=== PATIENT | male | born 1955 | race Caucasian/White ===

== ENCOUNTER 2023-08-30 14:28 | Outpatient (AMB) | payer OTHER, SELFPAY ==
--- NOTE | 2023-08-30 14:35 | MHC.PC.OV ---
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 Intake Note: New patient visit Allergies No Known Allergies Allergy (Verified 08/30/23 14:36) Tobacco use date assessed: 08/30/23 Fall risk assessment: 2 + Falls in past year Last assessed Fall Risk: 08/30/23 Dental Screening Dental Screen Date: 08/30/23 Did you have a dental visit in the last 12 months?: Yes Did you have a dental problem in the last 6 months where you did not have access to dental care?: No Was dental information given to patient?: Patient has dentist HPI HPI Comments History of Present Illness Details The patient is a 68 year old male with a past medical history of TBI, YESICA on CPAP, COPD, recovered alcoholic, type 2 diabetes, hypertension, TAA presenting for follow up. He is accompanied by a health director of patient care. CV: Follows with [facility]. Admitted in Mar 2023 for CHF. Had JOSEF 03/2023 suggestive of atrial thrombus. Denies increased shortness of breath. Needs help managing medications at home due to h/o TBI Rsp: On Anoro. Follows with [facility]. Had LDCT with non suspicious appearing lung nodules. TBI: History of TBI. Saw neurology at [facility]. Followed with [facility]. Follows with [facility] injury program [facility]. Annia Schwartz. History recovered etoh. continues AA. Sober since 1992. Chronic pain: stable on chronic opioid therapy -DDD-history of cervical fusion and remote LS fusion. Follows with [facility]. Endocrine: Diabetes. controlled. On metformin 500mg daily ROS see HPI PHYSICAL EXAM: GENERAL: Alert and oriented x 3. NAD EYES: EOMI. Anicteric. HENT: Moist mucous membranes. No scleral icterus. No cervical lymphadenopathy. LUNGS: Clear to auscultation bilaterally. CARDIOVASCULAR: Regular rate and rhythm. No murmur. No JVD. ABDOMEN: Soft, non-tender +bs EXTREMITIES: No edema. Non-tender. SKIN: No rashes or lesions. Warm. NEUROLOGIC: No focal neurological deficits. Memory impaired PSYCHIATRIC: Cooperative. Appropriate mood and affect [facility] Medical History Diabetes Vitamin D deficiency, unspecified Tubular adenoma of colon Presenile dementia Polyp of colon YESICA (obstructive sleep apnea) Obesity Nicotine dependence Lumbar spondylosis with myelopathy Lumbar canal stenosis Incomplete emptying of bladder Hypertension Hyperlipidemia H/O traumatic brain injury ELIZABETH (generalized anxiety disorder) Depressive disorder Constipation, unspecified CHF (congestive heart failure) COPD (chronic obstructive pulmonary disease) Cervical arthritis Cardiomyopathy Benign prostatic hyperplasia with urinary obstruction Benign prostatic hyperplasia Benign hypertension Arrhythmia Angina pectoris Alcoholism Surgical History History of spinal fusion History of appendectomy History of cervical spinal arthrodesis History of hernia repair History of gastric surgery History of colonoscopy Family History Mother Lung cancer Smoker Father Diabetes High cholesterol Hypertension Unsteady gait Social History Household Members: None Housing: House Alcohol intake: former Year quit: 1987 Patient Tobacco Use Status: Former Tobacco user Tobacco use type: Cigar and Pipe Cigarettes Per Day: 2 e-Cigarette/Vaping Use: Never Used Second Hand Smoke Exposure: No Substance Use Type: Marijuana service: No Current occupational status: retired and disabled Cognitive needs: Yes (brain injury) Hearing needs: No Vision needs: No Questionnaire AUDIT C Alcohol Use Questionnaire (AUDIT-C) 1. How often do you have a drink containing alcohol?: Never (hasnt drank since 1984) 3. How often do you have six or more drinks on one occasion?: Never Total Score: 0 Physical exam (Primary Care) Vital Signs: Last Vital Signs Temp 98.1 F 08/30/23 14:40 Pulse 48 L 08/30/23 14:40 Resp 14 08/30/23 14:40 BP 110/52 L 08/30/23 14:40 Pulse Ox 99 08/30/23 14:40 Tobacco/Smoking Status: Tobacco use Status Tobacco use date assessed 08/30/23 08/30/23 14:49 Patient Tobacco Use Status Former Tobacco user 08/30/23 14:49 Tobacco use type Pipe,Cigar 08/30/23 14:49 e-Cigarette/Vaping Use Never Used 08/30/23 14:49 Assessment and Plan Assessment & Plan (1) TBI (traumatic brain injury): Code(s): S06.9XAA - Unspecified intracranial injury with loss of consciousness status unknown, initial encounter Qualifiers: Encounter type: sequela Loss of consciousness presence/duration: unknown LOC status Qualified Code(s): S06.9XAS - Unspecified intracranial injury with loss of consciousness status unknown, sequela Plan: Follows with [facility] Has [facility] Needs home care for medication management due to memory/TBI. home health requested (2) CHF (congestive heart failure): Code(s): I50.9 - Heart failure, unspecified Qualifiers: Heart failure chronicity: chronic Heart failure type: combined systolic and diastolic Qualified Code(s): I50.42 - Chronic combined systolic (congestive) and diastolic (congestive) heart failure Plan: Euvolemic. continue cardiology follow up (3) Malnourished: Code(s): E46 - Unspecified protein-calorie malnutrition Qualifiers: Malnutrition type: unspecified type Qualified Code(s): E46 - Unspecified protein-calorie malnutrition (4) Lumbar spondylosis with myelopathy: Code(s): M47.16 - Other spondylosis with myelopathy, lumbar region Plan: continue chronic opioid therapy for failed back syndrome Orders: Orders Hemoglobin A1c 08/30/23 M47.16 - Other spondylosis with myelopathy, lumbar region, R41.3 - Other amnesia, S06.9XAA - Unspecified intracranial injury with loss of consciousness status unknown, initial encounter Comprehensive Met. Panel 08/30/23 M47.16 - Other spondylosis with myelopathy, lumbar region, R41.3 - Other amnesia, S06.9XAA - Unspecified intracranial injury with loss of consciousness status unknown, initial encounter [facility]errals [facility] Referral I50.9 - Heart failure, unspecified, M47.16 - Other spondylosis with myelopathy, lumbar region, R41.3 - Other amnesia, S06.9XAA - Unspecified intracranial injury with loss of consciousness status unknown, initial encounter Medications: New quetiapine (Seroquel) Take along with 50mg tab for total of 75mg daily 25 mg PO BEDTIME 90 tabs 3RF quetiapine Take along with 25mg oral nightly tab for total of 75mg daily 50 mg PO BEDTIME 90 tabs 3RF metformin 500 mg PO DAILY 90 tabs 3RF Ensure High Protein (food supplemt, lactose-reduced) 1 ea PO DAILY 90 ea 3RF 90 days NS E46 - Unspecified protein-calorie malnutrition, R13.10 - Dysphagia, unspecified Coding Level of Care Code Est Pt Level 5 (08492) Diagnoses Traumatic brain injury, with unknown loss of consciousness status, sequela S06.9XAS Encounter type: sequela Loss of consciousness presence/duration: unknown LOC status 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 Heart failure chronicity: chronic Heart failure type: combined systolic and diastolic Malnutrition, unspecified type E46 Malnutrition type: unspecified type Lumbar spondylosis with myelopathy M47.16
[2023-08-30 14:40] VITALS: BP 110/52; PULSE 48; RESP 14; TEMP 36.7; O2SAT 99
== END 2023-08-30 16:33 | disposition home or self-care (01) ==
PROVIDERS: Visit Provider Internal Medicine
DX: I50.42 Chronic combined systolic (congestive) and diastolic (congestive) heart failure (principal); E46 Unspecified protein-calorie malnutrition; S06.9XAS Unspecified intracranial injury with loss of consciousness status unknown, sequela; M47.16 Other spondylosis with myelopathy, lumbar region
CPT/HCPCS: 99215

== ENCOUNTER 2023-08-30 15:25 | Outpatient (REF) | payer OTHER, SELFPAY ==
[2023-08-30 17:43] LABS: Alanine Aminotransferase 19 U/L (0-40); Albumin Level 4.2 g/dL (3.5-5.0); Alkaline Phosphatase 103 U/L (39-117); Anion Gap 11 (12-20); Aspartate Amino Transferase 25 U/L (5-37); Bilirubin Total 0.4 mg/dL (0.0-1.0); Blood Urea Nitrogen 14 mg/dL (9-16); Calcium 9.8 mg/dL (8.4-10.2); Carbon Dioxide 32 mmol/L (22-29); Chloride 101 mmol/L (96-108); Estimated Glomerular Filt Rate > 60; Glucose Random 83 mg/dL (60-115); Potassium 4.4 mmol/L (3.3-5.1); Sodium 140 mmol/L (135-145); Total Protein 7.3 g/dL (6.5-8.0)
[2023-08-30 17:47] LABS: Estimated Average Glucose 108 mg/dL; Hemoglobin A1c % 5.4 % (<6.0)
== END 2023-08-30 15:26 | disposition home or self-care (01) ==
LOC: HO.WFDLDS 15:25
PROVIDERS: Visit Provider Internal Medicine
DX: M47.16 Other spondylosis with myelopathy, lumbar region (principal); R41.3 Other amnesia; S06.9XAA Unspecified intracranial injury with loss of consciousness status unknown, initial encounter; X58.XXXA Exposure to other specified factors, initial encounter; Y93.9 Activity, unspecified; Y92.9 Unspecified place or not applicable; Y99.9 Unspecified external cause status
CPT/HCPCS: 36415; 80053; 83036

== ENCOUNTER → 2023-11-11 23:59 | Outpatient (BNV) | payer OTHER, SELFPAY | PROVIDERS: PCP Internal Medicine; Visit Provider Internal Medicine | DX: I10 Essential (primary) hypertension (principal); F17.210 Nicotine dependence, cigarettes, uncomplicated; J44.9 Chronic obstructive pulmonary disease, unspecified; E11.9 Type 2 diabetes mellitus without complications | CPT/HCPCS: G0179 ==

== ENCOUNTER 2023-11-15 14:00 | Outpatient (AMB) | payer OTHER, SELFPAY ==
--- NOTE | 2023-11-15 13:55 | A.OFFPC_ITS ---
Intake Visit Reasons: cataract surgery LT eye on 11/21-RT eye on 12/07 Intake Note: Pre op cataract surgery with Dr Hopkins. 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 Allergies No Known Allergies Allergy (Verified 11/15/23 13:55) Tobacco use date assessed: 08/30/23 Fall risk assessment: 2 + Falls in past year Last assessed Fall Risk: 11/15/23 Dental Screening Dental Screen Date: 08/30/23 [facility] Medical History Diabetes Vitamin D deficiency, unspecified Tubular adenoma of colon Presenile dementia Polyp of colon YESICA (obstructive sleep apnea) Obesity Nicotine dependence Lumbar spondylosis with myelopathy Lumbar canal stenosis Incomplete emptying of bladder Hypertension Hyperlipidemia H/O traumatic brain injury ELIZABETH (generalized anxiety disorder) Depressive disorder Constipation, unspecified CHF (congestive heart failure) COPD (chronic obstructive pulmonary disease) Cervical arthritis Cardiomyopathy Benign prostatic hyperplasia with urinary obstruction Benign prostatic hyperplasia Benign hypertension Arrhythmia Angina pectoris Alcoholism Surgical History History of spinal fusion History of appendectomy History of cervical spinal arthrodesis History of hernia repair History of gastric surgery History of colonoscopy Family History Mother Lung cancer Smoker Father Diabetes High cholesterol Hypertension Unsteady gait Social History Household Members: None Housing: House Alcohol intake: former Year quit: 1987 Patient Tobacco Use Status: Former Tobacco user Tobacco use type: Cigar and Pipe Cigarettes Per Day: 2 e-Cigarette/Vaping Use: Never Used Second Hand Smoke Exposure: No Substance Use Type: Marijuana service: No Current occupational status: retired and disabled Cognitive needs: Yes (brain injury) Hearing needs: No Vision needs: No Physical exam (Primary Care) Tobacco/Smoking Status: Tobacco use Status Tobacco use date assessed 08/30/23 08/30/23 14:49 Patient Tobacco Use Status Former Tobacco user 08/30/23 14:49 Tobacco use type Pipe,Cigar 08/30/23 14:49 e-Cigarette/Vaping Use Never Used 08/30/23 14:49 Coding
--- NOTE | 2023-11-15 14:13 | A.OFFPC_ITS ---
Vital Signs 11/15/23 14:15 Height 6 ft Weight 187 lb 8 oz BMI 25.4 BP 138/74 Blood Pressure Location Rt brachial Position Sitting Pulse 57 Pulse Source Pulse Oximeter Pulse Oximetry (%) 96 Oxygen Delivery Method Room Air Intake Visit Reasons: cataract surgery LT eye on 11/21-RT eye on 12/07 Allergies No Known Allergies Allergy (Verified 11/15/23 13:55) Tobacco use date assessed: 08/30/23 Dental Screening Dental Screen Date: 08/30/23 HPI HPI Comments History of Present Illness Details The patient is a 68 year old male with a past medical history of TBI, YESICA on CPAP, COPD, recovered alcoholic, type 2 diabetes, hypertension, TAA presenting for follow up. He is accompanied by a health care manager. YESICA-compliant with CPAP COPD-No recent exacerbation CV-No chest pain. No exertional dyspnea. Walks dog for 45 minutes. EKG without acute ischemic changes Diabetes is well controlled Tolerate anesthesia CV: Follows with [facility]. Admitted in Mar 2023 for CHF. Is euvolemic without chest pain or dyspnea Rsp: On Anoro. Follows with [facility]. Had LDCT with non suspicious appearing lung nodules. TBI: History of TBI. Saw neurology at [facility]. Followed with [facility] Follows with head injury program [facility]. Manager Location Annia Schwartz. History recovered etoh. continues AA. Sober since 1992. Chronic pain: stable on chronic opioid therapy -DDD-history of cervical fusion and [place]iott te LS fusion. Follows with [facility]. Endocrine: Diabetes. controlled. On metformin 500mg daily ROS see HPI PHYSICAL EXAM: GENERAL: Alert and oriented x 3. NAD EYES: EOMI. Anicteric. HENT: Moist mucous membranes. No scleral icterus. No cervical lymphadenopathy. LUNGS: Clear to auscultation bilaterally. CARDIOVASCULAR: Regular rate and rhythm. No murmur. No JVD. ABDOMEN: Soft, non-tender +bs EXTREMITIES: No edema. Non-tender. SKIN: No rashes or lesions. Warm. NEUROLOGIC: No focal neurological deficits. Memory impaired PSYCHIATRIC: Cooperative. Appropriate mood and affect [facility] Medical History Diabetes Vitamin D deficiency, unspecified Tubular adenoma of colon Presenile dementia Polyp of colon YESICA (obstructive sleep apnea) Obesity Nicotine dependence Lumbar spondylosis with myelopathy Lumbar canal stenosis Incomplete emptying of bladder Hypertension Hyperlipidemia H/O traumatic brain injury ELIZABETH (generalized anxiety disorder) Depressive disorder Constipation, unspecified CHF (congestive heart failure) COPD (chronic obstructive pulmonary disease) Cervical arthritis Cardiomyopathy Benign prostatic hyperplasia with urinary obstruction Benign prostatic hyperplasia Benign hypertension Arrhythmia Angina pectoris Alcoholism Surgical History History of spinal fusion History of appendectomy History of cervical spinal arthrodesis History of hernia repair History of gastric surgery History of colonoscopy Family History Mother Lung cancer Smoker Father Diabetes High cholesterol Hypertension Unsteady gait Social History Household Members: None Housing: House Alcohol intake: former Year quit: 1987 Patient Tobacco Use Status: Former Tobacco user Tobacco use type: Cigar and Pipe Cigarettes Per Day: 2 e-Cigarette/Vaping Use: Never Used Second Hand Smoke Exposure: No Substance Use Type: Marijuana service: No Current occupational status: retired and disabled Cognitive needs: Yes (brain injury) Hearing needs: No Vision needs: No Questionnaire PHQ-9 Over the last 2 weeks, how often have you been bothered by any of the following problems? 1. Little interest or pleasure in doing things: not at all 2. Feeling down, depressed, or hopeless: several days 3. Trouble falling or staying asleep, or sleeping too much: several days 4. Feeling tired or having little energy: several days 5. Poor appetite or overeating: not at all 6. Feeling bad about yourself - or that you are a failure or have let yourself or your family down: not at all 7. Trouble concentrating on things, such as reading the newspaper or watching television: not at all 8. Moving or speaking so slowly that other people could have noticed. Or the opposite - being so fidgety or restless that you have been moving around a lot more than usual: not at all 9. Thoughts that you would be better off or of hurting yourself in some way: not at all Total score: 3 Source: Developed by Drs. Nixon Torres, Neyda Marcum, Navin Jones and colleagues, with an educational michael from [employer] / ?.??. Thrive Questionnaire I am a: Patient What is your living situation today?: I have a steady place to live Within the past 12 months, did the food you bought not last and you didn't have the money to get more?: Sometimes True Within the past 12 months, did you worry whether your food would run out before you got money to buy more?: Never true Do you have trouble paying for medicines?: No Do you have trouble getting transportation to medical appointments?: No Do you have trouble paying your heating and electricity bill?: No Do you have trouble taking care of your child, family member or friend?: No Do you have trouble with day-to-day activities such as bathing, preparing meals, shopping, managing finances, etc.?: Yes Are you currently unemployed and looking for a job?: No Are you interested in more education?: No Please select the resources that you would like help with: None Currently or been in a relationship where the following occur: No concerns reported THRIVE Score: 1 AUDIT C Alcohol Use Questionnaire (AUDIT-C) 1. How often do you have a drink containing alcohol?: Never Total Score: 0 ELIZABETH-7 AMB Questionnaire ELIZABETH-7 Feeling nervous, anxious, or on edge: 1 = Several days Not being able to stop or control worryin = Not at all Worrying too much about different things: 0 = Not at all Trouble relaxin = Not at all Being so restless that it is hard to sit still: 0 = Not at all Becoming easily annoyed or irritable: 1 = Several days Feeling afraid as if something awful might happen: 0 = Not at all Total ELIZABETH-7 score (0-4 normal; 5-9 mild; 10-14 moderate; 15-21 severe): 2 Source: Developed by Drs. Nixon Torres, Neyda Marcum, Navin Jones and colleagues, with an educational michael from [employer] / ?.??. Physical exam (Primary Care) Vital Signs: Last Vital Signs Pulse 57 11/15/23 14:15 BP 138/74 11/15/23 14:15 Pulse Ox 96 11/15/23 14:15 Oxygen Delivery Method Room Air 11/15/23 14:15 BMI result Body Mass Index 25.4 Tobacco/Smoking Status: Tobacco use Status Tobacco use date assessed 08/30/23 11/15/23 14:17 Patient Tobacco Use Status Former Tobacco user 11/15/23 14:17 Tobacco use type Pipe,Cigar 11/15/23 14:17 e-Cigarette/Vaping Use Never Used 11/15/23 14:17 PHQ-9: PHQ-9 Score PHQ-9: Total score 3 11/16/23 14:54 Currently or been in a relationship where the following occur: No concerns reported Coding Level of Care Code Est Pt Level 5 (49073) Diagnoses Preoperative cardiovascular examination Z01.810 Time Spent (min) 55 Assessment & Plan Assessment & Plan (1) Preoperative cardiovascular examination: Code(s): Z01.810 - Encounter for preprocedural cardiovascular examination Category: Medical Plan: Patient has multiple surgical risk factors. As such he is a high risk patient for low risk surgery His chronic medical conditions are medically optimized EKG reviewed. Labs reviewed. METS>/=4 He can proceed with planned procedures without further cardiac testing Take all meds as usual day of procedure Orders: Orders Basic Metabolic Panel 11/15/23 I50.42 - Chronic combined systolic (congestive) and diastolic (congestive) heart failure, R13.10 - Dysphagia, unspecified, Z01.810 - Encounter for preprocedural cardiovascular examination Hemoglobin A1c 11/15/23 I50.42 - Chronic combined systolic (congestive) and diastolic (congestive) heart failure, R13.10 - Dysphagia, unspecified, Z01.810 - Encounter for preprocedural cardiovascular examination Complete Blood Count Auto Diff 11/15/23 I50.42 - Chronic combined systolic (congestive) and diastolic (congestive) heart failure, R13.10 - Dysphagia, unspecified, Z01.810 - Encounter for preprocedural cardiovascular examination FL barium swallow 11/15/23 R13.10 - Dysphagia, unspecified Referrals Ear/Nose/Throat Referral R13.10 - Dysphagia, unspecified Gastroenterology Referral R13.10 - Dysphagia, unspecified
[2023-11-15 14:15] VITALS: BP 138/74; PULSE 57; O2SAT 96; BMI 25.4
== END 2023-11-15 15:43 | disposition home or self-care (01) ==
PROVIDERS: Visit Provider Internal Medicine
DX: Z01.818 Encounter for other preprocedural examination (principal); I50.42 Chronic combined systolic (congestive) and diastolic (congestive) heart failure; R13.10 Dysphagia, unspecified

== ENCOUNTER → 2023-11-15 14:00 | Outpatient (BNVA) | payer OTHER, SELFPAY | PROVIDERS: Visit Provider Internal Medicine ==

== ENCOUNTER 2023-11-15 15:12 | Outpatient (REF) | payer OTHER, SELFPAY ==
[2023-11-15 18:07] LABS: Estimated Average Glucose 111 mg/dL; Hemoglobin A1C 128.2199 umol/L; Hemoglobin A1c % 5.5 % (<6.0); Total Hemoglobin (HGBA1C) 3473.5308 umol/L
[2023-11-15 18:13] LABS: Anion Gap 12 (12-20); Blood Urea Nitrogen 12 mg/dL (9-16); Calcium 10.2 mg/dL (8.4-10.2); Carbon Dioxide 31 mmol/L (22-29); Chloride 102 mmol/L (96-108); Estimated Glomerular Filt Rate > 60; Glucose Random 103 mg/dL (60-115); Potassium 4.5 mmol/L (3.3-5.1); Sodium 140 mmol/L (135-145)
== END 2023-11-15 15:13 | disposition home or self-care (01) ==
LOC: HO.WFDLDS 15:12
PROVIDERS: Visit Provider Internal Medicine
DX: Z01.810 Encounter for preprocedural cardiovascular examination (principal); I11.0 Hypertensive heart disease with heart failure; I50.42 Chronic combined systolic (congestive) and diastolic (congestive) heart failure; R13.10 Dysphagia, unspecified; G47.33 Obstructive sleep apnea (adult) (pediatric); J44.9 Chronic obstructive pulmonary disease, unspecified; E11.9 Type 2 diabetes mellitus without complications; Z99.89 Dependence on other enabling machines and devices
CPT/HCPCS: 36415; 80048; 83036; 99212

== ENCOUNTER 2023-12-19 09:16 | Outpatient (AMB) | payer OTHER, SELFPAY ==
--- NOTE | 2023-12-19 09:25 | A.OFFPC_ITS ---
Vital Signs 12/19/23 09:30 Height 6 ft Weight 197 lb 2 oz BMI 26.7 BP 116/48 L Blood Pressure Location Lt brachial Position Sitting Pulse 67 Pulse Source Pulse Oximeter Pulse Oximetry (%) 94 Oxygen Delivery Method Room Air Intake Visit Reasons: Resched from 12/04: 3month f/u Intake Note: Three month follow up Powder Operator Required: No Allergies No Known Allergies Allergy (Verified 12/19/23 09:25) Tobacco use date assessed: 08/30/23 Dental Screening Dental Screen Date: 08/30/23 HPI HPI Comments History of Present Illness Details The patient is a 68 year old male with a past medical history of TBI, YESICA on CPAP, COPD, recovered alcoholic, type 2 diabetes, hypertension, TAA presenting for follow up. He is accompanied by a health aged or disabled care worker. Recently underwent eye surgery. Doing well -vision is still improving. CV: Follows with PVC. Admitted in Mar 2023 for CHF. Is euvolemic without chest pain or dyspnea. Rsp: On Anoro. Follows with [facility] pulmonary. Had LDCT with non suspicious appearing lung nodules. YESICA-compliant on CPAP TBI: History of TBI. Saw neurology at [facility]. Followed with [facility]. Follows with head injury program [facility]. 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 History recovered etoh. continues AA. Sober since 1992. Chronic pain: stable on chronic opioid therapy -DDD-history of cervical fusion and elliott te LS fusion. Follows with PSS. -NEOS sending to [facility] pain managemen t for spinal cord stim trial. A lot of right hip pain, low back pain Endocrine: Diabetes. Controlled. On metformin 500mg daily. A1C 5.5% 11/15/23. GI: Dysphagia. Has barium swallow in Jan. Pending ENT referral. Dental issues ROS see HPI PHYSICAL EXAM: GENERAL: Alert and oriented x 3. NAD EYES: EOMI. Anicteric. HENT: Moist mucous membranes. No scleral icterus. No cervical lymphadenopathy. LUNGS: Clear to auscultation bilaterally. CARDIOVASCULAR: Regular rate and rhythm. No murmur. No JVD. ABDOMEN: Soft, non-tender +bs EXTREMITIES: No edema. Non-tender. SKIN: No rashes or lesions. Warm. NEUROLOGIC: No focal neurological deficits. Memory impaired PSYCHIATRIC: Cooperative. Appropriate mood and affect [facility] Medical History Diabetes Vitamin D deficiency, unspecified Tubular adenoma of colon Presenile dementia Polyp of colon YESICA (obstructive sleep apnea) Obesity Nicotine dependence Lumbar spondylosis with myelopathy Lumbar canal stenosis Incomplete emptying of bladder Hypertension Hyperlipidemia H/O traumatic brain injury ELIZABETH (generalized anxiety disorder) Depressive disorder Constipation, unspecified CHF (congestive heart failure) COPD (chronic obstructive pulmonary disease) Cervical arthritis Cardiomyopathy Benign prostatic hyperplasia with urinary obstruction Benign prostatic hyperplasia Benign hypertension Arrhythmia Angina pectoris Alcoholism Surgical History History of spinal fusion History of appendectomy History of cervical spinal arthrodesis History of hernia repair History of gastric surgery History of colonoscopy Family History Mother Lung cancer Smoker Father Diabetes High cholesterol Hypertension Unsteady gait Social History Household Members: None Housing: House Alcohol intake: former Year quit: 1987 Patient Tobacco Use Status: Former Tobacco user Tobacco use type: Cigar and Pipe Cigarettes Per Day: 2 e-Cigarette/Vaping Use: Never Used Second Hand Smoke Exposure: No Substance Use Type: Marijuana service: No Current occupational status: retired and disabled Cognitive needs: Yes (brain injury) Hearing needs: No Vision needs: No Questionnaire Thrive Questionnaire Date Thrive assessed: 11/15/23 I am a: Patient What is your living situation today?: I have a steady place to live Within the past 12 months, did the food you bought not last and you didn't have the money to get more?: Sometimes True Within the past 12 months, did you worry whether your food would run out before you got money to buy more?: Never true Do you have trouble paying for medicines?: No Do you have trouble getting transportation to medical appointments?: No Do you have trouble paying your heating and electricity bill?: No Do you have trouble taking care of your child, family member or friend?: No Do you have trouble with day-to-day activities such as bathing, preparing meals, shopping, managing finances, etc.?: Yes Are you currently unemployed and looking for a job?: No Are you interested in more education?: No Please select the resources that you would like help with: None Currently or been in a relationship where the following occur: No concerns reported THRIVE Score: 1 AUDIT C Alcohol Use Questionnaire (AUDIT-C) 3. How often do you have six or more drinks on one occasion?: Never Total Score: 0 Physical exam (Primary Care) Vital Signs: Last Vital Signs Pulse 67 12/19/23 09:30 BP 116/48 L 12/19/23 09:30 Pulse Ox 94 12/19/23 09:30 Oxygen Delivery Method Room Air 12/19/23 09:30 BMI result Body Mass Index 26.7 Tobacco/Smoking Status: Tobacco use Status Tobacco use date assessed 08/30/23 12/19/23 09:32 Patient Tobacco Use Status Former Tobacco user 12/19/23 09:32 Tobacco use type Pipe,Cigar 12/19/23 09:32 e-Cigarette/Vaping Use Never Used 12/19/23 09:32 Thrive Assessment: Date of Thrive Assessment Date Thrive assessed 11/15/23 12/19/23 09:32 Currently or been in a relationship where the following occur: No concerns reported Coding Level of Care Code Est Pt Level 5 (72572) Complex EM visit Add On G2211 Diagnoses Lumbar spondylosis with myelopathy M47.16 YESICA (obstructive sleep apnea) G47.33 Type 2 diabetes mellitus with diabetic polyneuropathy, without long-term current use of insulin E11.42 Diabetes mellitus type: type 2 Diabetes mellitus buttermaker helper insulin use: without buttermaker helper use Diabetes mellitus complication status: with neurologic complications Diabetes mellitus complication detail: with polyneuropathy Chronic obstructive pulmonary disease, unspecified COPD type J44.9 COPD type: unspecified COPD Traumatic brain injury, with unknown loss of consciousness status, sequela S06.9XAS Encounter type: sequela Loss of consciousness presence/duration: unknown LOC status 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 Heart failure type: combined systolic and diastolic Heart failure chronicity: chronic Malnutrition, unspecified type E46 Malnutrition type: unspecified type Time Spent (min) 55 Assessment & Plan Assessment & Plan (1) Lumbar spondylosis with myelopathy: Code(s): M47.16 - Other spondylosis with myelopathy, lumbar region Category: Medical Plan: On chronic opioid therapy Seeing pain management Appropriate use of medications (2) YESICA (obstructive sleep apnea): Code(s): G47.33 - Obstructive sleep apnea (adult) (pediatric) Category: Medical Plan: cpap intolerant referral for inspire-may have to be done by sleep medicine (3) Diabetes: Code(s): E11.9 - Type 2 diabetes mellitus without complications Category: Medical Qualifiers: Diabetes mellitus type: type 2 Diabetes mellitus buttermaker helper insulin use: without mcfp use Diabetes mellitus complication status: with neurologic complications Diabetes mellitus complication detail: with polyneuropathy Qualified Code(s): E11.42 - Type 2 diabetes mellitus with diabetic polyneuropathy Plan: stable on metformin (4) COPD (chronic obstructive pulmonary disease): Code(s): J44.9 - Chronic obstructive pulmonary disease, unspecified Category: Medical Qualifiers: COPD type: unspecified COPD Qualified Code(s): J44.9 - Chronic obstructive pulmonary disease, unspecified Plan: no exacerbation. continue current medications (5) TBI (traumatic brain injury): Code(s): S06.9XAA - Unspecified intracranial injury with loss of consciousness status unknown, initial encounter Category: Medical Qualifiers: Encounter type: sequela Loss of consciousness presence/duration: unknown LOC status Qualified Code(s): S06.9XAS - Unspecified intracranial injury with loss of consciousness status unknown, sequela Plan: has good support with LAZARO RAGLAND (6) CHF (congestive heart failure): Code(s): I50.9 - Heart failure, unspecified Category: Medical Qualifiers: Heart failure type: combined systolic and diastolic Heart failure chronicity: chronic Qualified Code(s): I50.42 - Chronic combined systolic (congestive) and diastolic (congestive) heart failure Plan: utd with cardiology. Euvolemic (7) Malnourished: Code(s): E46 - Unspecified protein-calorie malnutrition Category: Medical Qualifiers: Malnutrition type: unspecified type Qualified Code(s): E46 - Unspecified protein-calorie malnutrition Plan: dypshagia. Barium pending. Orders: Orders Comprehensive Met. Panel Today E11.9 - Type 2 diabetes mellitus without complications, I50.42 - Chronic combined systolic (congestive) and diastolic (congestive) heart failure Hemoglobin A1c 3 Months E11.9 - Type 2 diabetes mellitus without complications Lipid Panel Today E11.9 - Type 2 diabetes mellitus without complications, I50.42 - Chronic combined systolic (congestive) and diastolic (congestive) heart failure TSH reflex Free T4 Today E11.9 - Type 2 diabetes mellitus without complications, I50.42 - Chronic combined systolic (congestive) and diastolic (congestive) heart failure Referrals Plastic Surgery Referral E11.9 - Type 2 diabetes mellitus without complications, G47.33 - Obstructive sleep apnea (adult) (pediatric) Medications: New zinc acetate (Galzin) 50 mg PO DAILY 90 caps 3RF fluoxetine (Prozac) 10 mg PO DAILY 90 caps 3RF
[2023-12-19 09:30] VITALS: BP 116/48; PULSE 67; O2SAT 94; BMI 26.7
== END 2023-12-19 10:19 | disposition home or self-care (01) ==
LOC: HO.HMCFM 09:17
PROVIDERS: PCP Internal Medicine; Visit Provider Internal Medicine
DX: E11.42 Type 2 diabetes mellitus with diabetic polyneuropathy (principal); J44.9 Chronic obstructive pulmonary disease, unspecified; S06.9XAS Unspecified intracranial injury with loss of consciousness status unknown, sequela; I50.42 Chronic combined systolic (congestive) and diastolic (congestive) heart failure; E46 Unspecified protein-calorie malnutrition; M47.16 Other spondylosis with myelopathy, lumbar region; G47.33 Obstructive sleep apnea (adult) (pediatric)

== ENCOUNTER → 2023-12-19 09:16 | Outpatient (BNVA) | payer OTHER, SELFPAY | PROVIDERS: Visit Provider Internal Medicine | DX: M47.16 Other spondylosis with myelopathy, lumbar region (principal); G47.33 Obstructive sleep apnea (adult) (pediatric); E11.42 Type 2 diabetes mellitus with diabetic polyneuropathy; J44.9 Chronic obstructive pulmonary disease, unspecified; I50.42 Chronic combined systolic (congestive) and diastolic (congestive) heart failure; E46 Unspecified protein-calorie malnutrition; S06.9XAS Unspecified intracranial injury with loss of consciousness status unknown, sequela; X58.XXXS Exposure to other specified factors, sequela; Z79.891 Long term (current) use of opiate analgesic | CPT/HCPCS: 99212 ==

== ENCOUNTER 2024-03-26 10:21 | Outpatient (AMB) | payer OTHER, SELFPAY ==
--- NOTE | 2024-03-26 10:36 | MHC.PC.OV ---
Vital Signs 03/26/24 10:40 Height 6 ft Weight 206 lb 2 oz BMI 28.0 BP 122/86 Blood Pressure Location Rt brachial Position Sitting Pulse 71 Pulse Source Pulse Oximeter Pulse Oximetry (%) 96 Oxygen Delivery Method Room Air Intake Visit Reasons: pain, DM folow up Intake Note: Three month follow up Tubular Splitting Machine Tender Required: No Allergies No Known Allergies Allergy (Verified 03/26/24 10:37) Tobacco use date assessed: 08/30/23 Dental Screening Dental Screen Date: 08/30/23 HPI HPI Comments History of Present Illness Details The patient is a 68 year old male with a past medical history of TBI, YESICA on CPAP, COPD, recovered alcoholic, type 2 diabetes, hypertension, TAA presenting for follow up. He is accompanied by a health critical care technician-CCA worker CV: Follows with [facility]. Admitted in Mar 2023 for CHF. Is euvolemic without chest pain or dyspnea. Rsp: ollows with [facility] pulmonary. Had LDCT recently-following up abnormal findings with pulm/thoracic YESICA-compliant on CPAP TBI: History of TBI. Saw neurology at [facility]. Followed with N. Follows with head injury program [facility]. 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 History recovered etoh. continues AA. Sober since 1992. Chronic pain: stable on chronic opioid therapy -DDD-history of cervical fusion and remote LS fusion. Follows with PSS. -NEOS sending to [facility] pain management for spinal cord stim trial. A lot of right hip pain, low back pain Endocrine: Diabetes. Controlled. On metformin 500mg daily. A1C 5.7% today GI: Dysphagia. Had barium swallow. Pending ENT referral. GI visit scheduled for April. Dental issues ROS see HPI PHYSICAL EXAM: GENERAL: Alert and oriented x 3. NAD EYES: EOMI. Anicteric. HENT: Moist mucous membranes. No scleral icterus. No cervical lymphadenopathy. LUNGS: Clear to auscultation bilaterally. CARDIOVASCULAR: Regular rate and rhythm. No murmur. No JVD. ABDOMEN: Soft, non-tender +bs EXTREMITIES: No edema. Non-tender. SKIN: No rashes or lesions. Warm. NEUROLOGIC: No focal neurological deficits. Memory impaired PSYCHIATRIC: Cooperative. Appropriate mood and affect [facility] Medical History Diabetes Vitamin D deficiency, unspecified Tubular adenoma of colon Presenile dementia Polyp of colon YESICA (obstructive sleep apnea) Obesity Nicotine dependence Lumbar spondylosis with myelopathy Lumbar canal stenosis Incomplete emptying of bladder Hypertension Hyperlipidemia H/O traumatic brain injury ELIZABETH (generalized anxiety disorder) Depressive disorder Constipation, unspecified CHF (congestive heart failure) COPD (chronic obstructive pulmonary disease) Cervical arthritis Cardiomyopathy Benign prostatic hyperplasia with urinary obstruction Benign prostatic hyperplasia Benign hypertension Arrhythmia Angina pectoris Alcoholism Surgical History History of spinal fusion History of appendectomy History of cervical spinal arthrodesis History of hernia repair History of gastric surgery History of colonoscopy Family History Mother Lung cancer Smoker Father Diabetes High cholesterol Hypertension Unsteady gait Social History Household Members: None Housing: House Alcohol intake: former Year quit: 1987 Patient Tobacco Use Status: Former Tobacco user Tobacco use type: Cigar and Pipe Cigarettes Per Day: 2 e-Cigarette/Vaping Use: Never Used Second Hand Smoke Exposure: No Substance Use Type: Marijuana service: No Current occupational status: retired and disabled Cognitive needs: Yes (brain injury) Hearing needs: No Vision needs: No Questionnaire PHQ-9 Over the last 2 weeks, how often have you been bothered by any of the following problems? 1. Little interest or pleasure in doing things: not at all 2. Feeling down, depressed, or hopeless: not at all 3. Trouble falling or staying asleep, or sleeping too much: several days 4. Feeling tired or having little energy: several days 5. Poor appetite or overeating: not at all 6. Feeling bad about yourself - or that you are a failure or have let yourself or your family down: not at all 7. Trouble concentrating on things, such as reading the newspaper or watching television: several days 8. Moving or speaking so slowly that other people could have noticed. Or the opposite - being so fidgety or restless that you have been moving around a lot more than usual: not at all 9. Thoughts that you would be better off or of hurting yourself in some way: not at all Total score: 3 Source: Developed by Drs. Neyda Snider Kurt Kroenke and colleagues, with an educational michael from [employer] Thrive Questionnaire Date Thrive assessed: 11/15/23 I am a: Patient What is your living situation today?: I have a steady place to live Within the past 12 months, did the food you bought not last and you didn't have the money to get more?: Never true Within the past 12 months, did you worry whether your food would run out before you got money to buy more?: Never true Do you have trouble paying for medicines?: No Do you have trouble getting transportation to medical appointments?: No Do you have trouble paying your heating and electricity bill?: No Do you have trouble taking care of your child, family member or friend?: No Do you have trouble with day-to-day activities such as bathing, preparing meals, shopping, managing finances, etc.?: No Are you currently unemployed and looking for a job?: No Are you interested in more education?: No Please select the resources that you would like help with: None Currently or been in a relationship where the following occur: No concerns reported THRIVE Score: 0 AUDIT C Alcohol Use Questionnaire (AUDIT-C) 1. How often do you have a drink containing alcohol?: Never Total Score: 0 ELIZABETH-7 AMB Questionnaire ELIZABETH-7 Feeling nervous, anxious, or on edge: 1 = Several days Not being able to stop or control worryin = Not at all Worrying too much about different things: 0 = Not at all Trouble relaxin = Several days Being so restless that it is hard to sit still: 0 = Not at all Becoming easily annoyed or irritable: 1 = Several days Feeling afraid as if something awful might happen: 0 = Not at all Total ELIZABETH-7 score (0-4 normal; 5-9 mild; 10-14 moderate; 15-21 severe): 3 Source: Developed by Drs. Nixon Torres, Neyda Marcum, Navin Jones and colleagues, with an educational michael from [employer] Physical exam (Primary Care) Vital Signs: Last Vital Signs Pulse 71 03/26/24 10:40 BP 122/86 03/26/24 10:40 Pulse Ox 96 03/26/24 10:40 Oxygen Delivery Method Room Air 03/26/24 10:40 BMI result Body Mass Index 28.0 Tobacco/Smoking Status: Tobacco use Status Tobacco use date assessed 08/30/23 03/26/24 10:50 Patient Tobacco Use Status Former Tobacco user 03/26/24 10:50 Tobacco use type Pipe,Cigar 03/26/24 10:50 e-Cigarette/Vaping Use Never Used 03/26/24 10:50 PHQ-9: PHQ-9 Score PHQ-9: Total score 3 03/26/24 10:50 Thrive Assessment: Date of Thrive Assessment Date Thrive assessed 11/15/23 03/26/24 10:50 Currently or been in a relationship where the following occur: No concerns reported Coding Level of Care Code Est Pt Level 4 (13309) Diagnoses Chronic obstructive pulmonary disease, unspecified COPD type J44.9 COPD type: unspecified COPD Type 2 diabetes mellitus with diabetic polyneuropathy, without long-term current use of insulin E11.42 Diabetes mellitus type: type 2 Diabetes mellitus middle or intermediate school principal insulin use: without middle or intermediate school principal use Diabetes mellitus complication status: with neurologic complications Diabetes mellitus complication detail: with polyneuropathy 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 Heart failure type: combined systolic and diastolic Heart failure chronicity: chronic Assessment & Plan Assessment & Plan (1) COPD (chronic obstructive pulmonary disease): Code(s): J44.9 - Chronic obstructive pulmonary disease, unspecified Category: Medical Qualifiers: COPD type: unspecified COPD Qualified Code(s): J44.9 - Chronic obstructive pulmonary disease, unspecified Plan: stable on current medication regimen (2) Diabetes: Code(s): E11.9 - Type 2 diabetes mellitus without complications Category: Medical Qualifiers: Diabetes mellitus type: type 2 Diabetes mellitus middle or intermediate school principal insulin use: without middle or intermediate school principal use Diabetes mellitus complication status: with neurologic complications Diabetes mellitus complication detail: with polyneuropathy Qualified Code(s): E11.42 - Type 2 diabetes mellitus with diabetic polyneuropathy Plan: A1C continues to be at goal (3) CHF (congestive heart failure): Code(s): I50.9 - Heart failure, unspecified Category: Medical Qualifiers: Heart failure type: combined systolic and diastolic Heart failure chronicity: chronic Qualified Code(s): I50.42 - Chronic combined systolic (congestive) and diastolic (congestive) heart failure Plan: Euvolemic. Recently was seen by cardiology. Medications: New clonidine HCl 0.1 mg PO DAILY 90 tabs 3RF Changed From fluticasone propionate 50 mcg/actuation administer into each nostril 1 spray intranasal DAILY To fluticasone propionate 50 mcg/actuation administer into each nostril 2 sprays intranasal DAILY 16 grams 3RF
[2024-03-26 10:40] VITALS: BP 122/86; PULSE 71; O2SAT 96; BMI 28.0
== END 2024-03-26 11:19 | disposition home or self-care (01) ==
PROVIDERS: PCP Internal Medicine; Visit Provider Internal Medicine
DX: J44.9 Chronic obstructive pulmonary disease, unspecified (principal); E11.42 Type 2 diabetes mellitus with diabetic polyneuropathy; I50.42 Chronic combined systolic (congestive) and diastolic (congestive) heart failure

== ENCOUNTER → 2024-03-26 10:21 | Outpatient (BNVA) | payer OTHER, SELFPAY | PROVIDERS: PCP Internal Medicine; Visit Provider Internal Medicine | DX: J44.9 Chronic obstructive pulmonary disease, unspecified (principal); E11.42 Type 2 diabetes mellitus with diabetic polyneuropathy; I11.0 Hypertensive heart disease with heart failure; I50.42 Chronic combined systolic (congestive) and diastolic (congestive) heart failure; G47.33 Obstructive sleep apnea (adult) (pediatric); R13.10 Dysphagia, unspecified; Z79.84 Long term (current) use of oral hypoglycemic drugs; Z99.89 Dependence on other enabling machines and devices | CPT/HCPCS: 83036; 96127; 99212 ==

== ENCOUNTER 2024-04-17 11:11 | Outpatient (AMB) | payer OTHER, SELFPAY ==
--- NOTE | 2024-04-17 11:14 | MHC.OFFVIS ---
Vital Signs 04/17/24 11:15 Height 6 ft Weight 204 lb 2.369 oz BMI 27.7 BP 116/58 L Blood Pressure Location Rt brachial Position Sitting Pulse 68 Pulse Source Pulse Oximeter Pulse Oximetry (%) 97 Oxygen Delivery Method Room Air Intake Visit Reasons: Dysphagia new patient Intake Note: NEW PATIENT for dysphagia Prior hx of colo/egd? Yes, unspecified. TA reported per PCP note. ~ 5 years ago possibly through [facility]. Chief Complaint; C/O dysphagia, occasional burning from GERD. Pt is only taking PPI PRN with occasional famotidine. Pt denies any difficulties with fecal abnormalities related to the opioid. Chaser Tar Required: No Accompanied by: Other Relationship Allergies No Known Allergies Allergy (Verified 04/17/24 11:14) HPI HPI Dysphagia new patient: Details: 69-year-old male with past medical history of asthma, diabetes, YESICA, COPD, dysphagia, Congestive heart failure, memory loss, TBI, lumbar spondylosis is here today for initial consultation. Patient was sent to us by his PCP. Patient is having trouble swallowing periods feels the sensation right after she swallows in his upper throat. Patient reports that mostly with food that is solid. No trouble with soft food. Patient does admit that sometimes may be eating bread will make him feel like he can not swallow. Patient is here today with his WEB SUPPORT ENGINEER who is very attentive and is with patient all the time. Patient does admit that sometimes he swallows fast. Patient does report that he has a very picky eater. PCP started him on omeprazole, however he states that he is not always taking it as he does not feel like he really have reflux every day. Patient takes it only when needed. PCP send patient for barium swallow and his appointment in radiology is on April 23. Patient reports that he is moving his bowels well without any issues. Denies any melena, hematochezia, unintentional weight loss or ribbon like stools [facility] Medical History Diabetes Vitamin D deficiency, unspecified Tubular adenoma of colon Presenile dementia Polyp of colon YESICA (obstructive sleep apnea) Obesity Nicotine dependence Lumbar spondylosis with myelopathy Lumbar canal stenosis Incomplete emptying of bladder Hypertension Hyperlipidemia H/O traumatic brain injury ELIZABETH (generalized anxiety disorder) Depressive disorder Constipation, unspecified CHF (congestive heart failure) COPD (chronic obstructive pulmonary disease) Cervical arthritis Cardiomyopathy Benign prostatic hyperplasia with urinary obstruction Benign prostatic hyperplasia Benign hypertension Arrhythmia Angina pectoris Alcoholism Surgical History History of spinal fusion History of appendectomy History of cervical spinal arthrodesis History of hernia repair History of gastric surgery History of colonoscopy Family History Mother Lung cancer Smoker Father Diabetes High cholesterol Hypertension Unsteady gait Social History Household Members: None Housing: House Alcohol intake: former Year quit: 1987 Patient Tobacco Use Status: Former Tobacco user Tobacco use type: Cigar and Pipe Cigarettes Per Day: 2 e-Cigarette/Vaping Use: Never Used Second Hand Smoke Exposure: No Substance Use Type: Marijuana service: No Current occupational status: retired and disabled Cognitive needs: Yes (brain injury) Hearing needs: No Vision needs: No Physical Exam Vital Signs: Last Vital Signs Pulse 68 04/17/24 11:15 BP 116/58 L 04/17/24 11:15 Pulse Ox 97 04/17/24 11:15 Oxygen Delivery Method Room Air 04/17/24 11:15 BMI result Body Mass Index 27.7 Const General: healthy appearing, no acute distress and well developed Nutritional Appearance: well nourished Orientation/consciousness: patient oriented x3 Resp Effort & Inspection: normal respiratory effort, able to speak in complete sentences, no tracheal deviation and symmetric chest movement Auscultation: clear to auscultation bilaterally Cardio Rate: regular rate GI Inspection: Yes normal to inspection and No distended Palpation (GI): Soft to palpation, not firm, nontender and No hepatosplenomegaly present Auscultation: normal bowel sounds General: Yes no CVA tenderness Back/Spine/Pelvis Back: no CVA tenderness Skin General skin exam: elasticity normal, turgor normal and dry skin Neuro General: patient oriented x3 Psych Appearance: grossly normal Mental Status: mental status grossly normal Speech and movement: Psychomotor agitation in speech present (At times) and Restless speech present (Somewhat) Affect: Animated affect present Attitude: cooperative Assessment & Plan Assessment & Plan (1) Dysphagia: Code(s): R13.10 - Dysphagia, unspecified Category: Medical Qualifiers: Dysphagia type: pharyngoesophageal phase Qualified Code(s): R13.14 - Dysphagia, pharyngoesophageal phase (2) GERD (gastroesophageal reflux disease): Code(s): K21.9 - Gastro-esophageal reflux disease without esophagitis Qualifiers: Esophagitis presence: esophagitis presence not specified Qualified Code(s): K21.9 - Gastro-esophageal reflux disease without esophagitis Plan Patient was encouraged to continue omeprazole daily. Avoid dietary triggers and late night snacking. Patient was encouraged to eat food soft, drink with every bite. Patient was encouraged to making sure that he chews very well before swallowing. Patient will be going for his barium swallow on the . Spoke with his WEB SUPPORT ENGINEER to mention in radiology department to send copy of the report to our office. We will see him in 6 weeks, sooner on as needed basis. Both patient and his WEB SUPPORT ENGINEER are agreeable to plan of care and verbalizes understanding of instructions. They were given the opportunity to ask questions and all questions answered. Thank you for allowing me to participate in his care for Coding Level of Care Code New Pt Level 3 (12583) Diagnoses Pharyngoesophageal dysphagia R13.14 Dysphagia type: pharyngoesophageal phase Gastroesophageal reflux disease, unspecified whether esophagitis present K21.9 Esophagitis presence: esophagitis presence not specified Time Spent (min) 40 Comment 30 minutes spent with patient and additional 10 minutes spent reviewing his records so
[2024-04-17 11:15] VITALS: BP 116/58; PULSE 68; O2SAT 97; BMI 27.7
--- OUTSIDE RECORDS SUMMARY | 2024-04-17 14:04 | XMS_ITS | Encounter Summary ---
Author Organization [facility] Address [address] [place] [address] Care Team Providers Care Electronic Equipment Maint Tech Name Role Phone Susan Gonsalez MD Primary Care Provider [phone] Reason for Visit * Reason Onset Date Comments Appointment 04/06/2024 Appt 04/06/24 Encounter Details Date Type Department Care Team (Late st Contact Info) Description 04/06/2024 Telephone Pulmonology - [address] [address] Marichuy Flor MD [address] [place] [id number] Appointment (Appt 04/06/24) Social History Tobacco Use Types Packs/Day Years Used Date Smoking Tobacco: Former Smokeless Tobacco: Never Alcohol Use Standard Drinks/Week Comments Not Currently 0 (1 standard drink = 0.6 oz pur e alcohol) Sex and Gender Information Value Date Recorded Sex Assigned at Male 03/27/2024 9:28 AM EST Legal Sex Male 5:36 PM EST Gender Identity Male 03/27/2024 9:28 AM EST Sexual Orientation Straight 03/27/2024 9: 28 AM EST documented as of this encounter Progress Notes * Tika Velazquez - 04/06/2024 9:36 AM EST I called the patient to reschedule his appointment due to Dr. Flor???s unavailability today.The patient declined to reschedule, stating that if the provider does not see him today, he will not return to the office. He also mentioned having a head injury and that he sometimes forgets things.I informed the patient of an available appointment on 04/17/24, and he refuse a second time the appointment. documented in this encounter Plan of Treatment Upcoming Encounters Date Type Department Care Team (Late st Contact Info) Description 04/17/2024 3:00 PM EST Office Visit Pulmonology - [address] [address] Marichuy Flor MD [address] [place] [address] documented as of this encounter Visit Diagnoses Not on filedocumented in this encounter Care Teams Electronic Equipment Maint Tech Relationship Specialty Start Date End Date Susan Gonsalez MD PCP - General Endocrinology 03/26/24 documented as of this encounter
--- OUTSIDE RECORDS SUMMARY | 2024-04-17 14:04 | XMS_ITS | Data Portability ---
Author Organization [facility] Address [address] [place] [address] Assessment Encounter Date Assessment Date Assessment LastModified by Organization Details LastModified Time 02/21/2023 02/21/2023 As noted, we were called to see this patient regarding concerns of dyspnea. Evaluation in the field was performed by my regional director of finance colleague, as noted above, I provided real-time direction and supervision for this visit. The evaluation revealed the patient has COPD on home oxygen and was in acute distress. Vitals as noted with hypoxemia, worse even with speaking. Portable Sawmill Operator arranged for urgent transport to ED. In the mean time, initiated end of life care planning discussions with patient. We discussed the situation and I recommended referral to the emergency department. This was based on hypoxemia. [email or web address] Not available 02/21/2023 11:43:26 Plan of Treatment Reminders Order Date Submit Date Provider Last Modified By Organization Details Last Modified Time Details Appointments None record ed. Lab None record ed. Referral None record ed. Procedures None record ed. Surgeries None record ed. Imaging None record ed. Medication Orders None record ed. Patient TargetsNo targets recorded. Patient InstructionsNo instructions recorded. Reason for Referral None Reported. Medical Equipment None Reported. Medications Name Sig Start Date Stop Date Status Note LastModified by Organization Details LastModified Time bupropion HCl SR 150 mg tablet,12 hr sustained-re lease TAKE 1 TABLET BY MOUTH TWICE A DAY active Not Available Not Available No t Available nicotine 14 mg/[address]mal patch PLACE 1 PATCH ONTO THE SKIN EVERY 24 HOURS FOR 28 DAYS. active Not Available Not Available No t Available oxcarbazepin e 300 mg tablet TAKE 1 TABLET BY MOUTH TWICE A DAY active Not Available Not Available No t Available aspirin 81 mg tablet,delay ed release TAKE 1 TABLET BY MOUTH EVERY DAY active Not Available Not Available No t Available oxycodone-ac etaminophen 5 mg-325 mg tablet TAKE 1 TABLET BY MOUTH EVERY 4 HOURS NEEDED FOR PAIN active Not Available Not Available No t Available simvastatin 20 mg tablet TAKE 1 TABLET BY MOUTH EVERYDAY AT BEDTIME active Not Available Not Available No t Available metformin 1,000 mg tablet 1/2 TABLET BY MOUTH DAILY active Not Available Not Available No t Available hydrochlorot hiazide 12.5 mg capsule TAKE 2 CAPSULES BY MOUTH EVERY MORNING active Not Available Not Available No t Available omeprazole 20 mg capsule,terrie yed release TAKE 1 CAPSULE BY MOUTH EVERY DAY active Not Available Not Available No t Available morphine ER 15 mg tablet,exten ded release TAKE 1 TABLET BY MOUTH EVERY 12 HOURS active Not Available Not Available No t Available oxycodone 30 mg tablet TAKE 1 TABLET BY MOUTH EVERY 8 HOURS active Not Available Not Available No t Available azelastine 137 mcg (0.1 %) nasal spray USE SPRAY 2 SPRAYS INTO EACH NOSTRIL DAILY NEEDED FOR ALLERGY active Not Available Not Available No t Available lisinopril 40 mg tablet TAKE 1 TABLET BY MOUTH EVERY DAY active Not Available Not Available No t Available fluoxetine 20 mg capsule TAKE 1 CAPSULE BY MOUTH EVERY DAY active Not Available Not Available No t Available fluticasone propionate 50 mcg/actuatio n nasal spray,suspen blanca INSTILL 2 SPRAYS INTO NOSTRILS EVERY DAY IN THE MORNING active Not Available Not Available No t Available Ventolin HFA 90 mcg/actuatio n aerosol inhaler INHALE 2 PUFFS INTO THE LUNGS EVERY 4 HOURS NEEDED FOR WHEEZING FOR UP TO 30 DAYS. active Not Available Not Available No t Available oxycodone 5 mg tablet TAKE 1 TABLET BY MOUTH 4 TIMES A DAY NEEDED FOR PAIN DO NOT DRIVE WHILE TAAKING THIS MEDICATION active Not Available Not Available N ot Available quetiapine 50 mg tablet TAKE 1 TABLET BY MOUTH EVERY DAY active Not Available Not Available No t Available Anoro Ellipta 62.5 mcg-25 mcg/actuatio n powder for inhalation INHALE 1 PUFF BY MOUTH EVERY DAY active Not Available Not Available No t Available Trelegy Ellipta 100 mcg-62.5 mcg-25 mcg powder for inhalation INHALE 1 PUFF INTO THE LUNGS DAILY FOR 30 DAYS. active Not Available Not Available No t Available Vitals Date Recorded Body temperature Respiratory rate Body height Oxygen saturation Oxygen saturation in Arterial blood by Pulse oximetry Inhaled oxygen flow rate Body weight Heart rate Systolic blood pressure Diastolic blood pressure Provider Name and Address Organization Details Last Updated DateTime 4 97 [degF] 26 /min 185.42 cm 83 % 83 % 2 L/min 59238.3 2 g 77 /min 111 mm[Hg] 78 mm[Hg] Not Available [facility] - production 11:41:41 Social History None recorded. Functional Status None recorded. Mental Status None recorded. Family History Nothing Reported. Medical History No medical history recorded. Past Encounters Encounter ID Performer Location Encounter Start Date Encounter Closed Date Diagnosis/Indication Diagnosis SNOMED-CT Code Diagnosis ICD10 Code Diagnosis Note [id number] MOISES JOHNSON MD [facility] [address] [place] [address] 02/21/2023 11:41:38 02/21/2023 12:15:00 Acute hypoxemic respiratory failure 472284267 J96.01 Health Concerns Section Related Observation LastModified by Organization Detai ls LastModified Time None Recorded Concern Status LastModified by Organization Details LastModified Time None Recorded Advance Directives Directive None Recorded Payers Encounter Date Sequence Insurance Name Policy Number Policy Perkins Covered Member ID Perkins Member ID Guarantor Name 02/21/2023 1 [facility] [place] - DOS ON OR AFTER 2022 - DUAL ELIGIBLE - [employer] OPTIONS AND ONE [employer] (MEDICARE REPLACEMENT/ADV ANTAGE - HMO) Montana Taylor [id number] Montana Taylor Notes Date Note Type Note Provider Name and Address Organization Details Recorded Time 02/21/2023 text/html HPI: Member with cough, fatigue, crackles at lower lung bases and SOB. Cough productive of green mucous. Member reports cough/SOB at baseline worse over last week. Saw Pulmonology without new orders and states they could not get a blood oxygen reading . O2 reading currently 86% on RA. Has home O2 for sleep at 2 L/min via NC. Per member Pulmonology told him to go to ED on Tuesday02/18/23 for intervention. .................. .................. .................. .................. .................. .................. .................. ............... [facility] Nurse Triage Notes (Letitia Mehta): Comments: Spoke to [facility] who is with member now. Member is on 02 @ 2lpm at this time. Increased fatigue and shortness of breath during the night. Using Trelegy inhaler this am as prescribed. Administered albuterol inhaler 2 puffs 30 min ago. No acute respiratory distress per visiting nurse. .................. .................. .................. .................. .................. .................. .................. ............... Portable Sawmill Operator Note From Brent Aguila: Pt reports cough producing green sputum and increased SOB/BOUCHER x2 weeks. Pt reports hx of COPD and is on 2 lpm O2 at baseline. Pt denies CP, f/n/v/d. Pt is alert, speaking 2-3 word sentences, tachypnic, with increased work of breathing. SpO2 79-83% on 2 lpm, dropped to 75% when speaking. Dim LS upper right with coarse rales in lower right. 911 immediately initiated. [facility] [place]. While waiting for EMS to arrive I increased his O2 and discussed roasterman plans with the pt. He was very receptive and plans to confer with the ED MD and his [employer] professor sculpture who is going to meet him in the ED. Care transferred to [facility]. .................. .................. .................. .................. .................. .................. .................. ............... Disposition: Fulfilled MOISES JOHNSON MD [address] [facility],[address], [place], [address], GANESH GRADY 02/21/2023 11:44:01
--- OUTSIDE RECORDS SUMMARY | 2024-04-17 14:04 | XMS_ITS | Encounter Summary ---
Author Organization [facility] Address [address] [place] [address] Care Team Providers Care Track Laying Equipment Operator Name Role Phone Susan Gonsalez MD Primary Care Provider Reason for Referral * Therapy (Emergency) - Closed Specialty Diagnoses / Procedures Referred By Contac t Referred To Contact Pulmonology Diagnoses Lung nodule Procedures Pulmonary function testing: Carbon Monoxide Diffusing Capacity, Spirometry with Bronchodilator, Plethysmography Alysa Maldonado NP [address] [address] Phone: tel: fax: [facility] [address] [place] [address] Phone: tel: Referral ID Status Reason Start Date Expiration Date Visits Re quested Visits Authorized [id number] Closed 03/16/2024 03/16/2025 1 1 Reason for Visit * Therapy (Emergency) - Closed Specialty Diagnoses / Procedures Referred By Contac t Referred To Contact Pulmonology Diagnoses Lung nodule Procedures Pulmonary function testing: Carbon Monoxide Diffusing Capacity, Spirometry with Bronchodilator, Plethysmography Alysa Maldonado NP [address] [address] Phone: tel: fax: [facility] [address] [place] [address] Phone: tel: Referral ID Status Reason Start Date Expiration Date Visits Re quested Visits Authorized [id number] Closed 03/16/2024 03/16/2025 1 1 Encounter Details Date Type Department Care Team (Latest Contact Info) Description 03/29/2024 2:39 PM EST - 03/29/2024 11:59 PM EST Hospital Encounter [facility] [address] [place] [address] Lung nodule Discharge Disposition: Home or Self Care Social History Tobacco Use Types Packs/Day Years [...] AM EST documented as of this encounter Medications at Time of Discharge albuterol 2.5 mg /3 mL (0.083 %) nebulizer solution Take 1 Vial by nebulization every 4 hours as needed. alcohol swabs pads, medicated 1 Each by route 2 times daily. Use when testing blood sugar apixaban (ELIQUIS) 5 mg tablet Take 1 Tablet by mouth 2 Times Daily. aspirin 81 mg EC tablet TAKE 1 TABLET BY MOUTH EVERY DAY azelastine-flutic asone 137-50 mcg/spray spray,non-aerosol 2 Sprays by Nasal route daily. azithromycin (ZITHROMAX) 250 mg tablet Take 1 Tablet by mouth daily. blood sugar diagnostic (FreeStyle Lite Strips) test strip Apply 1 Strip topically 2 times daily. buPROPion SR (WELLBUTRIN SR) 150 mg 12 hr tablet Take 150 mg by mouth 2 times daily. dapagliflozin propanediol (FARXIGA) 10 mg tablet Take 10 mg by mouth daily. digoxin (LANOXIN) 125 mcg (0.125 mg) tablet Take 1 Tablet by mouth daily. FLUoxetine (PROzac) 20 mg capsule Take 20 mg by mouth daily. fluticasone propionate (FLONASE) 50 mcg/actuation nasal spray INHALE 2 SPRAYS BY NASAL ROUTE DAILY fluticasone-umecl idinium-vilantero l (Trelegy Ellipta) 100-62.5-25 mcg inhaler Inhale 1 Puff into the lungs daily. FREESTYLE LANCETS [facility] [place] TO TEST TWICE A DAY furosemide (LASIX) 20 mg tablet Take 1 Tablet by mouth daily for 360 days. lidocaine (LIDODERM) 5 % patch Place 1 Patch onto the skin every 24 hours. Apply for no more than 12 hours in any 24 hour period. lisinopriL (PRINIVIL,ZESTRIL ) 20 mg tablet Take 1 Tablet by mouth 2 times daily. metFORMIN (GLUCOPHAGE) 1,000 mg tablet Take 0.5 Tabs by mouth daily (with breakfast). metoprolol succinate (TOPROL-XL) 50 mg 24 hr tablet Take 1 Tablet by mouth daily. omeprazole (PriLOSEC) [address] capsule Take 20 mg by mouth daily. OXcarbazepine (TRILEPTAL) 300 mg tablet Take 1 Tablet by mouth 2 times daily. oxyCODONE (ROXICODONE) 30 mg immediate release tablet Take 1 Tablet by mouth every 4 hours as needed. QUEtiapine (SEROquel) 50 mg tablet Take 50 mg by mouth at bedtime. simvastatin (ZOCOR) 20 mg tablet TAKE 1 TABLET BY MOUTH EVERY DAY IN THE EVENING spironolactone (ALDACTONE) 25 mg tablet Take 1 Tablet by mouth daily. tamsulosin (FLOMAX) 0.4 mg 24 hr capsule Take 1 Capsule by mouth daily. Take 30 mins after same meal every day. turmeric root extract 500 mg capsule Take 1 Tablet by mouth at bedtime. UNABLE TO FIND CPAP Historical (HISTORICAL CPAP) Patient sig: Inhale into the lungs. ZINC ORAL Zinc 50 MG Tab Patient sig: Take 1 Tablet by mouth daily. documented as of this encounter Discharge Disposition Disposition Code Departure Means Destination Home or Self Care documented in this encounter Plan of Treatment Upcoming Encounters Date Type Department Care Team (Late st Contact Info) Description 04/17/2024 3:00 PM EST Office Visit Pulmonology - [address] [phone] Marichuy Flor MD [address] [place] [address] documented as of this encounter Procedures Procedure Name Priority Date/Time Associated Diagnosis Comments HC SPIROMETRY BRONCHODILATION RESPONSIVENESS PRE/POST BRONCHODILATOR ADMINISTRATION STAT 03/29/2024 3:12 PM EST Lung nodule documented in this encounter Results * Pulmonary function testing: Carbon Monoxide Diffusing Capacity, Spirometry with Bronchodilator, Plethysmography (03/29/2024 3:12 PM EST) Narrative Sushil Srinivasan MD - 03/29/2024 4:06 PM EST DATE OF SERVICE: 03/29/24 SPIROMETRY: FEV1 is 76 % predicted and an FVC ??is 81 % predicted. The FEV1/FVC ratio is decreased, no response to bronchodilators noted. LUNG VOLUMES: Total lung capacity (TLC): 102% predicted. Residual volume (RV): 124% predicted DIFFUSION CAPACITY: DLCO 71% predicted. DlCO/VA 77% of predicted COMPARISONS: INTERPRETATION: This pulmonary function test shows ??mild to moderate obstructive changes consistent with COPD ??Sushil Srinivasan MD ?? Alysa Maldonado NP PFT ORDERABLES Final Resul t documented in this encounter Visit Diagnoses Diagnosis Lung nodule Other diseases of lung, not elsewhere classified documented in this encounter Administered Medications Inactive Administered Medications - up to 3 most recent administrations Medication Order MAR Action Action Date Dose Rate Site albuterol 2.5 mg /3 mL (0.083 %) nebulizer solution 2.5 mg 2.5 mg, nebulization, Once, On Audrey 03/29/24 at 1500, For 1 dose Given 03/29/2024 3:09 PM EST 2.5 mg documented in this encounter Orders Medications Ordered That Dru ht Not Have Been Administered Count Last Ordered Date First Ordered Date albuterol 2.5 mg /3 mL (0.08 3 %) nebulizer solution 2.5 mg 1 03/29/2024 documented in this encounter Care Teams Track Laying Equipment Operator Relationship Specialty Start Date End Date Susan Gonsalez MD PCP - General Endocrinology 03/26/24 documented as of this encounter
--- OUTSIDE RECORDS SUMMARY | 2024-04-17 14:04 | XMS_ITS | Encounter Summary ---
Author Organization [facility] Address [address] [place] [address] Care Team Providers Care Bakery Products Checker Name Role Phone Susan Gonsalez MD Primary Care Provider Reason for Referral * Imaging (Emergency) - Pending Review Specialty Diagnoses / Procedures Referred By Contac t Referred To Contact Radiology Diagnoses Lung nodule Procedures PET CT Skull to Mid Thigh Initial Alysa Maldonado NP [address] [address] Phone: tel: fax: [address] [address] Phone: tel: Referral ID Status Reason Start Date Expiration Date V isits Requested Visits Authorized [id number] Pending Review 03/16/2024 03/16/2025 1 1 Reason for Visit * Imaging (Emergency) - Pending Review Specialty Diagnoses / Procedures Referred By Contac t Referred To Contact Radiology Diagnoses Lung nodule Procedures PET CT Skull to Mid Thigh Initial Alysa Maldonado NP [address] [address] Phone: tel: fax: [address] [phone] Phone: tel: Referral ID Status Reason Start Date Expiration Date V isits Requested Visits Authorized [id number] Pending Review 03/16/2024 03/16/2025 1 1 Encounter Details Date Type Department Care Team (Latest Contact Info) Description 04/05/2024 11:00 AM EST - 04/05/2024 11:59 PM EST Hospital Encounter [facility] PET Scan [address] [place] [address] Lung nodule Discharge Disposition: Home [...] Puff into the lungs daily. FREESTYLE LANCETS [facility] USE TO TEST TWICE A DAY furosemide [...] 3:00 PM EST Office Visit Pulmonology - [address] [address] Marichuy Flor MD [address] [place] [id number] documented as of this encounter Procedures Procedure Name Priority Date/Time Associated Diagnosis Comments PET CT SKULL TO MID THIGH INITIAL STAT 04/05/2024 12:35 PM EST Lung nodule documented in this encounter Results * PET CT Skull to Mid Thigh Initial (04/05/2024 12:35 PM EST) Anatomical Region Laterality Modality Body Radiographic Regina ging 04/06/2024 3:25 AM EST Impressions 04/06/2024 4:08 AM EST 1. ??8 mm pulmonary nodule in the left upper lobe demonstrates minimal FDG activity; nonspecific. 2. ??No significant FDG avid lymphadenopathy. ??Prominent AP window lymph node demonstrates mild FDG activity not increased from background. Please note: The CT was acquired at a low radiation dose settings. ??The images are of nondiagnostic quality and used solely for purposes of attenuation correction and slice localization for the PET scan. ??If a diagnostic CT study is desired it must be ordered separately. -------- FINAL REPORT -------- Dictated By: Tonia Tran Dictated Date: 04/06/2024 03:25 ET Assigned Physician: Tonia Tran Reviewed and Electronically Signed By: Tonia Tran Signed Date: 04/06/2024 04:08 ET Workstation ID: [id number] Transcribed By: Self Edit Transcribed Date: 04/06/2024 03:25 ET Narrative 04/06/2024 4:08 AM EST INDICATION: Lung nodule, > 8mm TECHNIQUE: FDG PET-CT imaging was performed from the skull bases through the thighs in a single acquisition with data set reconstructed in axial, coronal, and sagittal planes at the computer workstation with fused data from both the PET imaging study and attenuation correction CT. The CT portion of the examination was done strictly for attenuation correction and is not a true diagnostic CT examination. DLP: ??832 mGy-cm Radiopharmaceutical: 10.3 mCi of F-18 FDG IV. Blood glucose: 97 mg/dl. COMPARISON: Correlation is made with chest CT February 2024 FINDINGS: HEAD AND NECK: No abnormal FDG activity. THORAX: 8 mm nodule in the left upper lobe SUV max 1.0. AP window lymph node SUV max 2.1. ??Mediastinal and axillary lymph nodes without significant FDG activity. ??For example, right paratracheal lymph nodes measuring up to SUV Max 1.7, subcarinal lymph node SUV max 1.8, axillary lymph nodes measuring up to SUV Max 1.2 (mediastinal blood pool SUV Max 2.6). Surgical change status post gastrectomy with nonspecific FDG activity at the GE junction anastomosis SUV max 3.3. ABDOMEN/PELVIS: Nonenlarged 5 mm pelvic lymph node near the right iliac bifurcation SUV Max 2.1. ??Nonspecific bowel activity. Diverticulosis. Nonspecific activity within the prostate gland SUV max 4.4. MUSCULOSKELETAL: No abnormal FDG activity. ??Postsurgical appearance of the sacrum and ACDF hardware fixation. Procedure Note Tonia Tran MD - 04/06/2024 INDICATION: Lung nodule, > 8mm TECHNIQUE: FDG PET-CT imaging was performed from the skull bases throughthe thighs in a single acquisition with data set reconstructed in axial,coronal, and sagittal planes at the computer workstation with fused datafrom both the PET imaging study and attenuation correction CT. The CTportion of the examination was done strictly for attenuation correctionand is not a true diagnostic CT examination. DLP: 832 mGy-cm Radiopharmaceutical: 10.3 mCi of F-18 FDG IV. Blood glucose: 97 mg/dl. COMPARISON: Correlation is made with chest CT February 2024 FINDINGS: HEAD AND NECK: No abnormal FDG activity. THORAX: 8 mm nodule in the left upper lobe SUV max 1.0. AP window lymph node SUV max 2.1. Mediastinal and axillary lymph nodeswithout significant FDG activity. For example, right paratracheal lymphnodes measuring up to SUV Max 1.7, subcarinal lymph node SUV max 1.8,axillary lymph nodes measuring up to SUV Max 1.2 (mediastinal blood poolSUV Max 2.6). Surgical change status post gastrectomy with nonspecific FDG activity atthe GE junction anastomosis SUV max 3.3. ABDOMEN/PELVIS: Nonenlarged 5 mm pelvic lymph node near the right iliac bifurcation SUVMax 2.1. Nonspecific bowel activity. Diverticulosis. Nonspecific activity within the prostate gland SUV max 4.4. MUSCULOSKELETAL: No abnormal FDG activity. Postsurgical appearance of thesacrum and ACDF hardware fixation. IMPRESSION: 1. 8 mm pulmonary nodule in the left upper lobe demonstrates minimal FDGactivity; nonspecific. 2. No significant FDG avid lymphadenopathy. Prominent AP window lymphnode demonstrates mild FDG activity not increased from background. Please note: The CT was acquired at a low radiation dose settings. The images are ofnondiagnostic quality and used solely for purposes of attenuationcorrection and slice localization for the PET scan. If a diagnostic CTstudy is desired it must be ordered separately. -------- FINAL REPORT -------- Dictated By: Tonia Tran Dictated Date: 04/06/2024 03:25 ET Assigned Physician: Tonia Tran Reviewed and Electronically Signed By: Tonia Tran Signed Date: 04/06/2024 04:08 ET Workstation ID: [id number] Transcribed By: Self Edit Transcribed Date: 04/06/2024 03:25 ET us Alysa Maldonado STAGE SET UP WORKER IMG NM PROCEDURES Final Res ult documented in this encounter Visit Diagnoses Diagnosis Lung nodule Other diseases of lung, not elsewhere classified documented in this encounter Administered Medications Inactive Administered Medications - up to 3 most recent administrations Medication Order MAR Action Action Date Dose Rate Site F-18 FDG pet diag radio-isotope injection 10.3 millicurie 10.3 millicurie, intravenous, Once in imaging, Starting on Audrey 04/05/24 at 1130, For 1 dose Given 04/05/2024 11:22 AM EST 10.3 millicuries Left Antecubital documented in this encounter Orders Medications Ordered That Dru ht Not Have Been Administered Count Last Ordered Date First Ordered Date F-18 FDG pet diag radio-isot ope injection 10.3 millicurie 1 04/05/2024 documented in this encounter Care Teams Bakery Products Checker Relationship Specialty Start Date End Date Susan Gonsalez MD PCP - General Endocrinology 03/26/24 documented as of this encounter
--- OUTSIDE RECORDS SUMMARY | 2024-04-17 14:04 | XMS_ITS | Clinical Summary ---
Author Organization [facility] Address [address] [place] [address] Care Team Providers Care Software Engineering Project Manager Name Role Phone Susan Gonsalez MD Primary Care Provider [phone] Allergies No known active allergies Medications Medication Sig Dispensed Refills Start Date End Date Status Umeclidinium-Vilantero l (Anoro Ellipta) 62.5-25 MCG/ACT AEPB Take 1 puff by mouth daily. 0 11/18/2021 Active simvastatin (ZOCOR) tablet 20 mg Take 1 tablet (20 mg total) by mouth every evening. 0 10/23/2020 Active QUEtiapine (SEROquel) 50 MG tablet Take 1 tablet (50 mg total) by mouth every night at bedtime. 0 Active oxyCODONE (ROXICODONE) 30 MG immediate release tablet Take 1 tablet (30 mg total) by mouth every 8 (eight) hours as needed for pain. 0 Active omeprazole (PriLOSEC) 20 MG capsule Take 1 capsule (20 mg total) by mouth daily. 0 11/20/2021 Active metFORMIN (GLUCOPHAGE) tablet 1000 mg Take 0.5 tablets (500 mg total) by mouth. 0 02/21/2017 Active lisinopril (PRINIVIL,ZESTRIL) tablet 40 mg Take 1 tablet (40 mg total) by mouth daily. 0 10/23/2020 Active hydroCHLOROthiazide (MICROZIDE) 12.5 MG capsule Take 1 capsule (12.5 mg total) by mouth daily. 0 12/26/2017 Active fluticasone (FLONASE) 50 MCG/ACT nasal spray INHALE 2 SPRAYS BY NASAL ROUTE DAILY 0 02/05/2020 Active aspirin 81 MG EC tablet Take 1 tablet (81 mg total) by mouth daily. 0 06/03/2011 Active Azelastine HCl 137 MCG/SPRAY SOLN USE SPRAY 2 SPRAYS INTO EACH NOSTRIL DAILY NEEDED FOR ALLERGY 0 09/22/2022 Active albuterol (PROVENTIL) (2.5 MG/3ML) 0.083% nebulizer solution Inhale 1 vial into the lungs. 0 Active FLUoxetine (PROzac) 20 MG capsule Take 1 capsule (20 mg total) by mouth daily. 0 09/21/2022 Active OXcarbazepine (TRILEPTAL) 300 MG tablet Take 1 tablet (300 mg total) by mouth 2 (two) times a day. 0 09/21/2022 Active cloNIDine (CATAPRES) tablet 0.1 mg Take 1 tablet (0.1 mg total) by mouth daily as needed (anxiety). 0 Active buPROPion (WELLBUTRIN SR) 150 MG 12 hr tablet Take 1 tablet (150 mg total) by mouth 2 (two) times a day. 0 Active Active Problems Problem Noted Date Diagnosed Date Benign prostatic hyperplasia with urinary obstru ction 11/03/2022 11/03/2022 Cervical arthritis 11/03/2022 11/03/2022 Unequal pupils 11/03/2022 Status post fall 11/03/2022 Left wrist fracture, closed, initial encounter 0 11/03/2022 Nonischemic cardiomyopathy 07/05/202211/03 Overview: -Unclear if he truly has heart failure symptoms since his main limitations are musculoskeletal nature -Most recent echocardiogramIn February 2022 showed mildly dilated LV cavity size with mild, concentric LV hypertrophy, low normal systolic function with normal regional wall motion and ejection fraction of 50 to 55%, normal RV size and systolic function, no hemodynamically significant valve disease, mildly dilated ascending aorta at 4 cm, mild left atrial enlargement -Previously has had ischemic work-up with both nuclear stress test in 2010 that showed normal perfusion and subsequently a dobutamine stress echo that showed no significant wall motion and a slightly submaximal heart rate Last Assessment & Plan: Continue current lisinopril 40 mg daily, hydrochlorothiazide 25 mg daily-more for blood pressure control. He has traditionally not been on a beta-divine because of coexisting COPD and given low normal EF on recent echo, I do not feel strongly about initiating 1. Continue CPAP use. Euvolemic on exam. No active cardiac symptoms. Chronic kidney disease, stage 2 (mild) 2 11/03/2022 History of alcohol use disorder 03/16/2017 11/03/2022 Anxiety 10/20/2016 11/03/2022 Memory loss 02/26/2016 11/03/2022 History of traumatic brain injury 02/03/2010 11/03/2022 Overview: fell of truck and had some memory issues.seeing neurospych 11/24-carotid Moderate plaque in both proximal internal carotid arteries. No evidence of stenosis. Uncertain status of the left vertebral artery COPD (chronic obstructive pulmonary disease) 07/200911/03/2022 Overview: Dr rodrigez pulmonary-on oxygen HS Depression 01/19/2010 11/03/2022 Overview: Seeing [facility] GERD (gastroesophageal reflux disease) 0 11/03/2022 Hyperlipidemia 01/19/2010 11/03/2022 Overview: Last Assessment & Plan: Continue current simvastatin 20 mg at bedtime Lumbar spinal stenosis 01/19/2010 3 Overview: Was on percocet 4 times a day by previous pc 05/24- mri lumber-multilvel spondlov deg and post op changes severa central canal stenosis at l3-4 Type 2 diabetes mellitus 01/19/2010 023 Overview: diagnosed 04/[address] garay podiatry-Eye exam-10.10 dr lopez diagnosed 04/[address] garay podiatry-Eye exam-10.10 dr lopez Social History Tobacco Use Types Packs/Day Years Used Date Smoking Tobacco: Every Day Cigarettes Tobacco Cessation:Ready to Q uit: Not Asked; Counseling Given: Not Answered Sex and Gender Information Value Date Recorded Sex Assigned at Male 11/03/2022 2:47 PM EDT Gender Identity Not on file Sexual Orientation Not on file Job Start Date Occupation Industry Not on file Not on file Not on file Last Filed Vital Signs Vital Sign Reading Time Taken Comments Blood Pressure 144/76 11/04/2022 3:55 PM EDT Pulse 64 11/04/2022 3:55 PM EDT Temperature 36.8 ??C (98.2 ??F) 11/04/2022 3:55 PM ED T Respiratory Rate 18 11/04/2022 3:55 PM EDT Oxygen Saturation 96% 11/04/2022 3:55 PM EDT Inhaled Oxygen Concentration - - Weight 90 kg (198 lb 6.6 oz) 11/03/2022 7:27 PM EDT Height 182.9 cm (6') 11/03/2022 7:27 PM EDT Body Mass Index 26.91 11/03/2022 7:27 PM EDT Plan of Treatment Health Maintenance Due Date Last Done Comments Hepatitis C Screening 1955 Depression Screening 1966 Preventative Health Evaluation 01/15/1972 Colon Cancer Screening (Colonoscopy) 1999 RSV Adult > 60+ Yrs or (1 - Risk 60-74 years 1-dose series) 2014 Fall Risk Assessment 2019 Shingrix-Zoster Vaccine (2 of 2) 03/10/2022 01/13/2022 COVID-19 Vaccine (3 - season) 2023 05/07/2020, 04/09/2020 Influenza Vaccine (#1) 2023 , 11/12/2019, 12/29/2018, Additional history exists DTap / Tdap / Td (2 - Td or Tdap) 2032 01/13/2022 Pneumococcal Vaccine Completed 11/24/2020, 11/12/2019, 12/18/2010 Hepatitis B Vaccines Aged Out No long er eligible based on patient's age to complete this topic RSV Ped < 20 months Aged Out No longe r eligible based on patient's age to complete this topic Advance Directives For more information, please contact: [phone] Latest Code Status on File Code Status Date Activated Date Inactivated Comments Full Code 11/03/2022 7:02 PM 11/05/2022 12:09 AM This code status was ascertained in the following way: discussion with patient. Care Teams Software Engineering Project Manager Relationship Specialty Start Date End Date Susan Gonsalez MD PCP - General Internal Medicine 11/03/22
--- OUTSIDE RECORDS SUMMARY | 2024-04-17 14:04 | XMS_ITS | Clinical Summary ---
Author Organization [facility] Address [address] [facility] [address] [place] [address] Phone Care Team Providers Care Reactor Kettle Operator Name Role Phone Susan Gonsalez MD Primary Care Provider [phone] Allergies No known active allergies Medications multivitamin-ir bc-fisaznbo-ewe ic acid (CENTRUM) chewable tablet Chew 1 tablet 1 (one) time each day Active omeprazole (PriLOSEC) [address] capsule Take 20 mg by mouth 1 (one) time each day Active oxyCODONE (ROXICODONE) 30 MG immediate release tablet Take 30 mg by mouth in the morning and 30 mg in the evening. Active fluticasone (FLONASE) 50 MCG/ACT nasal spray Administer 2 sprays into affected nostril(s) 0 Active QUEtiapine (SEROquel) 50 MG tablet Take 50 mg by mouth every night Active acetaminophen (TYLENOL) 325 MG tablet Take by mouth every 4 (four) hours if needed for mild pain Active umeclidinium-vi lanterol (Anoro Ellipta) 62.5-25 MCG/INH aerosol powder Inhale 1 puff 1 (one) time each day Active lisinopril 40 MG tablet Take 40 mg by mouth 1 (one) time each day 1 Active simvastatin (ZOCOR) 20 MG tablet Take 20 mg by mouth 1 (one) time each day in the evening 1 Active aspirin (ST RICA) 81 MG EC tablet Take 81 mg by mouth 1 (one) time each day Active buPROPion SR (WELLBUTRIN SR) 150 MG 12 hr tablet Take 150 mg by mouth in the morning and 150 mg in the evening. Do not crush, chew, or split. . Active FLUoxetine (PROzac) 20 MG tablet Take 20 mg by mouth 1 (one) time each day Active cloNIDine (CATAPRES) 0.1 MG tablet Take 0.1 mg by mouth 1 (one) time each day Active Zinc 50 MG capsule Take by mouth Active Coenzyme Q10 (Q-10 CO-ENZYME PO) Take 50 mg by mouth 1 (one) time each day Active Turmeric 500 MG tablet Take by mouth 1 (one) time each day Active furosemide (LASIX) 40 MG tablet Take 1 tablet by mouth 1 (one) time each day 4 Active hydroCHLOROthia zide (MICROZIDE) 12.5 MG capsule TAKE 1 CAPSULE BY MOUTH EVERY MORNING 90 capsule 5 Active Active Problems Problem Noted Date Diagnosed Date Chronic kidney disease, stage 2 (mild) 2 Hypertensive heart and chron ic kidney disease without heart failure, with stage 1 through stage 4 chronic kidney disease, or unspecified chronic kidney disease 09/14/2021 Isolated proteinuria 09/14/2021 Primary hypertension 09/14/2021 Hypertension 09/14/2021 Benign prostatic hyperplasia with lower urinary tract symptom 09/14/2021 Alcoholism 05/12/2021 Uncontrolled type 2 diabetes mellitus 05/12/2021 Overview (11/15/2023): Replacing diagnoses that were inactivated after the 11/15/23 Regulatory Import Thoracic aortic aneurysm without rupture 022 Hypokalemia 09/27/2016 Benign hypertension 01/19/2010 Overview (11/07/2020): 04/23- ct head negative Type 2 diabetes mellitus 01/19/2010 Overview (11/07/2020): diagnosed 04/[address] garay podiatry-Eye exam-11.23 dr lopez Resolved Problems Problem Noted Date Diagnosed Date Resolved Date H/O: gastrointestinal disease 03/16/2017 11/07/2020 History of alcohol abuse 03/16/2017 Tubular adenoma of colon 03/16/2017 Overview (11/07/2020): Colonoscopy 03/25-dr dey,tubular adenoma-repeat in 5 Anxiety 10/20/2016 11/07/2020 Cervicalgia 05/27/2016 11/07/2020 Overview (11/07/2020): 05/24-Cervical decompression by dr silva 05/24- mri c spine-deg and spndlylotic changes acqured central canal and foraminal stenosis with mild cord compression Difficulty passing urine 03/04/2016 Fatigue 03/04/2016 11/07/2020 Insomnia 03/04/2016 11/07/2020 Memory loss 02/26/2016 11/07/2020 H/O Spinal surgery 01/28/2016 Vitamin D deficiency 11/19/2015 021 Hip pain 10/14/2015 11/07/2020 Constipation 12/11/2012 11/07/2020 Obesity 06/22/2010 11/07/2020 Congestive heart failure 04/02/2010 Overview (11/07/2020): 04/24-Normal myocardial perfusion imaging with lexiscan injection. without evidence of infarct and ischemia. Left ventricular systolic function normal, with ejection fraction of 60% 03/27-Evidence of an older inferior event with mildly reduced ejection fraction of 45 to 55%, endocardial definition is somewhat limited making the regional wall motion abnormality determination somewhat less sensitive and specific. History of traumatic brain injury 02/03/2010 11/07/2020 Overview (11/07/2020): fell of truck and had some memory issues.seeing neurospych 11/24-carotid Moderate plaque in both proximal internal carotid arteries. No evidence of stenosis. Uncertain status of the left vertebral artery Obstructive sleep apnea syndrome 01/30/2010 11/07/2020 Overview (11/07/2020): Cpap@10 Granuloma of vocal cord 01/23/201010/16 Overview (11/07/2020): Seen by dr curtis.04/23 had had fiberoptic eval.2mm nodule on post aspect of left vocal cord Benign prostatic hyperplasia 01/19/2010 11/07/2020 Overview (11/07/2020): Dr crawford urology-seen 08/23 Chronic obstructive pulmonary disease 01/19/2010 11/07/2020 Overview (11/07/2020): Dr rodrigez pulmonary-on oxygen HS Depressive disorder 01/19/2010 11/08/19 21 Overview (11/07/2020): [facility] Gastroesophageal reflux disease 01/19/2010 11/07/2020 Hyperlipidemia 01/19/2010 11/07/2020 Spinal stenosis of lumbar region 01/19/2010 11/07/2020 Overview (11/07/2020): Was on percocet 4 times a day by previous pc 05/24- mri lumber-multilvel spondlov deg and post op changes severa central canal stenosis at l3-4 Encounters Date Type Department Care Team Description 03/15/2024 Refill [facility] [address] [place] [address] Ronan Beltrán MD from Last 3 Months Immunizations Name Administration Dates Next Due Influenza TIV (IM) 12/31/2013 Influenza, Unspecified 12/19/2011 Moderna SARS-COV-2 03/30/2021,09/28/2020, 021,04/09/2020 Pneumococcal Conjugate 13-Valent 11/12/2019 Pneumococcal Polysaccharide 11/24/2020 Pneumococcal, Unspecified 12/18/2010 Shingrix 01/13/2022 Tdap 01/13/2022 Family History Medical History Relation Comments Cancer Mother Relation Status Comments Mother Social History Tobacco Use Types Packs/Day Years Used Date Smoking Tobacco: Former Smokeless Tobacco: Never Tobacco Cessation:Counseling Given: Not Answered Alcohol Use Standard Drinks/Week Comments Not Currently 0 (1 standard drink = 0.6 oz pur e alcohol) Sex and Gender Information Value Date Recorded Sex Assigned at Not on file Legal Sex Male 10:54 AM EDT Gender Identity Not on file Sexual Orientation Not on file Last Filed Vital Signs Vital Sign Reading Time Taken Comments Blood Pressure 118/60 07/05/2023 2:21 PM EDT Pulse 74 07/05/2023 2:21 PM EDT Temperature - - Respiratory Rate - - Oxygen Saturation 93% 07/05/2023 2:21 PM EDT Inhaled Oxygen Concentration - - Weight 84 kg (185 lb 3.2 oz) 07/05/2023 2:21 PM EDT Height - - Body Mass Index - - Plan of Treatment Upcoming Encounters Date Type Department Care Team (Late st Contact Info) Description 07/24/2024 1:00 PM EDT Office Visit [facility] [address] [address] Ronan Beltrán MD [address] [phone] Health Maintenance Due Date Last Done Comments Colorectal Cancer Screening: Annual FOBT 2003 Colorectal Cancer Screening: Colonoscopy 2003 Colorectal Cancer Screening: Sigmoidoscopy 2003 Diabetes: Ophthalmology Exam 09/29/2020 Diabetes: Pedal Pulse Checked 09/29/2020 Diabetes: Sensory Foot Exam 09/29/2020 Diabetes: Visual Foot Exam 09/29/2020 Diabetes: Hemoglobin A1C 02/03/2023 023, 02/25/2022, 08/19/2020 Influenza Vaccine (#1) 2023 4, 12/19/2011 Pneumococcal Vaccine: 65+ Years Completed 11/24/2020, 11/12/2019, 12/18/2010 Hepatitis B Vaccine Aged Out No longe r eligible based on patient's age to complete this topic Procedures Procedure Name Priority Date/Time Associated Diagnosis Comments HEMOGLOBIN A1C Routine 02/25/2022 10:40 AM EST Hypertension Primary hypertension Isolated proteinuria Hypertensive heart and chronic kidney disease without heart failure, with stage 1 through stage 4 chronic kidney disease, or unspecified chronic kidney disease Chronic kidney disease, stage 2 (mild) Benign prostatic hyperplasia with lower urinary tract symptom from Last 3 Months or Most Recently Relevant to Health Maintenance Results * (ABNORMAL) Hemoglobin A1c (02/25/2022 10:40 AM EST) Hemoglobin A1C 6.2(H) (4.0-5.6) % [facility] Comment: MONITORING: In known diabetic patients, hemoglobin A1c targets should be discussed with health care provider. DIAGNOSTIC USE: ??The [place] Diabetes Association (ADA) and the World Health Organization (WHO) recommend the use of HbA1c to diagnose diabetes using a threshold of 6.5%. Patients who have an HbA1c between 5.7% and 6.4% are considered at increased risk for developing diabetes in the future. CAUTION: Falsely low HbA1c results may be observed in patients with hemolytic anemia, homozygous forms of abnormal hemoglobin (e.g. SS, CC, SC), , recent blood loss or hemoglobin F greater than 7%. Fructosamine may be used as an alternate test in these cases. REFERENCE: ADA: Standards of Medical Care in Diabetes 2020, The Journal of Clinical and Applied Research and Education Volume 43, Supplement 1 Testing performed or reported by [facility], a Service of [facility], [address] [place] [id number] Mckayla Vargas MD, Tnt Powder Worker [facility]# [id number] Blood (Blood, Venous) 02/25/2022 10:40 AM EST 02/25/2022 10:51 AM EST us Malcolm German MD LAB BLOOD ORDERABLES Rukhsana kidd Result [facility] from Last 3 Months or Most Recently Relevant to Health Maintenance Insurance ([id number]) [facility] ([id number]) Care Teams Reactor Kettle Operator Relationship Specialty Start Date End Date Susan Gonsalez MD [address] [place] [address] [address] [place] [address] PCP - General Internal Medicine 07/05/23
--- OUTSIDE RECORDS SUMMARY | 2024-04-17 14:05 | XMS_ITS | Clinical Summary ---
Author Organization [facility] [address] [facility] Address [address] [facility] [place] [address] Phone Care Team Providers Care Fusing Machine Feeder Name Role Phone Susan Gonsalez MD Primary Care Provider [phone] Allergies No known active allergies Medications furosemide (LASIX) 20 mg tablet Take 1 Tablet by mouth daily for 360 days. Active digoxin (LANOXIN) 125 mcg (0.125 mg) tablet Take 1 Tablet by mouth daily. Active azelastine-flut icasone 137-50 mcg/spray spray,non-aeros ol 2 Sprays by Nasal route daily. Active fluticasone-ume clidinium-vilan terol (Trelegy Ellipta) 100-62.5-25 mcg inhaler Inhale 1 Puff into the lungs daily. Active dapagliflozin propanediol (FARXIGA) 10 mg tablet Take 10 mg by mouth daily. Active azithromycin (ZITHROMAX) 250 mg tablet Take 1 Tablet by mouth daily. Active lisinopriL (PRINIVIL,ZESTR IL) 20 mg tablet Take 1 Tablet by mouth 2 times daily. Active spironolactone (ALDACTONE) 25 mg tablet Take 1 Tablet by mouth daily. Active tamsulosin (FLOMAX) 0.4 mg 24 hr capsule Take 1 Capsule by mouth daily. Take 30 mins after same meal every day. Active metoprolol succinate (TOPROL-XL) 50 mg 24 hr tablet Take 1 Tablet by mouth daily. Active OXcarbazepine (TRILEPTAL) 300 mg tablet Take 1 Tablet by mouth 2 times daily. Active apixaban (ELIQUIS) 5 mg tablet Take 1 Tablet by mouth 2 Times Daily. Active oxyCODONE (ROXICODONE) 30 mg immediate release tablet Take 1 Tablet by mouth every 4 hours as needed. Active ZINC ORAL Zinc 50 MG Tab Patient sig: Take 1 Tablet by mouth daily. Active turmeric root extract 500 mg capsule Take 1 Tablet by mouth at bedtime. Active buPROPion SR (WELLBUTRIN SR) 150 mg 12 hr tablet Take 150 mg by mouth 2 times daily. Active QUEtiapine (SEROquel) 50 mg tablet Take 50 mg by mouth at bedtime. Active lidocaine (LIDODERM) 5 % patch Place 1 Patch onto the skin every 24 hours. Apply for no more than 12 hours in any 24 hour period. Active UNABLE TO FIND CPAP Historical (HISTORICAL CPAP) Patient sig: Inhale into the lungs. Active simvastatin (ZOCOR) 20 mg tablet TAKE 1 TABLET BY MOUTH EVERY DAY IN THE EVENING Active fluticasone propionate (FLONASE) 50 mcg/actuation nasal spray INHALE 2 SPRAYS BY NASAL ROUTE DAILY Active albuterol 2.5 mg /3 mL (0.083 %) nebulizer solution Take 1 Vial by nebulization every 4 hours as needed. Active omeprazole (PriLOSEC) [address] capsule Take 20 mg by mouth daily. Active FLUoxetine (PROzac) 20 mg capsule Take 20 mg by mouth daily. Active metFORMIN (GLUCOPHAGE) 1,000 mg tablet Take 0.5 Tabs by mouth daily (with breakfast). Active FREESTYLE LANCETS [facility] USE TO TEST TWICE A DAY Active aspirin 81 mg EC tablet TAKE 1 TABLET BY MOUTH EVERY DAY Active blood sugar diagnostic (FreeStyle Lite Strips) test strip Apply 1 Strip topically 2 times daily. Active alcohol swabs pads, medicated 1 Each by route 2 times daily. Use when testing blood sugar Active Active Problems Problem Noted Date Diagnosed Date Paroxysmal atrial fibrillation 05/10/2023 Overview (02/21/2024): February 2023 - newly discovered asymptomatic atrial fibrillation with rapid ventricular response; initially rate controlled March 2023 - JOSEF/DCCV attempt aborted due to ROSIO thrombus; patient initially with non-adherence to apixaban June 2023 - ultimately successful adherence to AC therapy with successful JOSEF/DCCV at [facility] Assessment & Plan (02/21/2024 9:16 AM EST): Now paroxysmal atrial fibrillation status post DCCV. Asymptomatic. EKG today showed sinus rhythm. CHADSVASc - 3. Continue with apixaban, metoprolol and digoxin. May consider discontinuation of digoxin at next visit if maintaining sinus rhythm. Orders: ECG 12 lead Chronic diastolic heart failure 03/25/2023 Assessment & Plan (02/21/2024 9:16 AM EST): Echocardiogram from October 2023 showed normal LV systolic function LVEF 60- 65%. He appears compensated on exam. Continue with dapagliflozin, furosemide, digoxin, lisinopril, metoprolol and spironolactone. Consider stopping digoxin at next visit as well as aspirin. We reviewed heart failure management including low-sodium diet, symptom surveillance, daily weights and medication compliance. Coronary artery disease invo lving rosebud coronary artery of rosebud heart without angina pectoris 03/25/2023 Traumatic brain injury 03/25/2023 Cervical arthritis 11/03/2022 Left wrist fracture, closed, initial encounter 0 11/03/2022 Unequal pupils 11/03/2022 Nonischemic cardiomyopathy 07/05/2022 Overview (02/21/2024): 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 February 2023 - [facility] found to have decompensated heart failure LVEF 15- 20% and asymptomatic atrial fibrillation with rapid ventricular response; inpatient stress test revealed areas of myocardial infarction without ischemia; delayed, but eventually successful DCCV October 2023 - repeat echocardiogram showed normalized LV systolic function LVEF 60-65% Assessment & Plan (02/21/2024 9:16 AM EST): Severe reduced LV systolic function in setting of tachycardia induced cardiomyopathy, now normalized LV systolic function LVEF 60-65% on echocardiogram from October 2023. Continue with dapagliflozin, furosemide, digoxin, lisinopril, metoprolol and spironolactone. Orders: ECG 12 lead Chronic kidney disease, stage 2 (mild) 2 Tubular adenoma of colon 03/16/2017 Overview (01/04/2024): Colonoscopy 03/25-dr dey,tubular adenoma-repeat in 5 Anxiety 10/20/2016 Hypokalemia 09/27/2016 Cervicalgia 05/27/2016 Overview (01/04/2024): 05/24-Cervical decompression by dr silva 05/24- mri c spine-deg and spndlylotic changes acqured central canal and foraminal stenosis with mild cord compression Difficulty in urination 03/04/2016 Fatigue 03/04/2016 Insomnia 03/04/2016 Gastritis 03/04/2016 Memory loss 02/26/2016 Vitamin D deficiency 11/19/2015 Arthralgia of hip 10/14/2015 Constipation 12/11/2012 Obstructive sleep apnea syndrome 01/30/2010 Overview (01/04/2024): Cpap@10 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 Overview (01/04/2024): Seen by dr curtis.04/23 had had fiberoptic eval.2mm nodule on post aspect of left vocal cord Lumbar spinal stenosis 01/19/2010 Overview (01/04/2024): Was on percocet 4 times a day by previous pc 05/24- mri lumber-multilvel spondlov deg and post op changes severa central canal stenosis at l3-4 Diabetes mellitus, type 2 01/19/2010 Overview (01/04/2024): diagnosed 04/[address] garay podiatry-Eye exam-10.10 dr lopez Depression 01/19/2010 Overview (01/04/2024): [facility] Hyperlipidemia 01/19/2010 Assessment & Plan (02/21/2024 9:16 AM EST): July 2022 - Non HDL cholesterol 102. Continue with simvastatin. We discussed risk reduction through lifestyle choices including healthy diet, routine exercise and weight management. HTN (hypertension), benign 01/19/2010 Assessment & Plan (02/21/2024 9:16 AM EST): Well controlled. Continue with dapagliflozin, lisinopril, furosemide, metoprolol and spironolactone. GERD (gastroesophageal reflux disease) 0 COPD (chronic obstructive pulmonary disease) 07/2009 Overview (01/04/2024): Dr rodrigez pulmonary-on oxygen HS BPH (benign prostatic hyperplasia) 01/19/2010 Overview (01/04/2024): Dr crawford urology-seen 08/23 Resolved Problems Problem Noted Date Diagnosed Date Resolved Date Chronic atrial fibrillation 03/25/2023 02/21/2024 Obesity 06/22/2010 02/21/2024 Encounters Date Type Department Care Team Description 04/06/2024 Telephone Pulmonology - [address] [address] Marichuy Flor MD Appointment (Appt 04/06/24) 04/05/2024 11:00 AM EST - 04/05/2024 11:59 PM EST Hospital Encounter [facility] PET Scan [address] [place] [phone] Lung nodule Discharge Disposition: Home or Self Care 03/29/2024 2:39 PM EST - 03/29/2024 11:59 PM EST Hospital Encounter [facility] Pulmonary [address] [place] [phone] Lung nodule Discharge Disposition: Home or Self Care 03/09/2024 Telephone Lung Screening Program - [place] [address] [place] [address] GwenMichelle MA Results (Annual Lung Screening- Suspicious findings) 02/28/2024 9:39 AM EST - 02/28/2024 11:59 PM EST Hospital Encounter [facility] CT Scan [address] [place] [id number] Encounter for screening for malignant neoplasm of respiratory organs; Nicotine dependence, cigarettes, uncomplicated Discharge Disposition: Home or Self Care 02/21/2024 8:10 AM EST Office Visit [facility] [address] [place] [address] Tex Aguila NP Paroxysmal atrial fibrillation (CMS/HCC) (Primary Dx); Nonischemic cardiomyopathy (CMS/HCC); HTN (hypertension), benign; Chronic diastolic heart failure (CMS/HCC); Hyperlipidemia, unspecified hyperlipidemia type from Last 3 Months Immunizations Name Administration Dates Next Due Influenza trivalent, 0.5mL, preservative free (Fluarix; FluLaval; Fluzone) ages 6mo and older (Afluria) 3 years and older 12/31/2013 Influenza, Unspecified 12/19/2011 Moderna SARS-CoV-2 COVID-19, mRNA, LNP-S, preservative free 03/30/2021,09/28/2020,05/07/2020,2020 Pneumococcal, Unspecified 12/18/2010 Surgical History Surgery Date Site/Laterality Comments CERVICAL LAMINECTOMY 06/24 PROCEDURE: HISTORICAL CERV LAMINECTOMY; COMMENT: Joshua; Fusion LUMBAR LAMINECTOMY 06/24 PROCEDURE: HISTORICAL LUMB LAMINECTOMY; COMMENT: Joshua; L4-S1 x 2 Medical History Medical History Date Comments Obesity 06/22/2010 DX:Obesity CKD (chronic kidney disease) , stage II DX:CKD (chronic kidney disea se), stage II Hypokalemia DX:Hypokalemia Alcoholism (CMS/HCC) DX:Alcoholi sm ([facility]) Angina pectoris (CMS/HCC) DX:Ang alexsandra pectoris ([facility]) Benign prostatic hyperplasia DX: Benign prostatic hyperplasia Benign prostatic hyperplasia with urinary obstruction DX:Benign prostatic hyperpla simi with urinary obstruction Family History Medical History Relation Name Comments Diabetes Father Lung cancer Mother Relation Name Status Comments Father Mother Social History Tobacco Use Types Packs/Day [...] Orientation Straight 03/27/2024 9: 28 AM EST Obstetrics History Last Filed Vital Signs Vital Sign Reading Time Taken Comments Blood Pressure 126/84 02/21/2024 8:06 AM EST Pulse 61 02/21/2024 8:06 AM EST Temperature - - Respiratory Rate - - Oxygen Saturation 96% 02/21/2024 8:06 AM EST Inhaled Oxygen Concentration - - Weight 90.7 kg (200 lb) 02/21/2024 8:06 AM EST Height 182.9 cm (6') 02/21/2024 8:06 AM EST Body Mass Index 27.12 02/21/2024 8:06 AM EST Plan of Treatment Upcoming Encounters Date Type Department Care Team (Late st Contact Info) Description 04/17/2024 3:00 PM EST Office Visit Pulmonology - [address] [place] [address] Marichuy Flor MD [address] [place], [place] [id number] Health Maintenance Due Date Last Done Comments Diabetes: Annual Foot Exam 01/15/1964 Diabetes: Annual Retina Eye Exam 01/15/1964 Hepatitis A Vaccines (1 of 2 - Risk 2-dose series) 1973 Abdominal Aortic Aneurysm (AAA) Screen 01/23/2022 Colorectal Cancer Screening: Colonoscopy 01/23/2022 Depression Screening 01/23/2022 03/18/2011 Falls Risk Assessment 01/23/2022 Medicare Annual Wellness Visit 01/23/2022 Social Influencers of Health Screening 01/23/2022 Diabetes: Annual Urine Albumin-Creatinine Ratio (uACR) 01/30/2022 05/27/2020 Diabetes: Blood Sugar Control Test (HGBA1C) 05/05/2023 11/04/2022, 11/04/2022, 02/25/2022 Diabetes: Annual GFR (Glomerular Filtration Rate) 11/05/2023 11/04/2022, 11/04/2022, 11/03/2022 Hypertension/CHF/CAD Annual BMP Blood Test 11/05/2023 11/04/2022, 11/04/2022, 11/03/2022 Cholesterol Screening (Lipid Panel) 05/27/2025 05/27/2020 DTaP,Tdap,and Td Vaccines (2 - Td or Tdap) 2032 01/13/2022 Hepatitis C Screening Completed 06/14/2012 Pneumococcal Vaccine: 50+ Years Completed 11/24/2020, 11/12/2019, 12/18/2010 Influenza Vaccine Completed 11/14/2023, , 11/24/2020, Additional history exists RSV Immunization Patients 60+ Years Old Completed 11/14/2023 Zoster Vaccines Completed 11/14/2023, 01/13/2022 COVID-19 Vaccine Completed 12/06/2023, 02/2022, 06/13/2022, Additional history exists HIB Vaccines Aged Out No longer eligi ble based on patient's age to complete this topic HPV Vaccines Aged Out No longer eligi ble based on patient's age to complete this topic Hepatitis B Vaccines Aged Out No long er eligible based on patient's age to complete this topic IPV Vaccines Aged Out No longer eligi ble based on patient's age to complete this topic MMR Vaccines Aged Out No longer eligi ble based on patient's age to complete this topic Meningococcal ACWY Vaccine Aged Out N o longer eligible based on patient's age to complete this topic Meningococcal B Vacine Aged Out No lo nger eligible based on patient's age to complete this topic RSV Immunization Patients Under 20 months Aged Out No longer eligible based on patient's age to complete this topic Varicella Vaccines Aged Out No longer eligible based on patient's age to complete this topic Procedures Procedure Name Priority Date/Time Associated Diagnosis Comments PET CT SKULL TO MID THIGH INITIAL STAT 04/05/2024 12:35 PM EST Lung nodule SPIROMETRY BRONCHODILATION RESPONSIVENESS PRE/POST BRONCHODILATOR ADMINISTRATION STAT 03/29/2024 3:12 PM EST Lung nodule CT LUNG SCREENING Routine 02/28/2024 10: 02 AM EST Encounter for screening for malignant neoplasm of respiratory organs Nicotine dependence, cigarettes, uncomplicated ECG 12-LEAD Routine 02/21/2024 9:09 AM EST Paroxysmal atrial fibrillation (CMS/HCC) Nonischemic cardiomyopathy (CMS/HCC) ANNUAL BMP BLOOD TEST Routine 11/04/2022 HEMOGLOBIN A1C Routine 11/04/2022 URINE ALBUMIN CREATININE RATIO Routine 05/27/2020 LIPID PANEL Routine 05/27/2020 HEPATITIS C SCREENING Routine 06/14/2012 DEPRESSION SCREENING Routine 03/18/2011 from Last 3 Months or Most Recently Relevant to Health Maintenance Results * PET CT Skull to Mid [...] Signed Date: 04/06/2024 04:08 ET Workstation ID: [id number] Transcribed By: Self Edit Transcribed Date: 04/06/2024 [...] Signed Date: 04/06/2024 04:08 ET Workstation ID: [id number] Transcribed By: Self Edit Transcribed Date: 04/06/2024 03:25 ET Alysa Maldonado AIRPORT DUTY MANAGER IMG NM PROCEDURES Final Res ult * Pulmonary function testing: Carbon Monoxide Diffusing Capacity, Spirometry with Bronchodilator, Plethysmography (03/29/2024 3:12 PM EST) Narrative Sushil Rodrigez MD - 03/29/2024 4:06 PM EST DATE [...] moderate obstructive changes consistent with COPD ??Sushil Rodrigez MD ?? Alysa Maldonado NP PFT ORDERABLES Final Resul t * CT Lung Screening (02/28/2024 10:02 AM EST) Anatomical Region Laterality Modality Chest Computed Tomogra phy 03/06/2024 2:51 PM EST Impressions 03/06/2024 3:07 PM EST Impression: New 8 mm left upper lobe solid nodule, for which a follow-up low-dose CT is recommended in 3 months. Lung-RADS Category: ??Lung-RADS 4B: Very suspicious nodule(s). Recommend further evaluation with FDG PET/CT. Additional management options include diagnostic chest CT with or without contrast and tissue sampling. Telerad PA ([id number]) -------- FINAL REPORT -------- Dictated By: Gabrielle Cobos Dictated Date: 03/06/2024 14:51 ET Assigned Physician: Gabrielle Cobos Reviewed and Electronically Signed By: Gabrielle Cobos Signed Date: 03/06/2024 15:07 ET Workstation ID: [id number] Transcribed By: Self Edit Transcribed Date: 03/06/2024 14:51 ET Narrative 03/06/2024 3:07 PM EST History: ??69 year-old 46 pack-year current smoker, asymptomatic, for lung cancer screening. Mother had lung carcinoma. Comparison: 09/29/21 Technique: Helical volumetric imaging of the thorax was performed, using low- dose technique, without IV contrast. DLP: 179.35 mGy/cm ??CTDIvol: 4.89 mGy Twitmusicer Iterative reconstruction technique Findings: Lungs and Airways: The study is limited by respiratory motion. The trachea and central bronchial tree remain patent. Centrilobular emphysema is again noted. A new 8 mm solid, noncalcified nodule is seen in the left upper lobe (image 62 series 3). Few scattered sub-4 mm solid, noncalcified nodules elsewhere in both lungs are without significant change. Pleura: No pleural or pericardial effusions are seen. Base of neck, mediastinum and heart: The heart remains normal in size. Severe, three-vessel coronary artery calcification is again noted. A 4.2 cm fusiform ascending thoracic aortic aneurysm is without significant change. There is no suspicious thyroid nodule. A mildly enlarged aortopulmonary window lymph node is without significant change. No developing lymphadenopathy is seen. Soft tissues: The overlying soft tissues are unremarkable. Abdomen: This study was performed without contrast and with lower than standard dose. These factors reduce the sensitivity for detection of small lesions in the upper abdomen. 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 There is a small hiatal hernia. Result [facility] Alondra Talbert MD IMG CT PROCEDURES Final Result * ECG 12 lead (02/21/2024 9:09 AM EST) [facility] Ventricular Rate ECG 61 BPM GEMUSE Atrial Rate 61 BPM GEMUSE P-R Interval 210 ms GEMUSE QRS Duration 126 ms GEMUSE Q-T Interval 420 ms GEMUSE QTc 422 ms GEMUSE P Wave Fowler 45 degrees GEMUSE R Fowler -44 degrees GEMUSE T Fowler -55 degrees GEMUSE ECG Interpretation Sinus rhythm with 1st degree A-V block with Premature supraventricular complexes Left axis deviation Non-specific intra-ventricular conduction block Abnormal ECG When compared with ECG of 06-JUN-2015 03:05, Premature supraventricular complexes are now Present Confirmed by ERASMO MOLINA ([id number]) on 02/21/2024 10:24:28 AM GEMUSE 02/21/2024 8:14 AM EST 02/21/2024 10:24 AM EST Result [facility] Tex Aguila AIRPORT DUTY MANAGER ECG ORDERABLES Edited Resu - Final GEMUSE * Annual BMP Blood Test (11/04/2022) Pathologist [facility] Annual BMP Blood Test Abstracted Result [facility] Provider HEALTH MAINTENANCE Final Result * Hemoglobin A1c (11/04/2022) [facility] Hemoglobin A1C 0.0 <=6.5 % Comment:No Interpretation Blood Venous blood specimen / Unknown Result [facility] Historical Provider LAB BLOOD ORDERABLES Rukhsana l Result * Urine Albumin Creatinine Ratio (05/27/2020) [facility] Urine Albumin Creatinine Ratio Abstracted Result [facility] Historical Provider HEALTH MAINTENANCE Final Result * Lipid panel (05/27/2020) Pathologist [facility] LDL/HDL Ratio 3 0 - 4 Triglycerides 108 0 - 150 mg/dL Cholesterol 164 0 - 200 mg/dL HDL 50 >=40 mg/dL LDL Cholesterol 93 0 - 100 mg/dL Blood Venous blood specimen / Unknown [facility] Provider LAB BLOOD ORDERABLES Rukhsana l Result * Hepatitis C Screening (06/14/2012) Pathologist [facility] Hepatitis C Screening Abstracted Historical Provider HEALTH MAINTENANCE Final Result * Depression Screening (03/18/2011) Pathologist [facility] Depression Screening Abstracted [facility] Provider HEALTH MAINTENANCE Final Result from Last 3 Months or Most Recently Relevant to Health Maintenance Insurance [employer] MEDICARE Member Subscriber Plan / Payer (Ef fective 2020-Present) Name:Montana Taylor Relation to Subscriber:Self Name:Montana Taylor Payer ID:[id number] Group ID:[id number] Type:Not on file Address: [place] [address] [place] [address] Care Teams Fusing Machine Feeder Relationship Specialty Start Date End Date Susan Gonsalez MD PCP - General Endocrinology 03/26/24
== END 2024-04-17 12:06 | disposition home or self-care (01) ==
PROVIDERS: PCP Internal Medicine; Visit Provider Nurse Practitioner Family
DX: R13.14 Dysphagia, pharyngoesophageal phase (principal); K21.9 Gastro-esophageal reflux disease without esophagitis
CPT/HCPCS: 99203

== ENCOUNTER → 2024-04-17 11:11 | Outpatient (BNVA) | payer OTHER, SELFPAY | PROVIDERS: PCP Internal Medicine; Visit Provider Nurse Practitioner Family | DX: K21.9 Gastro-esophageal reflux disease without esophagitis (principal); R13.14 Dysphagia, pharyngoesophageal phase | CPT/HCPCS: 99202 ==

== ENCOUNTER 2024-04-23 08:52 | Outpatient (REF) | payer OTHER, SELFPAY ==
--- NOTE | ~2024-04-23 | FL_ITS ---
EXAMINATION: XR BARIUM SWALLOW CLINICAL INFORMATION: Dysphagia COMPARISON: None available. TECHNIQUE: Thick and thin there is normal propagation bolus from the oral cavity through the pharynx, esophagus into stomach without any evidence of obstruction narrowing. On oral administration of thick barium barium and barium coated solids seen fractures were administered in upright view under fluoroscopy. Patient was subsequently placed prone lying and thin barium was administered. FINDINGS: There is ventral plate and screws C3-C5 vertebra for cervical body fusion. Following oral administration of thin and thick barium there is normal propagation of bolus from the oral cavity through the pharynx, esophagus and stomach. There is mild posterior wall cervical esophageal and pharyngeal indentation from plate and screws but no obstruction seen. On oral administration of barium coated solids/crackers there is gritty sensation and feeling of obstruction in the mid pharyngeal region where ventral plate and screws are noted for cervical body fusion. However there is no obstruction seen On placing patient prone lying in oral administration of thin barium there is normal propagation of bolus from the oral cavity through the pharynx and esophagus and stomach without any evidence of obstruction or narrowing. There is a small esophageal diverticulum or paraesophageal hiatal hernia with mild gastroesophageal reflux. FLUOROSCOPY TIME: 2 minutes 8 seconds DOSE AREA PRODUCT: 1453 uGy-m2 (microgray-meter squared) FL/FL barium swallow IMPRESSION: Ventral plate and screws from C3 3 through C5 vertebra for cervical body fusion. Patient has a gritty sensation and feeling of obstruction at the mid esophageal level following oral administration of solid food/cracker with barium. No suspicious feeding was felt with thin or thick barium. Incidental finding of a paraesophageal hiatal hernia or distal esophageal diverticulum with mild gastroesophageal reflux reflux. Electronically signed by: Ammon Wisdom MD 04/24/2024 07:22 AM EDT
--- OUTSIDE RECORDS SUMMARY | 2024-04-23 09:19 | XMS_ITS | Encounter Summary ---
Author Organization [facility] Address [address] [place] [address] Care Team Providers Care Arc Welder Apprentice Name Role Phone Susan Gonsalez MD Primary Care Provider [phone] Reason for Visit * Reason Onset Date Comments Appointment 04/06/2024 Appt 04/06/24 Encounter Details Date Type Department Care Team (Late st Contact Info) Description 04/06/2024 Telephone Pulmonology - [address] [address] Marichuy Flor MD [address] [place] [address] Appointment (Appt 04/06/24) Social History Tobacco [...] documented in this encounter Plan of Treatment Not on file documented as of this encounter Visit Diagnoses Not on filedocumented in this encounter Care Teams Arc Welder Apprentice Relationship Specialty Start Date End Date Susan Gonsalez MD PCP - General Endocrinology 03/26/24 documented as of this encounter
--- OUTSIDE RECORDS SUMMARY | 2024-04-23 09:19 | XMS_ITS | Encounter Summary ---
Author Organization [facility] Address [address] [place] [address] Care Team Providers Care Washer Hand Name Role Phone Susan Gonsalez MD Primary Care Provider [phone] Reason for Visit * Reason Onset Date Comments Procedure 04/18/2024 [facility] , Prior aut h PAT Encounter Details Date Type Department Care Team (Late st Contact Info) Description 04/18/2024 Telephone Pulmonology - [address] [address] Marichuy Flor MD [address] [place] [address] Procedure ([facility] , Prior auth PAT ) Social History Tobacco Use Types Packs/Day Years [...] encounter Progress Notes * Tika Velazquez - 04/18/2024 9:39 AM EST Surgery is robotic bronch, biopsies, EBUS, fiducial placement. Patient is pending auth [facility] faxed over 04/18 as urgent. PAT pending Follow up pending Spoke with Jae from [facility] he stated that he will relate the message to the nurse. Pending Per Dr Breen Need to check with [facility] Cardiology if ok to hold apixaban (Eliquis) for 48 hrs pre and one day post. He had cardioversion but it was months ago August 2023. So should be ok. documented in this encounter Plan of Treatment Not on file documented as of this encounter Visit Diagnoses Not on filedocumented in this encounter Care Teams Washer Hand Relationship Specialty Start Date End Date Susan Gonsalez MD PCP - General Endocrinology 03/26/24 documented as of this encounter
--- OUTSIDE RECORDS SUMMARY | 2024-04-23 09:19 | XMS_ITS | Clinical Summary ---
Author Organization [facility] Address [address] [facility] [address] [place] [address] Phone Care Team Providers Care Nurse Examiner Name Role Phone Susan Gonsalez MD Primary Care Provider [phone] Allergies No known active allergies Medications multivitamin-ir se-[id number]-rfq ic acid (CENTRUM) chewable tablet Chew 1 [...] [place] [address] [place] [address] Ronan Beltrán MD from Last 3 [...] Visit [facility] [address] [address] Ronan Beltrán MD [address] [phone] Health Maintenance Due Date Last Done Comments [...] AM EST) Hemoglobin A1C 6.2(H) (4.0-5.6) % [facility] Comment: MONITORING: In known diabetic patients, hemoglobin A1c targets should be discussed with health care provider. DIAGNOSTIC USE: ??The [place] Diabetes Association (ADA) and the World Health [...] Supplement 1 Testing performed or reported by [facility], a Service of [facility], [address] [place] [id number] Mckayla Vargas MD, Econometrician [facility]# [id number] Blood (Blood, Venous) 02/25/2022 10:40 AM EST 02/25/2022 10:51 AM EST us Malcolm German MD LAB BLOOD ORDERABLES Rukhsana kidd Result [facility] from Last 3 Months or Most Recently Relevant to Health Maintenance Insurance ([id number]) [facility] ([id number]) Care Teams Nurse Examiner Relationship Specialty Start Date End Date Susan Gonsalez MD [address] [place] [address] [address] [place] [address] PCP - General Internal Medicine 07/05/23
--- OUTSIDE RECORDS SUMMARY | 2024-04-23 09:19 | XMS_ITS | Encounter Summary ---
Author Organization [facility] Address [address] [place] [address] Care Team Providers Care Oncology Coordinator Name Role Phone Susan Gonsalez MD Primary Care Provider [phone] Reason for Visit * Reason Onset Date Comments Holding medication 04/18/2024 Encounter Details Date Type Department Care Team (Late st Contact Info) Description 04/18/2024 Telephone [facility] [address] [facility] [address] [place] [id number] Ann Gutierrez MD [address] [place] [address] Holding medication Social History Tobacco Use Types Packs/Day Years [...] as of this encounter Progress Notes * Chritsina New RN - 04/19/2024 8:20 AM EST Faxed this encounter to Tika at [facility] Thoracic Surgery Office. Confirmation received. * Tex Aguila NP - 04/19/2024 8:09 AM EST Yes, its ok * Christina New RN - 04/18/2024 2:13 PM EST Spoke to the thoracic surgery office. They also asked if he can hold Eliquis 1 day after the procedure as well? Also confirmed the fax number is [phone] * Tex Aguila NP - 04/18/2024 11:26 AM EST He may hold his apixaban two days prior to surgery. * Aleksey Dubose - 04/18/2024 9:50 AM EST Pino called from [facility], Thoracic surgery. Pino is wanting to know for Dr Flor is should the patient hold his Eliqius 2 day's before his procedure and one day after. He is having a Robotic bronch Ebus Fiducial biopsy placement around april 27, no set date at this time. If we can give a call back to confirm if the patient should hold the eliqius they would appreciate it. Phone number- [phone] Fax- [phone] documented in this encounter Plan of Treatment Not on file documented as of this encounter Visit Diagnoses Not on filedocumented in this encounter Care Teams Oncology Coordinator Relationship Specialty Start Date End Date Susan Gonsalez MD PCP - General Endocrinology 03/26/24 documented as of this encounter
--- OUTSIDE RECORDS SUMMARY | 2024-04-23 09:19 | XMS_ITS | Data Portability ---
Author Organization [facility] Address [address] [place] [address] Assessment Encounter Date Assessment Date Assessment LastModified by Organization Details LastModified Time 02/21/2023 02/21/2023 As noted, we were called to see this patient regarding concerns of dyspnea. Evaluation in the field was performed by my parish visitor colleague, as noted above, I provided real-time direction and supervision for this visit. The evaluation revealed the patient has COPD on home oxygen and was in acute distress. Vitals as noted with hypoxemia, worse even with speaking. Milk Truck Driver arranged for urgent transport to ED. In [...] cm 83 % 83 % 2 L/min 47642.3 2 g 77 /min 111 mm[Hg] 78 mm[Hg] Not Available [facility] - production 11:41:41 Social History None recorded. Functional Status None recorded. Mental Status None recorded. Family History Nothing Reported. Medical History No medical history recorded. Past Encounters Encounter ID Performer Location Encounter Start Date Encounter Closed Date Diagnosis/Indication Diagnosis SNOMED-CT Code Diagnosis ICD10 Code Diagnosis Note [id number] MOISES JOHNSON MD Main - [facility] [address] [place] [address] 02/21/2023 11:41:38 02/21/2023 12:15:00 Acute hypoxemic respiratory failure 774773599 J96.01 Health Concerns Section Related Observation LastModified by Organization Detai ls LastModified Time None Recorded Concern Status LastModified by Organization Details LastModified Time None Recorded Advance Directives Directive None Recorded Payers Encounter Date Sequence Insurance Name Policy Number Policy Perkins Covered Member ID Perkins Member ID Guarantor Name 02/21/2023 1 [facility] - DOS ON OR AFTER 2022 - DUAL ELIGIBLE - SENIOR LIVING OPTIONS AND ONE CARE (MEDICARE REPLACEMENT/ADV ANTAGE - HMO) Montana Taylor [id number] Montana Taylor Notes Date Note Type Note [...] .................. .................. .................. .................. .................. .................. ............... Milk Truck Driver Note From Brent Aguila: Pt reports cough [...] rales in lower right. 911 immediately initiated. [facility] alerted to pt condition. While waiting for EMS to arrive I increased his O2 and discussed long wall shear operator plans with the pt. He was very receptive and plans to confer with the ED MD and his CCA chief bank examiner who is going to meet him in the ED. Care transferred to [facility]. .................. .................. .................. .................. .................. .................. .................. ............... Disposition: Fulfilled MOISES JOHNSON MD [address] [facility],[address], [place], [address], GANESH GRADY 02/21/2023 11:44:01
--- OUTSIDE RECORDS SUMMARY | 2024-04-23 09:19 | XMS_ITS | Encounter Summary ---
Author Organization [facility] Address [address] [place] [address] Care Team Providers Care Entry Level Automotive Technician Name Role Phone Susan Gonsalez MD Primary Care Provider [phone] Reason for Visit * Reason Comments Lung Nodule Needs pet Encounter Details Date Type Department Care Team (Late st Contact Info) Description 04/17/2024 3:00 PM EST Office Visit Pulmonology - [address] [place] [address] Marichuy Flor MD [address] [place] [address] Lung nodule (Primary Dx) Social History Tobacco Use Types Packs/Day Years [...] AM EST documented as of this encounter Last Filed Vital Signs Vital Sign Reading Time Taken Comments Blood Pressure 107/80 04/17/2024 2:50 PM EST Pulse 69 04/17/2024 2:50 PM EST Temperature 36.8 ??C (98.2 ??F) 04/17/2024 2:50 PM ES T Respiratory Rate - - Oxygen Saturation 98% 04/17/2024 2:50 PM EST Inhaled Oxygen Concentration - - Weight 93.3 kg (205 lb 9.6 oz) 04/17/2024 2:50 P M EST Height 182.9 cm (6') 04/17/2024 2:50 PM EST Body Mass Index 27.88 04/17/2024 2:50 PM EST documented in this encounter Progress Notes * Marichuy Flor MD - 04/17/2024 3:00 PM EST Images from the original note were not included. 04/17/2024 Montana Taylor : 1955 PCP: Susan Gonsalez MD Chief Complaint:: lung nodule lung rads 4B History of Present Illness: Montana Taylor is a 69 y.o. male former cigarette smoker (quit around2 months ago, 60 pack years), current marijuana smoker PMH nonischemic cardiomyopathy LVEF 15-20% now normalized 65% related to persistent atrial fibrillation with rapid ventricular response s/p successful JOSEF/DCCV on Eliquis in 2023, traumatic brain injury with short-term memory loss, anxiety and depression, history of alcohol addiction sober since 1984, cocaine addiction in the past, thoracic aortic aneurysm 4.4 cm, obstructive sleep apnea on CPAP, diabetes mellitus, systemic hypertension, hyperlipidemia, GERD, COPD, BPH. Presents to IP clinic with nodule found on LDCT. Here today with his transplant case manager from [facility]. LDCT was done for screening Feb 2024, last was in 2021. Recent CT shows 8-9 mm spiculated left upper lobe nodule. No mediastinal lymphadenopathy. This lesion was not present on prior CT chest. PET scan was done Mar 2024 and this shows mild uptake SUV 1 in the nodule. Borderline uptake in lymph nodein AP window. Pt is largely asymptomatic. No F/C, hemoptysis, no recent unintentional wt loss, night sweats, no recent respiratory infections. No chest pain, tightness, wheezing. Has baseline productive cough. 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 History of lung cancer in mother. Allergies: No Known Allergies Medications: Current Outpatient Medications Medication Instructions albuterol 2.5 mg /3 mL (0.083 %) nebulizer solution Take 1 Vial by nebulization every 4 hours as needed. alcohol swabs pads, medicated 1 Each by route 2 times daily. Use when testing blood sugar apixaban (ELIQUIS) 5 mg tablet Take 1 Tablet by mouth 2 Times Daily. aspirin 81 mg EC tablet TAKE 1 TABLET BY MOUTH EVERY DAY azelastine-fluticasone 137-50 mcg/spray spray,non-aerosol 2 Sprays by Nasal [...] INHALE 2 SPRAYS BY NASAL ROUTE DAILY elsoytuguim-vyrakculvagw-wvgcqvpbnz (Trelegy Ellipta) 100-62.5-25 mcg inhaler Inhale 1 Puff into the lungs daily. FREESTYLE LANCETS [facility] USE TO TEST TWICE A DAY furosemide (LASIX) 20 mg tablet Take 1 Tablet by mouth daily for 360 days. lidocaine (LIDODERM) 5 % patch Place 1 Patch onto the skin every 24 hours. Apply for no more than 12 hours in any 24 hour period. lisinopriL (PRINIVIL,ZESTRIL) 20 mg tablet Take 1 Tablet by [...] sig: Take 1 Tablet by mouth daily. Past Medical History: Diagnosis Date Alcoholism (CMS/HCC) DX:Alcoholism (HCC) Angina pectoris (CMS/HCC) DX:Angina pectoris (HCC) Benign prostatic hyperplasia DX:Benign prostatic hyperplasia Benign prostatic hyperplasia with urinary obstruction DX:Benign prostatic hyperplasia with urinary obstruction CKD (chronic kidney disease), stage II DX:CKD (chronic kidney disease), stage II Hypokalemia DX:Hypokalemia Obesity 06/22/2010 DX:Obesity Past Surgical History: Procedure Laterality Date CERVICAL LAMINECTOMY 06/24 PROCEDURE: HISTORICAL CERV LAMINECTOMY; COMMENT: Johsua; Fusion LUMBAR LAMINECTOMY 06/24 PROCEDURE: HISTORICAL LUMB LAMINECTOMY; COMMENT: Joshua; L4-S1 x 2 Family History Problem Relation Name Age of Onset Diabetes Father Lung cancer Mother Social History Socioeconomic History Marital status: Single Spouse name: Not on file Number of children: Not on file Years of education: Not on file Highest education level: Not on file Occupational History Not on file Tobacco Use Smoking status: Former Smokeless tobacco: Never Substance and Sexual Activity Alcohol use: Not Currently Drug use: Yes Types: Marijuana/Cannabis Sexual activity: Not on file Other Topics Concern Not on file Social History Narrative Not on file Review of Systems Constitutional: Negative. HENT: Negative. Eyes: Negative. Respiratory: See HPI otherwise negative Cardiovascular: Negative. Gastrointestinal: Negative. Endocrine: Negative. Genitourinary: Negative. Musculoskeletal: Negative. Skin: Negative. Breast: negative. Allergic/Immunologic: Negative. Neurological: Negative. Hematological: Negative. Psychiatric/Behavioral: Negative. Vitals: 04/17/24 1450 BP: 107/80 Pulse: 69 Temp: 36.8 ??C (98.2 ??F) SpO2: 98% Body mass index is 27.88 kg/m??. General: No acute distress HEENT: mucous membranes moist Neck: no JVD, supple neck Chest: Clear to auscultation, no wheezing or rales, no accessory muscle use CVS: S1-S2, regular rhythm, no murmurs Abdomen: Nondistended Extremities: No edema, warm Skin: No rashes or lesions Neuro: Alert and oriented x 3 Lab Results Component Value Date CHOL 164 05/27/2020 HDL 50 05/27/2020 HGBA1C 0.0 11/04/2022 LDL 93 05/27/2020 TRIG 108 05/27/2020 Pulmonary Function Results: DATE OF SERVICE: 03/29/24 SPIROMETRY: FEV1 is 76 % predicted and an FVC is 81 % predicted. The FEV1/FVC ratio is decreased, no response to bronchodilators noted. LUNG VOLUMES: Total lung capacity (TLC): 102% predicted. Residual volume (RV): 124% predicted DIFFUSION CAPACITY: DLCO 71% predicted. DlCO/VA 77% of predicted COMPARISONS: INTERPRETATION: This pulmonary function test shows mild to moderate obstructive changes consistent with COPD Echo 10/2023: Imaging: I personally reviewed imaging and the data revealed: Visit Diagnoses: 1. Lung nodule Impression: PET avid lung nodule in a high risk pt Risk of malignancy is intermediate around 27% per risk calc. We discussed etiologies of nodules and next steps in diagnosis which includes bronchoscopic biopsy preferred for intermediate risk nodules. PET scan shows no extrathoracic disease. Reviewed procedure, risks, benefits, and pt agrees to proceed. Recommendations: -Flexible and robotic bronchoscopy, biopsy, EBUS, possible fiducial -Preop labs, has EKG -Hold apixaban 48 hr prior Today I have spent 61 minutes on this encounter with the following activities: Pre-visit review of chart Pre-visit review of imaging Reviewing patient provided information Personal face to face with patient (including extensive discussion counseling) History and physical examination Medication reconciliation Discussion of laboratory results and pathology Discussion with consulting/referring physician(s) Coordination of care including with office staff and nurse navigation Documentation. Marichuy Flor MD Interventional Pulmonology [place] [phone] Office [phone] documented in this encounter Plan of Treatment Scheduled Orders Name Type Priority Associated Diagnoses Orde r Schedule CBC and differential Lab Routine Lung nodule 1 Occurrences starting 04/17/2024 until 04/17/2025 Basic metabolic panel Lab Routine Lung nodule 1 Occurrences starting 04/17/2024 until 04/17/2025 Prothrombin time with INR Lab Routine Lung nodule 1 Occurrences starting 04/17/2024 until 04/17/2025 documented as of this encounter Visit Diagnoses Diagnosis Lung nodule- Primary Other diseases of lung, not elsewhere classified documented in this encounter Care Teams Entry Level Automotive Technician Relationship Specialty Start Date End Date Susan Gonsalez MD PCP - General Endocrinology 03/26/24 documented as of this encounter
--- OUTSIDE RECORDS SUMMARY | 2024-04-23 09:19 | XMS_ITS | Clinical Summary ---
Author Organization [facility] Address [address] [place] [address] Care Team Providers Care Nps Name Role Phone Susan Gonsalez MD Primary Care Provider [phone] Allergies No known active allergies Medications Medication [...] 04/[address] garay podiatry-Eye exam-10.10 dr loepz Social History Tobacco Use Types Packs/Day Years [...] Advance Directives For more information, please contact: [phone] Latest Code Status on File Code Status Date Activated Date Inactivated Comments Full Code 11/03/2022 7:02 PM 11/05/2022 12:09 AM This code status was ascertained in the following way: discussion with patient. Care Teams Nps Relationship Specialty Start Date End Date Susan Gonsalez MD PCP - General Internal Medicine 11/03/22
--- OUTSIDE RECORDS SUMMARY | 2024-04-23 09:19 | XMS_ITS ---
Author Organization [facility] Care Team Providers Care Obstetrics Scrub Nurse Name Role Phone Jen Vizcaino Unavailable Unavailable Marine Espitia Unavailable Unavailable Bailey Sheffield Unavailable Unavailable Allergies and adverse reactions No Known Allergies Care Team Name Role Address Phone Organization Dates Marine Espitia PCP [address] [facility] [address], [place], [address], [facility] (Office): [facility] 03/06/2023 - 03/06/2023 Jen Vizcaino Attending Physician [address], [address], [facility] (Office): [facility] 03/06/2023 - 03/06/2023 Bailey Sheffield Attending Physician [address], [address], [facility] (Office): [facility] 03/06/2023 - 03/06/2023 Mental Status Section Date Assessment Total Score Description 03/06/2023 CAM 0 No delirium ind icated Problems Problem # Description Date of onset Resolved Date Code CodeSystem Concern Status 1 ACUTE ON CHRONIC DIASTOLIC (CONGESTIVE) HEART FAILURE 03/05/[id number] active 2 ACUTE ON CHRONIC SYSTOLIC (CONGESTIVE) HEART FAILURE 03/05/[address] active 3 ACUTE RESPIRATORY FAILURE WITH HYPOXIA 03/05/[address] active 4 ANXIETY DISORDER, UNSPECIFIED 03/05/[address] active [address]Y, UNSPECIFIED 03/05/[address] active 6 CHRONIC ATRIAL FIBRILLATION, UNSPECIFIED 03/05/[address] active 7 CHRONIC OBSTRUCTIVE PULMONARY DISEASE, UNSPECIFIED 03/05/[address] active 8 ESSENTIAL (PRIMARY) HYPERTENSION 03/05/[address] active 9 HYPERLIPIDEMIA, UNSPECIFIED 03/05/[address] active 10 OBSTRUCTIVE SLEEP APNEA (ADULT) (PEDIATRIC) 03/05/[address] active 11 OTHER CARDIOMYOPATHIES 03/05/[address] active 12 OTHER CHRONIC PAIN 03/05/[address] active 13 PERSONAL HISTORY OF TRAUMATIC BRAIN INJURY 03/05/[address] active 14 TYPE 2 DIABETES MELLITUS WITHOUT COMPLICATIONS 03/05/[address] active 15 UNSPECIFIED ATRIAL FIBRILLATION 03/05/[address] active Reason for Referral No Reasons for Referral Entered Social History Social History Observation Description Start Date End Date Code Code System Current Smoking Status Tobacco smoking consumption unknown 685535759 SNOMED CT Sex Assigned At Male 1955 97231-7 [facility] Vital Signs Code Code System Vitals Name Values and Units Timing Information 03715-8 [facility] Weight Plqdk=116.6 Units=Lbs 9279-1 [facility] Respiratory Rate Value=18.0 Units=/m in 03/06/2023 8462-4 [facility] Blood Pressure-Diastolic Value=55 Un its=mmHg 03/06/2023 8480-6 [facility] Blood Pressure-Systolic Kdcvb=350 Un its=mmHg 03/06/2023 8310-5 [facility] Body Temperature Value=97.1 Units=?? F 03/06/2023 8867-4 [facility] Heart rate Value=90.0 Units=/min 8302-2 [facility] Height Value=72.2 Units=Inches 03/06/2023 16342-2 [facility] O2 % BldC Oximetry Value=98.0 Units= % 03/06/2023 49843-0 [facility] Pain Level Value=1.0 03/06/2023 3151-8 [facility] Inhaled oxygen flow rate Value=2.0 U nits=L/Min 03/06/2023
--- OUTSIDE RECORDS SUMMARY | 2024-04-23 09:20 | XMS_ITS | Encounter Summary ---
Author Organization [facility] Address [address] [place] [address] Care Team Providers Care Usability Strategist Name Role Phone Susan Gonsalez MD Primary Care Provider [phone] Reason for Referral * Imaging (Emergency) - Pending Review Specialty Diagnoses / Procedures Referred By Contac t Referred To Contact Radiology Diagnoses Lung nodule Procedures PET CT Skull to Mid Thigh Initial Alysa Maldonado NP [address] [address] Phone: tel: fax: [address] [address] Phone: tel: Referral ID Status Reason Start Date Expiration Date V isits Requested Visits Authorized [id number] Pending Review 03/16/2024 03/16/2025 1 1 Reason for Visit * Imaging (Emergency) - Pending Review Specialty Diagnoses / Procedures Referred By Contac t Referred To Contact Radiology Diagnoses Lung nodule Procedures PET CT Skull to Mid Thigh Initial Alysa Maldonado NP [address] [address] Phone: tel: fax: [address] [address] Phone: tel: Referral ID Status Reason Start Date Expiration Date V isits Requested Visits Authorized [id number] Pending Review 03/16/2024 03/16/2025 1 1 Encounter Details Date Type Department Care Team (Latest Contact Info) Description 04/05/2024 11:00 AM EST - 04/05/2024 11:59 PM EST Hospital Encounter [facility] PET Scan [address] [place] [address] Lung nodule Discharge Disposition: Home [...] Puff into the lungs daily. FREESTYLE LANCETS [facility] USE TO TEST TWICE A DAY lidocaine (LIDODERM) 5 % patch Place 1 [...] sig: Take 1 Tablet by mouth daily. furosemide (LASIX) 20 mg tablet Take 1 Tablet by mouth daily for 360 days. documented as of this encounter Discharge Disposition Disposition Code Departure Means Destination Home or Self Care documented in this encounter Plan of Treatment Not on file documented as of this encounter Procedures Procedure [...] Signed Date: 04/06/2024 04:08 ET Workstation ID: [id number] Transcribed By: Self Edit Transcribed Date: 04/06/2024 [...] Signed Date: 04/06/2024 04:08 ET Workstation ID: [id number] Transcribed By: Self Edit Transcribed Date: 04/06/2024 03:25 ET Alysa Maldonado CASINO GAMING WORKER IMG NM PROCEDURES Final Res ult [...] 04/05/2024 documented in this encounter Care Teams Usability Strategist Relationship Specialty Start Date End Date Susan Gonsalez MD PCP - General Endocrinology 03/26/24 documented as of this encounter
--- OUTSIDE RECORDS SUMMARY | 2024-04-23 09:21 | XMS_ITS | Encounter Summary ---
Author Organization [facility] Address [address] [place] [address] Care Team Providers Care Customs Collector Name Role Phone Susan Gonsalez MD Primary Care Provider Reason for Referral * Therapy (Emergency) - Closed Specialty Diagnoses / Procedures Referred By Contac t Referred To Contact Pulmonology Diagnoses Lung nodule Procedures Pulmonary function testing: Carbon Monoxide Diffusing Capacity, Spirometry with Bronchodilator, Plethysmography Alysa Maldonado NP [address] [address] Phone: tel: fax: [facility] Pulmonary [address] [place] [address] Phone: tel: Referral ID Status Reason Start Date Expiration Date Visits Re quested Visits Authorized [id number] Closed 03/16/2024 03/16/2025 1 1 Reason for Visit * Therapy (Emergency) - Closed Specialty Diagnoses / Procedures Referred By Contac t Referred To Contact Pulmonology Diagnoses Lung nodule Procedures Pulmonary function testing: Carbon Monoxide Diffusing Capacity, Spirometry with Bronchodilator, Plethysmography Alysa Maldonado NP [address] [address] Phone: tel: fax: [facility] Pulmonary [address] [place] [address] Phone: tel: Referral ID Status Reason Start Date Expiration Date Visits Re quested Visits Authorized [id number] Closed 03/16/2024 03/16/2025 1 1 Encounter Details Date Type Department Care Team (Latest Contact Info) Description 03/29/2024 2:39 PM EST - 03/29/2024 11:59 PM EST Hospital Encounter [facility] Pulmonary [address] [place] [address] Lung nodule Discharge Disposition: Home [...] Puff into the lungs daily. FREESTYLE LANCETS [facility] USE TO TEST TWICE A DAY lidocaine [...] COPD ??Sushil Srinivasan MD ?? Alysa Maldonado LOGISTIC MANAGER PFT ORDERABLES Final Resul t documented in [...] 03/29/2024 documented in this encounter Care Teams Customs Collector Relationship Specialty Start Date End Date Susan Gonsalez MD PCP - General Endocrinology 03/26/24 documented as of this encounter
--- OUTSIDE RECORDS SUMMARY | 2024-04-23 09:21 | XMS_ITS | Clinical Summary ---
Author Organization [facility] [employer] [facility] Address [address] [facility] [place] [address] Phone Care Team Providers Care Assistant Spa Manager Name Role Phone Susan Gonsalez MD Primary Care Provider [phone] Allergies No known active allergies Medications digoxin (LANOXIN) 125 mcg (0.125 mg) tablet Take 1 Tablet by mouth daily. Active azelastine-fluticas one 137-50 mcg/spray spray,non-aerosol 2 Sprays by Nasal route daily. Active fluticasone-umeclid inium-vilanterol (Trelegy Ellipta) 100-62.5-25 mcg inhaler Inhale 1 Puff into the lungs daily. Active dapagliflozin propanediol (FARXIGA) 10 mg tablet Take 10 mg by mouth daily. Active azithromycin (ZITHROMAX) 250 mg tablet Take 1 Tablet by mouth daily. Active lisinopriL (PRINIVIL,ZESTRIL) 20 mg tablet Take 1 [...] mouth daily (with breakfast). Active FREESTYLE LANCETS MISC USE TO TEST TWICE A DAY Active aspirin 81 mg EC tablet TAKE 1 TABLET BY MOUTH EVERY DAY Active blood sugar diagnostic (FreeStyle Lite Strips) test strip Apply 1 Strip topically 2 times daily. Active alcohol swabs pads, medicated 1 Each by route 2 times daily. Use when testing blood sugar Active furosemide (LASIX) 20 mg tabletIndications:O ther cardiomyopathies (CMS/HCC) TAKE 1 TABLET BY MOUTH EVERY DAY 90 tablet 3 025 Active furosemide (LASIX) 20 mg tablet Take 1 Tablet by mouth daily for 360 days. 2024 Discontinued Active Problems Problem Noted Date Diagnosed Date Paroxysmal atrial fibrillation 05/10/2023 Overview (02/21/2024): February 2023 - newly discovered asymptomatic atrial fibrillation with rapid ventricular response; initially rate controlled March 2023 - JOSEF/DCCV attempt aborted due to ROSIO thrombus; patient initially with non-adherence to apixaban June 2023 - ultimately successful adherence to AC therapy with successful JOSEF/DCCV at [facility] Assessment & Plan (02/21/2024 9:16 AM EST): [...] medication compliance. Coronary artery disease invo lving [place] coronary artery of [place] heart without angina pectoris 03/25/2023 Traumatic brain injury 03/25/2023 Cervical arthritis 11/03/2022 Left wrist fracture, closed, initial encounter 0 11/03/2022 Unequal pupils 11/03/2022 Nonischemic cardiomyopathy 07/05/2022 Overview (02/21/2024): 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 February 2023 - [facility] Wing found to have decompensated heart failure LVEF [...] dr lopez Depression 01/19/2010 Overview (01/04/2024): Seeing maia psych Hyperlipidemia 01/19/2010 Assessment & Plan (02/21/2024 [...] Encounters Date Type Department Care Team Description 04/18/2024 Telephone [facility] - [facility] [address] [facility] [address] [place] [phone] Ann Gutierrez MD Holding medication 04/18/2024 Telephone [address] [address] Marichuy Flor MD Procedure (PVCA , Prior auth PAT ) 04/17/2024 3:00 PM EST Office Visit Pulmonology [facility] [address] [facility] [address] [place] [phone] Marichuy Flor MD Lung nodule (Primary Dx) 04/06/2024 Telephone Pulmonology - [place] [address] [place] [address] Marichuy Flor MD Appointment (Appt 04/06/24) 04/05/2024 11:00 AM EST - 04/05/2024 11:59 PM EST Hospital Encounter [facility] PET Scan [address] [place] [phone] Lung nodule Discharge Disposition: Home or Self Care 03/29/2024 2:39 PM EST - 03/29/2024 11:59 PM EST Hospital Encounter [facility] Pulmonary [address] [place] [address] Lung nodule Discharge Disposition: Home or Self Care 03/09/2024 Telephone Lung Screening Program - [place] [address] [place] [phone] Michelle Hidalgo MA Results (Annual Lung Screening- Suspicious findings) 02/28/2024 9:39 AM EST - 02/28/2024 11:59 PM EST Hospital Encounter [facility] CT Scan [address] [place] [phone] Encounter for screening for malignant neoplasm of respiratory organs; Nicotine dependence, cigarettes, uncomplicated Discharge Disposition: Home or Self Care 02/21/2024 8:10 AM EST Office Visit [facility] [address] [place] [phone] Tex Aguila NP Paroxysmal atrial fibrillation (CMS/HCC) [...] II Hypokalemia DX:Hypokalemia Alcoholism (CMS/HCC) DX:Alcoholi sm (HCC) Angina pectoris (CMS/HCC) DX:Ang alexsandra pectoris (HCC) Benign prostatic hyperplasia DX: Benign prostatic hyperplasia [...] Mass Index 27.88 04/17/2024 2:50 PM EST Plan of Treatment Health Maintenance Due Date [...] STAT 04/05/2024 12:35 PM EST Lung nodule HC SPIROMETRY BRONCHODILATION RESPONSIVENESS PRE/POST BRONCHODILATOR ADMINISTRATION [...] Signed Date: 04/06/2024 04:08 ET Workstation ID: [id number] Transcribed By: Self Edit Transcribed Date: 04/06/2024 [...] Signed Date: 04/06/2024 04:08 ET Workstation ID: [id number] Transcribed By: Self Edit Transcribed Date: 04/06/2024 03:25 ET us Alysa Maldonado BRIDGE INSPECTOR IMG NM PROCEDURES Final Res ult * [...] consistent with COPD ??Sushil Rodrigez MD ?? us Alysa Maldonado BRIDGE INSPECTOR PFT ORDERABLES Final Resul t * CT [...] without contrast [place] tissue [place] ([id number]) -------- FINAL REPORT -------- Dictated By: Gabrielle Cobos Dictated Date: 03/06/2024 14:51 ET Assigned Physician: Gabrielle Cobos Reviewed and Electronically Signed By: Gabrielle Cobos Signed Date: 03/06/2024 15:07 ET Workstation ID: [id number] Transcribed By: Self Edit Transcribed Date: 03/06/2024 14:51 ET Narrative 03/06/2024 3:07 PM EST History: ??69 year-old 46 pack-year current smoker, asymptomatic, for lung cancer screening. Mother had lung carcinoma. Comparison: 09/29/21 Technique: Helical volumetric imaging of the thorax was performed, using low- dose technique, without IV contrast. DLP: 179.35 mGy/cm ??CTDIvol: 4.89 mGy [facility] Iterative reconstruction technique Findings: Lungs and Airways: [...] noted. There is a small hiatal hernia. Alondra Talbert MD IMG CT PROCEDURES Final Result * ECG 12 lead (02/21/2024 9:09 AM EST) [facility] Ventricular Rate ECG 61 BPM GEMUSE Atrial Rate 61 BPM GEMUSE P-R Interval 210 ms GEMUSE QRS Duration 126 ms GEMUSE Q-T Interval 420 ms GEMUSE QTc 422 ms GEMUSE P Wave [place] 45 degrees GEMUSE R [place] -44 degrees GEMUSE T [place] -55 degrees GEMUSE ECG Interpretation Sinus rhythm with 1st degree A-V block with Premature supraventricular complexes Left axis deviation Non-specific intra-ventricular conduction block Abnormal ECG When compared with ECG of 06-JUN-2015 03:05, Premature supraventricular complexes are now Present Confirmed by ERASMO MOLINA ([id number]) on 02/21/2024 10:24:28 AM GEMUSE 02/21/2024 8:14 AM EST 02/21/2024 10:24 AM EST Tex Aguila BRIDGE INSPECTOR ECG ORDERABLES Edited Resu lt - Final GEMUSE * Annual BMP Blood Test (11/04/2022) [facility] Annual BMP Blood Test Abstracted Historical Provider HEALTH MAINTENANCE Final Result * Hemoglobin A1c (11/04/2022) [facility] Hemoglobin A1C 0.0 <=6.5 % Comment:No Interpretation Blood Venous blood specimen / Unknown Result [facility] Provider LAB BLOOD ORDERABLES Rukhsana l Result * Urine Albumin Creatinine Ratio (05/27/2020) [facility] Urine Albumin Creatinine Ratio Abstracted Result [facility] Provider HEALTH MAINTENANCE Final Result * Lipid panel (05/27/2020) [facility] LDL/HDL Ratio 3 0 - 4 Triglycerides 108 0 - 150 mg/dL Cholesterol 164 0 - 200 mg/dL HDL 50 >=40 mg/dL LDL Cholesterol 93 0 - 100 mg/dL Blood Venous blood specimen / Unknown Result [facility] Provider LAB BLOOD ORDERABLES Rukhsana l Result * Hepatitis C Screening (06/14/2012) [facility] Hepatitis C Screening Abstracted Result [facility] Provider HEALTH MAINTENANCE Final Result * Depression Screening (03/18/2011) [facility] Depression Screening Abstracted Result [facility] Provider HEALTH MAINTENANCE Final Result from Last 3 Months or Most Recently Relevant to Health Maintenance Insurance [facility] MEDIC[facility] Member Subscriber Plan / Payer (Ef fective 2020-Present) Name:Montana Taylor Relation to Subscriber:Self Name:Montana Taylor Payer ID:[id number] Group ID:[id number] Type:Not on file Address: [place] [address] [id number] Care Teams Assistant Spa Manager Relationship Specialty Start Date End Date Susan Gonsalez MD PCP - General Endocrinology 03/26/24
== END 2024-04-23 08:53 | disposition home or self-care (01) ==
LOC: HO.XRAY 08:52
PROVIDERS: PCP Internal Medicine; Visit Provider Internal Medicine
DX: R13.10 Dysphagia, unspecified (principal)
CPT/HCPCS: 74220

== ENCOUNTER → 2024-04-23 09:00 | Outpatient (BNV) | payer OTHER, SELFPAY | PROVIDERS: PCP Internal Medicine; Visit Provider Radiology Diagnostic Radiology | DX: R13.10 Dysphagia, unspecified (principal) | CPT/HCPCS: 74221 ==

== ENCOUNTER → 2024-05-08 23:59 | Outpatient (BNV) | payer OTHER, SELFPAY | PROVIDERS: PCP Internal Medicine; Visit Provider Internal Medicine | DX: J44.9 Chronic obstructive pulmonary disease, unspecified (principal); F17.210 Nicotine dependence, cigarettes, uncomplicated; E11.9 Type 2 diabetes mellitus without complications | CPT/HCPCS: G0179 ==

== ENCOUNTER 2024-05-28 09:29 | Outpatient (AMB) | payer OTHER, SELFPAY ==
--- NOTE | 2024-05-28 09:33 | A.OFFPC_ITS ---
Vital Signs 05/28/24 09:38 Height 6 ft Weight 201 lb 6 oz BMI 27.3 BP 108/50 L Blood Pressure Location Rt brachial Position Sitting Pulse 75 Pulse Source Pulse Oximeter Pulse Oximetry (%) 96 Oxygen Delivery Method Room Air Intake Visit Reasons: side effects of the medication Allergies No Known Allergies Allergy (Verified 04/17/24 11:14) Tobacco use date assessed: 05/28/24 Dental Screening Dental Screen Date: 08/30/23 HPI HPI Comments History of Present Illness Details The patient is a 68 year old male with a past medical history of TBI, YESICA on CPAP, COPD, recovered alcoholic, type 2 diabetes, hypertension, TAA presenting for follow up. He is accompanied by a health nanny caregiver-[facility] worker Patient is concerned for increased anxiety, decreased concentration. Newest medication is clonidine was wondering if perhaps contributing. Has been stable on wellbutrin, seroquel and oxcarbazepine until recently. Previously following with Aditya Newsome -was telehealth often missed these appts due to TBI. [facility] operations administrative assistant will book in person CV: Follows with [facility]. Admitted in Mar 2023 for CHF. Is euvolemic without chest pain or dyspnea. Rsp: Follows with [facility] pulmonary, seeing Dr Garcia, has follow up scheduled. Had recent biopsy-c/w bacterial infection. YESICA-compliant on CPAP TBI: History of TBI. Saw neurology at [facility]. Followed with N. Follows with head injury program [facility]. 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 History recovered etoh. continues AA. Sober since 1992. Chronic pain: stable on chronic opioid therapy -DDD-history of cervical fusion and elliott te LS fusion. Follows with PSS. -NEOS sending to [facility] pain managemen t for spinal cord stim trial. A lot of right hip pain, low back pain Endocrine: Diabetes. Controlled. On metformin 500mg daily. A1C 5.7% today GI: Dysphagia. Had barium swallow. Has follow up scheduled with ENT today. Saw gastroenterology April. Dental issues-upcoming visit with oral surgery ROS see HPI PHYSICAL EXAM: GENERAL: Alert and oriented x 3. NAD EYES: EOMI. Anicteric. HENT: Moist mucous membranes. No scleral icterus. No cervical lymphadenopathy. LUNGS: Clear to auscultation bilaterally. CARDIOVASCULAR: Regular rate and rhythm. No murmur. No JVD. ABDOMEN: Soft, non-tender +bs EXTREMITIES: No edema. Non-tender. SKIN: No rashes or lesions. Warm. NEUROLOGIC: No focal neurological deficits. Memory impaired PSYCHIATRIC: Cooperative. Appropriate mood and affect [facility] Medical History Diabetes Vitamin D deficiency, unspecified Tubular adenoma of colon Presenile dementia Polyp of colon YESICA (obstructive sleep apnea) Obesity Nicotine dependence Lumbar spondylosis with myelopathy Lumbar canal stenosis Incomplete emptying of bladder Hypertension Hyperlipidemia H/O traumatic brain injury ELIZABETH (generalized anxiety disorder) Depressive disorder Constipation, unspecified CHF (congestive heart failure) COPD (chronic obstructive pulmonary disease) Cervical arthritis Cardiomyopathy Benign prostatic hyperplasia with urinary obstruction Benign prostatic hyperplasia Benign hypertension Arrhythmia Angina pectoris Alcoholism Surgical History History of spinal fusion History of appendectomy History of cervical spinal arthrodesis History of hernia repair History of gastric surgery History of colonoscopy Family History Mother Lung cancer Smoker Father Diabetes High cholesterol Hypertension Unsteady gait Social History Household Members: None Housing: House Alcohol intake: former Year quit: 1987 Patient Tobacco Use Status: Former Tobacco user Tobacco use type: Cigar and Pipe Cigarettes Per Day: 2 e-Cigarette/Vaping Use: Never Used Second Hand Smoke Exposure: No Substance Use Type: Marijuana service: No Current occupational status: retired and disabled Cognitive needs: Yes (brain injury) Hearing needs: No Vision needs: No Questionnaire Thrive Questionnaire Date Thrive assessed: 05/28/24 I am a: Patient What is your living situation today?: I have a steady place to live Within the past 12 months, did the food you bought not last and you didn't have the money to get more?: Never true Within the past 12 months, did you worry whether your food would run out before you got money to buy more?: Never true Do you have trouble paying for medicines?: No Do you have trouble getting transportation to medical appointments?: No Do you have trouble paying your heating and electricity bill?: No Do you have trouble taking care of your child, family member or friend?: No Do you have trouble with day-to-day activities such as bathing, preparing meals, shopping, managing finances, etc.?: No Are you currently unemployed and looking for a job?: No Are you interested in more education?: No Please select the resources that you would like help with: None Currently or been in a relationship where the following occur: No concerns reported THRIVE Score: 0 Physical exam (Primary Care) Vital Signs: Last Vital Signs Pulse 75 05/28/24 09:38 BP 108/50 L 05/28/24 09:38 Pulse Ox 96 05/28/24 09:38 Oxygen Delivery Method Room Air 05/28/24 09:38 BMI result Body Mass Index 27.3 Tobacco/Smoking Status: Tobacco use Status Tobacco use date assessed 05/28/24 05/28/24 09:44 Patient Tobacco Use Status Former Tobacco user 05/28/24 09:46 Tobacco use type Pipe,Cigar 05/28/24 09:46 e-Cigarette/Vaping Use Never Used 05/28/24 09:46 Thrive Assessment: Date of Thrive Assessment Date Thrive assessed 05/28/24 05/28/24 09:45 Currently or been in a relationship where the following occur: No concerns reported Coding Level of Care Code Est Pt Level 4 (63850) Diagnoses Anxiety F41.9 Mood disorder F39 Hypoxia R09.02 Assessment & Plan Assessment & Plan (1) Anxiety: Code(s): F41.9 - Anxiety disorder, unspecified Category: Medical (2) Mood disorder: Code(s): F39 - Unspecified mood [affective] disorder Category: Medical (3) Hypoxia: Code(s): R09.02 - Hypoxemia Category: Medical Plan Mood is more manic today, anxious than usual. He is coherent and following train of thought He will stop clonidine start clonazepam. Schedule with psychiatry. Has been having hypoxia, often freedman not realize it. He is following closely with pulmonary Chronic pain management-stable Medications: New [pulse oximeter] As directed 1 ea 0RF R09.02 - Hypoxemia clonazepam 0.5 mg PO BID 60 tabs 0RF
[2024-05-28 09:38] VITALS: BP 108/50; PULSE 75; O2SAT 96; BMI 27.3
--- OUTSIDE RECORDS SUMMARY | 2024-05-28 10:32 | XMS_ITS | Clinical Summary ---
Author Organization [facility] Address [address] [place] [address] Care Team Providers Care Compact Assembler Name Role Phone Susan Gonsalez MD Primary Care Provider [phone] Allergies No known active allergies Medications Medication [...] Advance Directives For more information, please contact: [phone] Latest Code Status on File Code Status Date Activated Date Inactivated Comments Full Code 11/03/2022 7:02 PM 11/05/2022 12:09 AM This code status was ascertained in the following way: discussion with patient. Care Teams Compact Assembler Relationship Specialty Start Date End Date Susan Gonsalez MD PCP - General Internal Medicine 11/03/22
--- OUTSIDE RECORDS SUMMARY | 2024-05-28 10:32 | XMS_ITS | Encounter Summary ---
Author Organization [facility] Address [address] [place] [address] Care Team Providers Care Resources Representative Name Role Phone Hanh Tobar MD Primary Care Provider Unav ailable Susan Hughes MD Primary Care Provider Unavaila ble Ann Gutierrez MD Unavailable [phone] Tracey Crouch DNP Unavailable [phone] Encounter Details Date Type Department Care Team Description 09/29/2021 Rn Float Report Medical Records [address] [place] [address] Center, [facility] [address] [place] [address] Social History Tobacco Use Types Packs/Day Years Used Date Smoking Tobacco: Former Smokeless Tobacco: Former Quit: 2018 Alcohol Use Standard Drinks/Week Comments No 0 (1 standard drink = 0.6 oz pur e alcohol) Sex Assigned at Date Recorded Not on file Job Start Date Occupation Industry Not on file Not on file Not on file documented as of this encounter Plan of Treatment Not on file documented as of this encounter Visit Diagnoses Not on filedocumented in this encounter Care Teams Resources Representative Relationship Specialty Start Date End Date Hanh Tobar MD PCP - General Internal Medicine 03/22/18 02/24/22 Susan Hughes MD PCP - General Internal Medicine 02/25/22 Ann Gutierrez MD Specialist Cardiology 03/18/23 Tracey Crouch DNP Specialist Nurse Practitioner Family 03/18/23 documented as of this encounter
--- OUTSIDE RECORDS SUMMARY | 2024-05-28 10:32 | XMS_ITS | Encounter Summary ---
Author Organization [facility] Address [address] [place] [address] Care Team Providers Care Location Analyst Name Role Phone Hanh Tobar MD Primary Care Provider Susan Henning MD Primary Care Provider Ann Cai MD Unavailable [phone] Tracey Crouch DNP Unavailable [phone] Reason for Visit * Reason Comments E-prescribe Rx Request Encounter Details Date Type Department Care Team Description 08/26/2020 Refill Pulmonology - [place] [address] [facility] [address] [place] [address] Sushil Srinivasan MD [address] [place] [phone] E-prescribe Rx Request Social History Tobacco Use Types Packs/Day Years Used Date Smoking Tobacco: Former Smokeless Tobacco: Former Quit: 2018 Alcohol Use Standard Drinks/Week Comments No 0 (1 standard drink = 0.6 oz pur e alcohol) Sex Assigned at Date Recorded Not on file Job Start Date Occupation Industry Not on file Not on file Not on file COVID-19 Exposure Response Date Recorded In the last month, have you been in contact with someone who was confirmed or suspected to have Coronavirus / COVID-19? No / Unsure 08/26/2020 8:17 AM EDT documented as of this encounter Miscellaneous Notes * Telephone Encounter - Sissy Powers - 08/27/2020 10:37 AM EDT Ayah 08/26/20 Next due Return in about 6 months (around 02/26/2021). documented in this encounter Plan of Treatment Not on file documented as of this encounter Visit Diagnoses Diagnosis Pulmonary emphysema, unspecified emphysema type (HCC) documented in this encounter Care Teams Location Analyst Relationship Specialty Start Date End Date Hanh Tobar MD PCP - General Internal Medicine 03/22/18 02/24/22 Susan Hughes MD PCP - General Internal Medicine 02/25/22 Ann Gutierrez MD Specialist Cardiology 03/18/23 Tracey Crouch DNP Specialist Nurse Practitioner Family 03/18/23 documented as of this encounter
--- OUTSIDE RECORDS SUMMARY | 2024-05-28 10:32 | XMS_ITS | Encounter Summary ---
Author Organization [facility] Address [address] [place] [address] Care Team Providers Care Weir Fisher Name Role Phone Hanh Tobar MD Primary Care Provider Susan Henning MD Primary Care Provider Ann Cai MD Unavailable [phone] Tracey Crouch DNP Unavailable [phone] Reason for Visit * Reason Onset Date Comments DME Request 06/09/2021 Encounter Details Date Type Department Care Team Description 06/09/2021 Telephone Pulmonology - [place] [address] [facility] [address] [place] [address] Sushil Srinivasan MD [address] [place] [phone] DME Request Social History Tobacco Use Types Packs/Day Years Used Date Smoking Tobacco: Former Smokeless Tobacco: Former Quit: 2018 Alcohol Use Standard Drinks/Week Comments No 0 (1 standard drink = 0.6 oz pur e alcohol) Sex Assigned at Date Recorded Not on file Job Start Date Occupation Industry Not on file Not on file Not on file documented as of this encounter Miscellaneous Notes * Telephone Encounter - Sissy Powers - 06/09/2021 3:18 PM EDT Left vm for pt to call office back to book appt with Dr Srinivasan follow up/ YESICA and COPD * Telephone Encounter - Sissy Powers - 06/09/2021 3:16 PM EDT I have to call pt first and book appt. CIRILO 08/26/20 * Telephone Encounter - Charlotte Lawson - 06/09/2021 2:17 PM EDT [facility] needs a call back regarding patient. They have notes that patient is on Cpap and then they note patient is on nocturnal oxygen. They need to know if it is being bled in. Also requesting if wehave any updated overnight testing. Please call Anat at [facility] [phone] ext [phone]. The fax number is [phone]. documented in this encounter Plan of Treatment Not on file documented as of this encounter Visit Diagnoses Not on filedocumented in this encounter Care Teams Weir Fisher Relationship Specialty Start Date End Date Hanh Tobar MD PCP - General Internal Medicine 03/22/18 02/24/22 Susan Hughes MD PCP - General Internal Medicine 02/25/22 Ann Gutierrez MD Specialist Cardiology 03/18/23 Tracey Crouch DNP Specialist Nurse Practitioner Family 03/18/23 documented as of this encounter
--- OUTSIDE RECORDS SUMMARY | 2024-05-28 10:32 | XMS_ITS | Encounter Summary ---
Author Organization [facility] Address [address] [place] [address] Care Team Providers Care City Planning Teacher Name Role Phone De Tovar MD Primary Care Provider [facility], Pcp Primary Care Provider Shilo Mendez MD Primary Care Provider Unavail Kane Bran MD Primary Care Provider Kane Whitmore MD Primary Care Provider Hanh Ramirez MD Primary Care Provider Hanh Scott MD Primary Care Provider Susan Henning MD Primary Care Provider Ann Cai MD Unavailable [phone] Tracey Crouch DNP Unavailable [phone] Encounter Details Date Type Department Care Team Description 06/25/2010 Track Inspecting Supervisor Report Medical Records [address] [place] [address] Sushil Srinivasan MD [address] [place] [id number] Social History Tobacco Use Types Packs/Day Years Used Date Smoking Tobacco: Some Days Smokeless Tobacco: Never Comments:uses 2 cigars daily Alcohol Use Standard Drinks/Week Comments No 0 [...] on filedocumented in this encounter Care Teams City Planning Teacher Relationship Specialty Start Date End Date De Tovar MD PCP - General 04/14/09 06/28/11 [facility], Pcp PCP - General Internal Medicine 06/29/11 07/25/11 Shilo Leblanc MD PCP - General Internal Medicine 07/26/11 07/27/11 Kane Torrez MD PCP - General Internal Medicine 07/28/11 01/03/12 Kane Torrez MD PCP - General Internal Medicine 04/14/14 03/21/18 Hanh Tobar MD PCP - General Internal Medicine 03/22/18 02/24/22 Hanh Tobar MD PCP - General 01/04/12 04/13/14 Susan Hughes MD PCP - General Internal Medicine 02/25/22 Ann Gutierrez MD Specialist Cardiology 03/18/23 Tracey Crouch DNP Specialist Nurse Practitioner Family 03/18/23 documented as of this encounter
--- OUTSIDE RECORDS SUMMARY | 2024-05-28 10:33 | XMS_ITS | Encounter Summary ---
Author Organization [facility] Address [address] [place] [address] Care Team Providers Care Spar Machine Operator Name Role Phone De Tovar MD Primary Care Provider [facility], Pcp Primary Care Provider Shilo Mendez MD Primary Care Provider Unavail Kane Bran MD Primary Care Provider Kane Whitmore MD Primary Care Provider Hanh Ramirez MD Primary Care Provider Hanh Scott MD Primary Care Provider Susan Henning MD Primary Care Provider Ann Cai MD Unavailable [phone] Tracey Crouch DNP Unavailable [phone] Encounter Details Date Type Department Care Team Description 12/25/2010 Supervisor Shuttle Veneering Report Medical Records [address] [place] [address] Sushil Srinivasan MD [address] [place] [id number] Social History Tobacco Use Types Packs/Day [...] on filedocumented in this encounter Care Teams Spar Machine Operator Relationship Specialty Start Date End Date De Tovar MD PCP - General 04/14/09 06/28/11 [facility], Pcp PCP - General Internal Medicine 06/29/11 [...]
--- OUTSIDE RECORDS SUMMARY | 2024-05-28 10:33 | XMS_ITS | Encounter Summary ---
Author Organization [facility] Address [address] [place] [address] Care Team Providers Care Rock Worker Name Role Phone Hanh Tobar MD Primary Care Provider Susan Henning MD Primary Care Provider Ann Cai MD Unavailable [phone] Tracey Crouch DNP Unavailable [phone] Reason for Visit * Reason Comments E-prescribe Rx Request Encounter Details Date Type Department Care Team Description 09/22/2020 Refill Pulmonology - [place] [address] [facility] [address] [place] [address] Sushil Srinivasan MD [address] [place] [phone] E-prescribe Rx Request Social History Tobacco Use [...] encounter Miscellaneous Notes * Telephone Encounter - Louise Joey - 10/02/2020 3:55 PM EDT Patient would like script to be: E-PRESCRIBED/FAXED TO PHARMACY WHEN WAS THE PATIENT'S LAST APPOINTMENT IN ADULT MEDICINE? 08/26/20 WHEN WAS THE LAST TIME THE PATIENT SAW THEIR PCP? Same as above Does patient have an upcoming appointment? No, 6 month f/u 02/26/21 schedule not open yet. (THE MEDICATION REQUESTED IS ON THE MED LIST ABOVE) All of the medications requested were on the CURRENT MEDS list Did you check the Pharmacy information above?: YES Patient wants: 30 -day supply Is this a mail order prescription request ? NO If the refill is from a FAXED refill request what is the RX # listed on the fax? N/A Patients current insurance carrier is: Payor: [facility] M[facility] / Plan: BamateaO $0 [facility] [id number] / Product Type: HMO [id number] documented in this encounter Plan of Treatment Not on file documented as of this encounter Visit Diagnoses Diagnosis Pulmonary emphysema, unspecified emphysema type (HCC) documented in this encounter Care Teams Rock Worker Relationship Specialty Start Date End Date Hanh Tobar MD PCP - General Internal Medicine 03/22/18 02/24/22 Susan Hughes MD PCP - General Internal Medicine 02/25/22 Ann Gutierrez MD Specialist Cardiology 03/18/23 Tracey Crouch DNP Specialist Nurse Practitioner Family 03/18/23 documented as of this encounter
--- OUTSIDE RECORDS SUMMARY | 2024-05-28 10:33 | XMS_ITS | Encounter Summary ---
Author Organization [facility] Address [address] [place] [address] Care Team Providers Care Butt Presser Name Role Phone Susan Hughes MD Primary Care Provider Unavaila ble Ann Gutierrez MD Unavailable [phone] Tracey Crouch DNP Unavailable [phone] Encounter Details Date Type Department Care Team Description 03/25/2023 SCAN Medical Records [address] [place] [id number] [place] [address] Social History Tobacco Use Types Packs/Day Years [...] on filedocumented in this encounter Care Teams Butt Presser Relationship Specialty Start Date End Date Susan Hughes MD PCP - General Internal Medicine 02/25/22 Ann Gutierrez MD Specialist Cardiology 03/18/23 Tracey Crouch DNP Specialist Nurse Practitioner Family 03/18/23 documented as of this encounter
--- OUTSIDE RECORDS SUMMARY | 2024-05-28 10:33 | XMS_ITS | Encounter Summary ---
Author Organization [facility] Address [address] [place] [address] Care Team Providers Care Manager Express Name Role Phone Hanh Tobar MD Primary Care Provider Susan Henning MD Primary Care Provider Ann Cai MD Unavailable [phone] Tracey Crouch DNP Unavailable [phone] Reason for Visit * Reason Comments E-prescribe Rx Request Encounter Details Date Type Department Care Team Description 02/05/2020 Refill Pulmonology - [place] 175 [facility] [address] [place] [address] Sushil Srinivasan MD [address] [place] [phone] E-prescribe Rx Request Social History Tobacco Use [...] encounter Miscellaneous Notes * Telephone Encounter - Gladis Chengjavid - 02/05/2020 2:37 PM EST Patient would like script to be: E-PRESCRIBED/FAXED TO PHARMACY WHEN WAS THE PATIENT'S LAST APPOINTMENT WITH THE PRESCRIBING PROVIDER? 10/03/19 Does patient have an upcoming appointment? Yes 04/03/20 (THE MEDICATION REQUESTED IS ON THE MED LIST ABOVE) All of the medications requested were on the CURRENT MEDS list Did you check the Pharmacy information above?: YES Patient wants: 90 -day supply Is this a mail order prescription request ? NO Patients current insurance carrier is: Payor: [employer] / Plan: [employer] / Product Type: MEDICARE [id number] documented in this encounter Plan of Treatment Not on file documented as of this encounter Visit Diagnoses Diagnosis PND (post-nasal drip) Postnasal drip documented in this encounter Care Teams Manager Express Relationship Specialty Start Date End Date Hanh Tobar MD PCP - General Internal Medicine 03/22/18 02/24/22 Susan Hughes MD PCP - General Internal Medicine 02/25/22 Ann Gutierrez MD Specialist Cardiology 03/18/23 Tracey Crouch DNP Specialist Nurse Practitioner Family 03/18/23 documented as of this encounter
--- OUTSIDE RECORDS SUMMARY | 2024-05-28 10:33 | XMS_ITS | Encounter Summary ---
Author Organization [facility] Address [address] [place] [address] Care Team Providers Care Master Data Analyst Name Role Phone De Tovar MD Primary Care Provider [facility]en [facility], Pcp Primary Care Provider Shilo Mendez MD Primary Care Provider Kane Silva MD Primary Care Provider Kane Whitmore MD Primary Care Provider Hanh Ramirez MD Primary Care Provider Hanh Scott MD Primary Care Provider Susan Henning MD Primary Care Provider Ann Cai MD Unavailable [phone] Tracey Crouch DNP Unavailable [phone] Encounter Details Date Type Department Care Team Description 09/21/2010 Home Health Certification Medical Records [address] [place] [address] Abstract, Provider Social History Tobacco Use Types Packs/Day Years [...] on filedocumented in this encounter Care Teams Master Data Analyst Relationship Specialty Start Date End Date De Tovar MD PCP - General 04/14/09 06/28/11 [facility], Pcp PCP - General Internal Medicine 06/29/11 [...]
--- OUTSIDE RECORDS SUMMARY | 2024-05-28 10:33 | XMS_ITS | Encounter Summary ---
Author Organization [facility] Address [address] [place] [address] Care Team Providers Care Valet Attendant Name Role Phone Hanh Tobar MD Primary Care Provider Susan Henning MD Primary Care Provider Ann Cai MD Unavailable [phone] Tracey Crouch DNP Unavailable [phone] Reason for Visit * Reason Comments E-prescribe Rx Request Encounter Details Date Type Department Care Team Description 07/14/2020 Refill Pulmonology - [place] [address] [facility] [address] [place] [address] Sushil Srinivasan MD [address] [place] [phone] E-prescribe Rx Request Social History Tobacco Use [...] encounter Miscellaneous Notes * Telephone Encounter - Arpit Osman DPM - 07/21/2020 8:21 AM EDT Hi I dont know who you are but please stop forwarding me these patient Calls and rx requests I am not part of your department. 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 Please talk to your escrow officer for clarification. Thank You! * Telephone Encounter - Stefany Banks - 07/18/2020 9:33 AM EDT Ayah 04/03/20 Nov 08/01/20 documented in this encounter Plan of Treatment Not on file documented as of this encounter Visit Diagnoses Diagnosis Pulmonary emphysema, unspecified emphysema type (HCC) documented in this encounter Care Teams Valet Attendant Relationship Specialty Start Date End Date Hanh Tobar MD PCP - General Internal Medicine 03/22/18 02/24/22 Susan Hughes MD PCP - General Internal Medicine 02/25/22 Ann Gutierrez MD Specialist Cardiology 03/18/23 Tracey Crouch DNP Specialist Nurse Practitioner Family 03/18/23 documented as of this encounter
--- OUTSIDE RECORDS SUMMARY | 2024-05-28 10:33 | XMS_ITS | Encounter Summary ---
Author Organization [facility] Address [address] [place] [address] Care Team Providers Care Inclinometer Tester Name Role Phone Kane Torrez MD Primary Care Provider Kane Whitmore MD Primary Care Provider Hanh Ramirez MD Primary Care Provider Hanh Scott MD Primary Care Provider Susan Henning MD Primary Care Provider Unavaila Ann Byrnes MD Unavailable [phone] Tracey Crouch DNP Unavailable [phone] Reason for Visit * Reason Comments E-prescribe Rx Request Encounter Details Date Type Department Care Team Description 07/28/2011 Refill Adult Medicine - [place] [address] [place] [address] De Tovar MD E-prescribe Rx Request Social History Tobacco Use Types Packs/Day Years Used Date Smoking Tobacco: Former Smokeless Tobacco: Never Alcohol Use Standard Drinks/Week Comments No 0 [...] on filedocumented in this encounter Care Teams Inclinometer Tester Relationship Specialty Start Date End Date Kane Torrez MD PCP - General Internal [...]
--- OUTSIDE RECORDS SUMMARY | 2024-05-28 10:33 | XMS_ITS | Encounter Summary ---
Author Organization [facility] Address [address] [place] [address] Care Team Providers Care Manager Housekeeping Name Role Phone Hanh Tobar MD Primary Care Provider Unav ailable Susan Hughes MD Primary Care Provider Unavaila ble Ann Gutierrez MD Unavailable [phone] Tracey Crouch DNP Unavailable [phone] Encounter Details Date Type Department Care Team Description 09/26/2019 Road Mechanic Report Medical Records [address] [place] [id number] [place] [address] Social History Tobacco Use Types Packs/Day Years [...] on filedocumented in this encounter Care Teams Manager Housekeeping Relationship Specialty Start Date End Date Hanh Tobar MD PCP - General Internal Medicine 03/22/18 02/24/22 Susan Hughes MD PCP - General Internal Medicine 02/25/22 Ann Gutierrez MD Specialist Cardiology 03/18/23 Tracey Crouch DNP Specialist Nurse Practitioner Family 03/18/23 documented as of this encounter
--- OUTSIDE RECORDS SUMMARY | 2024-05-28 10:33 | XMS_ITS | Encounter Summary ---
Author Organization [facility] Address [address] [place] [address] Care Team Providers Care Geophysics Scientist Name Role Phone Susan Hughes MD Primary Care Provider Unavaila Ann Byrnes MD Unavailable [phone] Tracey Crouch DNP Unavailable Encounter Details Date Type Department Care Team Description 02/21/2023 Hospital Medical Records [address] [place] [id number] [place] [address] Social History Tobacco Use Types Packs/Day Years [...] Procedure Name Priority Date/Time Associated Diagnosis Comments OUTSIDE PLAIN FILM Routine 03/05/2023 OUTSIDE LAB Routine 03/05/2023 OUTSIDE NUCLEAR STRESS TEST Routine 03/02/2023 OUTSIDE ECHO Routine 02/22/[address] Routine 02/21/2023 documented in this encounter Results * OUTSIDE PLAIN FILM (03/05/2023) Provider Abstract RADIOLOGY * OUTSIDE LAB (03/05/2023) Provider Abstract LAB * OUTSIDE NUCLEAR STRESS TEST (03/02/2023) Provider Abstract CARDIOLOGY * OUTSIDE ECHO (02/22/2023) Provider Abstract CARDIOLOGY * OUTSIDE CT (02/21/2023) Provider Abstract RADIOLOGY documented in this encounter Visit Diagnoses Not on filedocumented in this encounter Care Teams Geophysics Scientist Relationship Specialty Start Date End Date Susan Hughes MD PCP - General Internal Medicine 02/25/22 Ann Gutierrez MD Specialist Cardiology 03/18/23 Tracey Crouch DNP Specialist Nurse Practitioner Family 03/18/23 documented as of this encounter
--- OUTSIDE RECORDS SUMMARY | 2024-05-28 10:33 | XMS_ITS | Encounter Summary ---
Author Organization [facility] Address [address] [place] [address] Care Team Providers Care Recruiting Specialist Name Role Phone Susan Hughes MD Primary Care Provider Unavaila Ann Byrnes MD Unavailable [phone] Tracey Crouch DNP Unavailable [phone] Encounter Details Date Type Department Care Team Description 09/10/2022 Orders Only Pulmonology - [place] [address] [facility] [address] [place] [address] Sushil Srinivasan MD [address] [place] [address] YESICA (obstructive sleep apnea) Social History Tobacco Use Types Packs/Day Years [...] Procedure Name Priority Date/Time Associated Diagnosis Comments DE NONINVASIVE EAR/PULSE OXIMETRY OVERNIGHT MONITOR Routine 05/13/2022 YESICA (obstructive sleep apnea) documented in this encounter Results * DE NONINVASIVE EAR/PULSE OXIMETRY OVERNIGHT MONITOR (05/13/2022) Sushil rSinivasan MD PERFORMABLES documented in this encounter Visit Diagnoses Diagnosis YESICA (obstructive sleep apnea) Obstructive sleep apnea (adult) (pediatric) documented in this encounter Care Teams Recruiting Specialist Relationship Specialty Start Date End Date Susan Hughes MD PCP - General Internal Medicine 02/25/22 Ann Gutierrez MD Specialist Cardiology 03/18/23 Tracey Crouch DNP Specialist Nurse Practitioner Family 03/18/23 documented as of this encounter
--- OUTSIDE RECORDS SUMMARY | 2024-05-28 10:33 | XMS_ITS | Clinical Summary ---
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 Active azelastine-fluticaso ne 137-50 mcg/spray spray,non-aerosol 2 Sprays by Nasal route daily. Active fluticasone-umeclidi nium-vilanterol (Trelegy Ellipta) 100-62.5-25 mcg inhaler Inhale 1 [...] mouth daily (with breakfast). Active FREESTYLE LANCETS [facility] USE TO TEST TWICE A DAY Active aspirin 81 mg EC tablet TAKE 1 TABLET BY MOUTH EVERY DAY Active blood sugar diagnostic (FreeStyle Lite Strips) test strip Apply 1 Strip topically 2 times daily. Active alcohol swabs pads, medicated 1 Each by route 2 times daily. Use when testing blood sugar Active furosemide (LASIX) 20 mg tabletIndications:Ot her cardiomyopathies (CMS/HCC V24, CMS/HCC V28) TAKE 1 TABLET BY MOUTH EVERY DAY 90 tablet 3 04/21/19 25 Active cloNIDine (CATAPRES) 0.1 mg tablet Take 1 tablet (0.1 mg total) by mouth 1 (one) time each day after lunch. Active calcium carbonate (OS-BALDEMAR) 1,250 mg (500 mg elemental calcium) tablet Take 1 tablet (1,250 mg total) by mouth. Active albuterol HFA (PROAIR HFA ; PROVENTIL HFA ; VENTOLIN HFA) 90 mcg/actuation inhaler Inhale 2 puffs by mouth every 6 (six) hours if needed for wheezing. Active Active Problems Problem Noted Date Diagnosed Date Paroxysmal atrial fibrillation ([facility] V24, [facility] V28) 05/10/2023 Overview (02/21/2024): February 2023 - newly discovered asymptomatic atrial fibrillation with rapid ventricular response; initially rate controlled March 2023 - JOSEF/DCCV attempt aborted due to ROSIO thrombus; patient initially with non-adherence to apixaban June 2023 - ultimately successful adherence to AC therapy with successful JOSEF/DCCV at [facility] Assessment & Plan (02/21/2024 9:16 AM EST): Now paroxysmal atrial fibrillation status post DCCV. Asymptomatic. EKG today showed sinus rhythm. CHADSVASc - 3. Continue with apixaban, metoprolol and digoxin. May consider discontinuation of digoxin at next visit if maintaining sinus rhythm. Orders: ECG 12 lead Chronic diastolic heart failure ([facility] V24, [facility] V28) 03/25/2023 Assessment & Plan (02/21/2024 9:16 AM [...] medication compliance. Coronary artery disease invo lving jackson coronary artery of jackson heart without angina pectoris 03/25/2023 Traumatic brain injury ([facility] V24, [facility] V28 ) 03/25/2023 Cervical arthritis 11/03/2022 Left wrist fracture, closed, initial encounter 0 11/03/2022 Unequal pupils 11/03/2022 Nonischemic cardiomyopathy ([facility] V24, [facility] V28) 07/05/2022 Overview (02/21/2024): 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 dr lopez Depression 01/19/2010 Overview (01/04/2024): Seeing [facility] Hyperlipidemia 01/19/2010 Assessment & Plan (02/21/2024 [...] (gastroesophageal reflux disease) 0 COPD (chronic obstructive pu lmonary disease) ([facility] V24, [facility] V28) 01/19/2010 Overview (01/04/2024): Dr rodrigez pulmonary-on oxygen HS BPH (benign prostatic hyperplasia) 01/19/2010 Overview (01/04/2024): Dr crawford urology-seen 08/23 Resolved Problems Problem Noted Date Diagnosed Date Resolved Date Chronic atrial fibrillation ([facility]/HCC V24, [facility] V28) 03/25/2023 02/21/2024 Obesity 06/22/2010 02/21/2024 Encounters Date Type Department Care Team Description 05/25/2024 3:00 PM EDT Office Visit Pulmonology - [address] [phone] Marichuy Flor MD Lung nodule (Primary Dx); Mycobacteria, atypical 05/16/2024 11:29 AM EDT Anesthesia Event [facility] OR [address] [place] [address], [place] [phone] Stuart Allen MD 05/16/2024 10:35 AM EDT - 05/16/2024 11:59 PM EDT Hospital Encounter [facility] Xray [address] [place] [phone] Pain Discharge Disposition: Home or Self Care 05/16/2024 10:15 AM EDT - 05/16/2024 12:15 PM EDT Surgery [facility] OR [address] [place] [phone] Marichuy Flor MD ROBOTIC ASSISTED BRONCHOSCOPY W. FNA, TBBX, BRUSH, BAL [[id number] (CPT??)] 05/16/2024 9:52 AM EDT - 05/16/2024 4:01 PM EDT Hospital Encounter [facility] OR [address] [place] [phone] Marichuy Flor MD Nodule of left lung Discharge Disposition: Home or Self Care 04/18/[address] [facility] - [facility] [address] [facility] [address] [place] [address] Ann Gutierrez MD Holding medication 04/18/2024 Telephone [address] [phone] Marichuy Flor MD Procedure (PVCA , Prior auth PAT ) 04/17/2024 3:00 PM EST Office Visit Pulmonology - [place] [address] [facility] [address] [place] [phone] Marichuy Flor MD Lung nodule (Primary Dx) 04/06/2024 Telephone Pulmonology - [address] [phone] Marichuy Flor MD Appointment (Appt 04/06/24) 04/05/2024 11:00 AM EST - 04/05/2024 11:59 PM EST Hospital Encounter [facility] PET Scan [address] [place] [phone] Lung nodule Discharge Disposition: Home or Self Care 03/29/2024 2:39 PM EST - 03/29/2024 11:59 PM EST Hospital Encounter [facility] Pulmonary [address] [place] [phone] Lung nodule Discharge Disposition: Home or Self Care 03/09/2024 Telephone Lung Screening Program - [place] [address] [phone] Michelle Hidalgo MA Results (Annual Lung Screening- Suspicious findings) 02/28/2024 9:39 AM EST - 02/28/2024 11:59 PM EST Hospital Encounter [facility] CT Scan [address] [place] [phone] Encounter for screening for malignant neoplasm of respiratory organs; Nicotine dependence, cigarettes, uncomplicated Discharge Disposition: Home or Self Care from Last 3 Months Immunizations Name Administration Dates Next Due Influenza trivalent, 0.5mL, preservative free (Fluarix; FluLaval; Fluzone) ages 6mo and older (Afluria) 3 years and older 12/31/2013 Influenza, Unspecified 12/19/2011 Moderna SARS-CoV-2 COVID-19, mRNA, LNP-S, preservative free 03/30/2021,09/28/2020,05/07/2020,2020 Pneumococcal, Unspecified 12/18/2010 Surgical History Surgery Date Site/Laterality Comments CERVICAL LAMINECTOMY 06/24 PROCEDURE: HISTORICAL CERV LAMINECTOMY; COMMENT: Linson; Fusion LUMBAR LAMINECTOMY 06/24 PROCEDURE: HISTORICAL LUMB LAMINECTOMY; COMMENT: Joshua; L4-S1 x 2 EYE SURGERY CATARACT EXTRACTION CARDIOVERSION Per cardiology notes HERNIA REPAIR WRIST SURGERY Right per manager of case management BARIATRIC SURGERY Medical History Medical History Date Comments Obesity 06/22/2010 DX:Obesity CKD (chronic kidney disease), stage II DX:CKD (chronic kidney disease), stage II Hypokalemia DX:Hypokalemia Alcoholism (CMS/HCC V24, CMS/HCC V28) DX:Alcoholism (HCC) Angina pectoris (CMS/HCC V24) DX :Angina pectoris (HCC) Benign prostatic hyperplasia DX: Benign prostatic hyperplasia Benign prostatic hyperplasia with urinary obstruction DX:Benign prostatic hyperpla simi with urinary obstruction TBI (traumatic brain injury) ([facility] V24, [facility] V28) per child care giver Arrhythmia A fib per cardia c notes H/O gastric bypass History of appendectomy Cardiomyopathy ([facility] V24, [facility] V28) history of: Sleep apnea Does not use cpa p per manager of case management Oxygen dependent Uses 1 lpm oxyg en at night via nc per manager of case managementcustodial manager mellitus ([facility] V 24, [facility] V28) Forgetfulness Related to TBI COPD (chronic obstructive pu lmonary disease) ([facility] V24, [facility] V28) from H&P GERD (gastroesophageal reflux disease) from H&P Hypertension from H&P Hyperlipidemia from H&P Family History Medical History Relation Name Comments Diabetes Father Lung cancer Mother Relation Name Status Comments Father Mother Social History Tobacco Use Types Packs/Day Years Used Date Smoking Tobacco: Some Days Cigarettes Cigars Smokeless Tobacco: Never Tobacco Cessation:Ready to Q uit: Not Asked; Counseling Given: Not Answered Alcohol Use Standard Drinks/Week [...] Sign Reading Time Taken Comments Blood Pressure 133/76 05/25/2024 3:15 PM EDT Pulse 67 05/25/2024 3:15 PM EDT Temperature 36.8 ??C (98.2 ??F) 05/25/2024 3:15 PM ED T Respiratory Rate 18 05/25/2024 3:15 PM EDT Oxygen Saturation 99% 05/25/2024 3:15 PM EDT Inhaled Oxygen Concentration - - Weight 90.1 kg (198 lb 11.2 oz) 05/25/2024 3:15 PM EDT Height 182.9 cm (6') 05/25/2024 3:15 PM EDT Body Mass Index 26.95 05/25/2024 3:15 PM EDT Plan of Treatment Upcoming Encounters Date Type Department Care Team (Late st Contact Info) Description 08/28/2024 1:30 PM EDT Office Visit Pulmonology - [address] [place] [address] Marichuy Flor MD [address] [place] [phone] Health Maintenance Due Date Last Done Comments Diabetes: Annual Foot Exam 01/15/1964 Diabetes: Annual Retina Eye Exam 01/15/1964 Hepatitis A Vaccines (1 of 2 - Risk 2-dose series) 1973 Abdominal Aortic Aneurysm (AAA) Screen 01/23/2022 Depression Screening 01/23/2022 03/18/2011 Medicare Annual Wellness Visit 01/23/2022 Social Influencers of Health Screening 01/23/2022 Diabetes: Annual Urine Albumin-Creatinine Ratio (uACR) 01/30/2022 05/27/2020 Diabetes: Blood Sugar Control Test (HGBA1C) 05/05/2023 11/04/2022, 11/04/2022, 02/25/2022 COVID-19 Vaccine (9 - Moderna risk season) 2024 12/06/2023, 11/14/2022, 06/13/2022, Additional history exists Diabetes: Annual GFR (Glomerular Filtration Rate) 05/08/2025 05/08/2024, 11/04/2022, 11/04/2022, Additional history exists Hypertension/CHF/CAD Annual BMP Blood Test 05/08/2025 05/08/2024, 11/04/2022, 11/04/2022, Additional history exists Falls Risk Assessment 05/16/2025 05/16/2024 Cholesterol Screening (Lipid Panel) 05/27/2025 05/27/2020 Colorectal Cancer Screening: Colonoscopy 04/30/2029 04/30/2024 DTaP,Tdap,and Td Vaccines (2 - Td or Tdap) 2032 01/13/2022 Hepatitis C Screening Completed 06/14/2012 Pneumococcal Vaccine: 50+ Years Completed 11/24/2020, 11/12/2019, 12/18/2010 Influenza Vaccine Completed 11/14/2023, , 11/24/2020, Additional history exists RSV Immunization Adult Patients Completed 11/14/2023 Zoster Vaccines Completed 11/14/2023, 01/13/2022 HIB Vaccines Aged Out No longer eligi [...] age to complete this topic Meningococcal B Vaccine Aged Out No l onger eligible based on patient's age to complete this topic RSV Immunization Patients Under 20 months Aged Out No longer eligible based on patient's age to complete this topic Varicella Vaccines Aged Out No longer eligible based on patient's age to complete this topic Medical Devices Implanted Type Area Hair Colorist Device Identifier Shelf Expiration Date Model / Serial / Lot Marker Cobra Superlock - Sn/A - [id number] Implanted:Qty : 1 on 05/16/2024 by Marichuy Flor MD at [facility] Implants Left: Lung [employer] SU[employer]ENSION 12/21/2027 [id number] / N/A / [id number] Description:LEFT UPPER LOBE Procedures Procedure Name Priority Date/Time Associated Diagnosis Comments XR CHEST 1 VIEW STAT 05/16/2024 1:42 PM EDT POCT GLUCOSE BLOOD Routine 05/16/2024 1:20 PM EDT XR FLUORO UP TO 1 HOUR (STATISTICS)(NO REPORT) Routine 05/16/2024 12:43 PM EDT Pain CULTURE RESPIRATORY WITH GRAM STAIN Routine 05/16/2024 12:06 PM EDT Nodule of left lung CULTURE AFB Routine 05/16/2024 12:06 PM EDT Nodule of left lung TISSUE EXAM Routine 05/16/2024 11:53 AM EDT Nodule of left lung NON-GYNECOLOGIC CYTOLOGY Routine 05/16/2024 11:50 AM EDT Nodule of left lung TH AN ENDOTRACHEAL(NO CHARGE) Routine 05/16/2024 11:44 AM EDT GA BRONCHOSCOPY INCL FLUROSCOPIC GUIDANCE W PLCMNT FIDUCIAL MARKER SGL/MULT 05/16/2024 11:13 AM EDT Nodule of left lung Case Notes Please do not change time to any earlier as transportation arranged. GA BRONCHOSCOPY RIGID/FLEXIBLE W/EBUS >=3 MEDIASTINAL/HILAR LYMPH NODES 05/16/2024 11:13 AM EDT Nodule of left lung Case Notes Please do not change time to any earlier as transportation arranged. GA BRONCHOSCOPY RIGID/FLEXIBLE W/TRANSBRONCHIAL LUNG BIOPSY(S) SINGLE LOBE 05/16/2024 11:13 AM EDT Nodule of left lung Case Notes Please do not change time to any earlier as transportation arranged. GA BRONCHOSCOPY RIGID/FLEXIBLE COMPUTER ASSISTED IMAGE GUIDED NAVIGATION 05/16/2024 11:13 AM EDT Nodule of left lung Case Notes Please do not change time to any earlier as transportation arranged. POCT GLUCOSE BLOOD Routine 05/16/2024 10:53 AM EDT CBC WITH AUTO DIFFERENTIAL Routine 05/08/2024 10:03 AM EDT Lung nodule CBC AND DIFFERENTIAL Routine 05/08/2024 10:03 AM EDT Lung nodule BASIC METABOLIC PANEL Routine 05/08/2024 10:03 AM EDT Lung nodule PROTHROMBIN TIME WITH INR Routine 05/08/2024 10:03 AM EDT Lung nodule EXTERNAL ENDOSCOPY REPORT Routine 04/30/2024 1:20 PM EDT EXTERNAL COLONOSCOPY REPORT Routine 04/30/2024 1:[address] SKULL TO MID THIGH INITIAL STAT 04/05/2024 12:35 PM EST Lung nodule HC SPIROMETRY BRONCHODILATION RESPONSIVENESS PRE/POST BRONCHODILATOR ADMINISTRATION STAT 03/29/2024 3:12 PM EST Lung nodule CT LUNG SCREENING Routine 02/28/2024 10:02 AM EST Encounter for screening for malignant neoplasm of respiratory organs Nicotine dependence, cigarettes, uncomplicated HEMOGLOBIN A1C Routine 11/04/2022 HM URINE ALBUMIN CREATININE RATIO Routine 05/27/2020 LIPID PANEL Routine 05/27/2020 HM HEPATITIS C SCREENING Routine 06/14/2012 HM DEPRESSION SCREENING Routine 03/18/2011 from Last 3 Months or Most Recently Relevant to Health Maintenance Results * XR Chest 1 View (05/16/2024 1:42 PM EDT) Anatomical Region Laterality Modality Body Radiographic Regina ging 05/16/2024 3:12 PM EDT Impressions 05/16/2024 3:13 PM EDT 1. No acute process in the chest. Report reviewed and signed by : Dr. Vernell Bryant on 05/16/2024 3:13 PM. Workstation Name - [id number] -------- FINAL REPORT -------- Dictated By: Vernell Bryant Dictated Date: 05/16/2024 15:12 ET Assigned Physician: Vernell Bryant Reviewed and Electronically Signed By: Vernell Bryant Signed Date: 05/16/2024 15:13 ET Workstation ID: [id number] Transcribed By: Self Edit Transcribed Date: 05/16/2024 15:12 ET Narrative 05/16/2024 3:13 PM EDT RADIOGRAPH OF THE CHEST CLINICAL HISTORY: postoperative care TECHNIQUE: Frontal view of the chest. COMPARISON: 11/03/2022 FINDINGS: Normal sized heart. Aortic atherosclerosis. ??Surgical clip overlying the upper left hemithorax. No consolidation. No effusion. Negative for pneumothorax. Negative for acute osseous abnormality, lytic or blastic lesion. Cervical fusion hardware. Procedure Note Vernell Brynat MD - 05/16/2024 RADIOGRAPH OF THE CHEST CLINICAL HISTORY: postoperative care TECHNIQUE: Frontal view of the chest. COMPARISON: 11/03/2022 FINDINGS: Normal sized heart. Aortic atherosclerosis. Surgical clip overlying theupper left hemithorax. No consolidation. No effusion. Negative for pneumothorax. Negative for acute osseous abnormality, lytic or blastic lesion. Cervicalfusion hardware. IMPRESSION: 1. No acute process in the chest. Report reviewed and signed by : Dr. Vernell Bryant on 05/16/2024 3:13 PM.Workstation Name - [id number] -------- FINAL REPORT -------- Dictated By: Vernell Bryant Dictated Date: 05/16/2024 15:12 ET Assigned Physician: Vernell Bryant Reviewed and Electronically Signed By: Vernell Bryant Signed Date: 05/16/2024 15:13 ET Workstation ID: [id number] Transcribed By: Self Edit Transcribed Date: 05/16/2024 15:12 ET us Marichuy Flor MD IMG XR PROCEDURES Final Re sult * POCT Glucose, blood (05/16/2024 1:20 PM EDT) Only the most recent of2 resultswithin the time period is included. [facility] Glucose POCT 118 70 - 199 mg/dL 05/16/2024 1:21 PM EDT [facility] Comment: Fasting Reference Range: ? 70-99 mg/dL Non-Fasting Reference Range: 70-199 mg/dL Blood Capillary blood specimen / Unknown 05/16/2024 1:20 PM EDT 05/16/2024 1:22 PM EDT us Marichuy Flor MD LAB POINT OF CARE TEST DOCKED DEVICE UNSOLICITED RESULTS Final Result [facility] [address] [place] [address], [place] [phone] * XR Fluoro Up To 1 Hour (Statistics)(No Report) (05/16/2024 12:43 PM EDT) Narrative RIS PACS/VR - 05/16/2024 12:44 PM EDT This order has been auto-finalized and does not contain a result. Marichuy Flor MD IMG FLUOROSCOPY PROCEDURES Final Result Performing Organization Address [facility]/ZIP Co de Phone Number RIS PACS/VR * (ABNORMAL) Culture respiratory with gram stain (05/16/2024 12:06 PM EDT) Culture, Respiratory No potential pathogens in significant amounts including MRSA/Staph Aureus or Pseudomonas 05/19/2024 10:51 AM EDT [facility] Gram Stain Result Many WBCs present(A) 05/19/2024 10:51 AM EDT [facility] Gram Stain Result Moderate Epithelial cells(A) 05/19/2024 10:51 AM EDT [facility] Gram Stain Result Many Gram positive cocci(A) 05/19/2024 10:51 AM EDT [facility] Wash Structure of upper lobe of left lung / Unknown 05/16/2024 12:06 PM EDT 05/16/2024 1:11 PM EDT Comment:FOR CULTURE Marichuy Flor MD LAB MICROBIOLOGY - GENERAL ORDERABLES Edited Result - Final Performing Organization Address [facility]/ZIP Co de Phone Number [facility] [address] [place] [address], [place] [phone] * Tissue exam (05/16/2024 11:53 AM EDT) Addendum PAS: No fungal organisms identified GMS: No fungal organisms identified. AFB: No definitive acid-fast bacilli identified. Note: Although the results are negative, an infectious process is highly favored and correlation with microbiology cultures is recommended. 05/18/2024 4:44 PM EDT [facility] Addendum electronically signed by Bebe Ruiz MD on 05/18/2024 at 4:44 PM Final Diagnosis A. Lung, left upper lobe-cryobiopsy: Necrotizing granulomatous inflammation. No viable lung parenchyma is identified. No evidence of malignancy. See note Note: Special stains for fungal organisms and acid-fast bacilli are pending, addendum to follow. Please see results of concurrent cytology. The case was reviewed at intradepartmental conference on 05/17/2024. 05/18/2024 4:44 PM EDT [facility] Gross Description A. Lung, Left Upper Lobe, CRYO LEFT UPPER LOBE: Received in formalin labeled cryo left upper lobe are multiple holguin-pink tissue fragments measuring 0.1 to 0.3 cm in diameter which are submitted in toto in 1 cassette labeled A1, multiple pieces. 05/16/24 05/18/2024 4:44 PM EDT [facility] Disclaimer The interpretation of this case included the use of immunohistochemistr y, special stains, and/or analyte specific reagent(s). Unless otherwise specified, controls were performed and stained appropriately. These tests have not been cleared or approved by the U.S. Food and Drug Administration. The FDA has determined that such clearance or approval is not necessary. These tests are used for clinical purposes and should not be regarded as investigational or for research. This laboratory is certified to perform high complexity testing under the Clinical Laboratory Improvement Amendments of 1988. The technical components of this case were performed at [address] # [id number] 05/18/2024 4:44 PM EDT [facility] Tissue Structure of upper lobe of left lung / Unknown 05/16/2024 11:53 AM EDT 05/16/2024 2:53 PM EDT us Marichuy Flor MD LAB PATHOLOGY ORDERABLES E dited Result - Final [facility] [address] [place] [address], [place] [phone] * Non-gynecologic cytology (05/16/2024 11:50 AM EDT) Addendum Special stains AFB and GMS are performed on cellblock A1. Rare acid-fast positive organisms are present in the cellblock consistent with acid-fast bacilli. See also microbiology results. 05/21/2024 3:39 PM EDT [facility] Addendum electronically signed by Bettye Renteria MD on 05/21/2024 at 3:39 PM Final Diagnosis A. Lung, left upper lobe, FNA (ThinPrep and cell block): Negative for malignant cells. Necrotic material and scattered benign bronchial epithelial cells present. Refer to biopsy specimen [id number]. B. Lung, left upper lobe, brushing (ThinPrep and cell block): Negative for malignant cells. Hypocellular specimen with scant fragments of necrotic material and rare benign bronchial epithelial cells. C. Lung, left upper lobe, washing (ThinPrep and cell block): Negative for malignant cells. Scant fragments of necrotic material and groups of benign bronchial epithelial cells. D. Lymph node, 11R, FNA (ThinPrep and cell block): Negative for malignant cells. Small lymphocytes and fragment of anthracotic lymph node (in cellblock), consistent with lymph node sampling. E. Lymph node, 4R, FNA (ThinPrep and cell block): Negative for malignant cells. Small lymphocytes present, consistent with lymph node sampling. F. Lymph node, level 7, FNA (ThinPrep and cell block): Negative for malignant cells. Small lymphocytes present, consistent with lymph node sampling. G. Lymph node, 11L, FNA (ThinPrep and cell block): Negative for malignant cells. Small lymphocytes present, consistent with lymph node sampling. Note: Special stains GMS and AFB on cell block A are pending and will be reported in an addendum. 05/21/2024 3:39 PM EDT [facility] Specimen A Adequacy Satisfactory for evaluation 05/21/2024 3:39 PM EDT [facility] Specimen B Adequacy Satisfactory for evaluation 05/21/2024 3:39 PM EDT [facility] Specimen C Adequacy Satisfactory for evaluation 05/21/2024 3:39 PM EDT [facility] Specimen D Adequacy Satisfactory for evaluation 05/21/2024 3:39 PM EDT [facility] Specimen E Adequacy Satisfactory for evaluation 05/21/2024 3:39 PM EDT [facility] Specimen F Adequacy Satisfactory for evaluation 05/21/2024 3:39 PM EDT [facility] Specimen G Adequacy Satisfactory for evaluation 05/21/2024 3:39 PM EDT [facility] Clinical Information IN CYTO 05/21/2024 3:39 PM EDT [facility] Gross Description A. Lung, Left Upper Lobe, FNA LEFT UPPER LOBE: Received:40 cc clear CytoLyt with light flecks for ThinPrep and Cell Block. B. Lung, Left Upper Lobe, BRUSH LEFT UPPER LOBE: Received: 1 brush in 30 cc pink CytoLyt with light flecks for ThinPrep and Cell Block. C. Lung, Left Upper Lobe, WASH LEFT UPPER LOBE: Received:35 cc clear CytoLyt with light flecks for ThinPrep and Cell Block. D. Lymph Node, 11R: Received: 35 cc red CytoLyt with light flecks and tissue fragments for ThinPrep and Cell Block. E. Lymph Node, 4R: Received:35 cc very slightly red CytoLyt with light flecks and tissue fragments for ThinPrep and Cell Block. F. Lymph Node, Level 7: Received: 35 cc pink CytoLyt with light flecks for ThinPrep and Cell Block. G. Lymph Node, 11L: Received: 35 cc red CytoLyt with light flecks and tissue fragments for ThinPrep and Cell Block. 05/21/2024 3:39 PM EDT [facility] Disclaimer The interpretation of this case included the use of immunohistochemist ry, special stains, and/or analyte specific reagent(s). Unless otherwise specified, controls were performed and stained appropriately. These tests have not been cleared or approved by the U.S. Food and Drug Administration. The FDA has determined that such clearance or approval is not necessary. These tests are used for clinical purposes and should not be regarded as investigational or for research. This laboratory is certified to perform high complexity testing under the Clinical Laboratory Improvement Amendments of 1988. The technical components of this case were performed at [address] [address] CLIA # [id number] 05/21/2024 3:39 PM EDT [facility] Fine Needle Aspirate Structure of upper lobe of left lung / Unknown 05/16/2024 11:50 AM EDT 05/16/2024 3:05 PM EDT Comment:IN CYTO Brushing, function (observable entity) Structure of upper lobe of left lung / Unknown 05/16/2024 11:52 AM EDT 05/16/2024 3:05 PM EDT Comment:IN CYTO Specimen obtained by lavage (specimen) Structure of upper lobe of left lung / Unknown 05/16/2024 11:53 AM EDT 05/16/2024 3:05 PM EDT Comment:IN CYTO Specimen obtained by fine needle aspiration procedure (specimen) Lymph node specimen / Unknown 05/16/2024 11:53 AM EDT 05/16/2024 3:05 PM EDT Specimen obtained by fine needle aspiration procedure (specimen) Lymph node specimen / Unknown 05/16/2024 11:53 AM EDT 05/16/2024 3:05 PM EDT Specimen obtained by fine needle aspiration procedure (specimen) Lymph node specimen / Unknown 05/16/2024 11:53 AM EDT 05/16/2024 3:05 PM EDT Specimen obtained by fine needle aspiration procedure (specimen) Lymph node specimen / Unknown 05/16/2024 11:53 AM EDT 05/16/2024 3:05 PM EDT us Marichuy Flor MD LAB CYTOLOGY ORDERABLES Ed ited Result - Final [facility] [address] [place] [address], [place] [phone] * TH AN ENDOTRACHEAL(NO CHARGE) (05/16/2024 11:44 AM EDT) Stuart Garcia MD - 05/16/2024 11:44 AM EDT Maurisio Tomas DO ? 05/16/2024 11:45 AM General Information and Staff Patient location during procedure: OR Anesthesiologist: Stuart Allen MD Resident/SEWING MACHINE ATTACHMENT TESTER: Maurisio Tomas DO Performed: resident/SEWING MACHINE ATTACHMENT TESTER/CAA Performed by: Maurisio Tomas DO Authorized by: Stuart Allen MD ?? Intubation Additional Comments Fiberoptic intubation for bronchoscopy. No complications. Patient tolerated procedure well. Airway not difficult Urgency: elective Final Airway Details Successful intubation technique: flexible bronchoscopy Facilitating devices/methods: intubating stylet Endotracheal tube insertion site: oral Blade: Maria Fernanda Placement verified by: chest auscultation and capnometry Measured from: lips ETT to lips (cm): 23 Number of attempts at approach: 1Final airway type: endotracheal airway Indications and Patient Condition Indications for airway management: anesthesia Spontaneous Ventilation: absent Sedation level: Yes Preoxygenated: yes Soft Tissue Damage: No Dentition Unchanged: Yes Patient position: sniffing MILS maintained throughout Mask difficulty assessment: 2 - vent by mask + OA or adjuvant +/- NMBA Stuart Allen MD ANESTHESIA ORDERABLES Final Resu lt * (ABNORMAL) CBC auto differential (05/08/2024 10:03 AM EDT) [facility] WBC 6.8 4.8 - 10.8 K/mcL LAB HEMETOLOGY METHOD 05/08/2024 10:49 AM EDT [facility] RBC 5.20 4.50 - 5.50 M/mcL LAB HEMETOLOGY METHOD 05/08/2024 10:49 AM EDT [facility] Hemoglobin 13.0(L) 13.5 - 17.5 g/dL LAB HEMETOLOGY METHOD 05/08/2024 10:49 AM [facility] Hematocrit 41.9(L) 42.0 - 54.0 % LAB HEMETOLOGY METHOD [facility]24 [facility] MCV 80.7 79.0 - 98.0 FL LAB HEMETOLOGY METHOD 05/08/2024 10:49 AM [facility] MCH 25.0(L) 27.0 - 32.0 pcg LAB HEMETOLOGY METHOD 05/08/2024 10:49 AM [facility] MCHC 31.0(L) 32.0 - 37.0 g/dL LAB HEMETOLOGY METHOD 05/08/2024 10:49 AM [facility] RDW 19.0(H) 11.0 - 15.0 % LAB HEMETOLOGY METHOD 05/08/2024 10:49 AM [facility] Platelets 263 130 - 400 K/mcL LAB HEMETOLOGY METHOD 05/08/2024 10:49 AM [facility] MPV 9.6 7.0 - 11.0 FL LAB HEMETOLOGY METHOD 05/08/2024 10:49 AM [facility] NRBC 0.0 <1.0 % LAB HEMETOLOGY METHOD 05/08/2024 10:49 AM [facility] NRBC Absolute 0.00 <0.10 K/mcL LAB HEMETOLOGY METHOD 05/08/2024 10:49 AM [facility] Neutrophils Relative 67.8 % LAB HEMETOLOGY METHOD 05/08/2024 10:49 AM [facility] Lymphocytes Relative 15.8 % LAB HEMETOLOGY METHOD 05/08/2024 10:49 AM [facility] Monocytes Relative 11.1 % LAB HEMETOLOGY METHOD 05/08/2024 10:49 AM [facility] Eosinophils Relative 4.3 % LAB HEMETOLOGY METHOD 05/08/2024 10:49 AM [facility] Basophils Relative 0.7 % LAB HEMETOLOGY METHOD 05/08/2024 10:49 AM [facility] Immature Granulocytes Relative 0.3 % LAB HEMETOLOGY METHOD 05/08/2024 10:49 AM EDT [facility] Neutrophils Absolute 4.59 1.50 - 7.00 K/mcL LAB HEMETOLOGY METHOD 05/08/2024 10:49 AM EDT [facility] Lymphocytes Absolute 1.07 1.00 - 5.00 K/mcL LAB HEMETOLOGY METHOD 05/08/2024 10:49 AM EDT [facility] Monocytes Absolute 0.75 0.20 - 1.00 K/mcL LAB HEMETOLOGY METHOD 05/08/2024 10:49 AM EDT [facility] Eosinophils Absolute 0.29 0.00 - 0.50 K/mcL LAB HEMETOLOGY METHOD 05/08/2024 10:49 AM EDT [facility] Basophils Absolute 0.05 0.00 - 0.20 K/mcL LAB HEMETOLOGY METHOD 05/08/2024 10:49 AM EDT [facility] Immature Granulocytes Absolute 0.02 0.00 - 0.03 K/mcL LAB HEMETOLOGY METHOD 05/08/2024 10:49 AM EDT [facility] Blood Venous blood specimen / Unknown Venipuncture / Unknown 05/08/2024 10:03 AM EDT 05/08/2024 10:39 AM EDT us Marichuy Flor MD LAB BLOOD ORDERABLES Final Result [facility] [address] [place] [address], * Prothrombin time with INR (05/08/2024 10:03 AM EDT) Protime 11.8 10.6 - 13.9 sec LAB COAGULATION METHOD 05/08/2024 10:52 AM EDT [facility] INR 0.9 LAB COAGULATION METHOD 05/08/2024 10:52 AM [facility] Blood Venous blood specimen / Unknown Venipuncture / Unknown 05/08/2024 10:03 AM EDT 05/08/2024 10:39 AM EDT us Marichuy Flor MD LAB BLOOD ORDERABLES Final Result [facility] [address] [place] [address], * (ABNORMAL) Basic metabolic panel (05/08/2024 10:03 AM EDT) Sodium 136 133 - 145 mmol/L LAB CHEMISTRY METHOD 05/08/2024 12:05 PM [facility] Potassium 4.2 3.5 - 5.5 mmol/L LAB CHEMISTRY METHOD 05/08/2024 12:05 PM [facility] Chloride 104 96 - 110 mmol/L LAB CHEMISTRY METHOD 05/08/2024 12:05 PM [facility] CO2 28 21 - 32 mmol/L LAB CHEMISTRY METHOD 05/08/2024 12:05 PM [facility] Anion Gap 4 3 - 11 LAB CHEMISTRY METHOD 05/08/2024 12:05 PM [facility] Glucose 143(H) 70 - 100 mg/dL LAB CHEMISTRY METHOD 05/08/2024 12:05 PM [facility] BUN 13 5 - 25 mg/dL LAB CHEMISTRY METHOD 05/08/2024 12:05 PM [facility] Creatinine 1.05 0.70 - 1.30 mg/dL LAB CHEMISTRY METHOD 05/08/2024 12:05 PM [facility] eGFR 76 >=60 mL/min/1. 73m2 LAB CHEMISTRY METHOD 05/08/2024 12:05 PM [facility] Comment:Calculation based on the??Chronic Kidney Disease Epidemiology Collaboration (CKD-EPI) equation refit??without adjustment for race. BUN/Creatinine Ratio 12.4 LAB CHEMISTRY METHOD 05/08/2024 12:05 PM EDT [facility] Calcium 9.8 8.5 - 10.5 mg/dL LAB CHEMISTRY METHOD 05/08/2024 12:05 PM EDT [facility] Blood Venous blood specimen / Unknown Venipuncture / Unknown 05/08/2024 10:03 AM EDT 05/08/2024 10:39 AM EDT us Marichuy Flor MD LAB BLOOD ORDERABLES Final Result [facility] [address] [place] [address], * External Endoscopy (04/30/2024 1:20 PM EDT) Anatomical Region Laterality Modality Endoscopy Historical Provider GI~PROCEDURE ORDERABLES F inal Result * External Colonoscopy Report (04/30/2024 1:18 PM EDT) Anatomical Region Laterality Modality Endoscopy Historical Provider GI~PROCEDURE ORDERABLES F inal Result * PET CT Skull to Mid Thigh [...] Signed Date: 04/06/2024 04:08 ET Workstation ID: [id number] Transcribed By: Self Edit Transcribed Date: 04/06/2024 [...] Signed Date: 04/06/2024 04:08 ET Workstation ID: [id number] Transcribed By: Self Edit Transcribed Date: 04/06/2024 03:25 ET us Alysa Maldonado MANAGER OF SUPPLY CHAIN IMG NM PROCEDURES Final Res ult * [...] without contrast and tissue sampling. [place] ([id number]) -------- FINAL REPORT -------- Dictated By: Gabrielle Cobos Dictated Date: 03/06/2024 14:51 ET Assigned Physician: Gabrielle Cobos Reviewed and Electronically Signed By: Gabrielle Cobos Signed Date: 03/06/2024 15:07 ET Workstation ID: [id number] Transcribed By: Self Edit Transcribed Date: 03/06/2024 14:51 ET Narrative 03/06/2024 3:07 PM EST History: ??69 year-old 46 pack-year current smoker, asymptomatic, for lung cancer screening. Mother had lung carcinoma. Comparison: 09/29/21 Technique: Helical volumetric imaging of the thorax was performed, using low- dose technique, without IV contrast. DLP: 179.35 mGy/cm ??CTDIvol: 4.89 mGy UICO,Inc Iterative reconstruction technique Findings: Lungs and Airways: [...] There is a small hiatal hernia. Result [facility] Alondra Talbert MD IMG CT PROCEDURES Final Result * Hemoglobin A1c (11/04/2022) [facility] Hemoglobin A1C 0.0 <=6.5 % Comment:No Interpretation Blood Venous blood specimen / Unknown Result [facility] Provider LAB BLOOD ORDERABLES Rukhsana l Result * Urine Albumin Creatinine Ratio (05/27/2020) [facility] Urine Albumin Creatinine Ratio Abstracted Result [facility] Provider HEALTH MAINTENANCE Final Result * Lipid panel (05/27/2020) [facility] LDL/HDL Ratio 3 0 - 4 Triglycerides 108 0 - 150 mg/dL Cholesterol 164 0 - 200 mg/dL HDL 50 >=40 mg/dL LDL Cholesterol 93 0 - 100 mg/dL Blood Venous blood specimen / Unknown us Historical Provider LAB BLOOD ORDERABLES Rukhsana l Result * Hepatitis C Screening (06/14/2012) Hepatitis C Screening Abstracted us Historical Provider HEALTH MAINTENANCE Final Result * Depression Screening (03/18/2011) Depression Screening Abstracted us Historical Provider HEALTH MAINTENANCE Final Result from Last 3 Months or Most Recently Relevant to Health Maintenance Additional Health Concerns Infection Onset Date Last Indicated Tuberculosis Rule-Out 05/16/2024 05/16/[address] [facility] [employer] Member Subscriber Plan / Payer (Ef fective 2020-Present) Name:Montana Taylor Relation to Subscriber:Self Name:Montana Taylor Payer ID:[id number] Group ID:Not on file Type:Not on file Address: [place] [address] [place] [id number] Advance Directives * Full Code - Default (Latest Code Status on File) Date Activated Date Inactivated Comments 05/16/2024 1:39 PM 05/16/2024 6:01 PM This is order is used when code status has not been discussed with the patient, or code status is otherwise unknown/unconfirmed To update the patient's code status, place a code status order. Do not modify or discontinue any currently active code status orders. Care Teams Sewage Screen Operator Relationship Specialty Start Date End Date Susan Gonsalez MD [address] [place] [address] [address] [place], [place] [id number] PCP - General Endocrinology 03/26/24
--- OUTSIDE RECORDS SUMMARY | 2024-05-28 10:33 | XMS_ITS | Encounter Summary ---
Author Organization [facility] Address [address] [place] [address] Care Team Providers Care Mainframe Architect Name Role Phone Kane Torrez MD Primary Care Provider Kane Whitmore MD Primary Care Provider Hanh Ramirez MD Primary Care Provider Hanh Scott MD Primary Care Provider Susan Henning MD Primary Care Provider Unavaila Ann Byrnes MD Unavailable [phone] Tracey Crouch DNP Unavailable [phone] Reason for Visit * Reason Comments E-prescribe Rx Request Encounter Details Date Type Department Care Team Description 10/14/2011 Refill Adult Medicine - [place] [address] [place] [address] De Tovar MD E-prescribe Rx Request Social [...] on filedocumented in this encounter Care Teams Mainframe Architect Relationship Specialty Start Date End Date Kane [...]
--- OUTSIDE RECORDS SUMMARY | 2024-05-28 10:33 | XMS_ITS | Encounter Summary ---
Author Organization [facility] Address [address] [place] [address] Care Team Providers Care District Or District Office Director Name Role Phone Hanh Tobar MD Primary Care Provider Unav ailable Susan Hughes MD Primary Care Provider Unavaila ble Ann Gutierrez MD Unavailable [phone] Tracey Crouch DNP Unavailable [phone] Encounter Details Date Type Department Care Team Description 09/29/2020 Utility Appraiser Report Medical Records [address] [place] [address] [facility] [address] [place] [address] Social History Tobacco Use Types Packs/Day Years [...] on filedocumented in this encounter Care Teams District Or District Office Director Relationship Specialty Start Date End Date Hanh Tobar MD PCP - General Internal Medicine 03/22/18 02/24/22 Susan Hughes MD PCP - General Internal Medicine 02/25/22 Ann Gutierrez MD Specialist Cardiology 03/18/23 Tracey Crouch DNP Specialist Nurse Practitioner Family 03/18/23 documented as of this encounter
--- OUTSIDE RECORDS SUMMARY | 2024-05-28 10:33 | XMS_ITS | Data Portability ---
Author Organization [facility] Address [address] [place] [address] Assessment Encounter Date Assessment Date Assessment LastModified by Organization Details LastModified Time 02/21/2023 02/21/2023 As noted, we were called to see this patient regarding concerns of dyspnea. Evaluation in the field was performed by my administrative services coordinator colleague, as noted above, I provided real-time direction and supervision for this visit. The evaluation revealed the patient has COPD on home oxygen and was in acute distress. Vitals as noted with hypoxemia, worse even with speaking. Die Stamping Press Operator arranged for urgent transport to ED. [...] cm 83 % 83 % 2 L/min 71191.3 2 g 77 /min 111 mm[Hg] 78 mm[Hg] Not Available [facility] - production 11:41:41 Social History None recorded. Functional Status None recorded. Mental Status None recorded. Family History Nothing Reported. Medical History No medical history recorded. Past Encounters Encounter ID Performer Location Encounter Start Date Encounter Closed Date Diagnosis/Indication Diagnosis SNOMED-CT Code Diagnosis ICD10 Code Diagnosis Note [id number] MOISES JOHNSON MD Main - [facility] [address] [place] [address] 02/21/2023 11:41:38 02/21/2023 12:15:00 Acute hypoxemic respiratory failure 168294624 J96.01 Health Concerns Section Related Observation LastModified by Organization Detai ls LastModified Time None Recorded Concern Status LastModified by Organization Details LastModified Time None Recorded Advance Directives Directive None Recorded Payers Encounter Date Sequence Insurance Name Policy Number Policy Perkins Covered Member ID Perkins Member ID Guarantor Name 02/21/2023 1 [facility] - DOS ON OR AFTER 2022 - DUAL ELIGIBLE - ASSISTED OPTIONS AND ONE CARE (MEDICARE REPLACEMENT/ADV ANTAGE - HMO) Montana Taylor [id number] Montana Taylor Notes Date Note Type Note [...] .................. .................. .................. .................. .................. .................. ............... Die Stamping Press Operator Note From Brent Aguila: Pt reports [...] rales in lower right. 911 immediately initiated. [facility] alerted to pt condition. While waiting for EMS to arrive I increased his O2 and discussed parts counterman plans with the pt. He was very receptive and plans to confer with the ED MD and his CCA asphalt raker who is going to meet him in the ED. Care transferred to [facility]. .................. .................. .................. .................. .................. .................. .................. ............... Disposition: Fulfilled MOISES JONHSON MD [address] [facility], [place], [address], GANESH GRADY 02/21/2023 11:44:01
--- OUTSIDE RECORDS SUMMARY | 2024-05-28 10:34 | XMS_ITS | Encounter Summary ---
Author Organization [facility] Address [address] [place] [address] Care Team Providers Care Stamping Machine Operator Name Role Phone Susan Gonsalez MD Primary Care Provider [phone] Reason for Referral * Consultation (Routine) - Pending Review Specialty Diagnoses / Procedures Referred By Contac t Referred To Contact Infectious Diseases Diagnoses Lung nodule Mycobacteria, atypical Marichuy Flor MD [address] [place] [address] Phone: tel: fax: Carol Cote MD [address] [facility] [address] [place] [address] Phone: tel: fax: Referral ID Status Reason Start Date Expiration Date Visits Requested Visits Authorized [id number] Pending Review Specialty Services Required 05/25/2024 05/25/2025 1 1 Reason for Visit * Reason Comments Follow-up Follow up for s/p br onch. Encounter Details Date Type Department Care Team ([facility] st Contact Info) Description 05/25/2024 3:00 PM EDT Office Visit Pulmonology - Tram [address] [facility] [address] [place] [id number] Marichuy Flor MD [address] [place] [id number] Lung nodule (Primary Dx); Mycobacteria, atypical Social History Tobacco Use Types Packs/Day Years [...] Mass Index 26.95 05/25/2024 3:15 PM EDT documented in this encounter Progress Notes * Marichuy Flor MD - 05/25/2024 3:00 PM EDT Images from the original note were not included. 05/25/2024 Montana Taylor : 1955 PCP: Susan Gonsalez [...] found on LDCT. Here today with his case supervisor from [facility]. LDCT was done for screening Feb 2024, last was in 2021. Recent CT shows 8-9 mm spiculated left upper lobe nodule. No mediastinal lymphadenopathy. This lesion was not present on prior CT chest in 2021. PET scan was done Mar 2024 and this shows mild uptake SUV 1 in the nodule. Borderline uptake in lymph node in AP window. Pt is largely asymptomatic. No F/C, hemoptysis, no recent unintentional wt loss, night sweats, no recent respiratory infections. No chest pain, tightness, wheezing. Has baseline productive cough. 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 History of lung cancer in mother. S/p flexible and robotic bronchoscopy with biopsies of KELVIN nodule with necrotizing granulomatous inflammation, AFB smear positive, MTB PCR NEGATIVE. Reports no new symptoms but he does have baseline productive cough whitish. Reports loss of appetite, fatigue, and recent wt loss. No hemoptysis. No F/C. Allergies: No Known Allergies Medications: Current Outpatient Medications Medication Instructions albuterol 2.5 mg /3 mL (0.083 %) nebulizer solution Take 1 Vial by nebulization every 4 hours as needed. albuterol HFA (PROAIR HFA ; PROVENTIL HFA ; VENTOLIN HFA) 90 mcg/actuation inhaler 2 puffs, Every 6hours PRN alcohol swabs pads, medicated 1 Each by [...] 150 mg by mouth 2 times daily. calcium carbonate (OS-BALDEMAR) 1,250 mg cloNIDine (CATAPRES) 0.1 mg, Daily after lunch dapagliflozin propanediol (FARXIGA) 10 mg tablet Take 10 mg by mouth daily. digoxin (LANOXIN) 125 mcg (0.125 mg) tablet Take 1 Tablet by mouth daily. FLUoxetine (PROzac) 20 mg capsule Take 20 mg by mouth daily. fluticasone propionate (FLONASE) 50 mcg/actuation nasal spray INHALE 2 SPRAYS BY NASAL ROUTE DAILY zawylnitsta-oobtajylkxle-nqjdkovnxi (Trelegy Ellipta) 100-62.5-25 mcg inhaler Inhale 1 Puff into the lungs daily. FREESTYLE LANCETS [facility] USE TO TEST TWICE A DAY furosemide (LASIX) 20 mg, oral, Daily lidocaine (LIDODERM) 5 % patch Place 1 [...] daily. Past Medical History: Diagnosis Date Alcoholism ([facility] V24, [facility] V28) DX:Alcoholism ([facility]) Angina pectoris ([facility] V24) DX:Angina pectoris ([facility]) Arrhythmia A fib per cardiac notes Benign prostatic hyperplasia DX:Benign prostatic hyperplasia Benign prostatic hyperplasia with urinary obstruction DX:Benign prostatic hyperplasia with urinary obstruction Cardiomyopathy ([facility] V24, [facility] V28) history of: CKD (chronic kidney disease), stage II DX:CKD (chronic kidney disease), stage II COPD (chronic obstructive pulmonary disease) ([facility] V24, [facility] V28) from H&P Diabetes mellitus ([facility] V24, [facility] V28) Forgetfulness Related to TBI GERD (gastroesophageal reflux disease) from H&P H/O gastric bypass History of appendectomy Hyperlipidemia from H&P Hypertension from H&P Hypokalemia DX:Hypokalemia Obesity 06/22/2010 DX:Obesity Oxygen dependent Uses 1 lpm oxygen at night via nc per case supervisor Sleep apnea Does not use cpap per case supervisor TBI (traumatic brain injury) ([facility] V24, [facility] V28) per care management associate Past Surgical History: Procedure Laterality Date BARIATRIC SURGERY CARDIOVERSION Per cardiology notes CATARACT EXTRACTION CERVICAL LAMINECTOMY 06/24 PROCEDURE: HISTORICAL CERV LAMINECTOMY; COMMENT: Joshua; Fusion EYE SURGERY HERNIA REPAIR LUMBAR LAMINECTOMY 06/24 PROCEDURE: HISTORICAL LUMB LAMINECTOMY; COMMENT: Joshua; L4-S1 x 2 WRIST SURGERY Right per case supervisorwater reuse program manager History Problem Relation Name Age of Onset Diabetes Father Lung cancer Mother Social History Socioeconomic History Marital status: Single Spouse name: Not on file Number of children: Not on file Years of education: Not on file Highest education level: Not on file Occupational History Not on file Tobacco Use Smoking status: Some Days Types: Cigarettes, Cigars Smokeless tobacco: Never Substance and Sexual Activity [...] Neurological: Negative. Hematological: Negative. Psychiatric/Behavioral: Negative. Vitals: 05/25/24 1515 BP: 133/76 Pulse: 67 Resp: 18 Temp: 36.8 ??C (98.2 ??F) SpO2: 99% Body mass index is 26.95 kg/m??. General: No acute distress HEENT: mucous membranes moist Neck: no JVD, supple neck Chest: Clear to auscultation, no wheezing or rales, no accessory muscle use CVS: S1-S2, regular rhythm, no murmurs Abdomen: Nondistended Extremities: No edema, warm Skin: No rashes or lesions Neuro: Alert and oriented x 3 Lab Results Component Value Date BUN 13 05/08/2024 CALCIUM 9.8 05/08/2024 CL 104 05/08/2024 CHOL 164 05/27/2020 CO2 28 05/08/2024 CREATININE 1.05 05/08/2024 HDL 50 05/27/2020 HCT 41.9 (L) 05/08/2024 HGB 13.0 (L) 05/08/2024 HGBA1C 0.0 11/04/2022 LDL 93 05/27/2020 PLT 263 05/08/2024 K 4.2 05/08/2024 NA 136 05/08/2024 TRIG 108 05/27/2020 WBC 6.8 05/08/2024 Pulmonary Function Results: DATE OF SERVICE: 03/29/24 [...] personally reviewed imaging and the data revealed: CT chest 02/2024: PET CT 03/2024: Visit Diagnoses: 1. Lung nodule Impression: PET avid lung nodule in a high risk pt Risk of malignancy is intermediate around 27% per risk calc. We discussed etiologies of nodules and next steps in diagnosis which includes bronchoscopic biopsy preferred for intermediate risk nodules. PET scan shows no extrathoracic disease. Reviewed procedure, risks, benefits, and pt agrees to proceed. S/p flexible and robotic bronch with KELVIN nodule biopsies showing necrotizing granuloma, no malignancy and LN also negative for malignancy. AFB smear pos, MTB neg. Recommendations: -Referral to ID at [facility] -Follow up in clinic [facility] 3 months, will rescan based on above consultation and therapy if indicated -Per pt request, will send my note along with referral request to Dr. Garcia at [facility] Today I have spent 40 minutes on this encounter with the following activities: Pre-visit review of chart Pre-visit review of imaging Reviewing patient provided information Personal face to face with patient (including extensive discussion counseling) History and physical examination Medication reconciliation Discussion of laboratory results and pathology Discussion with consulting/referring physician(s) Coordination of care including with office staff and nurse navigation Documentation. Marichuy Flor MD Interventional Pulmonology [address] [address] Office [phone] documented in this encounter Plan of Treatment Upcoming Encounters Date Type Department Care Team (Late st Contact Info) Description 08/28/2024 1:30 PM EDT Office Visit Pulmonology - [address] [address] Marichuy Flor MD [address] [place] [address] Scheduled Referrals Name Type Priority Associated Diagnoses Order Schedule Ambulatory referral to Infectious Disease Outpatient Referral Routine Lung nodule Mycobacteria, atypical 1 Occurrences starting 05/25/2024 until 05/25/2025 documented as of this encounter Visit Diagnoses Diagnosis Lung nodule- Primary Other diseases of lung, not elsewhere classified Mycobacteria, atypical Unspecified diseases due to mycobacteria documented in this encounter Additional Health Concerns Infection Onset Date Last Indicated Resolved Time Tuberculosis Rule-Out 05/16/2024 05/16/2024 documented as of this encounter Care Teams Stamping Machine Operator Relationship Specialty Start Date End Date Susan Gonsalez MD [address] [place] [address] PCP - General Endocrinology 03/26/24 documented as of this encounter
--- OUTSIDE RECORDS SUMMARY | 2024-05-28 10:34 | XMS_ITS | Encounter Summary ---
Author Organization [facility] Address [address] [place] [address] Care Team Providers Care Regulatory Associate Name Role Phone De Tovar MD Primary Care Provider [facility], Pcp Primary Care Provider Shilo Mendez MD Primary Care Provider Kane Silva MD Primary Care Provider Kane [place] MD Primary Care Provider Hanh Ramirez MD Primary Care Provider Hanh Scott MD Primary Care Provider Susan Henning MD Primary Care Provider Ann Cai MD Unavailable [phone] Tracey Crouch DNP Unavailable [phone] Encounter Details Date Type Department Care Team Description 05/28/2009 Hospital Medical Records [address] [place] [address] Judson Lewis MD Social History Tobacco Use Types Packs/Day Years [...] on filedocumented in this encounter Care Teams Regulatory Associate Relationship Specialty Start Date End Date De Tovar MD PCP - General 04/14/09 06/28/11 Counts Include [address] [facility], Pcp PCP - General Internal Medicine [...]
--- OUTSIDE RECORDS SUMMARY | 2024-05-28 10:34 | XMS_ITS | Encounter Summary ---
Author Organization [facility] Address [address] [place] [address] Care Team Providers Care Cable Ferryboat Operator Name Role Phone De Tovar MD Primary Care Provider [facility], Pcp Primary Care Provider Shilo Mendez MD Primary Care Provider Kane Silva MD Primary Care Provider Kane [place] MD Primary Care Provider Hanh Ramirez MD Primary Care Provider Hanh Scott MD Primary Care Provider Susan Henning MD Primary Care Provider Ann Cai MD Unavailable [phone] Tracey Crouch DNP Unavailable [phone] Encounter Details Date Type Department Care Team Description 04/19/2011 Rn Tele Report Medical Records [address] [place] [address] [place] [address] Social History Tobacco Use Types Packs/Day Years [...] on filedocumented in this encounter Care Teams Cable Ferryboat Operator Relationship Specialty Start Date End Date De Tovar MD PCP - General 04/14/09 06/28/11 [facility], Pcp PCP - General Internal Medicine 06/29/11 [...]
--- OUTSIDE RECORDS SUMMARY | 2024-05-28 10:34 | XMS_ITS | Encounter Summary ---
Author Organization [facility] Address [address] [place] [address] Care Team Providers Care Fire Crew Worker Name Role Phone Kane Torrez MD Primary Care Provider Hanh Ramirez MD Primary Care Provider Susan Henning MD Primary Care Provider Unavaila ble Ann Gutierrez MD Unavailable [phone] Tracey Crouch DNP Unavailable [phone] Encounter Details Date Type Department Care Team Description 06/27/2017 Transfer Records Medical Records [address] [place] [address] Abstract, Provider Social History Tobacco Use Types [...] on filedocumented in this encounter Care Teams Fire Crew Worker Relationship Specialty Start Date End Date Kane Torrez MD PCP - General Internal Medicine 04/14/14 03/21/18 Hanh Tobar MD PCP - General Internal Medicine 03/22/18 02/24/22 Susan Hughes MD PCP - General Internal Medicine 02/25/22 Ann Gutierrez MD Specialist Cardiology 03/18/23 Tracey Crouch DNP Specialist Nurse Practitioner Family 03/18/23 documented as of this encounter
--- OUTSIDE RECORDS SUMMARY | 2024-05-28 10:34 | XMS_ITS | Encounter Summary ---
Author Organization [facility] Address [address] [place] [address] Care Team Providers Care Surgical Manager Name Role Phone Susan Hughes MD Primary Care Provider Unavaila Ann Byrnes MD Unavailable [phone] Tracey Crouch DNP Unavailable [phone] Encounter Details Date Type Department Care Team Description 04/13/2022 SCAN Medical Records [address] [place] [address] Abstract, Provider Social History Tobacco Use Types [...] Name Priority Date/Time Associated Diagnosis Comments OUTSIDE CT Routine 04/13/2022 documented in this encounter Results * OUTSIDE CT (04/13/2022) Provider Abstract RADIOLOGY documented in this encounter Visit Diagnoses Not on filedocumented in this encounter Care Teams Surgical Manager Relationship Specialty Start Date End Date Susan Hughes MD PCP - General Internal Medicine 02/25/22 Ann Gutierrez MD Specialist Cardiology 03/18/23 Tracey Cruoch DNP Specialist Nurse Practitioner Family 03/18/23 documented as of this encounter
--- OUTSIDE RECORDS SUMMARY | 2024-05-28 10:34 | XMS_ITS | Encounter Summary ---
Author Organization [facility] Address [address] [place] [address] Care Team Providers Care Slip Cover Seamstress Name Role Phone Hanh Tobar MD Primary Care Provider Unav ailable Susan Hughes MD Primary Care Provider Unavaila ble Ann Gutierrez MD Unavailable [phone] Tracey Crouch DNP Unavailable [phone] Encounter Details Date Type Department Care Team Description 03/29/2018 Transfer Records Medical Records [address] [place] [address] Abstract, Provider Social History Tobacco Use Types [...] on filedocumented in this encounter Care Teams Slip Cover Seamstress Relationship Specialty Start Date End Date Hanh Tobar MD PCP - General Internal Medicine 03/22/18 02/24/22 Susan Hughes MD PCP - General Internal Medicine 02/25/22 Ann Gutierrez MD Specialist Cardiology 03/18/23 Tracey Crouch DNP Specialist Nurse Practitioner Family 03/18/23 documented as of this encounter
--- OUTSIDE RECORDS SUMMARY | 2024-05-28 10:34 | XMS_ITS | Encounter Summary ---
Author Organization [facility] Address [address] [place] [address] Care Team Providers Care Game Tester Name Role Phone Susan Hughes MD Primary Care Provider Unavaila Ann Byrnes MD Unavailable Tracey Crouch DNP Unavailable [phone] Reason for Visit * Reason Comments E-prescribe Rx Request Encounter Details Date Type Department Care Team Description 04/19/2022 Refill Pulmonology - [place] [address] [facility] [address] [place] [address] Sushil Srinivasan MD [address] [place] [address] E-prescribe Rx Request Social History Tobacco Use [...] encounter Miscellaneous Notes * Telephone Encounter - Melissa Tabor - 04/19/2022 3:37 PM EST Patient would like script to be: E-PRESCRIBED/FAXED TO PHARMACY WHEN WAS THE PATIENT'S LAST APPOINTMENT IN ADULT MEDICINE? 03/02/22 WHEN WAS THE LAST TIME THE PATIENT SAW THEIR PCP? Same as above Does patient have an upcoming appointment? Yes 08/30/22 (THE MEDICATION REQUESTED IS ON THE MED [...] N/A Patients current insurance carrier is: Payor: [facility] MCR / Plan: HMO $0 [place] on Request [id number] / Product Type: HMO [id number] documented in this encounter Plan of Treatment Not on file documented as of this encounter Visit Diagnoses Diagnosis Pulmonary emphysema, unspecified emphysema type (HCC) documented in this encounter Care Teams Game Tester Relationship Specialty Start Date End Date Susan Hughes MD PCP - General Internal Medicine 02/25/22 Ann Gutierrez MD Specialist Cardiology 03/18/23 Tracey Crouch DNP Specialist Nurse Practitioner Family 03/18/23 documented as of this encounter
--- OUTSIDE RECORDS SUMMARY | 2024-05-28 10:34 | XMS_ITS | Encounter Summary ---
Author Organization [facility] Address [address] [place] [address] Care Team Providers Care Card Room Manager Name Role Phone De Tovar MD Primary Care Provider [facility], Pcp Primary Care Provider Shilo Mendez MD Primary Care Provider [facility] Kane Bran MD Primary Care Provider Kane [place] MD Primary Care Provider Hanh Ramirez MD Primary Care Provider Hanh Scott MD Primary Care Provider Susan Henning MD Primary Care Provider Ann Cai MD Unavailable [phone] Tracey Crouch DNP Unavailable [phone] Encounter Details Date Type Department Care Team Description 01/25/2011 Eye Student Officer Report Medical Records [address] [place] [address] Abhijeet Irwin MD Social History Tobacco Use Types Packs/Day [...] on filedocumented in this encounter Care Teams Card Room Manager Relationship Specialty Start Date End Date De Tovar MD PCP - General 04/14/09 06/28/11 [facility], Pcp PCP - General Internal Medicine [...]
--- OUTSIDE RECORDS SUMMARY | 2024-05-28 10:34 | XMS_ITS | Encounter Summary ---
Author Organization [facility] Address [address] [place] [address] Care Team Providers Care Product Marketing Director Name Role Phone De Tovar MD Primary Care Provider [facility], Pcp Primary Care Provider Shilo Mendez MD Primary Care Provider Unavail Kane Bran MD Primary Care Provider aKne [place] MD Primary Care Provider Hanh Ramirez MD Primary Care Provider Hanh Scott MD Primary Care Provider Susan Henning MD Primary Care Provider Ann Cai MD Unavailable [phone] Tracey Crouch DNP Unavailable [phone] Reason for Visit * Reason Onset Date Comments refill request 04/08/2010 Encounter Details Date Type Department Care Team Description 04/08/2010 Refill Adult Medicine [facility] [address] [place] [address] De Tovar MD refill request Social History Tobacco Use Types Packs/Day Years [...] encounter Miscellaneous Notes * Telephone Encounter - Angi Byrd - 04/09/2010 9:29 AM EST Script's Sent to the manufacturing clerk for garbage pick up man * Telephone Encounter - Kanika Mann M.A. - 04/08/2010 4:53 PM EST PLEASE RE-PRINT SO PATIENT CAN LOFT WORKER HEAD IN HOPE. MSG TO DR ARNOLD * Telephone Encounter - eD Tovar MD - 04/08/2010 4:50 PM EST We gave him 75 pills because his longacting oxycodone was not approved.if it si approved than we given oxycodone er bid and one perocet for breakthrough * Telephone Encounter - Rose Mejia Lpn - 04/08/2010 4:42 PM EST CIRILO 03/25/10 Scheduled appt 06/18/10 Oxycodone 20 mg last refill was 02/01/10 for 56- due for refill- ok per contract Not on contract for oxycodone 10 mg- last refill was 03/23/10 for 75 tabs- note from OV 03/19/10 statesthis will be given but does not indicate frequency of refills. Please advise. * Telephone Encounter - Tarah Nails - 04/08/2010 4:34 PM EST WHEN WAS THE PATIENT'S LAST APPOINTMENT IN ADULT MEDICINE? WHEN WAS THE LAST TIME THE PATIENT SAW THEIR PCP? Same as above Does patient have an upcoming appointment? Yes 06/18/10 (THE MEDICATION REQUESTED IS ON THE MED LIST ABOVE) Did you check the Pharmacy information above?:no Is this a mail order prescription request? NO Indicate how soon the patient needs the script: BY THE END OF THE DAY Patient would like script to be: PLACED IN PATIENT LOFT WORKER HEAD Is the doctor here today?: no Can the message wait until the doctor returns?: NO Patients current insurance carrier is: Payor: [place] Plan: MEDICAID PCC Product Type: MEDICAIDFEE-FOR-SERVICE documented in this encounter Plan of Treatment Not on file documented as of this encounter Visit Diagnoses Not on filedocumented in this encounter Care Teams Product Marketing Director Relationship Specialty Start Date End Date De Tovar MD PCP - General 04/14/09 06/28/11 [facility] Pcp PCP - General Internal Medicine 06/29/11 [...]
--- OUTSIDE RECORDS SUMMARY | 2024-05-28 10:34 | XMS_ITS | Clinical Summary ---
Author Organization [facility] Address [address] [facility] [address] [place] [address] Phone Care Team Providers Care Scouring Machine Operator Name Role Phone Susan Gonsalez MD Primary Care Provider [phone] Allergies No known active allergies Medications multivitamin-ir ad-igwuhpnh-tnt ic acid (CENTRUM) chewable tablet Chew 1 [...] [place] [address] [place] [address] Ronan Beltrán MD from Last 3 Months Immunizations Immunization Administration Dates Next Due Influenza TIV (IM) [...] Care Team (Late st Contact Info) Description 06/04/2024 Orders Only [facility] [address] [facility] [address] [place] [phone] Ronan Beltrán MD [address] [facility] [address] [place] [phone] Type 2 diabetes mellitus, not otherwise specified (HCC); Isolated proteinuria; Benign hypertension; Chronic kidney disease, stage 2 (mild) 07/24/2024 1:00 PM EDT Office Visit [facility] [address] [facility] [address] [place] [phone] Ronan Beltrán MD [address] [facility] [address] [place] [phone] Health Maintenance Due Date Last Done Comments Colorectal Cancer Screening: Annual FOBT 2003 Colorectal Cancer Screening: Colonoscopy 2003 Colorectal Cancer Screening: Sigmoidoscopy 2003 Diabetes: Ophthalmology Exam 09/29/2020 Diabetes: Pedal Pulse Checked 09/29/2020 Diabetes: Sensory Foot Exam 09/29/2020 Diabetes: Visual Foot Exam 09/29/2020 Diabetes: Hemoglobin A1C 02/03/2023 023, 02/25/2022, 08/19/2020 Influenza Vaccine (Season Ended) 2024 12/31/2013, 12/19/2011 Pneumococcal Vaccine: 50+ Years Completed 11/24/2020, 11/12/2019, 12/18/2010 Hepatitis B [...] AM EST) Hemoglobin A1C 6.2(H) (4.0-5.6) % [facility] Comment: MONITORING: In known diabetic patients, hemoglobin A1c targets should be discussed with health care provider. DIAGNOSTIC USE: ??The [place] Diabetes Association (ADA) and the World Health [...] Supplement 1 Testing performed or reported by [facility], a Service of [facility], [address] [place] [address] Mckayla Vargas MD, Director Sales [facility]# [id number] Blood (Blood, Venous) 02/25/2022 10:40 AM EST 02/25/2022 10:51 AM EST Malcolm German MD LAB BLOOD ORDERABLES Rukhsana marti Result [facility] from Last 3 Months or Most Recently Relevant to Health Maintenance Insurance ([id number]) MILI GARRISON [phone] [place] [address] ([id number]) MILI GARRISON [phone] Care Teams Scouring Machine Operator Relationship Specialty Start Date End Date Susan Gonsalez MD [address] [place] [address], [address] [place] [address] PCP - General Internal Medicine 07/05/23
--- OUTSIDE RECORDS SUMMARY | 2024-05-28 10:34 | XMS_ITS | Encounter Summary ---
Author Organization [facility] Address [address] [place] [address] Care Team Providers Care Sand Control Worker Name Role Phone Kane Torrez MD Primary Care Provider Hanh Ramirez MD Primary Care Provider Susan Henning MD Primary Care Provider Unavaila ble Ann Gutierrez MD Unavailable [phone] Tracey Crouch DNP Unavailable [phone] Encounter Details Date Type Department Care Team Description 12/27/2017 Release of Information Medical Records [address] [place] [id number] Abstract, Provider Social History Tobacco Use Types [...] on filedocumented in this encounter Care Teams Sand Control Worker Relationship Specialty Start Date End Date Kane Torrez MD PCP - General Internal Medicine 04/14/14 03/21/18 Hanh Tobar MD PCP - General Internal Medicine 03/22/18 02/24/22 Susan Hughes MD PCP - General Internal Medicine 02/25/22 Ann Gutierrez MD Specialist Cardiology 03/18/23 Tracey Crouch DNP Specialist Nurse Practitioner Family 03/18/23 documented as of this encounter
--- OUTSIDE RECORDS SUMMARY | 2024-05-28 10:34 | XMS_ITS | Clinical Summary ---
Author Organization [facility] Address [address] [place] [address] Care Team Providers Care Commuter Pilot Name Role Phone Susan Hughes MD Primary Care Provider Unavaila Ann Byrnes MD Unavailable [phone] Tracey Crouch DNP Unavailable [phone] Allergies Active Allergy Reactions Severity Noted Date Comments No Known Drug Allergies 10/04/2012 Medications Medication Sig Dispensed Refills Start Date End Date Status [facility] Alcohol Swabs PADS 1 Each by route 2 times daily. Use when testing blood sugar 100 Each 5 04/13/2011 Active FREESTYLE LITE strip Apply 1 Strip topically 2 times daily. 100 Each 5 05/10/2011 Active aspirin EC 81 MG EC tablet TAKE 1 TABLET BY MOUTH EVERY DAY 30 Tab 5 06/03/2011 Active FreeStyle Lancets MISC USE TO TEST TWICE A DAY 100 Each 3 09/05/2013 Active albuterol (PROVENTIL) (2.5 MG/3ML) 0.083% nebulizer solution Take 1 Vial by nebulization every 4 hours as needed. 0 Active omeprazole (PRILOSEC) 20 MG capsule Take 20 mg by mouth daily. 0 Active fluoxetine (PROZAC) 20 MG capsule Take 20 mg by mouth daily. 0 Active metformin (GLUCOPHAGE) 1000 MG tablet Take 0.5 Tabs by mouth daily (with breakfast). 60 Tab 5 02/21/2017 Active clonazepam (KLONOPIN) 1 MG tablet Take 0.5 mg by mouth 2 times daily as needed. 0 Active fluticasone 50 MCG/ACT nasal sprayIndications:PND (post-nasal drip) INHALE 2 SPRAYS BY NASAL ROUTE DAILY 1 Bottle 3 02/05/2020 Active simvastatin (ZOCOR) 20 MG tablet TAKE 1 TABLET BY MOUTH EVERY DAY IN THE EVENING 90 tablet 3 01/29/2021 Active buPROPion (WELLBUTRIN SR) 150 MG 12 hr tablet Take 150 mg by mouth 2 times daily. 0 Active quetiapine (SEROQUEL) 50 MG tablet Take 50 mg by mouth at bedtime. 0 Active lidocaine (LIDODERM) 5 % Place 1 Patch onto the skin every 24 hours. Apply for no more than 12 hours in any 24 hour period. 0 Active CPAP Historical (HISTORICAL CPAP) Inhale into the lungs. 0 Active ALBUTEROL SULFATE 108 (90 Base) MCG/ACT Aero SolnIndications:Pulm onary emphysema, unspecified emphysema type (HCC) Inhale 2 Puffs into the lungs every 4 hours as needed for Wheezing for up to 30 days. 1 g 5 01/11/2023 Active tamsulosin (FLOMAX) 0.4 MG 24 hr capsule Take 1 Capsule by mouth daily. Take 30 mins after same meal every day. 0 Active metoprolol (TOPROL-XL) 50 MG 24 hr tablet Take 1 Tablet by mouth daily. 0 Active oxcarbazepine (TRILEPTAL) 300 MG tablet Take 1 Tablet by mouth 2 times daily. 0 Active Apixaban 5 MG Tab Take 1 Tablet by mouth 2 Times Daily. 0 Active oxycodone (ROXICODONE) 30 MG immediate release tablet Take 1 Tablet by mouth every 4 hours as needed. 0 Active Zinc 50 MG Tab Take 1 Tablet by mouth daily. 0 Active Turmeric 500 MG Cap Take 1 Tablet by mouth at bedtime. 0 Active spironolactone (ALDACTONE) 25 MG tabletIndications:No nischemic cardiomyopathy (HCC),Chronic systolic heart failure (HCC) Take 1 Tablet by mouth daily. 30 Tablet 5 04/20/2023 Active Dapagliflozin Propanediol 10 MG Tab Take 10 mg by mouth daily. 0 Active azithromycin (ZITHROMAX) 250 MG tablet Take 1 Tablet by mouth daily. 0 Active lisinopril (PRINIVIL,ZESTRIL) 20 MG tablet Take 1 Tablet by mouth 2 times daily. 0 Active Azelastine-Fluticaso ne 137-50 MCG/ACT Suspension 2 Sprays by Nasal route daily. 0 Active Fluticasone-Umeclidi n-Vilant 100-62.5-25 MCG/ACT AEROSOL POWDER,BREATH ACTIVATED Inhale 1 Puff into the lungs daily. 0 Active digoxin (LANOXIN) 125 MCG tabletIndications:No nischemic cardiomyopathy (HCC) Take 1 Tablet by mouth daily. 30 Tablet 5 07/04/2023 Active furosemide (Lasix) 20 MG tabletIndications:No nischemic cardiomyopathy (HCC) Take 1 Tablet by mouth daily for 360 days. 90 Tablet 3 07/26/2023 5 Active Active Problems Patient Care Coordination No te Formatting of this note is d ifferent from the original. Checking Your Blood Sugars Please check your blood sugars every day. Please check your sugars at the following times of day: before breakfast Your Blood Sugar Goals Pre Meal: 90-130 2 hours after meals: 110-160 Bedtime: 110-150 Use the Results ?? Bring your glucometer to every appointment ?? Write your fingerstick blood sugars down on a log sheet or record book. Bring them to your appointment ?? Look for patterns in the numbers. The results help you and your provider make decisions about your diabetes treatment plan. Your Results and your Goals Your Result / Date of Completion Your Goal / How Often to Assess Component Value Date HGBA1C 6.5 08/28/2013 Less than 7%--- 2-4 times per year BP Readings from Last 1 Encounters: 08/29/13 120/60 Less than 130/80--- once per year Component Value Date LDL 80 08/28/2013 LDL less than 100--- once per year Component Value Date MALBUR 12.5 08/28/2013 Less than 30--- once per year Wt Readings from Last 1 Encounters: 08/29/13 287 lb 12.8 oz (130.545 kg) Your goal weight by next visit: 330 --- reassess 2-4 times a year Health Maintenance Due Topic Date Due ? ? Adult Immunization: Tetanus Diptheria And Pertussis (Tdap) 1973 ? ? Baseline Health Exam 40-64 1994 ? ? Chf Care Plan 03/29/2012 ? ? Spirometry (Breathing Capacity Test) For Copd 09/18/2012 ? ? Diabetes: Annual Care Plan 04/27/2013 ? ? Diabetes: Annual Eye Exam 08/17/2013 Your Action Plan Check blood glucose as directed and write down all results. Check feet for sores every day Continue to work on weight loss with a goal of losing 2-4 pounds per month Avoid walking in bare or stocking feet due to the numbness in your feet Increase physical activity Contact me if you experience any barriers to care such as inability to purchase your medication, difficulty getting to your appointments or difficulty understanding your care plan Please get your yearly flu shot When to Call your Healthcare Provider If your blood sugar falls below 70 and you do not know why or you become unconscious If you are sick and unable to take liquids because or nausea or vomiting If you have a fever over 101 If your blood sugar is 300 or higher on greater than 3 separate occasions during the same week If you are just unsure what to do Educational Resources [place] [employer] (www.diabetes.org) Centers for Disease Control and Prevention (www.cdc.gov/diabetes) This care plan was created in collaboration with Montana Taylor on 08/29/2013 Checking Your Weight Please check your weight every day. Please make sure to check your weight at the same time every day. Your Weight Goal Your weight should not change more than 2-3 pounds in a day or 5 pounds in a week Use the Results ?? Write your weight down on a log sheet or record book. Bring them to your appointments Your Results and your Goals Your Result / Date of Completion Your Goal / How Often to Assess BP Readings from Last 1 Encounters: 08/29/13 120/60 Less than 130/80--- once per year Component Value Date LDL 80 08/28/2013 LDL less than 100--- once per year Wt Readings from Last 1 Encounters: 08/29/13 287 lb 12.8 oz (130.545 kg) Dry Weight: 339---- daily Heart Ultrasound (Echocardiogram) Every 2 years (discuss with your physician) Health Maintenance Due Topic Date Due ? ? Adult Immunization: Tetanus Diptheria And Pertussis (Tdap) 1973 ? ? Baseline Health Exam 40-64 1994 ? ? Chf Care Plan 03/29/2012 ? ? Spirometry (Breathing Capacity Test) For Copd 09/18/2012 ? ? Diabetes: Annual Care Plan 04/27/2013 ? ? Diabetes: Annual Eye Exam 08/17/2013 Your Action Plan Symptoms Action No shortness of breath, weight gain, chest pain, worsening leg swelling or change in your usual symptoms Continue to weigh yourself daily, take your medicines, eat a low salt diet and go to your doctor appointments Any of These Findings or Symptoms Action Weight gain of 2-3 pounds in a day Weight gain of 5 pounds in a week Increased leg swelling or cough Increased number of pillows to sleep Shortness of breath with activity Call your doctor for instructions Any of These Findings or Symptoms Action Weight gain of more than 5 lbs in 1 week Dizziness or falling Waking at night due to shortness of breath Shortness of breath at rest Chest tightness or wheezing Call your doctor today to report your symptoms and request an appointment Check your weight daily. Write down results. Contact me if you experience any barriers to care such as inability to purchase your medication, difficulty getting to your appointments or difficulty understanding your care plan Please get your yearly flu shot Educational Resources [employer] (www.heart.org) This care plan was created in collaboration with Montana Taylor on 08/29/2013 Problem Noted Date Persistent atrial fibrillation Acute on chronic systolic heart failure 03/25/2023 Chronic atrial fibrillation 03/25/2023 Traumatic brain injury 03/25/2023 Coronary artery disease invo [place]ving [place] coronary artery of [place] heart without angina pectoris 03/25/2023 Nonischemic cardiomyopathy 07/05/2022 Overview: -Unclear if he truly has heart [...] Euvolemic on exam. No active cardiac symptoms. Thoracic aortic aneurysm without rupture 03/03/2021 Overview: - See echocardiogram under nonischemic cardiomyopathy section; no change from prior echo measurement in 2018 -Patient is also enrolled in the low-dose lung cancer screening program with most recent CT of the chest from 04/13/2022 showing the aorta at 4.4 cm which is slightly increased since 2017 Last Assessment & Plan: Continue surveillance of the aorta with yearly CTs of the chest through the lung cancer screening program. If not already done, would recommend US of the abdomen for primary prevention to rule out abdominal aortic aneurysm History of diabetic gastroparesis 2017 Tubular adenoma of colon 03/16/2017 Overview: Colonoscopy 03/25-dr dey,tubular adenoma-repeat in 5 History of alcohol use disorder 03/16/19 18 Anxiety 10/20/2016 Hypokalemia 09/27/2016 Cervicalgia 05/27/2016 Overview: 05/24-Cervical decompression by dr silva 05/24- mri c spine-deg and spndlylotic changes acqured central canal and foraminal stenosis with mild cord compression Difficulty in urination 03/04/2016 Fatigue 03/04/2016 Gastritis 03/04/2016 Insomnia 03/04/2016 Memory loss 02/26/2016 History of gastric restrictive surgery 1 03/30/2015 Vitamin D deficiency 11/19/2015 Arthralgia of hip 10/14/2015 Constipation 12/11/2012 Obesity 06/22/2010 History of traumatic brain injury 2009 Overview: fell of truck and had some memory issues.seeing neurospych 11/24-carotid Moderate plaque in both proximal internal carotid arteries. No evidence of stenosis. 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 lumber-multilvel spondlov deg and post op changes severa central canal stenosis at l3-4 Diabetes mellitus, type 2 01/19/2010 Overview: diagnosed 04/[address] garay podiatry-Eye exam-10.10 dr lopez Depression 01/19/2010 Overview: Seeing [facility] Hyperlipidemia 01/19/2010 Last Assessment & Plan: Continue current simvastatin 20 mg at bedtime HTN (hypertension), benign 01/19/2010 Overview: 04/23- ct head negative Last Assessment & Plan: Reasonably controlled on current regimen of lisinopril 40 mg daily and hydrochlorothiazide 12.5 mg daily GERD (gastroesophageal reflux disease) 1 03/22/2009 COPD (chronic obstructive pulmonary dise ase) 01/19/2010 Overview: Dr rodrigez pulmonary-on oxygen HS BPH (benign prostatic hyperplasia) 01/19 Overview: Dr crawford urology-seen 08/23 Resolved Problems Problem Noted Date Resolved Date CHF (congestive heart failure) 04/02/2010 0 07/05/2022 Overview: 04/24-Normal myocardial perfusion imaging with lexiscan injection. without evidence of infarct and ischemia. Left ventricular systolic function normal, with ejection fraction of 60% 03/27-Evidence of an older inferior event with mildly reduced ejection fraction of 45 to 55%, endocardial definition is somewhat limited making the regional wall motion abnormality determination somewhat less sensitive and specific. Immunizations Name Administration Dates Next Due Influenza (> 6 Months) 12/31/2013 Influenza Flu (PT Reported) 12/19/2011 Pneumovax Adult(PT Reported) 12/18/2010 Family History Medical History Relation Name Comments Diabetes Father CA Lung Mother Relation Name Status Comments Father Mother [...] Sign Reading Time Taken Comments Blood Pressure 126/70 11/07/2023 8:40 AM EDT Pulse 61 07/26/2023 1:05 PM EDT Temperature 36.4 ??C (97.6 ??F) 01/11/2023 8:42 AM ES T Respiratory Rate 20 01/11/2023 8:42 AM EST Oxygen Saturation 89% 07/26/2023 1:05 PM EDT Inhaled Oxygen Concentration - - Weight 84.8 kg (187 lb) 11/07/2023 8:40 AM EDT Height 185.4 cm (6' 1 ) 07/26/2023 1:05 PM EDT Body Mass Index 24.67 07/26/2023 1:05 PM EDT Plan of Treatment Health Maintenance Due Date Last Done Comments DEPRESSION SCREEN 1966 SHINGLES VACCINE (1 of 2) 01/15/2004 DIABETES: ANNUAL FOOT EXAM 11/06/201511/05 (Completed), 11/05/2014, 08/29/2013 (Completed), Additional history exists COLON CANCER SCREENING 03/22/2018 4 (Completed), 04/02/2008 (External Completion), 04/02/2008 (External Completion) ABDOMINAL AORTIC ANEURYSM (AAA) SCREENING 2019 FALL RISK ASSESSMENT 2019 DIABETES: BLOOD SUGAR CONTROL TEST (HGBA1C) 08/26/2020 05/27/2020, 10/23/2014, 04/02/2014, Additional history exists PNEUMOCOCCAL VACCINE (2 - PPSV23 or PCV20) 11/11/2020 11/12/2019, 04/14/2017 DIABETES: ANNUAL EYE EXAM 01/07/20212019, 01/02/2019, 11/17/2017, Additional history exists DIABETES/HEART DISEASE: ANNUAL CHOLESTEROL (LDL) 05/27/2021 05/27/2020, 04/02/2014, 08/28/2013, Additional history exists DIABETES: ANNUAL URINE PROTEIN TEST (MICROALBUMIN) 05/27/2021 05/27/2020, 04/02/2014, 08/28/2013, Additional history exists Covid-19 Vaccine ( season) 2023 03/30/2021, 09/28/2020, 05/07/2020, Additional history exists DEPRESSION SCREENING/FOLLOWUP 02/15/2024 03/18/2011, 01/18/2011, 11/19/2010, Additional history exists INFLUENZA (Season Ended) 2024 018, 11/13/2016, 12/31/2013, Additional history exists SPIROMETRY (BREATHING CAPACITY TEST) FOR COPD 01/11/2025 01/11/2023, 01/11/2023, 09/18/2010 (External Completion) DTAP/TDAP/TD (2 - Td or Tdap) 2032 01/13/2022 HEPATITIS C SCREENING Addressed 06/14/2012 (External Completion of test per patient (Patient reports normal results)) Overridden with the intention of not completing the topic Care Teams Commuter Pilot Relationship Specialty Start Date End Date Susan Hughes MD PCP - General Internal Medicine 02/25/22 Ann Gutierrez MD Specialist Cardiology 03/18/23 Tracey Crouch DNP Specialist Nurse Practitioner Family 03/18/23
--- OUTSIDE RECORDS SUMMARY | 2024-05-28 10:34 | XMS_ITS | Encounter Summary ---
Author Organization [facility] Address [address] [place] [address] Care Team Providers Care Icicle Machine Operator Name Role Phone De Tovar MD Primary Care Provider [facility] Favio, Pcp Primary Care Provider Shilo Mendez MD Primary Care Provider Kane Silva MD Primary Care Provider Kane Whitmore MD Primary Care Provider Hanh Ramirez MD Primary Care Provider Hanh Scott MD Primary Care Provider Susan Henning MD Primary Care Provider Ann Cai MD Unavailable [phone] Tracey Crouch DNP Unavailable [phone] Encounter Details Date Type Department Care Team Description 04/20/2011 Clay Hoister Report Medical Records [address] [place] [id number] Kane Manrique MD Social History Tobacco Use Types Packs/Day [...] on filedocumented in this encounter Care Teams Icicle Machine Operator Relationship Specialty Start Date End Date De Tovar MD PCP - General 04/14/09 06/28/11 [facility], Pcp PCP - General Internal Medicine [...]
--- OUTSIDE RECORDS SUMMARY | 2024-05-28 10:34 | XMS_ITS ---
Author Name [facility] Organization Unknown Results Test Name/Text Value Interpretation Date Range Source Clinical Information IN CYTO Normal [id number] [facility] Glucose Bld-mCnc 118mg/dL Normal [id number] 70 - 199 [facility] Glucose Bld-mCnc 103mg/dL Normal [id number] 70 - 199 [facility] History of Medication Use Medication Directions Dispensed Refills Start Date End Date Status albuterol 2.5 mg /3 mL (0.083 %) nebulizer solution 2.5 mg 2.5 mg, nebulization, Once as needed, wheezing, Starting on Tue05/16/24 at 1339, For 1 dose, Recovery (only) 5 active lactated Ringer's infusion 100 mL/hr, intravenous, Continuous, Starting on Tue05/16/24 at 1400, Recovery (only) 5 active prochlorperazine (COMPAZINE) tablet 10 mg [Order 1 Start] Name: prochlorperazine (COMPAZINE) tablet 10 mg Signed Summary: 10 mg, oral, Every 6 hours PRN, nausea, vomiting, Starting on Tue05/16/24 at 1339, Recovery (only), 2nd Line Option: -Give IV or IM if patient is unable to take orally. -If inadequate response within 30 minutes, proceed t 5 active oxyCODONE (ROXICODONE) immediate release tablet 5 mg 5 mg, oral, Every 4 hours PRN, moderate pain or when therapies for mild pain were not effective, Starting on Tue05/16/24 at 1339, For 2 doses, Recovery (only) 5 active HYDROmorphone (DILAUDID) injection 0.5 mg 0.5 mg, intravenous, Every 5 min PRN, severe pain or when therapies for moderate pain were not effective, Starting on Tue05/16/24 at 1339, For 4 doses, Recovery (only) 5 active meperidine (PF) (DEMEROL) 25 mg/mL injection 12.5 mg 12.5 mg, intravenous, Every 15 min PRN, rigors, shivering, Starting on Tue05/16/24 at 1339, For 4 doses, Recovery (only) 5 active albuterol HFA (PROAIR HFA ; PROVENTIL HFA ; VENTOLIN HFA) 90 mcg/actuation inhaler Inhale 2 puffs by mouth every 6 (six) hours if needed for wheezing. active ondansetron ODT (ZOFRAN-ODT) disintegrating tablet 4 mg [Order 1 Start] Name: ondansetron ODT (ZOFRAN-ODT) disintegrating tablet 4 mg Signed Summary: 4 mg, oral, Every 8 hours PRN, vomiting, nausea, Starting on Tue05/16/24 at 1339, Recovery (only), -Give IV if patient is unable to take orally. -If inadequate response within 30 minutes, proceed to next-prudencio 5 active furosemide (LASIX) 20 mg tablet TAKE 1 TABLET BY MOUTH EVERY DAY 5 active diphenhydrAMINE (BENADRYL) injection 25 mg 25 mg, intravenous, Every 15 min PRN, itching, Starting on Tue05/16/24 at 1339, Recovery (only) 5 active cloNIDine (CATAPRES) 0.1 mg tablet Take 1 tablet (0.1 mg total) by mouth 1 (one) time each day after lunch. active sodium chloride 0.9 % flush 10 mL [Order 1 Start] Name: Insert peripheral IV Signed Summary: STAT, Once, On Tue05/16/24 at 1340, For 1 occurrence, Preprocedure [Order 1 End] [Order 2 Start] Name: Maintain IV access Signed Summary: Until discontinued, Starting on Tue05/16/24 at 1340, Until Specified, Preprocedure [Order 2 End] [Order 3 5 active calcium carbonate (OS-BALDEMAR) 1,250 mg (500 mg elemental calcium) tablet Take 1 tablet (1,250 mg total) by mouth. active FLUoxetine (PROzac) 20 mg capsule Take 20 mg by mouth daily. active simvastatin (ZOCOR) 20 mg tablet TAKE 1 TABLET BY MOUTH EVERY DAY IN THE EVENING active buPROPion SR (WELLBUTRIN SR) 150 mg 12 hr tablet Take 150 mg by mouth 2 times daily. active digoxin (LANOXIN) 125 mcg (0.125 mg) tablet Take 1 Tablet by mouth daily. active aspirin 81 mg EC tablet TAKE 1 TABLET BY MOUTH EVERY DAY active lidocaine (LIDODERM) 5 % patch Place 1 Patch onto the skin every 24 hours. Apply for no more than 12 hours in any 24 hour period. active QUEtiapine (SEROquel) 50 mg tablet Take 50 mg by mouth at bedtime. active metoprolol succinate (TOPROL-XL) 50 mg 24 hr tablet Take 1 Tablet by mouth daily. active tamsulosin (FLOMAX) 0.4 mg 24 hr capsule Take 1 Capsule by mouth daily. Take 30 mins after same meal every day. active azelastine-fluticason e 137-50 mcg/spray spray,non-aerosol 2 Sprays by Nasal route daily. active alcohol swabs pads, medicated 1 Each by route 2 times daily. Use when testing blood sugar active omeprazole (PriLOSEC) [address] capsule Take 20 mg by mouth daily. active OXcarbazepine (TRILEPTAL) 300 mg tablet Take 1 Tablet by mouth 2 times daily. active furosemide (LASIX) 20 mg tablet Take 1 Tablet by mouth daily for 360 days. 04/21/19 25 aborted metFORMIN (GLUCOPHAGE) 1,000 mg tablet Take 0.5 Tabs by mouth daily (with breakfast). active spironolactone (ALDACTONE) 25 mg tablet Take 1 Tablet by mouth daily. active fluticasone propionate (FLONASE) 50 mcg/actuation nasal spray INHALE 2 SPRAYS BY NASAL ROUTE DAILY active apixaban (ELIQUIS) 5 mg tablet Take 1 Tablet by mouth 2 Times Daily. active fluticasone-umeclidin ium-vilanterol (Trelegy Ellipta) 100-62.5-25 mcg inhaler Inhale 1 Puff into the lungs daily. active azithromycin (ZITHROMAX) 250 mg tablet Take 1 Tablet by mouth daily. active oxyCODONE (ROXICODONE) 30 mg immediate release tablet Take 1 Tablet by mouth every 4 hours as needed. active FREESTYLE LANCETS [facility] USE TO TEST TWICE A DAY active dapagliflozin propanediol (FARXIGA) 10 mg tablet Take 10 mg by mouth daily. active lisinopriL (PRINIVIL,ZESTRIL) 20 mg tablet Take 1 Tablet by mouth 2 times daily. active albuterol 2.5 mg /3 mL (0.083 %) nebulizer solution Take 1 Vial by nebulization every 4 hours as needed. active Problems Problem Status Onset Date Problem Type Date of Resoluti on Source Difficulty in urination active 2016-03-04 ProblemAct [facility] Left wrist fracture, closed, initial encounter active 2022-11-03 ProblemAct [facility] Traumatic brain injury active 2023-03-25 ProblemAct [facility] Cervical arthritis active 2022-11-03 ProblemAct [facility] HTN (hypertension), benign active 2010-01-19 ProblemAct [facility] Arthralgia of hip active 2015-10-14 ProblemAct [facility] Insomnia active 2016-03-04 ProblemAct [facility] GERD (gastroesophageal reflux disease) active 2010-01-19 ProblemAct [facility] BPH (benign prostatic hyperplasia) active 2010-01-19 ProblemAct [facility] COPD (chronic obstructive pulmonary disease) active 2010-01-19 ProblemAct [facility] Constipation active 2012-12-11 ProblemAct [facility] Hyperlipidemia active 2010-01-19 ProblemAct [facility] Vitamin D deficiency active 2015-11-19 ProblemAct [facility] Tubular adenoma of colon active 2017-03-16 ProblemAct [facility] Cervicalgia active 2016-05-27 ProblemAct [facility] Vocal cord granuloma active 2010-01-23 ProblemAct [facility] Diabetes mellitus, type 2 active 2010-01-19 ProblemAct [facility] Chronic kidney disease, stage 2 (mild) active 2021-09-14 ProblemAct [facility] Hypokalemia active 2016-09-27 ProblemAct [facility] Anxiety active 2016-10-20 ProblemAct [facility] Lumbar spinal stenosis active 2010-01-19 ProblemAct [facility] Coronary artery disease involving [place] coronary artery of [place] heart without angina pectoris active 2023-03-25 ProblemAct [facility] Nonischemic cardiomyopathy active 2022-07-05 ProblemAct [facility] Obstructive sleep apnea syndrome active 2010-01-30 ProblemAct [facility] Depression active 2010-01-19 ProblemAct [facility] Paroxysmal atrial fibrillation active 2023-05-10 ProblemAct [facility] Chronic diastolic heart failure active 2023-03-25 ProblemAct [facility] Fatigue active 2016-03-04 ProblemAct [facility] Memory loss active 2016-02-26 ProblemAct [facility] Unequal pupils active 2022-11-03 ProblemAct [facility] Gastritis active 2016-03-04 ProblemAct [facility] Immunizations Vaccine Date Source Lot Number Status Moderna SARS-CoV-2 COVID-19, mRNA, LNP-S, preservative free 03/30/2021 [facility] [id number] completed Pneumococcal, Unspecified 12/18/2010 [facility] completed Influenza trivalent, 0.5mL, preservative free (Fluarix; FluLaval; Fluzone) ages 6mo and older (Afluria) 3 years and older 12/31/2013 [facility] completed Moderna SARS-CoV-2 COVID-19, mRNA, LNP-S, preservative free 04/09/2020 [facility] [id number] completed Moderna SARS-CoV-2 COVID-19, mRNA, LNP-S, preservative free 05/07/2020 [facility] [id number] completed Moderna SARS-CoV-2 COVID-19, mRNA, LNP-S, preservative free 09/28/2020 [facility] UNK completed Influenza, Unspecified 12/19/2011 [facility] co mpleted Encounters Encounter Type Encounter Reason Primary Diagnosis Location Date Ambulatory Pain, unspecified Pain, unspecified [facility] 05/16/2024 Ambulatory Solitary pulmonary nodule Solitary pulmonary nodule [facility] 05/16/2024 Inpatient [facility] 11/04/19 23 Care Team Organization Name Specialty Phone Email Start Date End Da te [facility] Susan Gonsalez [facility] 05/16/2024 [facility] Susan Gonsalez [facility] 05/16/2024 [facility] 03/06/2023 [facility] 11/05/2022 [facility] 11/0311/03/2022
--- OUTSIDE RECORDS SUMMARY | 2024-05-28 10:34 | XMS_ITS | Encounter Summary ---
Author Organization [facility] Address [address] [place] [address] Care Team Providers Care Appeals Reviewer Veteran Name Role Phone De Tovar MD Primary Care Provider [facility], Pcp Primary Care Provider Shilo Mendez MD Primary Care Provider Kane Silva MD Primary Care Provider Kane Whitmore MD Primary Care Provider Hanh Ramirez MD Primary Care Provider Hanh Scott MD Primary Care Provider Susan Henning MD Primary Care Provider Ann Cai MD Unavailable [phone] Tracey Crouch DNP Unavailable [phone] Encounter Details Date Type Department Care Team Description 05/25/2010 Balloon Dipper Report Medical Records [address] [place] [id number] Kane Manrique MD Social History Tobacco Use [...] on filedocumented in this encounter Care Teams Appeals Reviewer Veteran Relationship Specialty Start Date End Date De Tovar MD PCP - General 04/14/09 06/28/11 [facility], Pcp PCP - General Internal Medicine [...]
--- OUTSIDE RECORDS SUMMARY | 2024-05-28 10:34 | XMS_ITS | Encounter Summary ---
Author Organization [facility] Address [address] [place] [address] Care Team Providers Care Press Operator Meat Name Role Phone De Tovar MD Primary Care Provider [facility], Pcp Primary Care Provider Shilo Mendez MD Primary Care Provider [facility] Kane Bran MD Primary Care Provider Kane Whitmore MD Primary Care Provider Hanh Ramirez MD Primary Care Provider Hanh Scott MD Primary Care Provider Susan Henning MD Primary Care Provider Ann Cai MD Unavailable [phone] Tracey Crouch DNP Unavailable [phone] Encounter Details Date Type Department Care Team Description 2010 Asbestos Worker Helper Report Medical Records [address] [place] [address] Kane Manrique MD Social History Tobacco Use Types Packs/Day Years Used Date Smoking Tobacco: Never Assessed Sex Assigned at Date Recorded Not on file Job Start Date Occupation Industry Not on file Not on file Not on file documented as of this encounter Plan of Treatment Not on file documented as of this encounter Visit Diagnoses Not on filedocumented in this encounter Care Teams Press Operator Meat Relationship Specialty Start Date End Date De Tovar MD PCP - General 04/14/09 06/28/11 [facility], Pcp PCP - General Internal Medicine 06/29/11 [...]
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
--- OUTSIDE RECORDS SUMMARY | 2024-05-28 10:34 | XMS_ITS | Encounter Summary ---
Author Organization [facility] Address [address] [place] [address] Care Team Providers Care Entry Level Programmer Name Role Phone De Tovar MD Primary Care Provider [facility] zen [facility], Pcp Primary Care Provider Shilo Mendez MD Primary Care Provider Kane Silva MD Primary Care Provider Kane Whitmore MD Primary Care Provider Hanh Ramirez MD Primary Care Provider Hanh Scott MD Primary Care Provider Susan Henning MD Primary Care Provider Ann Cai MD Unavailable [phone] Tracey Crouch DNP Unavailable [phone] Encounter Details Date Type Department Care Team Description 02/18/2011 Industrial Painter Report Medical Records [address] [place] [address] Kane Manrique MD Social History Tobacco Use [...] on filedocumented in this encounter Care Teams Entry Level Programmer Relationship Specialty Start Date End Date De Tovar MD PCP - General 04/14/09 06/28/11 [facility], Pcp PCP - General Internal [...]
--- OUTSIDE RECORDS SUMMARY | 2024-05-28 10:34 | XMS_ITS | Encounter Summary ---
Author Organization [facility] Address [address] [place] [address] Care Team Providers Care Control Valve Technician Name Role Phone Hanh Tobar MD Primary Care Provider Unav ailable Susan Hughes MD Primary Care Provider Unavaila ble Ann Gutierrez MD Unavailable [phone] Tracey Crouch DNP Unavailable [phone] Encounter Details Date Type Department Care Team Description 06/30/2018 Warehouse Distribution Specialist Report Medical Records [address] [place] [id number] [place] [address] Social History Tobacco Use Types Packs/Day Years [...] on filedocumented in this encounter Care Teams Control Valve Technician Relationship Specialty Start Date End Date Hanh Tobar MD PCP - General Internal Medicine 03/22/18 02/24/22 Susan Hughes MD PCP - General Internal Medicine 02/25/22 Ann Gutierrez MD Specialist Cardiology 03/18/23 Tracey Crouch DNP Specialist Nurse Practitioner Family 03/18/23 documented as of this encounter
--- OUTSIDE RECORDS SUMMARY | 2024-05-28 10:34 | XMS_ITS | Encounter Summary ---
Author Organization [facility] Address [address] [place] [address] Care Team Providers Care Carrot Harvester Name Role Phone De Tovar MD Primary Care Provider [facility] zen [facility], Pcp Primary Care Provider Shilo Mendez MD Primary Care Provider Unavail Kane Bran MD Primary Care Provider Kane Whitmore MD Primary Care Provider Hanh Ramirez MD Primary Care Provider Hahn Scott MD Primary Care Provider Susan Henning MD Primary Care Provider Ann Cai MD Unavailable Tracey Crouch DNP Unavailable [phone] Encounter Details Date Type Department Care Team Description 05/26/2010 Home Health Certification Medical Records [address] [place] [address] Abstract, Provider Social History Tobacco Use Types [...] on filedocumented in this encounter Care Teams Carrot Harvester Relationship Specialty Start Date End Date De Tovar MD PCP - General 04/14/09 06/28/11 [facility], Pcp PCP - General Internal Medicine [...]
--- OUTSIDE RECORDS SUMMARY | 2024-05-28 10:34 | XMS_ITS | Encounter Summary ---
Author Organization [facility] Address [address] [place] [address] Care Team Providers Care Tenterer Name Role Phone De Tovar MD Primary Care Provider [facility] zen [facility], Pcp Primary Care Provider Shilo Mendez MD Primary Care Provider Kane Silva MD Primary Care Provider Kane Whitmore MD Primary Care Provider Hanh Ramirez MD Primary Care Provider Hanh Scott MD Primary Care Provider Susan Henning MD Primary Care Provider Ann Cai MD Unavailable Tracey Crouch DNP Unavailable [phone] Encounter Details Date Type Department Care Team Description 08/19/2010 Furnace Process Supervisor Report Medical Records [address] [place] [address] Kane Manrique MD Social History Tobacco Use [...] on filedocumented in this encounter Care Teams Tenterer Relationship Specialty Start Date End Date De Tovar MD PCP - General 04/14/09 06/28/11 [facility], Pcp PCP - General Internal [...]
--- OUTSIDE RECORDS SUMMARY | 2024-05-28 10:34 | XMS_ITS | Encounter Summary ---
Author Organization [facility] Address [address] [place] [address] Care Team Providers Care Machine Driller Name Role Phone De Tovar MD Primary Care Provider [facility] zen [facility], Pcp Primary Care Provider Shilo Mendez MD Primary Care Provider Kane Silva MD Primary Care Provider Kane Whitmore MD Primary Care Provider Hanh Ramirez MD Primary Care Provider Hanh Scott MD Primary Care Provider Susan Henning MD Primary Care Provider Ann Cai MD Unavailable [phone] Tracey Crouch DNP Unavailable [phone] Encounter Details Date Type Department Care Team Description 01/19/2011 Home Health Certification Medical Records [address] [place] [address] Abstract, Provider Social History Tobacco Use Types [...] on filedocumented in this encounter Care Teams Machine Driller Relationship Specialty Start Date End Date De Tovar MD PCP - General 04/14/09 06/28/11 [facility], Pcp PCP - General Internal Medicine 06/29/11 [...]
--- OUTSIDE RECORDS SUMMARY | 2024-05-28 10:34 | XMS_ITS | Encounter Summary ---
Author Organization [facility] Address [address] [place] [address] Care Team Providers Care Ore Dryer Name Role Phone Susan Hughes MD Primary Care Provider Unavaila Ann Byrnes MD Unavailable [phone] Tracey Crouch DNP Unavailable [phone] Encounter Details Date Type Department Care Team Description 02/25/2022 SCAN Medical Records [address] [place] [id number] Abstract, Provider Social History Tobacco Use Types [...] suspected to have Coronavirus/COVID-19? No / Unsure 02/16/2022 7:57 AM EST documented as of this encounter Plan of Treatment Not on file documented as of this encounter Procedures Procedure Name Priority Date/Time Associated Diagnosis Comments OUTSIDE LAB Routine 02/25/2022 documented in this encounter Results * OUTSIDE LAB (02/25/2022) Provider Abstract LAB documented in this encounter Visit Diagnoses Not on filedocumented in this encounter Care Teams Ore Dryer Relationship Specialty Start Date End Date Susan Hughes MD PCP - General Internal Medicine 02/25/22 Ann Gutierrez MD Specialist Cardiology 03/18/23 Tracey Crouch DNP Specialist Nurse Practitioner Family 03/18/23 documented as of this encounter
== END 2024-05-28 10:14 | disposition home or self-care (01) ==
LOC: HO.HMCFM 09:30
PROVIDERS: PCP Internal Medicine; Visit Provider Internal Medicine
DX: F41.9 Anxiety disorder, unspecified (principal); F39 Unspecified mood [affective] disorder; R09.02 Hypoxemia

== ENCOUNTER → 2024-05-28 09:29 | Outpatient (BNVA) | payer OTHER, SELFPAY | PROVIDERS: PCP Internal Medicine; Visit Provider Internal Medicine | DX: K21.9 Gastro-esophageal reflux disease without esophagitis (principal); K44.9 Diaphragmatic hernia without obstruction or gangrene; R13.14 Dysphagia, pharyngoesophageal phase; G47.33 Obstructive sleep apnea (adult) (pediatric); J44.9 Chronic obstructive pulmonary disease, unspecified; I10 Essential (primary) hypertension; R09.02 Hypoxemia; F41.9 Anxiety disorder, unspecified; Z99.89 Dependence on other enabling machines and devices | CPT/HCPCS: 99212 ==

== ENCOUNTER 2024-05-28 14:19 | Outpatient (AMB) | payer OTHER, SELFPAY ==
[2024-05-28 14:20] VITALS: BP 124/74; PULSE 76; O2SAT 95; BMI 27.3
--- NOTE | 2024-05-28 14:20 | MHC.OFFVIS ---
Vital Signs 05/28/24 14:20 Height 6 ft Weight 201 lb BMI 27.3 BP 124/74 Blood Pressure Location Lt brachial Position Sitting Pulse 76 Pulse Source Pulse Oximeter Pulse Oximetry (%) 95 Oxygen Delivery Method Room Air Intake Visit Reasons: 6 wk DYSPHAGIA Intake Note: ESTABLISHED PATIENT for dysphagia mgmt. Chief Complaint; C/O no signs of improvement in dysphagia since last visit. Pt denies sx as having gotten any worse but no obvious signs of improvement. Pt still taking PPI as instructed. No additional sx at this time. Metal Trim Erector Required: No Accompanied by: Other Relationship Allergies No Known Allergies Allergy (Verified 05/28/24 14:20) HPI HPI 6 wk DYSPHAGIA: Details: LAST VISIT Dysphagia GERD (gastroesophageal reflux disease) Plan Patient was encouraged to continue omeprazole daily. Avoid dietary triggers and late night snacking. Patient was encouraged to eat food soft, drink with every bite. Patient was encouraged to making sure that he chews very well before swallowing. Patient will be going for his barium swallow on the . Spoke with his COST AND RISK ANALYSIS MANAGER to mention in radiology department to send copy of the report to our office. We will see him in 6 weeks, sooner on as needed basis. Both patient and his COST AND RISK ANALYSIS MANAGER are agreeable to plan of care and verbalizes understanding of instructions. They were given the opportunity to ask questions and all questions answered. ? TODAY'S VISIT Patient is here today for follow-up. Patient is accompanied by his COST AND RISK ANALYSIS MANAGER. Patient reports that he feels little better. Takes omeprazole every morning and is able to swallow his medications better without feeling of choking. He still has a feeling of trouble swallowing, feeling like food might gets stuck. Feels like it goes through into his stomach but he reports that he feels it when the food goes down. Denies choking episodes. Denied denies any nausea or vomiting. Barium swallow showed paraesophageal hernia and mild reflux. Patient denies any other GI concerning symptoms. Denies any melena, hematochezia. [facility] Medical History (Updated 05/28/24 @ 20:04 by Maliha Garcia [facility]) Paraesophageal hernia Diabetes Vitamin D deficiency, unspecified Tubular adenoma of colon Presenile dementia Polyp of colon YESICA (obstructive sleep apnea) Obesity Nicotine dependence Lumbar spondylosis with myelopathy Lumbar canal stenosis Incomplete emptying of bladder Hypertension Hyperlipidemia H/O traumatic brain injury ELIZABETH (generalized anxiety disorder) Depressive disorder Constipation, unspecified CHF (congestive heart failure) COPD (chronic obstructive pulmonary disease) Cervical arthritis Cardiomyopathy Benign prostatic hyperplasia with urinary obstruction Benign prostatic hyperplasia Benign hypertension Arrhythmia Angina pectoris Alcoholism Surgical History History of spinal fusion History of appendectomy History of cervical spinal arthrodesis History of hernia repair History of gastric surgery History of colonoscopy Family History Mother Lung cancer Smoker Father Diabetes High cholesterol Hypertension Unsteady gait Social History Household Members: None Housing: House Alcohol intake: former Year quit: 1987 Patient Tobacco Use Status: Former Tobacco user Tobacco use type: Cigar and Pipe Cigarettes Per Day: 2 e-Cigarette/Vaping Use: Never Used Second Hand Smoke Exposure: No Substance Use Type: Marijuana service: No Current occupational status: retired and disabled Cognitive needs: Yes (brain injury) Hearing needs: No Vision needs: No Review of Systems Const Denies weight gain and Denies weight loss ENT Reports no additional complaints, Reports dysphagia (Improved) and Denies odynophagia Card Reports no additional complaints Resp Reports no additional complaints GI Denies abdominal pain, Denies belching, Denies melena, Denies bloating, Denies change in bowel habits, Reports dysphagia (Improved), Denies excessive flatus, Denies dyspepsia, Denies heartburn, Denies diarrhea, Denies loose stools, Denies nausea, Denies odynophagia and Denies vomiting Reports no additional complaints Musc Reports no additional complaints Neuro Reports no additional complaints Psych Reports no additional complaints Endo Reports no additional complaints Physical Exam Vital Signs: Last Vital Signs Pulse 76 05/28/24 14:20 BP 124/74 04/14/25 14:20 Pulse Ox 95 05/28/24 14:20 Oxygen Delivery Method Room Air 05/28/24 14:20 BMI result Body Mass Index 27.3 Const General: healthy appearing, no acute distress and well developed Nutritional Appearance: well nourished Orientation/consciousness: patient oriented x3 Resp Effort & Inspection: normal respiratory effort, able to speak in complete sentences, no tracheal deviation and symmetric chest movement Auscultation: clear to auscultation bilaterally Cardio Rate: regular rate GI Inspection: Yes normal to inspection and No distended Palpation (GI): Soft to palpation, not firm, nontender and No hepatosplenomegaly present Auscultation: normal bowel sounds General: Yes no CVA tenderness Back/Spine/Pelvis Back: no CVA tenderness Skin General skin exam: elasticity normal, turgor normal and dry skin Neuro General: patient oriented x3 Psych Appearance: grossly normal Mental Status: mental status grossly normal Speech and movement: Psychomotor agitation in speech present (At times) and Restless speech present (Somewhat) Affect: Animated affect present Attitude: cooperative Results Reviewed Results Reviewed: BARIUM SWALLOW 04/23/2024 IMPRESSION: Ventral plate and screws from C3 3 through C5 vertebra for cervical body fusion. Patient has a gritty sensation and feeling of obstruction at the mid esophageal level following oral administration of solid food/cracker with barium. No suspicious feeding was felt with thin or thick barium. Incidental finding of a paraesophageal hiatal hernia or distal esophageal diverticulum with mild gastroesophageal reflux reflux. Assessment & Plan Assessment & Plan (1) Dysphagia: Code(s): R13.10 - Dysphagia, unspecified Category: Medical Qualifiers: Dysphagia type: pharyngoesophageal phase Qualified Code(s): R13.14 - Dysphagia, pharyngoesophageal phase (2) Paraesophageal hernia: Code(s): K44.9 - Diaphragmatic hernia without obstruction or gangrene Category: Medical (3) GERD (gastroesophageal reflux disease): Code(s): K21.9 - Gastro-esophageal reflux disease without esophagitis Qualifiers: Esophagitis presence: esophagitis presence not specified Qualified Code(s): K21.9 - Gastro-esophageal reflux disease without esophagitis Plan Patient reports history of environmental allergies in the past. Seen slate splitting supervisor in the past. Paraesophageal hernia will send patient for consult to see Dr. Raftopoulos for hernia repair. Patient will start taking Nexium daily. Avoid dietary triggers and late night snacking. Patient will eat smaller pieces and more often. Patient reports significant change with the way he swallows his medications. Staff will assist with making appointment with bariatric surgeon. Patient will follow-up in our office in 2 months, sooner on as needed basis. Patient is agreeable to this plan and verbalizes understanding of instructions. He was given the opportunity to ask questions and all questions answered. Thank you for allowing me to participate in his care Orders: Referrals Allergy & Immunology Referral R13.14 - Dysphagia, pharyngoesophageal phase Bariatric Surgery Referral K44.9 - Diaphragmatic hernia without obstruction or gangrene, R13.14 - Dysphagia, pharyngoesophageal phase Medications: New esomeprazole magnesium (Nexium) 40 mg PO DAILY 30 caps 3RF K21.9 - Gastro-esophageal reflux disease without esophagitis Discontinued omeprazole Discontinued Reason: Doctor's Order 20 mg PO DAILY 90 caps 3RF Coding Level of Care Code Est Pt Level 4 (21220) Complex EM visit Add On G2211 Diagnoses Pharyngoesophageal dysphagia R13.14 Dysphagia type: pharyngoesophageal phase Paraesophageal hernia K44.9 Gastroesophageal reflux disease, unspecified whether esophagitis present K21.9 Esophagitis presence: esophagitis presence not specified Time Spent (min) 35 Comment 25 minutes spent with patient and additional 10 minutes spent reviewing his records
--- OUTSIDE RECORDS SUMMARY | 2024-05-28 16:40 | XMS_ITS | Clinical Summary ---
Author Organization [facility] Address [address] [facility] [address] [place] [address] Phone Care Team Providers Care Farm Implement Mechanic Name Role Phone Susan Gonsalez MD Primary Care Provider [phone] Allergies No known active allergies Medications multivitamin-ir ho-ejsarntu-ewy ic acid (CENTRUM) chewable tablet Chew 1 [...] [place] [address] [place] [address] Ronan Beltrán MD from Last 3 [...] [facility] [address] [facility] [address] [place] [phone] Ronan Beltrán MD [address] [facility] [address] [place] [phone] Type 2 diabetes mellitus, not otherwise specified (HCC); Isolated proteinuria; Benign hypertension; Chronic kidney disease, stage 2 (mild) 07/24/2024 1:00 PM EDT Office Visit [facility] [address] [facility] [address] [place] [phone] Ronan Beltrán MD [address] [facility] [address] [place] [phone] Health Maintenance Due Date Last Done Comments [...] AM EST) Hemoglobin A1C 6.2(H) (4.0-5.6) % [facility] Comment: MONITORING: In known diabetic patients, hemoglobin A1c targets should be discussed with health care provider. DIAGNOSTIC USE: ??The [place] [employer] Diabetes Association (ADA) and the World Health [...] Supplement 1 Testing performed or reported by [facility], a Service of [facility], [address] [place] [address] Mckayla Vargas MD, Bobbin Handler [facility]# [id number] Blood (Blood, Venous) 02/25/2022 10:40 AM EST 02/25/2022 10:51 AM EST Malcolm German MD LAB BLOOD ORDERABLES Rukhsana marti Result [facility] from Last 3 Months or Most Recently Relevant to Health Maintenance Insurance ([id number]) MILI GARRISON [phone] [place] [address] ([id number]) MILI GARRISON [phone] Care Teams Farm Implement Mechanic Relationship Specialty Start Date End Date Susan Gonsalez MD [address] [place] [address], [address] [place] [address] PCP - General Internal Medicine 07/05/23
--- OUTSIDE RECORDS SUMMARY | 2024-05-28 16:40 | XMS_ITS | Clinical Summary ---
Author Organization [facility] Address [address] [place] [address] Care Team Providers Care Installment Agent Name Role Phone Susan Gonsalez MD Primary Care Provider [phone] Allergies No known active allergies Medications Medication [...] Advance Directives For more information, please contact: [phone] Latest Code Status on File Code Status Date Activated Date Inactivated Comments Full Code 11/03/2022 7:02 PM 11/05/2022 12:09 AM This code status was ascertained in the following way: discussion with patient. Care Teams Installment Agent Relationship Specialty Start Date End Date Susan Gonslaez MD PCP - General Internal Medicine 11/03/22
--- OUTSIDE RECORDS SUMMARY | 2024-05-28 16:41 | XMS_ITS | Encounter Summary ---
Author Organization [facility] Address [address] [place] [address] Care Team Providers Care Welfare Manager Name Role Phone Susan Gonsalez MD Primary Care Provider [phone] Reason for Referral * Consultation (Routine) - Pending Review Specialty Diagnoses / Procedures Referred By Contac t Referred To Contact Infectious Diseases Diagnoses Lung nodule Mycobacteria, atypical Marichuy Flor MD [address] [place] [address] Phone: tel: fax: Carol Cote MD [address] [facility] [address] [place] [address] Phone: tel: fax: Referral ID Status Reason Start Date Expiration Date Visits Requested Visits Authorized [id number] Pending Review Specialty Services Required 05/25/2024 05/25/2025 1 1 Reason for Visit * Reason Comments Follow-up Follow up for s/p br onch. Encounter Details Date Type Department Care Team ([facility] st Contact Info) Description 05/25/2024 3:00 PM EDT Office Visit Pulmonology - [place] [address] [facility] [address] [place] [phone] Marichuy Flor MD [address] [place] [address] Lung nodule (Primary Dx); Mycobacteria, atypical Social [...] found on LDCT. Here today with his test case developer from [facility]. LDCT was done for screening Feb 2024, [...] INHALE 2 SPRAYS BY NASAL ROUTE DAILY [id number] (Trelegy Ellipta) 100-62.5-25 mcg inhaler Inhale 1 Puff into the lungs daily. FREESTYLE LANCETS [facility] USE TO TEST TWICE A DAY furosemide [...] daily. Past Medical History: Diagnosis Date Alcoholism ([facility], [facility] V28) DX:Alcoholism ([facility]) Angina pectoris ([facility]24) DX:Angina pectoris ([facility]) Arrhythmia A fib per cardiac notes Benign prostatic hyperplasia DX:Benign prostatic hyperplasia Benign prostatic hyperplasia with urinary obstruction DX:Benign prostatic hyperplasia with urinary obstruction Cardiomyopathy ([facility] V24, [facility] V28) history of: CKD (chronic kidney disease), stage II DX:CKD (chronic kidney disease), stage II COPD (chronic obstructive pulmonary disease) ([facility], [facility] V28) from H&P Diabetes mellitus ([facility]24, [facility] V28) Forgetfulness Related to TBI GERD (gastroesophageal reflux disease) from H&P H/O gastric bypass History of appendectomy Hyperlipidemia from H&P Hypertension from H&P Hypokalemia DX:Hypokalemia Obesity 06/22/2010 DX:Obesity Oxygen dependent Uses 1 lpm oxygen at night via nc per oil field caser Sleep apnea Does not use cpap per oil field caser TBI (traumatic brain injury) ([facility] V24, [facility] V28) per care transition coordinator Past Surgical History: Procedure Laterality Date BARIATRIC SURGERY CARDIOVERSION Per cardiology notes CATARACT EXTRACTION CERVICAL LAMINECTOMY 06/24 PROCEDURE: HISTORICAL CERV LAMINECTOMY; COMMENT: Joshua; Fusion EYE SURGERY HERNIA REPAIR LUMBAR LAMINECTOMY 06/24 PROCEDURE: HISTORICAL LUMB LAMINECTOMY; COMMENT: Joshua; L4-S1 x 2 WRIST SURGERY Right per oil field caserresearch manager History Problem Relation Name Age of [...] MTB neg. Recommendations: -Referral to ID at [facility] -Follow up in clinic [facility] 3 months, will rescan based on above consultation and therapy if indicated -Per pt request, will send my note along with referral request to Dr. Garcia at [facility] for COPD Today I have spent [...] navigation Documentation. Marichuy Flor MD Interventional Pulmonology [address] [address] Office [phone] documented in this encounter Plan of Treatment Upcoming Encounters Date Type Department Care Team (Late st Contact Info) Description 08/28/2024 1:30 PM EDT Office Visit Pulmonology - [address] [phone] Marichuy Flor MD [address] [place] [address] Scheduled Referrals Name Type Priority Associated Diagnoses [...] documented as of this encounter Care Teams Welfare Manager Relationship Specialty Start Date End Date Susan Gonsalez MD [address] [place] [address] PCP - General Endocrinology 03/26/24 documented as of this encounter
--- OUTSIDE RECORDS SUMMARY | 2024-05-28 16:41 | XMS_ITS | Clinical Summary ---
Author Organization [facility] Address [address] [facility] [place] [address] Phone Care Team Providers Care Pattern Mechanic Name Role Phone Susan Gonsalez MD Primary Care Provider [phone] Allergies No known active allergies Medications digoxin [...] mouth daily (with breakfast). Active FREESTYLE LANCETS [facility] USE TO TEST TWICE A DAY Active [...] Noted Date Diagnosed Date Paroxysmal atrial fibrillation ([facility] V24, [facility] V28) 05/10/2023 Overview (02/21/2024): February 2023 - newly discovered asymptomatic atrial fibrillation with rapid ventricular response; initially rate controlled March 2023 - JOSEF/DCCV attempt aborted due to ROSIO thrombus; patient initially with non-adherence to apixaban June 2023 - ultimately successful adherence to AC therapy with successful JOSEF/DCCV at [facility] Assessment & Plan (02/21/2024 9:16 AM EST): Now paroxysmal atrial fibrillation status post DCCV. Asymptomatic. EKG today showed sinus rhythm. CHADSVASc - 3. Continue with apixaban, metoprolol and digoxin. May consider discontinuation of digoxin at next visit if maintaining sinus rhythm. Orders: ECG 12 lead Chronic diastolic heart failure ([facility] V24, [facility] /[facility] V28) 03/25/2023 Assessment & Plan [...] medication compliance. Coronary artery disease invo lving ely shoshone coronary artery of ely shoshone heart without angina pectoris 03/25/2023 Traumatic brain injury ([facility] V24, [facility] V28 ) 03/25/2023 Cervical arthritis 11/03/2022 Left wrist fracture, closed, initial encounter 0 11/03/2022 Unequal pupils 11/03/2022 Nonischemic cardiomyopathy ([facility] V24, [facility] V28) 07/05/2022 Overview (02/21/2024): 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 February 2023 - [facility] Wing found to have decompensated heart [...] stenosis at l3-4 Diabetes mellitus, type 2 ([facility] V24, [facility] V28) 01/19/2010 Overview (01/04/2024): diagnosed 04/[address] garay podiatry-Eye exam-. dr lopez Depression 01/19/2010 Overview (01/04/2024): Seeing [facility] Hyperlipidemia 01/19/2010 Assessment & Plan (02/21/2024 [...] 0 COPD (chronic obstructive pu lmonary disease) ([facility] V24, [facility] V28) 01/19/2010 Overview (01/04/2024): Dr rodrigez pulmonary-on oxygen HS BPH (benign prostatic hyperplasia) 01/19/2010 Overview (01/04/2024): Dr crawford urology-seen 08/23 Resolved Problems Problem Noted Date Diagnosed Date Resolved Date Chronic atrial fibrillation ([facility] V24, [facility] V28) 03/25/2023 02/21/2024 Obesity 06/22/2010 02/21/2024 Encounters Date Type Department Care Team Description 05/25/2024 3:00 PM EDT Office Visit Pulmonology - [address] [phone] Marichuy Flor MD Lung nodule (Primary Dx); Mycobacteria, atypical 05/16/2024 11:29 AM EDT Anesthesia Event [facility] [place] [address] [place] [address], [place] [phone] Stuart Allen MD 05/16/2024 10:35 AM EDT - 05/16/2024 11:59 PM EDT Hospital Encounter [facility] Xray [address] [place] [phone] Pain Discharge Disposition: Home or Self Care 05/16/2024 10:15 AM EDT - 05/16/2024 12:15 PM EDT Surgery [facility] OR [address] [place] [phone] Marichuy Flor MD ROBOTIC ASSISTED BRONCHOSCOPY W. FNA, TBBX, BRUSH, BAL [[id number] (CPT??)] 05/16/2024 9:52 AM EDT - 05/16/2024 4:01 PM EDT Hospital Encounter [facility] OR [address] [place] [phone] Marichuy Flor MD Nodule of left lung Discharge Disposition: Home or Self Care 04/18/2024 Telephone [facility] - [facility] [address] [facility] [address] [place] [address] Ann Gutierrez MD Holding medication 04/18/2024 Telephone Pul[address] [phone] Marichuy Flor MD Procedure (PVCA , Prior auth PAT ) 04/17/2024 3:00 PM EST Office Visit Pulmonology - [place] [address] [facility] [address] [place] [phone] Marichuy Flor MD Lung nodule (Primary Dx) 04/06/2024 Telephone Pulmonology - [address] [address] Marichuy Flor MD Appointment (Appt 04/06/24) 04/05/2024 11:00 AM EST - 04/05/2024 11:59 PM EST Hospital Encounter [facility] PET Scan [address] [place] [phone] Lung nodule Discharge Disposition: Home or Self Care 03/29/2024 2:39 PM EST - 03/29/2024 11:59 PM EST Hospital Encounter [facility] Pulmonary [address] [place] [phone] Lung nodule Discharge Disposition: Home or Self Care 03/09/2024 Telephone Lung Screening Program - [place] [address] [phone] Michelle Hidalgo [place] Results (Annual Lung Screening- Suspicious findings) 02/28/2024 9:39 AM EST - 02/28/2024 11:59 PM EST Hospital Encounter [facility] CT Scan [address] [place] [phone] Encounter for screening for malignant neoplasm of [...] notes HERNIA REPAIR WRIST SURGERY Right per leather case finisher BARIATRIC SURGERY Medical History Medical History Date [...] with urinary obstruction TBI (traumatic brain injury) ([facility] V24, [facility] V28) per life care planner Arrhythmia A fib per cardia c notes H/O gastric bypass History of appendectomy Cardiomyopathy ([facility] V24, [facility] V28) history of: Sleep apnea Does not use cpa p per leather case finisher Oxygen dependent Uses 1 lpm oxyg en at night via nc per leather case finishermanager mission mellitus ([facility] V 24, [facility] V28) Forgetfulness Related to TBI COPD (chronic obstructive pu lmonary disease) ([facility] V24, [facility] V28) from H&P GERD (gastroesophageal reflux disease) [...] 1:30 PM EDT Office Visit Pulmonology - [address] [place] [address] Marichuy Flor MD [address] [place] [phone] Health Maintenance Due Date Last Done Comments [...] this topic Medical Devices Implanted Type Area Spanish Interpreter Device Identifier Shelf Expiration Date Model / Serial / Lot Marker Cobra Superlock - Sn/A - [id number] Implanted:Qty : 1 on 05/16/2024 by Marichuy Flor MD at [facility] Implants Left: Lung COVIDIEN SUPERDIMENSION 12/21/2027 [id number] / N/A / [id number] Description:LEFT UPPER LOBE Procedures Procedure Name Priority [...] ENDOTRACHEAL(NO CHARGE) Routine 05/16/2024 11:44 AM EDT MS BRONCHOSCOPY INCL FLUROSCOPIC GUIDANCE W PLCMNT FIDUCIAL MARKER SGL/MULT 05/16/2024 11:13 AM EDT Nodule of left lung Case Notes Please do not change time to any earlier as transportation arranged. MS BRONCHOSCOPY RIGID/FLEXIBLE W/EBUS >=3 MEDIASTINAL/HILAR LYMPH NODES 05/16/2024 11:13 AM EDT Nodule of left lung Case Notes Please do not change time to any earlier as transportation arranged. MS BRONCHOSCOPY RIGID/FLEXIBLE W/TRANSBRONCHIAL LUNG BIOPSY(S) SINGLE LOBE 05/16/2024 11:13 AM EDT Nodule of left lung Case Notes Please do not change time to any earlier as transportation arranged. MS BRONCHOSCOPY RIGID/FLEXIBLE COMPUTER ASSISTED IMAGE GUIDED NAVIGATION [...] on 05/16/2024 3:13 PM. Workstation Name - [id number] -------- FINAL REPORT -------- Dictated By: Vernell Bryant Dictated Date: 05/16/2024 15:12 ET Assigned Physician: Vernell Bryant Reviewed and Electronically Signed By: Vernell Bryant Signed Date: 05/16/2024 15:13 ET Workstation ID: [id number] Transcribed By: Self Edit Transcribed Date: 05/16/2024 [...] lesion. Cervical fusion hardware. Procedure Note Vernell Bryant MD - 05/16/2024 RADIOGRAPH OF THE CHEST [...] Bryant on 05/16/2024 3:13 PM.Workstation Name - [id number] -------- FINAL REPORT -------- Dictated By: Vernell Bryant Dictated Date: 05/16/2024 15:12 ET Assigned Physician: Vernell Bryant Reviewed and Electronically Signed By: Vernell Bryant Signed Date: 05/16/2024 15:13 ET Workstation ID: [id number] Transcribed By: Self Edit Transcribed Date: 05/16/2024 15:12 ET us Marichuy Flor MD IMG XR PROCEDURES Final Re sult * POCT Glucose, blood (05/16/2024 1:20 PM EDT) Only the most recent of2 resultswithin the time period is included. [facility] Glucose POCT 118 70 - 199 mg/dL 05/16/2024 1:21 PM EDT [facility] Comment: Fasting Reference Range: ? 70-99 mg/dL Non-Fasting Reference Range: 70-199 mg/dL Blood Capillary blood specimen / Unknown 05/16/2024 1:20 PM EDT 05/16/2024 1:22 PM EDT us Marichuy Flor MD LAB POINT OF CARE TEST DOCKED DEVICE UNSOLICITED RESULTS Final Result [facility] [address] [place] [address], [place] [phone] * XR Fluoro Up To 1 Hour (Statistics)(No Report) (05/16/2024 12:43 PM EDT) Narrative RIS PACS/VR - 05/16/2024 12:44 PM EDT This order has been auto-finalized and does not contain a result. Marichuy Flor MD IMG FLUOROSCOPY PROCEDURES Final Result Performing Organization Address [facility]/ZIP Co de Phone Number RIS PACS/VR * (ABNORMAL) Culture respiratory with gram stain (05/16/2024 12:06 PM EDT) Culture, Respiratory No potential pathogens in significant amounts including MRSA/Staph Aureus or Pseudomonas 05/19/2024 10:51 AM EDT [facility] Gram Stain Result Many WBCs present(A) 05/19/2024 10:51 AM EDT [facility] Gram Stain Result Moderate Epithelial cells(A) 05/19/2024 10:51 AM EDT [facility] Gram Stain Result Many Gram positive cocci(A) 05/19/2024 10:51 AM EDT [facility] Wash Structure of upper lobe of left lung / Unknown 05/16/2024 12:06 PM EDT 05/16/2024 1:11 PM EDT Comment:FOR CULTURE Marichuy Flor MD LAB MICROBIOLOGY - GENERAL ORDERABLES Edited Result - Final Performing Organization Address [facility]/ZIP Co de Phone Number [facility] [address] [place] [address], [place] [phone] * Tissue exam (05/16/2024 11:53 AM EDT) Addendum PAS: No fungal organisms identified GMS: No fungal organisms identified. AFB: No definitive acid-fast bacilli identified. Note: Although the results are negative, an infectious process is highly favored and correlation with microbiology cultures is recommended. 05/18/2024 4:44 PM EDT [facility] Addendum electronically signed by Bebe Ruiz [...] conference on 05/17/2024. 05/18/2024 4:44 PM EDT [facility] Gross Description A. Lung, Left Upper Lobe, CRYO LEFT UPPER LOBE: Received in formalin labeled cryo left upper lobe are multiple holguin-pink tissue fragments measuring 0.1 to 0.3 cm in diameter which are submitted in toto in 1 cassette labeled A1, multiple pieces. 05/16/24 05/18/2024 4:44 PM EDT [facility] Disclaimer The interpretation of this case [...] components of this case were performed [address] [id number] 05/18/2024 4:44 PM EDT [facility] Tissue Structure of upper lobe of left lung / Unknown 05/16/2024 11:53 AM EDT 05/16/2024 2:53 PM EDT us Marichuy Flor MD LAB PATHOLOGY ORDERABLES E dited Result - Final [facility] [address] [place] [address], [place] [phone] * Non-gynecologic cytology (05/16/2024 11:50 AM EDT) Addendum Special stains AFB and GMS are performed on cellblock A1. Rare acid-fast positive organisms are present in the cellblock consistent with acid-fast bacilli. See also microbiology results. 05/21/2024 3:39 PM EDT [facility] Addendum electronically signed by Bettye Renteria MD on 05/21/2024 at 3:39 PM Final Diagnosis A. Lung, left upper lobe, FNA (ThinPrep and cell block): Negative for malignant cells. Necrotic material and scattered benign bronchial epithelial cells present. Refer to biopsy specimen [id number]. B. Lung, left upper lobe, brushing (ThinPrep [...] in an addendum. 05/21/2024 3:39 PM EDT [facility] Specimen A Adequacy Satisfactory for evaluation 05/21/2024 3:39 PM EDT [facility] Specimen B Adequacy Satisfactory for evaluation 05/21/2024 3:39 PM EDT [facility] Specimen C Adequacy Satisfactory for evaluation 05/21/2024 3:39 PM EDT [facility] Specimen D Adequacy Satisfactory for evaluation 05/21/2024 3:39 PM EDT [facility] Specimen E Adequacy Satisfactory for evaluation 05/21/2024 3:39 PM EDT [facility] Specimen F Adequacy Satisfactory for evaluation 05/21/2024 3:39 PM EDT [facility] Specimen G Adequacy Satisfactory for evaluation 05/21/2024 3:39 PM EDT [facility] Clinical Information IN CYTO 05/21/2024 3:39 PM EDT [facility] Gross Description A. Lung, Left Upper [...] and Cell Block. 05/21/2024 3:39 PM EDT [facility] Disclaimer The interpretation of this case [...] components of this case were performed at [address] [address] CLIA # [id number] 05/21/2024 3:39 PM EDT [facility] Fine Needle Aspirate Structure of upper [...] CYTOLOGY ORDERABLES Ed ited Result - Final [facility] [address] [place] [address], [place] [phone] * TH AN ENDOTRACHEAL(NO CHARGE) (05/16/2024 11:44 AM EDT) Stuart Garcia MD - 05/16/2024 11:44 AM EDT Maurisio Tomas DO ? 05/16/2024 11:45 AM General Information and Staff Patient location during procedure: OR Anesthesiologist: Stuart Allen MD Resident/WATER RIGHTS SPECIALIST: Maurisio Tomas DO Performed: resident/WATER RIGHTS SPECIALIST/CAA Performed by: Maurisio Tomas DO Authorized by: [...] CBC auto differential (05/08/2024 10:03 AM EDT) [facility] WBC 6.8 4.8 - 10.8 K/mcL LAB HEMETOLOGY METHOD 05/08/2024 10:[address] [facility] RBC 5.20 4.50 - 5.50 M/mcL LAB HEMETOLOGY METHOD 05/08/2024 10:[address] [facility] Hemoglobin 13.0(L) 13.5 - 17.5 g/dL LAB HEMETOLOGY METHOD 05/08/2024 10:49 AM [facility] Hematocrit 41.9(L) 42.0 - 54.0 % LAB HEMETOLOGY METHOD 05/[facility]24 [facility] MCV 80.7 79.0 - 98.0 FL LAB HEMETOLOGY METHOD 05/08/2024 10:49 AM [facility] MCH 25.0(L) 27.0 - 32.0 pcg LAB HEMETOLOGY METHOD 05/08/2024 10:49 AM [facility] MCHC 31.0(L) 32.0 - 37.0 g/dL LAB HEMETOLOGY METHOD 05/08/2024 10:49 AM [facility] RDW 19.0(H) 11.0 - 15.0 % LAB HEMETOLOGY METHOD 05/08/2024 10:49 AM [facility] Platelets 263 130 - 400 K/mcL LAB HEMETOLOGY METHOD 05/08/2024 10:49 AM [facility] MPV 9.6 7.0 - 11.0 FL LAB HEMETOLOGY METHOD 05/08/2024 10:49 AM [facility] NRBC 0.0 <1.0 % LAB HEMETOLOGY METHOD 05/08/2024 10:49 AM [facility] NRBC Absolute 0.00 <0.10 K/mcL LAB HEMETOLOGY METHOD 05/08/2024 10:49 AM [facility] Neutrophils Relative 67.8 % LAB HEMETOLOGY METHOD 05/08/2024 10:49 AM [facility] Lymphocytes Relative 15.8 % LAB HEMETOLOGY METHOD 05/08/2024 10:49 AM [facility] Monocytes Relative 11.1 % LAB HEMETOLOGY METHOD 05/08/2024 10:49 AM [facility] Eosinophils Relative 4.3 % LAB HEMETOLOGY METHOD 05/08/2024 10:49 AM [facility] Basophils Relative 0.7 % LAB HEMETOLOGY METHOD 05/08/2024 10:49 AM [facility] Immature Granulocytes Relative 0.3 % LAB HEMETOLOGY METHOD 05/08/2024 10:[address] [facility] Neutrophils Absolute 4.59 1.50 - 7.00 K/mcL LAB HEMETOLOGY METHOD 05/08/2024 10:[address] [facility] Lymphocytes Absolute 1.07 1.00 - 5.00 K/mcL LAB HEMETOLOGY METHOD 05/08/2024 10:[address] [facility] Monocytes Absolute 0.75 0.20 - 1.00 K/mcL LAB HEMETOLOGY METHOD 05/08/2024 10:[address] [facility] Eosinophils Absolute 0.29 0.00 - 0.50 K/mcL LAB HEMETOLOGY METHOD 05/08/2024 10:[address] [facility] Basophils Absolute 0.05 0.00 - 0.20 K/mcL LAB HEMETOLOGY METHOD 05/08/2024 10:[address] [facility] Immature Granulocytes Absolute 0.02 0.00 - 0.03 K/mcL LAB HEMETOLOGY METHOD 05/08/2024 10:[address] [facility] Blood Venous blood specimen / Unknown Venipuncture / Unknown 05/08/2024 10:03 AM EDT 05/08/2024 10:39 AM EDT us Marichuy Flor MD LAB BLOOD ORDERABLES Final Result [facility] [address] [place] [address], * Prothrombin time with INR (05/08/2024 10:03 AM EDT) Protime 11.8 10.6 - 13.9 sec LAB COAGULATION METHOD 05/08/2024 10:[address] [facility] INR 0.9 LAB COAGULATION METHOD 05/08/2024 10:52 AM [facility] Blood Venous blood specimen / Unknown Venipuncture / Unknown 05/08/2024 10:03 AM EDT 05/08/2024 10:39 AM EDT us Marichuy Flor MD LAB BLOOD ORDERABLES Final Result [facility] [address] [place] [address], * (ABNORMAL) Basic metabolic panel (05/08/2024 10:03 AM EDT) Sodium 136 133 - 145 mmol/L LAB CHEMISTRY METHOD 05/08/2024 12:05 PM [facility] Potassium 4.2 3.5 - 5.5 mmol/L LAB CHEMISTRY METHOD 05/08/2024 12:05 PM [facility] Chloride 104 96 - 110 mmol/L LAB CHEMISTRY METHOD 05/08/2024 12:05 PM [facility] CO2 28 21 - 32 mmol/L LAB CHEMISTRY METHOD 05/08/2024 12:05 PM [facility] Anion Gap 4 3 - 11 LAB CHEMISTRY METHOD 05/08/2024 12:05 PM [facility] Glucose 143(H) 70 - 100 mg/dL LAB CHEMISTRY METHOD 05/08/2024 12:05 PM [facility] BUN 13 5 - 25 mg/dL LAB CHEMISTRY METHOD 05/08/2024 12:05 PM [facility] Creatinine 1.05 0.70 - 1.30 mg/dL LAB CHEMISTRY METHOD 05/08/2024 12:05 PM [facility] eGFR 76 >=60 mL/min/1. 73m2 LAB CHEMISTRY METHOD 05/08/2024 12:05 PM [facility] Comment:Calculation based on the??Chronic Kidney Disease Epidemiology Collaboration (CKD-EPI) equation refit??without adjustment for race. BUN/Creatinine Ratio 12.4 LAB CHEMISTRY METHOD 05/08/2024 12:[address] [facility] Calcium 9.8 8.5 - 10.5 mg/dL LAB CHEMISTRY METHOD 05/08/2024 12:[address] [facility] Blood Venous blood specimen / Unknown Venipuncture / Unknown 05/08/2024 10:03 AM EDT 05/08/2024 10:39 AM EDT us Marichuy Flor MD LAB BLOOD ORDERABLES Final Result [facility] [address] [place] [address], * External Endoscopy (04/30/2024 1:20 PM EDT) [...] Signed Date: 04/06/2024 04:08 ET Workstation ID: [id number] Transcribed By: Self Edit Transcribed Date: 04/06/2024 [...] Signed Date: 04/06/2024 04:08 ET Workstation ID: [id number] Transcribed By: Self Edit Transcribed Date: 04/06/2024 03:25 ET us Alysa Maldonado BUSINESS EDUCATION INSTRUCTOR IMG NM PROCEDURES Final Res ult * [...] without contrast and tissue sampling[place] ([id number]) -------- FINAL REPORT -------- Dictated By: Gabrielle Cobos Dictated Date: 03/06/2024 14:51 ET Assigned Physician: Gabrielle Cobos Reviewed and Electronically Signed By: Gabrielle Cobos Signed Date: 03/06/2024 15:07 ET Workstation ID: [id number] Transcribed By: Self Edit Transcribed Date: 03/06/2024 14:51 ET Narrative 03/06/2024 3:07 PM EST History: ??69 year-old 46 pack-year current smoker, asymptomatic, for lung cancer screening. Mother had lung carcinoma. Comparison: 09/29/21 Technique: Helical volumetric imaging of the thorax was performed, using low- dose technique, without IV contrast. DLP: 179.35 mGy/cm ??CTDIvol: 4.89 mGy cuaQea Iterative reconstruction technique Findings: Lungs and Airways: [...] There is a small hiatal hernia. Result [facility] Alondra Talbert MD IMG CT PROCEDURES Final Result * Hemoglobin A1c (11/04/2022) [facility] Hemoglobin A1C 0.0 <=6.5 % Comment:No Interpretation Blood Venous blood specimen / Unknown Result [facility] Provider LAB BLOOD ORDERABLES Rukhsana l Result * Urine Albumin Creatinine Ratio (05/27/2020) [facility] Urine Albumin Creatinine Ratio Abstracted Result [facility] Provider HEALTH MAINTENANCE Final Result * Lipid panel (05/27/2020) [facility] LDL/HDL Ratio 3 0 - 4 [...] Last Indicated Tuberculosis Rule-Out 05/16/2024 05/16/2024 Insurance [facility] [employer] Member Subscriber Plan / Payer (Ef fective 2020-Present) Name:Montana Taylor Relation to Subscriber:Self Name:Montana Taylor Payer ID:[id number] Group ID:Not on file Type:Not on file Address: [place] [address] [address] [phone] Advance Directives * Full Code - Default [...] currently active code status orders. Care Teams Pattern Mechanic Relationship Specialty Start Date End Date Susan Gonsalez MD [address] [place] [address] [address] [place], [place] [id number] PCP - General Endocrinology 03/26/24
== END 2024-05-28 15:00 | disposition home or self-care (01) ==
LOC: HO.HGI 14:19
PROVIDERS: PCP Internal Medicine; Visit Provider Nurse Practitioner Family
DX: R13.14 Dysphagia, pharyngoesophageal phase (principal); K44.9 Diaphragmatic hernia without obstruction or gangrene; K21.9 Gastro-esophageal reflux disease without esophagitis
CPT/HCPCS: 99214; G2211

== ENCOUNTER → 2024-05-29 23:59 | Outpatient (BNV) | payer OTHER, SELFPAY | PROVIDERS: PCP Internal Medicine; Visit Provider Internal Medicine | DX: J44.9 Chronic obstructive pulmonary disease, unspecified (principal); E11.9 Type 2 diabetes mellitus without complications | CPT/HCPCS: G0179 ==

== ENCOUNTER 2024-07-10 08:57 | Outpatient (AMB) | payer OTHER, SELFPAY ==
--- NOTE | 2024-07-10 09:09 | A.OFFVIS_ITS ---
VS Expanded 07/10/24 09:16 BP 148/73 H Blood Pressure Location Rt brachial Blood Pressure Position Sitting Pulse 75 Pulse Source Pulse Oximeter Temp 95.8 F L Temperature Source Temporal Artery Scan Pulse Oximetry 95 Oxygen Delivery Method Room Air Height 6 ft Weight 199 lb 9.6 oz BMI 27.1 Intake Visit Reasons: OV Diaphragmatic Hernia - BETH Diaz Ref. Intake Note: pt refused tanita Allergies No Known Allergies Allergy (Verified 07/10/24 10:10) Medication List - Last Reconciled 07/10/24 by Tra Britt MD albuterol sulfate 90 mcg/actuation (Ventolin HFA) 2 puffs inhalation Q6H PRN apixaban 5 mg PO BID aspirin (Adult Low Dose Aspirin) 81 mg PO DAILY azelastine 2 sprays intranasal BID blood sugar diagnostic (FreeStyle Lite Strips) As directed bupropion HCl XL 150 mg PO BID digoxin 125 mcg PO DAILY Ensure High Protein (food supplemt, lactose-reduced) 1 ea PO DAILY 90 days NS Farxiga (dapagliflozin propanediol) 10 mg PO DAILY NS fluticasone propionate 50 mcg/actuation 2 sprays intranasal DAILY rkxgcrvwgna-qrzgyjlxy-hzvkubpf 100-62.5-25 mcg (Trelegy Ellipta) 1 inh inhalation DAILY metformin 500 mg PO DAILY metoprolol succinate ER (Toprol XL) 50 mg PO DAILY oxcarbazepine 300 mg PO BID oxycodone 30 mg PO Q8H PRN 28 days pantoprazole 40 mg PO DAILY [pulse oximeter As directed] quetiapine (Seroquel) 25 mg PO BEDTIME quetiapine 50 mg PO BEDTIME spironolactone 25 mg PO DAILY HPI Comments Details: Was referred by Ms Diaz for persistent GERD and food /pills getting stuck. Has had pulmonary infections probably related to aspirations Did have a previous bariatric surgery. most likely sleeve gastrectomy but does not remember who did it and where. [facility] Medical History (Updated 07/10/24 @ 10:24 by Tra Britt MD) Atrial fibrillation Paraesophageal hernia Diabetes Vitamin D deficiency, unspecified Tubular adenoma of colon Presenile dementia Polyp of colon YESICA (obstructive sleep apnea) Obesity Nicotine dependence Lumbar spondylosis with myelopathy Lumbar canal stenosis Incomplete emptying of bladder Hypertension Hyperlipidemia H/O traumatic brain injury ELIZABETH (generalized anxiety disorder) Depressive disorder Constipation, unspecified CHF (congestive heart failure) COPD (chronic obstructive pulmonary disease) Cervical arthritis Cardiomyopathy Benign prostatic hyperplasia with urinary obstruction Benign prostatic hyperplasia Benign hypertension Arrhythmia Angina pectoris Alcoholism Surgical History History of spinal fusion History of appendectomy History of cervical spinal arthrodesis History of hernia repair History of gastric surgery History of colonoscopy Family History Mother Lung cancer Smoker Father Diabetes High cholesterol Hypertension Unsteady gait Social History Household Members: None Housing: House Alcohol intake: former Year quit: 1987 Patient Tobacco Use Status: Former Tobacco user Tobacco use type: Cigar and Pipe Cigarettes Per Day: 2 e-Cigarette/Vaping Use: Never Used Second Hand Smoke Exposure: No Substance Use Type: Marijuana service: No Current occupational status: retired and disabled Cognitive needs: Yes (brain injury) Hearing needs: No Vision needs: No Physical Exam Vital Signs: Last Vital Signs Temp 95.8 F L 07/10/24 09:16 Pulse 75 07/10/24 09:16 BP 148/73 H 07/10/24 09:16 Pulse Ox 95 07/10/24 09:16 Oxygen Delivery Method Room Air 07/10/24 09:16 BMI result Body Mass Index 27.1 GI Inspection: Yes normal to inspection (mixed body habitus) and Yes incision (well healed) Palpation (GI): Soft to palpation Extrem Right lower extremity: ankle (edema) Left lower extremity: ankle (edema) Assessment & Plan Assessment & Plan (1) Paraesophageal hernia: Code(s): K44.9 - Diaphragmatic hernia without obstruction or gangrene Category: Medical Plan: 1. Before recommendations are made for the hernia repair, will need to have an EGD with [facility] to delineate the bariatric surgery anatomy, assess the hiatal hernia and assess the DeMeester score and relationship with patient's symptoms. Risks of bleeding and perforation were discussed. 2. Will stop the aspirin 7 days and Farxiga 7 days before. The Eliquis will be stopped 3 days before and we will bridge with 2.5mg of Fondaparinux per day 3. Please stop all food and sncaks and do 5 16-gr of protein Ensure shakes at 7- 9am, 10-12pm, 1-3pm, 4-6pm and 7-9pm. Don't drink or eat anything after 9pm Medications: New fondaparinux 2.5 mg (0.5 mL) subcut Q24H 5 mL 1RF I48.91 - Unspecified atrial fibrillation
[2024-07-10 09:16] VITALS: BP 148/73; PULSE 75; TEMP 35.4; O2SAT 95; BMI 27.1
== END 2024-07-10 10:23 | disposition home or self-care (01) ==
LOC: HO.HBS 08:58
PROVIDERS: PCP Internal Medicine; Visit Provider Surgery
DX: K44.9 Diaphragmatic hernia without obstruction or gangrene (principal)
CPT/HCPCS: 99204

== ENCOUNTER → 2024-07-10 08:57 | Outpatient (BNVA) | payer OTHER, SELFPAY | PROVIDERS: PCP Internal Medicine; Visit Provider Surgery | DX: K44.9 Diaphragmatic hernia without obstruction or gangrene (principal); I48.91 Unspecified atrial fibrillation; Z79.01 Long term (current) use of anticoagulants | CPT/HCPCS: 99202 ==

== ENCOUNTER → 2024-07-10 23:59 | Outpatient (BNV) | payer OTHER, SELFPAY | PROVIDERS: PCP Internal Medicine; Visit Provider Internal Medicine | DX: J44.9 Chronic obstructive pulmonary disease, unspecified (principal); E11.9 Type 2 diabetes mellitus without complications; F32.A Depression, unspecified | CPT/HCPCS: G0179 ==

== ENCOUNTER → 2024-07-24 23:59 | Outpatient (BNV) | payer OTHER, SELFPAY | PROVIDERS: PCP Internal Medicine; Visit Provider Internal Medicine | DX: I10 Essential (primary) hypertension (principal); J44.9 Chronic obstructive pulmonary disease, unspecified; I42.9 Cardiomyopathy, unspecified | CPT/HCPCS: G0179 ==

== ENCOUNTER 2024-08-21 11:43 | Day surgery (SDC) | payer OTHER, SELFPAY ==
--- OUTSIDE RECORDS SUMMARY | 2024-08-14 07:41 | XMS_ITS | Clinical Summary ---
Author Organization [facility] Address [address] [place] [id number] Care Team Providers Care Ambulance Dispatcher Name Role Phone Susan Gonsalez MD Primary Care Provider [phone] Allergies No known active allergies Medications Medication [...] 64 11/04/2022 3:55 PM EDT Temperature 36.8 C (98.2 F) 11/04/2022 3:55 PM EDT Respiratory Rate 18 11/04/2022 3:55 PM EDT [...] - season) 2023 05/07/2020, 04/09/2020 Influenza Vaccine (Season Ended) 2024 11/24/2020, 11/12/2019, 12/29/2018, Additional history exists DTap / [...] Advance Directives For more information, please contact: [phone] Latest Code Status on File Code Status Date Activated Date Inactivated Comments Full Code 11/03/2022 7:02 PM 11/05/2022 12:09 AM This code status was ascertained in the following way: discussion with patient. Care Teams Ambulance Dispatcher Relationship Specialty Start Date End Date Susan Gonsalez MD PCP - General Internal Medicine 11/03/22
--- OUTSIDE RECORDS SUMMARY | 2024-08-14 07:41 | XMS_ITS | Clinical Summary ---
Author Organization [facility] Address [address] [address] Phone Care Team Providers Care Neuroscience Director Na Name Role Phone Susan Gonsalez MD Primary Care Provider [phone] Allergies No known active allergies Medications multivitamin-iro y-wxtgwlna-krriy acid (CENTRUM) chewable tablet Chew 1 tablet [...] hours if needed for mild pain Active umeclidinium-calrota anterol (Anoro Ellipta) 62.5-25 MCG/INH aerosol powder Inhale [...] 1 (one) time each day 4 Active hydroCHLOROthiaz luther (MICROZIDE) 12.5 MG capsule TAKE 1 CAPSULE BY MOUTH EVERY MORNING 90 capsule 5 Active Additional Information Patient not taking.Reported on 07/30/2024 albuterol HFA (PROVENTIL HFA;VENTOLIN HFA) 108 (90 Base) MCG/ACT inhaler INHALE 2 PUFFS INTO THE LUNGS EVERY 4 HOURS NEEDED FOR WHEEZING FOR UP TO 30 DAYS. Active Eliquis 5 MG tablet Take 5 mg by mouth Active aspirin (ST RICA) 81 MG EC tablet Take 81 mg by mouth 1 (one) time each day Active clonazePAM (KlonoPIN) 0.5 MG tablet Take 0.5 mg by mouth in the morning and 0.5 mg in the evening. Active Dapagliflozin Propanediol (Farxiga) 10 MG tablet Take 10 mg by mouth 1 (one) time each day in the morning Active digoxin (LANOXIN) 125 MCG tablet Take 125 mcg by mouth 1 (one) time each day Active metFORMIN (GLUCOPHAGE) 500 MG tablet Take 500 mg by mouth in the morning and 500 mg in the evening. Take with meals. Active metoprolol succinate XL (TOPROL XL) 50 MG 24 hr tablet Take 50 mg by mouth 1 (one) time each day Do not crush or chew. Active pantoprazole (PROTONIX) 40 MG EC tablet Take 40 mg by mouth 1 (one) time each day before breakfast Do not crush, chew, or split. Active spironolactone (ALDACTONE) 25 MG tablet Take 25 mg by mouth 1 (one) time each day Active Active Problems Problem Noted Date Diagnosed Date Chronic kidney disease, stage 2 (mild) 5 Chronic kidney disease, stage 2 (mild) 2 [...] (11/07/2020): diagnosed 04/[address] garay podiatry-Eye exam-10.10 dr lopez Resolved Problems Problem Noted Date [...] pulmonary-on oxygen HS Depressive disorder 01/19/2010 11/08/19 Overview (11/07/2020): [facility] Gastroesophageal reflux disease 01/19/2010 11/07/2020 Hyperlipidemia 01/19/2010 11/07/2020 Spinal stenosis of lumbar region 01/19/2010 11/07/2020 Overview (11/07/2020): Was on percocet 4 times a day by previous pc 05/24- 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 [address] [place] [id number] Ronan Beltrán MD Chronic kidney disease, stage 2 (mild) (Primary Dx); Isolated proteinuria 06/04/2024 Orders Only [facility] [address] [place] [id number] Ronan Beltrán MD Type 2 diabetes mellitus, not otherwise specified (HCC); Isolated proteinuria; Benign hypertension; Chronic kidney disease, stage 2 (mild) from Last 3 Months Immunizations Immunization Administration [...] Reading Time Taken Comments Blood Pressure 126/70 07/30/2024 3:02 PM EDT Pulse 88 07/30/2024 3:02 PM EDT Temperature - - Respiratory Rate - - Oxygen Saturation 98% 07/30/2024 3:02 PM EDT Inhaled Oxygen Concentration - - Weight 89.1 kg (196 lb 6.4 oz) 07/30/2024 3:02 P M EDT Height - - Body Mass Index - - Plan of Treatment Upcoming Encounters Date Type Department Care Team (Late st Contact Info) Description 07/30/2025 1:00 PM EDT [facility] [address] [address] Ronan Beltrán MD [address] [address] Health Maintenance Due Date Last Done Comments Colorectal Cancer Screening: Annual FOBT 2003 Colorectal Cancer Screening: Colonoscopy 2003 Colorectal Cancer Screening: Sigmoidoscopy 2003 Hepatitis B Vaccine (1 of 3 - Risk 3-dose series) 2014 Diabetes: Ophthalmology Exam 09/29/2020 Diabetes: Pedal Pulse Checked 09/29/2020 Diabetes: Sensory Foot Exam 09/29/2020 Diabetes: Visual Foot Exam 09/29/2020 Diabetes: Hemoglobin A1C 02/03/2023 023, 02/25/2022, 08/19/2020 Influenza Vaccine (Season Ended) 2024 01/01/20 14, 12/19/2011 Pneumococcal Vaccine: 50+ Years Completed 11/24/2020, 11/12/2019, 12/18/2010 Procedures Procedure Name Priority Date/Time Associated Diagnosis [...] AM EST) Hemoglobin A1C 6.2(H) (4.0-5.6) % [facility] Comment: MONITORING: In known diabetic patients, hemoglobin A1c targets should be discussed with health care provider. DIAGNOSTIC USE: The [place] Diabetes Association (ADA) and the World Health [...] Supplement 1 Testing performed or reported by [facility], a Service of [facility], [address] [place] [address] Mckayla Vargas MD, Manager Valuation [facility]# [id number] Blood specimen (specimen) Venous blood / Unknown 02/25/2022 10:40 AM EST 02/25/2022 10:51 AM EST us Malcolm German MD LAB BLOOD ORDERABLES Rukhsana kidd Result [facility] from Last 3 Months or Most Recently Relevant to Health Maintenance Insurance ([id number]) [place] [address] ([id number]) Care Teams Neuroscience Director Na Relationship Specialty Start Date End Date Susan Gonsalez MD [address] [place] [address] [address] [place] [address] PCP - General Internal Medicine 07/05/23
--- OUTSIDE RECORDS SUMMARY | 2024-08-14 07:41 | XMS_ITS ---
Author Name [facility] Organization Unknown Results Test Name/Text Value Interpretation Date Range Source Glucose Bld-mCnc 118.0 mg/dL Normal 05/16/2024 70 - 199 [facility] Ref Lab Test Results See Scanned Result 07/03/2024 [facility] Ref Lab Test Results See Scanned Result Normal 06/14/2024 [facility] Clinical Information IN CYTO Normal 05/21/2024 [facility] Glucose Bld-mCnc 103.0 mg/dL Normal 05/16/2024 70 - 199 [facility] History of Medication Use Medication Directions Dispensed Refills Start Date End Date Status albuterol 2.5 mg /3 mL (0.083 %) nebulizer solution 2.5 mg 2.5 mg, nebulization, Once as needed, wheezing, Starting on Tue05/16/24 at 1339, For 1 dose, Recovery (only) 5 active diphenhydrAMINE (BENADRYL) injection 25 mg 25 mg, intravenous, Every 15 min PRN, itching, Starting on Tue05/16/24 at 1339, Recovery (only) 5 active HYDROmorphone (DILAUDID) injection 0.5 mg 0.5 mg, intravenous, Every 5 min PRN, severe pain or when therapies for moderate pain were not effective, Starting on Tue05/16/24 at 1339, For 4 doses, Recovery (only) 5 active lactated Ringer's infusion 100 mL/hr, intravenous, Continuous, Starting on Tue05/16/24 at 1400, Recovery (only) 5 active meperidine (PF) (DEMEROL) 25 mg/mL injection 12.5 mg 12.5 mg, intravenous, Every 15 min PRN, rigors, shivering, Starting on Tue05/16/24 at 1339, For 4 doses, Recovery (only) 5 active ondansetron ODT (ZOFRAN-ODT) disintegrating tablet 4 mg [Order 1 Start] Name: ondansetron ODT (ZOFRAN-ODT) disintegrating tablet 4 mg Signed Summary: 4 mg, oral, Every 8 hours PRN, vomiting, nausea, Starting on Tue05/16/24 at 1339, Recovery (only), -Give IV if patient is unable to take orally. -If inadequate response within 30 minutes, proceed to next-prudencio 5 active oxyCODONE (ROXICODONE) immediate release tablet 5 mg 5 mg, oral, Every 4 hours PRN, moderate pain or when therapies for mild pain were not effective, Starting on Tue05/16/24 at 1339, For 2 doses, Recovery (only) 5 active prochlorperazine (COMPAZINE) tablet 10 mg [Order 1 Start] Name: prochlorperazine (COMPAZINE) tablet 10 mg Signed Summary: 10 mg, oral, Every 6 hours PRN, nausea, vomiting, Starting on Tue05/16/24 at 1339, Recovery (only), 2nd Line Option: -Give IV or IM if patient is unable to take orally. -If inadequate response within 30 minutes, proceed t 5 active sodium chloride 0.9 % flush 10 mL [Order 1 Start] Name: Insert peripheral IV Signed Summary: STAT, Once, On Tue05/16/24 at 1340, For 1 occurrence, Preprocedure [Order 1 End] [Order 2 Start] Name: Maintain IV access Signed Summary: Until discontinued, Starting on Tue05/16/24 at 1340, Until Specified, Preprocedure [Order 2 End] [Order 3 5 active furosemide (LASIX) 20 mg tablet TAKE 1 TABLET BY MOUTH EVERY DAY 5 active furosemide (LASIX) 20 mg tablet Take 1 Tablet by mouth daily for 360 days. 04/21/19 25 aborted albuterol 2.5 mg /3 mL (0.083 %) nebulizer solution Take 1 Vial by nebulization every 4 hours as needed. active albuterol HFA (PROAIR HFA ; PROVENTIL HFA ; VENTOLIN HFA) 90 mcg/actuation inhaler Inhale 2 puffs by mouth every 6 (six) hours if needed for wheezing. active alcohol swabs pads, medicated 1 Each by route 2 times daily. Use when testing blood sugar active apixaban (ELIQUIS) 5 mg tablet Take 1 Tablet by mouth 2 Times Daily. active aspirin 81 mg EC tablet TAKE 1 TABLET BY MOUTH EVERY DAY active azelastine-fluticason e 137-50 mcg/spray spray,non-aerosol 2 Sprays by Nasal route daily. active azithromycin (ZITHROMAX) 250 mg tablet Take 1 Tablet by mouth daily. active buPROPion SR (WELLBUTRIN SR) 150 mg 12 hr tablet Take 150 mg by mouth 2 times daily. active calcium carbonate (OS-BALDEMAR) 1,250 mg (500 mg elemental calcium) tablet Take 1 tablet (1,250 mg total) by mouth. active cloNIDine (CATAPRES) 0.1 mg tablet Take 1 tablet (0.1 mg total) by mouth 1 (one) time each day after lunch. active dapagliflozin propanediol (FARXIGA) 10 mg tablet Take 10 mg by mouth daily. active digoxin (LANOXIN) 125 mcg (0.125 mg) tablet Take 1 Tablet by mouth daily. active FLUoxetine (PROzac) 20 mg capsule Take 20 mg by mouth daily. active fluticasone propionate (FLONASE) 50 mcg/actuation nasal spray INHALE 2 SPRAYS BY NASAL ROUTE DAILY active fluticasone-umeclidin ium-vilanterol (Trelegy Ellipta) 100-62.5-25 mcg inhaler Inhale 1 Puff into the lungs daily. active FREESTYLE LANCETS [facility] USE TO TEST TWICE A DAY active lidocaine (LIDODERM) 5 % patch Place 1 Patch onto the skin every 24 hours. Apply for no more than 12 hours in any 24 hour period. active lisinopriL (PRINIVIL,ZESTRIL) 20 mg tablet Take 1 Tablet by mouth 2 times daily. active metFORMIN (GLUCOPHAGE) 1,000 mg tablet Take 0.5 Tabs by mouth daily (with breakfast). active metoprolol succinate (TOPROL-XL) 50 mg 24 hr tablet Take 1 Tablet by mouth daily. active omeprazole (PriLOSEC) [address] capsule Take 20 mg by mouth daily. active OXcarbazepine (TRILEPTAL) 300 mg tablet Take 1 Tablet by mouth 2 times daily. active oxyCODONE (ROXICODONE) 30 mg immediate release tablet Take 1 Tablet by mouth every 4 hours as needed. active QUEtiapine (SEROquel) 50 mg tablet Take 50 mg by mouth at bedtime. active simvastatin (ZOCOR) 20 mg tablet TAKE 1 TABLET BY MOUTH EVERY DAY IN THE EVENING active spironolactone (ALDACTONE) 25 mg tablet Take 1 Tablet by mouth daily. active tamsulosin (FLOMAX) 0.4 mg 24 hr capsule Take 1 Capsule by mouth daily. Take 30 mins after same meal every day. 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 active 2023-03-25 ProblemAct [facility] Difficulty in urination active 2016-03-04 ProblemAct [facility] Nonischemic cardiomyopathy active 2022-07-05 ProblemAct [facility] Arthralgia of hip active 2015-10-14 ProblemAct [facility] Obstructive sleep apnea syndrome active 2010-01-30 ProblemAct [facility] Insomnia active 2016-03-04 ProblemAct [facility] GERD (gastroesophageal reflux disease) active 2010-01-19 ProblemAct [facility] Depression active 2010-01-19 ProblemAct [facility] Paroxysmal atrial fibrillation active 2023-05-10 ProblemAct [facility] BPH (benign prostatic hyperplasia) active 2010-01-19 ProblemAct [facility] COPD (chronic obstructive pulmonary disease) active 2010-01-19 ProblemAct [facility] Constipation active 2012-12-11 ProblemAct [facility] Hyperlipidemia active 2010-01-19 ProblemAct [facility] Vitamin D deficiency active 2015-11-19 ProblemAct [facility] Chronic diastolic heart failure active 2023-03-25 ProblemAct [facility] Fatigue active 2016-03-04 ProblemAct [facility] Tubular adenoma of colon active 2017-03-16 ProblemAct [facility] Left wrist fracture, closed, initial encounter active 2022-11-03 ProblemAct [facility] Cervicalgia active 2016-05-27 ProblemAct [facility] Vocal cord granuloma active 2010-01-23 ProblemAct [facility] Diabetes mellitus, type 2 active 2010-01-19 ProblemAct [facility] Chronic kidney disease, stage 2 (mild) active 2021-09-14 ProblemAct [facility] Memory loss active 2016-02-26 ProblemAct [facility] Traumatic brain injury active 2023-03-25 ProblemAct [facility] Unequal pupils active 2022-11-03 ProblemAct [facility] Hypokalemia active 2016-09-27 ProblemAct [facility] Immunizations Vaccine Date Source Lot Number Status Moderna SARS-CoV-2 COVID-19, mRNA, LNP-S, preservative free 03/30/2021 [facility] [id number] completed Moderna SARS-CoV-2 COVID-19, mRNA, LNP-S, preservative free 09/28/2020 [facility] UNK completed Moderna SARS-CoV-2 COVID-19, mRNA, LNP-S, preservative free 05/07/2020 [facility] [id number] completed Moderna SARS-CoV-2 COVID-19, mRNA, LNP-S, preservative free 04/09/2020 [facility] [id number] completed Influenza trivalent, 0.5mL, preservative free (Fluarix; FluLaval; Fluzone) ages 6mo and older (Afluria) 3 years and older 12/31/2013 [facility] completed Influenza, Unspecified 12/19/2011 [facility] co mpleted Pneumococcal, Unspecified 12/18/2010 [facility] completed Encounters Encounter Type Encounter Reason Primary Diagnosis Location Date Ambulatory Pain, unspecified Pain, unspecified [facility] 05/16/2024 Ambulatory Solitary pulmonary nodule Solitary pulmonary nodule [facility] 05/16/2024 Inpatient [facility] 11/04/19 Care Team Organization Name Specialty Phone Email [facility] Date [facility] 03/06/2023 [facility] 11/05/2022 07/05/2024 [facility] 11/0311/03/2022
--- OUTSIDE RECORDS SUMMARY | 2024-08-14 07:41 | XMS_ITS | Data Portability ---
Author Organization [employer] Address [address] [place] [address] Assessment Encounter Date Assessment Date Assessment LastModified by Organization Details LastModified Time 02/21/2023 02/21/2023 As noted, we were called to see this patient regarding concerns of dyspnea. Evaluation in the field was performed by my reconstructive dentist colleague, as noted above, I provided real-time direction and supervision for this visit. The evaluation revealed the patient has COPD on home oxygen and was in acute distress. Vitals as noted with hypoxemia, worse even with speaking. Diamond Cleaner arranged for urgent transport to ED. In [...] cm 83 % 83 % 2 L/min 60297.3 2 g 77 /min 111 mm[Hg] 78 mm[Hg] Not Available [facility] - production 11:41:41 Social History None recorded. Functional Status None recorded. Mental Status None recorded. Family History Nothing Reported. Medical History No medical history recorded. Past Encounters Encounter ID Performer Location Encounter Start Date Encounter Closed Date Diagnosis/Indication Diagnosis SNOMED-CT Code Diagnosis ICD10 Code Diagnosis Note [id number] MOISES JOHNSON MD Main - [facility] [address] [place] [address] 02/21/2023 11:41:38 02/21/2023 12:15:00 Acute hypoxemic respiratory failure 126944402 J96.01 Health Concerns Section Related Observation LastModified by Organization Detai ls LastModified Time None Recorded Concern Status LastModified by Organization Details LastModified Time None Recorded Advance Directives Directive None Recorded Payers Insurance Date Sequence Insurance Name Policy Number Policy Perkins Covered Member ID Perkins Member ID Guarantor Name 02/21/2023 1 [facility] - DOS ON OR AFTER 2022 - DUAL ELIGIBLE - LONG-TERM OPTIONS AND ONE CARE (MEDICARE REPLACEMENT/ADV ANTAGE - HMO) Montana Taylor [id number] Montana Taylor Notes Date Note Type Note [...] .................. .................. .................. .................. .................. .................. ............... Diamond Cleaner Note From Brent Aguila: Pt reports cough [...] rales in lower right. 911 immediately initiated. [facility] [place]. While waiting for EMS to arrive I increased his O2 and discussed shelter plans with the pt. He was very receptive and plans to confer with the ED MD and his [employer] marine engine driver who is going to meet him in the ED. Care transferred to [facility]. .................. .................. .................. .................. .................. .................. .................. ............... Disposition: Fulfilled MOISES JOHNSON MD [address] [facility],[address], [place], [address], [facility] - GANESH ROUSE 02/21/2023 11:44:01
--- OUTSIDE RECORDS SUMMARY | 2024-08-14 07:41 | XMS_ITS | Encounter Summary ---
Author Organization [facility] Address [address] [place] [address] Care Team Providers Care Compliance Coordinator Name Role Phone Hanh Tobar MD Primary Care Provider Unav ailable Susan Hughes MD Primary Care Provider Unavaila ble Ann Gutierrez MD Unavailable [phone] Tracey Crouch DNP Unavailable [phone] Encounter Details Date Type Department Care Team Description 09/29/2021 Cancer Genetic Counselor Report Medical Records [address] [place] [address] [facility] [address] [place] [address] Social History Tobacco Use Types Packs/Day Years [...] on filedocumented in this encounter Care Teams Compliance Coordinator Relationship Specialty Start Date End Date Hanh Tobar MD PCP - General Internal Medicine 03/22/18 02/24/22 Susan Hughes MD PCP - General Internal Medicine 02/25/22 Ann Gutierrez MD Specialist Cardiology 03/18/23 Tracey Crouch DNP Specialist Nurse Practitioner Family 03/18/23 documented as of this encounter
--- OUTSIDE RECORDS SUMMARY | 2024-08-14 07:41 | XMS_ITS | Clinical Summary ---
Author Organization [facility] Address [address] [facility] [address] Phone Care Team Providers Care Form Block Maker Name Role Phone Susan Gonsalez MD Primary Care Provider [phone] Allergies No known active allergies Medications digoxin [...] mouth daily (with breakfast). Active FREESTYLE LANCETS [facility] USE [place] TEST TWICE A DAY Active [...] Noted Date Diagnosed Date Paroxysmal atrial fibrillation ([facility] V24, [facility] V28) 05/10/2023 Overview (02/21/2024): February 2023 - newly discovered asymptomatic atrial fibrillation with rapid ventricular response; initially rate controlled March 2023 - JOSEF/DCCV attempt aborted due to ROSIO thrombus; patient initially with non-adherence to apixaban June 2023 - ultimately successful adherence to AC therapy with successful JOSEF/DCCV at [facility] Assessment & Plan (02/21/2024 9:16 AM EST): Now paroxysmal atrial fibrillation status post DCCV. Asymptomatic. EKG today showed sinus rhythm. CHADSVASc - 3. Continue with apixaban, metoprolol and digoxin. May consider discontinuation of digoxin at next visit if maintaining sinus rhythm. Orders: ECG 12 lead Chronic diastolic heart failure ([facility] V24, [facility] V28) 03/25/2023 Assessment & [...] medication compliance. 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 dr lopez Depression 01/19/2010 Overview (01/04/2024): Seeing [facility] Hyperlipidemia 01/19/2010 Assessment & Plan (02/21/2024 [...] 0 COPD (chronic obstructive pu lmonary disease) ([facility] V24, [facility]/HCC V28) 01/19/2010 Overview (01/04/2024): Dr rodrigez pulmonary-on oxygen HS BPH (benign prostatic hyperplasia) 01/19/2010 Overview (01/04/2024): Dr crawford urology-seen 08/23 Resolved Problems Problem Noted Date Diagnosed Date Resolved Date Chronic atrial fibrillation ([facility]/HCC V24, [facility]/HCC V28) 03/25/2023 02/21/2024 Obesity 06/22/2010 02/21/2024 Encounters Date Type Department Care Team Description 08/03/2024 Telephone Lung Screening Program - [address] [address] Michelle Marcum MA 08/01/2024 Telephone [facility] Cardiology Formerly [facility] [address] [place] [address] Tex Aguila NP Pre-operative Clearance 07/17/2024 2:25 PM EDT Lab Draw Station - [address] [facility] [address] [facility] [address] [place] [phone] VANDANA (mycobacterium avium-intracellulare ) ([facility] [place], [facility] V28); Necrotizing granuloma of liver 07/17/2024 1:30 PM EDT Consult Infectious Disease - [place] [address] [facility] [address] [place] [address] Carol Cote MD VANDANA (mycobacterium avium-intracellulare ) ([facility]24, [facility] V28) (Primary Dx); Lung granuloma ([facility] [place]24, [facility] V28) 06/12/2024 Telephone Pulmonolgy - [place] [address] [facility] [address] [place] [phone] Herve Fuller MA medical records (Realease of information) 06/07/2024 Telephone Infectious Disease [facility] [address] [facility] [address] [place] [phone] Anais Barnett MA Appointment 05/29/2024 Telephone [facility] Cardiology [facility] [address] [place] [phone] Susan Gonsalez MD Medical Records 05/29/2024 Telephone [facility] Cardiology [facility] [address] [place] [address] Tex Aguila NP Medical Records (Medical records ) 05/25/2024 3:00 PM EDT Office Visit Pulmonology - [place] [address] [facility] [address] [place] [phone] Marichuy Flor MD Lung nodule (Primary Dx); Mycobacteria, atypical 05/16/2024 11:29 AM EDT Anesthesia Event [facility] OR [address] [place] [phone] Stuart Allen MD 05/16/2024 10:35 AM EDT - 05/16/2024 11:59 PM EDT Hospital [facility] [address] [place] [address], [place] [address] Pain Discharge Disposition: Home or Self Care 05/16/2024 10:15 AM EDT - 05/16/2024 12:15 PM EDT [facility] OR [address] [place] [address], [place] [address] Marichuy Flor MD ROBOTIC ASSISTED BRONCHOSCOPY W. FNA, TBBX, BRUSH, BAL [[id number] (CPT )] 05/16/2024 9:52 AM EDT - 05/16/2024 4:01 PM EDT Hospital Encounter [facility] OR [address] [place] [address], [place] [address] Marichuy Flor MD Nodule of left lung Discharge Disposition: Home or Self Care from [...] notes HERNIA REPAIR WRIST SURGERY Right per medical case worker BARIATRIC SURGERY Medical History Medical History Date [...] with urinary obstruction TBI (traumatic brain injury) ([facility], [facility] V28) per care administrative tech Arrhythmia A fib per cardia c notes H/O gastric bypass History of appendectomy Cardiomyopathy ([facility] V[facility], [facility] V28) history of: Sleep apnea Does not use cpa p per medical case worker Oxygen dependent Uses 1 lpm oxyg en at night via nc per medical case workerfranchise manager mellitus ([facility] V 24, [facility] V28) Forgetfulness Related to TBI COPD (chronic obstructive pu lmonary disease) ([facility], [facility] V28) from H&P GERD (gastroesophageal reflux disease) [...] Sign Reading Time Taken Comments Blood Pressure 156/80 07/17/2024 1:45 PM EDT Pulse 70 07/17/2024 1:45 PM EDT Temperature 36.5 C (97.7 F) 07/17/2024 1:45 PM EDT Respiratory Rate 18 05/25/2024 3:15 PM EDT Oxygen Saturation 93% 07/17/2024 1:45 PM EDT Inhaled Oxygen Concentration - - Weight 89.6 kg (197 lb 9.6 oz) 07/17/2024 1:45 P M EDT Height 182.9 cm (6') 05/25/2024 3:15 PM EDT Body Mass Index 26.8 05/25/2024 3:15 PM EDT Plan of Treatment Upcoming Encounters Date Type Department Care Team (Late st Contact Info) Description 08/28/2024 1:30 PM EDT Office Visit Pulmonology - [place] [address] [facility] [address] [place] [phone] Marichuy Flor MD [address] [place] [phone] 10/16/2024 1:30 PM EDT Office Visit Infectious Disease - [place] [address] [facility] [address] [place] [phone] Carol Cote MD [address] [facility] [address] [place] [address] Health Maintenance Due Date Last Done Comments Diabetes: Annual Foot Exam 01/15/1964 Diabetes: Annual Retina Eye Exam 01/15/1964 Hepatitis A Vaccines (1 of 2 - Risk 2-dose series) 1973 Abdominal Aortic Aneurysm (AAA) Screen 01/23/2022 Depression Screening 01/23/2022 03/18/2011 Social Influencers of Health Screening 01/23/2022 Diabetes: Annual Urine Albumin-Creatinine Ratio (uACR) 01/30/2022 05/27/2020 Diabetes: Blood Sugar Control Test (HGBA1C) 05/05/2023 11/04/2022, 11/04/2022, 02/25/2022 COVID-19 Vaccine (9 - Moderna risk season) 2024 12/06/2023, 11/14/2022, 06/13/2022, Additional history exists Falls Risk Assessment 05/16/2025 05/16/2024 Cholesterol Screening (Lipid Panel) 05/27/2025 05/27/2020 Diabetes: Annual GFR (Glomerular Filtration Rate) 07/17/2025 07/17/2024, 05/08/2024, 11/04/2022, Additional history exists Hypertension/CHF/CAD Annual BMP Blood Test 07/17/2025 07/17/2024, 05/08/2024, 11/04/2022, Additional history exists Colorectal Cancer Screening: Colonoscopy 04/30/2029 04/30/2024 DTaP,Tdap,and [...] this topic Medical Devices Implanted Type Area Grain Oilseed Or Pasture Farm Manager Device Identifier Shelf Expiration Date Model / Serial / Lot Marker Cobra Superlock - Sn/A - [id number] Implanted:Qty : 1 on 05/16/2024 by Marichuy Flor MD at [facility] Imaging Implants Left: Lung COVIDIEN SUPERDIMENSION 12/21/2027 [id number] / N/A / [id number] Description:LEFT UPPER LOBE Procedures Procedure Name Priority Date/Time Associated Diagnosis Comments ..CONCENTRATION Routine 07/25/2024 10:15 AM EDT VANDANA (mycobacterium avium-intracell ulare) ([facility] [place], [facility] V28) Lung granuloma ([facility] V[facility], [facility] V28) ACID FAST BACILLI STAIN Routine 07/25/2024 10:15 AM EDT VANDANA (mycobacterium avium-intracell ulare) ([facility] [place], [facility] V28) Lung granuloma (CMS/HCC V24, CMS/HCC V28) CULTURE, AFB AND SMEAR WITH REFLEX TO IDENTIFICATION AND SUSCEPTIBILITY Routine 07/25/2024 10:15 AM EDT VANDANA (mycobacterium avium-intracell ulare) (CMS/HCC V24, CMS/HCC V28) Lung granuloma (CMS/HCC V24, CMS/HCC V28) ..CONCENTRATION Routine 07/24/2024 9:45 AM EDT VANDANA (mycobacterium avium-intracell ulare) (CMS/HCC V24, CMS/HCC V28) Lung granuloma (CMS/HCC V24, CMS/HCC V28) ACID FAST BACILLI STAIN Routine 07/24/2024 9:45 AM EDT VANDANA (mycobacterium avium-intracell ulare) (CMS/HCC V24, CMS/HCC V28) Lung granuloma (CMS/HCC V24, CMS/HCC V28) CULTURE, AFB AND SMEAR WITH REFLEX TO IDENTIFICATION AND SUSCEPTIBILITY Routine 07/24/2024 9:45 AM EDT VANDANA (mycobacterium avium-intracell ulare) (CMS/HCC V24, CMS/HCC V28) Lung granuloma (CMS/HCC V24, CMS/HCC V28) ..CONCENTRATION Routine 07/23/2024 12:24 PM EDT VANDANA (mycobacterium avium-intracell ulare) (CMS/HCC V24, CMS/HCC V28) Lung granuloma (CMS/HCC V24, CMS/HCC V28) ACID FAST BACILLI STAIN Routine 07/23/2024 12:24 PM EDT VANDANA (mycobacterium avium-intracell ulare) (CMS/HCC V24, CMS/HCC V28) Lung granuloma (CMS/HCC V24, CMS/HCC V28) CULTURE, AFB AND SMEAR WITH REFLEX TO IDENTIFICATION AND SUSCEPTIBILITY Routine 07/23/2024 12:24 PM EDT VANDANA (mycobacterium avium-intracell ulare) (CMS/HCC V24, CMS/HCC V28) Lung granuloma (CMS/HCC V24, CMS/HCC V28) CBC WITH AUTO DIFFERENTIAL Routine 07/17/2024 2:26 PM EDT VANDANA (mycobacterium avium-intracell ulare) (CMS/HCC V24, CMS/HCC V28) Necrotizing granuloma of liver CBC AND DIFFERENTIAL Routine 07/17/2024 2:26 PM EDT VANDANA (mycobacterium avium-intracell ulare) (CMS/HCC V24, CMS/HCC V28) Necrotizing granuloma of liver COMPREHENSIVE METABOLIC PANEL Routine 07/17/2024 2:26 PM EDT VANDANA (mycobacterium avium-intracell ulare) (CMS/HCC V24, CMS/HCC V28) Necrotizing granuloma of liver CRYPTOCOCCAL ANTIGEN Routine 07/17/2024 2:26 PM EDT VANDANA (mycobacterium avium-intracell ulare) (CMS/HCC V24, CMS/HCC V28) Necrotizing granuloma of liver XR CHEST 1 VIEW STAT 05/16/2024 1:42 PM EDT POCT GLUCOSE BLOOD Routine 05/16/2024 1: 20 PM EDT XR FLUORO UP TO 1 HOUR (STATISTICS)(NO REPORT) Routine 05/16/2024 12:43 PM EDT Pain MISCELLANEOUS LAB TEST Routine 05/16/2024 12:06 PM EDT CULTURE RESPIRATORY WITH GRAM STAIN Routine 05/16/2024 12:06 PM EDT Nodule of left lung CULTURE AFB Routine 05/16/2024 12:06 PM EDT Nodule of left lung TISSUE EXAM Routine 05/16/2024 11:53 AM EDT Nodule of left lung NON-GYNECOLOGIC CYTOLOGY Routine 05/16/2024 11:50 AM EDT Nodule of left lung TH AN ENDOTRACHEAL(NO CHARGE) Routine 05/16/2024 11:44 AM EDT WA BRONCHOSCOPY INCL FLUROSCOPIC GUIDANCE W PLCMNT FIDUCIAL MARKER SGL/MULT 05/16/2024 11:13 AM EDT Nodule of left lung Case Notes Please do not change time to any earlier as transportation arranged. WA BRONCHOSCOPY RIGID/FLEXIBLE W/EBUS >=3 MEDIASTINAL/HILAR LYMPH NODES 05/16/2024 11:13 AM EDT Nodule of left lung Case Notes Please do not change time to any earlier as transportation arranged. WA BRONCHOSCOPY RIGID/FLEXIBLE W/TRANSBRONCHIAL LUNG BIOPSY(S) SINGLE LOBE 05/16/2024 11:13 AM EDT Nodule of left lung Case Notes Please do not change time to any earlier as transportation arranged. WA BRONCHOSCOPY RIGID/FLEXIBLE COMPUTER ASSISTED IMAGE GUIDED NAVIGATION 05/16/2024 11:13 AM EDT Nodule of left lung Case Notes Please do not change time to any earlier as transportation arranged. POCT GLUCOSE BLOOD Routine 05/16/2024 10:53 AM EDT EXTERNAL COLONOSCOPY REPORT Routine 04/30/2024 1:18 PM EDT HEMOGLOBIN A1C Routine 11/04/2022 HM URINE ALBUMIN CREATININE RATIO Routine 05/27/2020 LIPID PANEL Routine 05/27/2020 HM HEPATITIS C SCREENING Routine 06/14/2012 HM DEPRESSION SCREENING Routine 03/18/2011 from Last 3 Months or Most Recently Relevant to Health Maintenance Results * Concentration (07/25/2024 10:15 AM EDT) Only the most recent of3 resultswithin the time period is included. AFB Concentration Performed 025 11:05 AM EDT [facility] Sputum Tracheal structure / Unknown Non-blood Collection / Unknown 07/25/2024 10:15 AM EDT 07/25/2024 12:13 PM EDT Narrative [facility] - 08/08/2024 11:05 AM EDT Performed at: 01 - [facility] [id number] Turnstile Attendant: Emerald Cline MD, Phone: [phone] Carol Cote MD LAB BLOOD ORDERABLES Edited Resu lt - Final [facility] * Acid fast bacilli stain (07/25/2024 10:15 AM EDT) Only the most recent of3 resultswithin the time period is included. AFB Stain Result No Acid fast bacilli seen on direct smear (Fuchsin method, 1000x) No Acid Fast Bacilli seen on direct smear 07/25/2024 7:04 PM EDT [facility] Sputum Tracheal structure / Unknown Non-blood Collection / Unknown 07/25/2024 10:15 AM EDT 07/25/2024 12:13 PM EDT Carol Cote MD LAB MICROBIOLOGY - GENERAL ORDER MORENO Final Result Performing Organization Address City/[facility]/ZIP Co de Phone Number [facility] [address] [place] [address], [place] [phone] * (ABNORMAL) CBC auto differential (07/17/2024 2:26 PM EDT) WBC 6.9 4.8 - 10.8 K/[facility] LAB HEMETOLOGY METHOD 07/17/2024 6:47 PM EDT [facility] RBC 4.70 4.50 - 5.50 M/[facility] LAB HEMETOLOGY METHOD 07/17/2024 6:47 PM EDT [facility] Hemoglobin 11.4(L) 13.5 - 17.5 g/dL LAB HEMETOLOGY METHOD 07/17/2024 6:47 PM EDT [facility] Hematocrit 38.8(L) 42.0 - 54.0 % LAB HEMETOLOGY METHOD 07/17/2024 6:47 PM EDT [facility] MCV 81.9 79.0 - 98.0 FL LAB HEMETOLOGY METHOD 07/17/2024 6:47 PM EDT [facility] MCH 24.1(L) 27.0 - 32.0 pcg LAB HEMETOLOGY METHOD 07/17[facility]2024 6[facility] MCHC 29.4(L) 32.0 - 37.0 g/dL LAB HEMETOLOGY METHOD 07/17/2024 6:47 [facility] RDW 17.0(H) 11.0 - 15.0 % LAB HEMETOLOGY METHOD 07/17/2024 6:47 [facility] Platelets 282 130 - 400 K/mcL LAB HEMETOLOGY METHOD 07/17/2024 6:47 [facility] MPV 11.0 7.0 - 11.0 FL LAB HEMETOLOGY METHOD 07/17/2024 6:47 [facility] NRBC 0.0 <1.0 % LAB HEMETOLOGY METHOD 07/17/2024 6:47 [facility] NRBC Absolute 0.00 <0.10 K/mcL LAB HEMETOLOGY METHOD 07/17/2024 6:47 PM [facility] Neutrophils Relative 69.5 % LAB HEMETOLOGY METHOD 07/17/2024 6:47 PM [facility] Lymphocytes Relative 15.0 % LAB HEMETOLOGY METHOD 07/17/2024 6:47 [facility] Monocytes Relative 11.0 % LAB HEMETOLOGY METHOD 07/17/2024 6:47 [facility] Eosinophils Relative 3.5 % LAB HEMETOLOGY METHOD 07/17/2024 6:47 PM [facility] Basophils Relative 0.7 % LAB HEMETOLOGY METHOD 07/17/2024 6:47 [facility] Immature Granulocytes Relative 0.3 % LAB HEMETOLOGY METHOD 07/17/2024 6:47 PM EDT [facility] Neutrophils Absolute 4.78 1.50 - 7.00 K/mcL LAB HEMETOLOGY METHOD 07/17/2024 6:47 PM EDT [facility] Lymphocytes Absolute 1.03 1.00 - 5.00 K/mcL LAB HEMETOLOGY METHOD 07/17/2024 6:47 PM EDT [facility] Monocytes Absolute 0.76 0.20 - 1.00 K/mcL LAB HEMETOLOGY METHOD 07/17/2024 6:47 PM EDT [facility] Eosinophils Absolute 0.24 0.00 - 0.50 K/mcL LAB HEMETOLOGY METHOD 07/17/2024 6:47 PM EDT [facility] Basophils Absolute 0.05 0.00 - 0.20 K/mcL LAB HEMETOLOGY METHOD 07/17/2024 6:47 PM EDT [facility] Immature Granulocytes Absolute 0.02 0.00 - 0.03 K/mcL LAB HEMETOLOGY METHOD 07/17/2024 6:47 PM EDT [facility] Blood Venous blood specimen / Unknown Venipuncture / Unknown 07/17/2024 2:26 PM EDT 07/17/2024 2:26 PM EDT us Carol Cote MD LAB BLOOD ORDERABLES Final Resul t [facility] [address] [place] [address], * Cryptococcal antigen (07/17/2024 2:26 PM EDT) Pathologist [facility] Cryptococcal Antigen Serum Negative Negative 07/20/2024 11:05 PM EDT [facility] Blood Venous blood specimen / Unknown Venipuncture / Unknown 07/17/2024 2:26 PM EDT 07/17/2024 2:26 PM EDT Narrative [facility] - 07/20/2024 11:05 PM EDT Performed at: 01 - [facility] [id number] Turnstile Attendant: Kristofer Cowart MD, Phone: [phone] us Carol Cote MD LAB BLOOD ORDERABLES Final Resul t [facility] * (ABNORMAL) Comprehensive metabolic panel (07/17/2024 2:26 PM EDT) Pathologist [facility] Sodium 137 133 - 145 mmol/L LAB CHEMISTRY METHOD 07/17/2024 7:37 PM [facility] Potassium 4.0 3.5 - 5.5 mmol/L LAB CHEMISTRY METHOD 07/17/2024 7:37 PM [facility] Chloride 102 96 - 110 mmol/L LAB CHEMISTRY METHOD 07/17/2024 7:37 PM [facility] CO2 30 21 - 32 mmol/L LAB CHEMISTRY METHOD 07/17/2024 7:37 PM [facility] Anion Gap 5 3 - 11 LAB CHEMISTRY METHOD 07/17/2024 7:37 PM [facility] Glucose 85 70 - 100 mg/dL LAB CHEMISTRY METHOD 07/17/2024 7:37 PM [facility] BUN 9 5 - 25 mg/dL LAB CHEMISTRY METHOD 07/17/2024 7:37 PM [facility] Creatinine 0.88 0.70 - 1.30 mg/dL LAB CHEMISTRY METHOD 07/17/2024 7:37 PM [facility] eGFR 93 >=60 mL/min/1. 73m2 LAB CHEMISTRY METHOD 07/17/2024 7:37 PM [facility] Comment:Calculation based on the Chronic Kidney Disease Epidemiology Collaboration (CKD-EPI) equation refit without adjustment for race. BUN/Creatinine Ratio 10.2 LAB CHEMISTRY METHOD 07/17/2024 7:37 PM EDT [facility] Calcium 9.5 8.5 - 10.5 mg/dL LAB CHEMISTRY METHOD 07/17/2024 7:37 PM EDT [facility] AST (SGOT) 16 10 - 42 unit/L LAB CHEMISTRY METHOD 07/17/2024 7:37 PM EDT [facility] ALT (SGPT) 17 10 - 60 unit/L LAB CHEMISTRY METHOD 07/17/2024 7:37 PM EDT [facility] Alkaline Phosphatase 124(H) 42 - 121 unit/L LAB CHEMISTRY METHOD 07/17/2024 7:37 PM EDT [facility] Total Protein 7.4 6.0 - 8.0 g/dL LAB CHEMISTRY METHOD 07/17/2024 7:37 PM EDT [facility] Albumin 3.7 3.2 - 5.0 g/dL LAB CHEMISTRY METHOD 07/17/2024 7:37 PM EDT [facility] Total Bilirubin 0.4 0.0 - 1.4 mg/dL LAB CHEMISTRY METHOD 07/17/2024 7:37 PM EDT [facility] Blood Venous blood specimen / Unknown Venipuncture / Unknown 07/17/2024 2:26 PM EDT 07/17/2024 2:26 PM EDT us Carol Cote MD LAB BLOOD ORDERABLES Final Resul t [facility] [address] [place] [address], * XR Chest 1 View (05/16/2024 1:42 PM EDT) Anatomical Region Laterality Modality Body Radiographic Regina ging 05/16/2024 3:12 PM EDT Impressions 05/16/2024 3:13 PM EDT 1. No acute process in the chest. Report reviewed and signed by : Dr. Vernell Bryant on 05/16/2024 3:13 PM. Workstation Name - [id number] -------- FINAL REPORT -------- Dictated By: Vernell Bryant Dictated Date: 05/16/2024 15:12 ET Assigned Physician: Vernell Bryant Reviewed and Electronically Signed By: Vernell Bryant Signed Date: 05/16/2024 15:13 ET Workstation ID: [id number] Transcribed By: Self Edit Transcribed Date: 05/16/2024 15:12 ET Narrative 05/16/2024 3:13 PM EDT RADIOGRAPH OF THE CHEST CLINICAL HISTORY: postoperative care TECHNIQUE: Frontal view of the chest. COMPARISON: 11/03/2022 FINDINGS: Normal sized heart. Aortic atherosclerosis. Surgical clip overlying the upper left hemithorax. No [...] Bryant on 05/16/2024 3:13 PM.Workstation Name - [id number] -------- FINAL REPORT -------- Dictated By: Vernell Bryant Dictated Date: 05/16/2024 15:12 ET Assigned Physician: Vernell Bryant Reviewed and Electronically Signed By: Vernell Bryant Signed Date: 05/16/2024 15:13 ET Workstation ID: [id number] Transcribed By: Self Edit Transcribed Date: 05/16/2024 15:12 ET us Marichuy Flor MD IMG XR PROCEDURES Final Re sult * POCT Glucose, blood (05/16/2024 1:20 PM EDT) Only the most recent of2 resultswithin the time period is included. [facility] Glucose POCT 118 70 - 199 mg/dL 05/16/2024 1:21 PM EDT [facility] Comment: Fasting Reference Range: 70-99 mg/dL Non-Fasting Reference Range: 70-199 mg/dL Blood Capillary blood specimen / Unknown 05/16/2024 1:20 PM EDT 05/16/2024 1:22 PM EDT us Marichuy Flor MD LAB POINT OF CARE TEST DOCKED DEVICE UNSOLICITED RESULTS Final Result [facility] [address] [place] [address], [place] [phone] * XR Fluoro Up To 1 Hour (Statistics)(No Report) (05/16/2024 12:43 PM EDT) Narrative [facility] - 05/16/2024 12:44 PM EDT This order has been auto-finalized and does not contain a result. us Marichuy Flor MD IMG FLUOROSCOPY PROCEDURES Final Result Performing Organization Address City/[facility]/ZIP Co de Phone Number [facility] * (ABNORMAL) Culture respiratory with gram stain (05/16/2024 12:06 PM EDT) [facility] Culture, Respiratory No potential pathogens in significant amounts including MRSA/Staph Aureus or Pseudomonas 05/19/2024 10:51 AM EDT [facility] Gram Stain Result Many WBCs present(A) 05/19/2024 10:51 AM EDT [facility] Gram Stain Result Moderate Epithelial cells(A) 05/19/2024 10:51 AM EDT [facility] Gram Stain Result Many Gram positive cocci(A) 05/19/2024 10:51 AM EDT [facility] Wash Structure of upper lobe of left lung / Unknown 05/16/2024 12:06 PM EDT 05/16/2024 1:11 PM EDT Comment:FOR CULTURE Marichuy Flor MD LAB MICROBIOLOGY - GENERAL ORDERABLES Edited Result - Final [facility] [address] [place] [address], [place] [phone] * Culture, Fungus, other than Hair, Skin, Blood, with Fluorescent ZORAIDA - Miscellaneous Test (05/16/2024 12:06 PM EDT) Scan Result See Scanned Result 06/14/2024 2:29 PM EDT EXTERNAL LAB (NON-INTERFAC ED) Wash Structure of upper lobe of left lung / Unknown 05/16/2024 12:06 PM EDT 05/16/2024 1:11 PM EDT Marichuy Flor MD LAB BLOOD ORDERABLES Final Result Performing Organization Address City/[facility]/ZIP Co de Phone Number EXTERNAL LAB (NON-INTERFACED) * Culture AFB (05/16/2024 12:06 PM EDT) Scan Result See Scanned Result 07/03/2024 11:36 AM EDT EXTERNAL LAB (NON-INTERFAC ED) Comment:This is an appended report. These results have been appended to a previously preliminary verified report. Wash Structure of upper lobe of left lung / Unknown 05/16/2024 12:06 PM EDT 05/16/2024 1:11 PM EDT Comment:FOR CULTURE Narrative EXTERNAL LAB (NON-INTERFACED) - 07/03/2024 11:36 AM EDT Acid-fast smear- Clinical : 1+ Acid-fast bacilli FOUND (more than 3 on slide, no more than 1 per field) TB filter tip inspector-PCR : Mycobacterium tuberculosis complex DNA NOT DETECTED. us Marichuy Flor MD LAB MICROBIOLOGY - GENERAL ORDERABLES Final Result EXTERNAL LAB (NON-INTERFACED) * Tissue exam (05/16/2024 11:53 AM EDT) Addendum PAS: No fungal organisms identified GMS: No fungal organisms identified. AFB: No definitive acid-fast bacilli identified. Note: Although the results are negative, an infectious process is highly favored and correlation with microbiology cultures is recommended. 05/18/2024 4:44 PM EDT [facility] Addendum electronically signed by Bebe [...] conference on 05/17/2024. 05/18/2024 4:44 PM EDT [facility] Gross Description A. Lung, Left Upper Lobe, CRYO LEFT UPPER LOBE: Received in formalin labeled cryo left upper lobe are multiple holguin-pink tissue fragments measuring 0.1 to 0.3 cm in diameter which are submitted in toto in 1 cassette labeled A1, multiple pieces. 05/16/24 05/18/2024 4:44 PM EDT [facility] Disclaimer The interpretation of this [...] components of this case were performed at [address] [address] CLIA # [id number] 05/18/2024 4:44 PM EDT [facility] Tissue Structure of upper lobe of left lung / Unknown 05/16/2024 11:53 AM EDT 05/16/2024 2:53 PM EDT Marichuy Flor MD LAB PATHOLOGY ORDERABLES E dited Result - Final [facility] [address] [place] [id number], [place] [phone] * Non-gynecologic cytology (05/16/2024 11:50 AM EDT) Addendum Special stains AFB and GMS are performed on cellblock A1. Rare acid-fast positive organisms are present in the cellblock consistent with acid-fast bacilli. See also microbiology results. 05/21/2024 3:39 PM EDT [facility] Addendum electronically signed by Bettye Renteria MD on 05/21/2024 at 3:39 PM Final Diagnosis A. Lung, left upper lobe, FNA (ThinPrep and cell block): Negative for malignant cells. Necrotic material and scattered benign bronchial epithelial cells present. Refer to biopsy specimen [id number]. B. Lung, left upper lobe, brushing (ThinPrep [...] in an addendum. 05/21/2024 3:39 PM EDT [facility] Specimen A Adequacy Satisfactory for evaluation 05/21/2024 3:39 PM EDT [facility] Specimen B Adequacy Satisfactory for evaluation 05/21/2024 3:39 PM EDT [facility] Specimen C Adequacy Satisfactory for evaluation 05/21/2024 3:39 PM EDT [facility] Specimen D Adequacy Satisfactory for evaluation 05/21/2024 3:39 PM EDT [facility] Specimen E Adequacy Satisfactory for evaluation 05/21/2024 3:39 PM EDT [facility] Specimen F Adequacy Satisfactory for evaluation 05/21/2024 3:39 PM EDT [facility] Specimen G Adequacy Satisfactory for evaluation 05/21/2024 3:39 PM EDT [facility] Clinical Information IN CYTO 05/21/2024 3:39 PM EDT [facility] Gross Description A. Lung, Left [...] and Cell Block. 05/21/2024 3:39 PM EDT [facility] Disclaimer The interpretation of this [...] components of this case were performed at [address] # [id number] 05/21/2024 3:39 PM EDT [facility] Fine Needle Aspirate Structure of [...] 11:53 AM EDT 05/16/2024 3:05 PM EDT Marichuy Flor MD LAB CYTOLOGY ORDERABLES Ed ited Result - Final [facility] [address] [place] [address], * TH AN ENDOTRACHEAL(NO CHARGE) (05/16/2024 11:44 AM EDT) Narrative Stuart Allen MD - 05/16/2024 11:44 AM EDT Maurisio Tomas DO 05/16/2024 11:45 AM General Information and Staff Patient location during procedure: OR Anesthesiologist: Stuart Allen MD Resident/CLERK GUIDE: Maurisio Tomas DO Performed: resident/CLERK GUIDE/CAA Performed by: Maurisio Tomas DO Authorized by: Stuart Allen MD Intubation Additional Comments Fiberoptic intubation for bronchoscopy. [...] mask + OA or adjuvant +/- NMBA us Stuart Allen MD ANESTHESIA ORDERABLES Final Resu lt * External Colonoscopy Report (04/30/2024 1:18 PM EDT) Anatomical Region Laterality Modality Endoscopy Historical Provider GI~PROCEDURE ORDERABLES F inal Result * Hemoglobin A1c (11/04/2022) Hemoglobin A1C 0.0 <=6.5 % Comment:No Interpretation Blood Venous blood specimen / Unknown Result [facility] Provider LAB BLOOD ORDERABLES Rukhsana l Result * Urine Albumin Creatinine Ratio (05/27/2020) [facility] Urine Albumin Creatinine Ratio Abstracted Result [facility] Provider HEALTH MAINTENANCE Final Result * Lipid panel (05/27/2020) [facility] LDL/HDL Ratio 3 0 - 4 Triglycerides 108 0 - 150 mg/dL Cholesterol 164 0 - 200 mg/dL HDL 50 >=40 mg/dL LDL Cholesterol 93 0 - 100 mg/dL Blood Venous blood specimen / Unknown Result [facility] Provider LAB BLOOD ORDERABLES Rukhsana l Result * Hepatitis C Screening (06/14/2012) [facility] Hepatitis C Screening Abstracted [facility] Provider HEALTH MAINTENANCE Final Result * Depression Screening (03/18/2011) [facility] Depression Screening Abstracted Result [facility] Provider HEALTH MAINTENANCE Final Result from Last 3 Months or Most Recently Relevant to Health Maintenance Additional Health Concerns Infection Onset Date Last Indicated Tuberculosis Rule-Out 07/23/2024 07/25/2024 Insurance [facility] Member Subscriber Plan / Payer (Ef fective 2020-Present) Name:Montana Taylor Relation to Subscriber:Self Name:Montana Taylor Payer ID:[id number] Group ID:[id number] Type:Not on file Address: [place] [address] [place] [address] [id number] Advance Directives * Full Code - Default [...] currently active code status orders. Care Teams Form Block Maker Relationship Specialty Start Date End Date Susan Gonsalez MD [address] [place] [id number] PCP - General Endocrinology 03/26/24
--- NOTE | 2024-08-20 09:53 | HO.ANESPROP2 ---
Documented by User: Celi Garcia NP 08/20/24 12:36 HPI - Anesthesia Eval Consult details Narrative: 69yo M for Upper Endoscopy Paraesoph hernia Follows [facility] for NI-CMP (nml'd EF now), Afib s/p cardioversion (on eliquis with Arixtra bridge), TAA @ 4.4cm. Stable at 02/2024 office visit with routine f/u in 9 months Hx polysub - none since 1984 per cardiac note Anesthesia Pre-Procedure Meds Is the patient on any of the following meds?: SGLT2 Inhib PMFSH Active Problems Active Problems: All Active Problems Atrial fibrillation (Acute) Paraesophageal hernia (Acute) Mood disorder (Acute) Anxiety (Acute) Hypoxia (Acute) YESICA (obstructive sleep apnea) (Acute) COPD (chronic obstructive pulmonary disease) (Acute) Diabetes (Acute) Preoperative cardiovascular examination (Acute) Malnourished (Acute) Dysphagia (Acute) CHF (congestive heart failure) (Acute) Memory loss (Acute) TBI (traumatic brain injury) (Acute) Lumbar spondylosis with myelopathy (Acute) Past Medical History Medical History Atrial fibrillation Paraesophageal hernia Diabetes Vitamin D deficiency, unspecified Tubular adenoma of colon Presenile dementia Polyp of colon YESICA (obstructive sleep apnea) Obesity Nicotine dependence Lumbar spondylosis with myelopathy Lumbar canal stenosis Incomplete emptying of bladder Hypertension Hyperlipidemia H/O traumatic brain injury ELIZABETH (generalized anxiety disorder) Depressive disorder Constipation, unspecified CHF (congestive heart failure) COPD (chronic obstructive pulmonary disease) Cervical arthritis Cardiomyopathy Benign prostatic hyperplasia with urinary obstruction Benign prostatic hyperplasia Benign hypertension Arrhythmia Angina pectoris Alcoholism Family History Family History Mother Lung cancer Smoker Father Diabetes High cholesterol Hypertension Unsteady gait Surgical History Surgical History History of spinal fusion History of appendectomy History of cervical spinal arthrodesis History of hernia repair History of gastric surgery History of colonoscopy Social History Social History Household Members: None Housing: House Alcohol intake: former Year quit: 1987 Patient Tobacco Use Status: Former Tobacco user Tobacco use type: Cigar and Pipe Cigarettes Per Day: 2 e-Cigarette/Vaping Use: Never Used Second Hand Smoke Exposure: No Use of substances other than those prescribed or required for medical reasons: Yes Substance Use Type: Marijuana Substance Use Type Other:: last used august 17 Substance Use Frequency: Occasionally Are you DNR?: No Advance Directives: No Advance Directives Information Provided: Yes service: No Current occupational status: retired and disabled Cognitive needs: Yes (brain injury) Hearing needs: No Vision needs: No Meds Allergies Allergy/AdvReac Type Severity Reaction Status Date / Time No Known Allergies Allergy Verified 08/21/24 12:38 Home Medications ?Medication ?Instructions ?Recorded ?Confirmed ?Last Taken ?Type albuterol sulfate 90 mcg/actuation 2 puff inhalation Q6H PRN 08/30/23 08/21/24 Unknown History aerosol inhaler (Ventolin HFA) Shortness Of Breath Or Wheezing azelastine 137 mcg (0.1 %) nasal 2 spray intranasal BID 08/30/23 08/21/24 Unknown History spray blood sugar diagnostic (FreeStyle 08/30/23 08/21/24 Unknown History Lite Strips) fluticasone fur. 100 mcg-umeclid 1 inh inhalation DAILY 08/30/23 08/21/24 Unknown History 62.5 mcg-vilant 25 mcg inhalat.powder (Trelegy Ellipta) clonazepam 0.5 mg tablet 0.5 mg PO BID 08/21/24 08/21/24 Unknown History fluoxetine 20 mg capsule 20 mg PO DAILY 08/21/24 08/21/24 Unknown History Exam Narrative Narrative: ECHO 10/2023 Assessment and Plan Assessment Anesthesia Assessment: Chart Reviewed Documented by User: Tamanna Lebron MD 08/21/24 14:20 PMFSH Past Medical History Medical History Atrial fibrillation Paraesophageal hernia Diabetes Vitamin D deficiency, unspecified Tubular adenoma of colon Presenile dementia Polyp of colon YESICA (obstructive sleep apnea) Obesity Nicotine dependence Lumbar spondylosis with myelopathy Lumbar canal stenosis Incomplete emptying of bladder Hypertension Hyperlipidemia H/O traumatic brain injury ELIZABETH (generalized anxiety disorder) Depressive disorder Constipation, unspecified CHF (congestive heart failure) COPD (chronic obstructive pulmonary disease) Cervical arthritis Cardiomyopathy Benign prostatic hyperplasia with urinary obstruction Benign prostatic hyperplasia Benign hypertension Arrhythmia Angina pectoris Alcoholism Family History Family History Mother Lung cancer Smoker Father Diabetes High cholesterol Hypertension Unsteady gait Surgical History Surgical History History of spinal fusion History of appendectomy History of cervical spinal arthrodesis History of hernia repair History of gastric surgery History of colonoscopy History of Problems with Anesthesia: No Social History Social History Household Members: None Housing: House Alcohol intake: former Year quit: 1987 Patient Tobacco Use Status: Former Tobacco user Tobacco use type: Cigar and Pipe Cigarettes Per Day: 2 e-Cigarette/Vaping Use: Never Used Second Hand Smoke Exposure: No Use of substances other than those prescribed or required for medical reasons: Yes Substance Use Type: Marijuana Substance Use Type Other:: last used august 17 Substance Use Frequency: Occasionally Are you DNR?: No Advance Directives: No Advance Directives Information Provided: Yes service: No Current occupational status: retired and disabled Cognitive needs: Yes (brain injury) Hearing needs: No Vision needs: No Meds Allergies Allergy/AdvReac Type Severity Reaction Status Date / Time No Known Allergies Allergy Verified 08/21/24 12:38 Home Medications ?Medication ?Instructions ?Recorded ?Confirmed ?Last Taken ?Type albuterol sulfate 90 mcg/actuation 2 puff inhalation Q6H PRN 08/30/23 08/21/24 Unknown History aerosol inhaler (Ventolin HFA) Shortness Of Breath Or Wheezing azelastine 137 mcg (0.1 %) nasal 2 spray intranasal BID 08/30/23 08/21/24 Unknown History spray blood sugar diagnostic (FreeStyle 08/30/23 08/21/24 Unknown History Lite Strips) fluticasone fur. 100 mcg-umeclid 1 inh inhalation DAILY 08/30/23 08/21/24 Unknown History 62.5 mcg-vilant 25 mcg inhalat.powder (Trelegy Ellipta) clonazepam 0.5 mg tablet 0.5 mg PO BID 08/21/24 08/21/24 Unknown History fluoxetine 20 mg capsule 20 mg PO DAILY 08/21/24 08/21/24 Unknown History Exam Airway Mallampati Class: Patient Non-Cooperative TM Dist: >3cm Neck ROM: Full Denture: Upper and Lower Loose/Missing/Broken Teeth: Yes, Upper and Lower Heart: RRR Lungs: CTA Assessment and Plan Assessment Anesthesia Assessment: Anesthesia Plan Discussed Final Anesthetic Review History of Problems with Anesthesia: No NPO: Yes ASA Class: III Final Preanesthetic Review: Meds/Allgs Chart Reviewed, Consent Obtained/Reviewed and Anes Risks/Benef Reviewed Patient Risk: Intermediate Procedure Risk: Intermediate Anesthetic Plan Anesthetic Plan: MAC: Disposition: Standard PACU
[2024-08-21 12:41] VITALS: BMI 26.0
[2024-08-21 12:54] VITALS: BP 129/64; PULSE 46; RESP 15; TEMP 36.6; O2SAT 96
[2024-08-21] MEDS: Lactated Ringers 1,000 ML 80 ML IVCONT (12:58)
[2024-08-21 13:07] LABS: Glucose, Whole Blood 81 mg/dL (60-115)
--- NOTE | 2024-08-21 14:09 | P.HPSUR_ITS ---
Pre-Procedural Eval Section A - 24 Hr Update-Section A only Date of Service: 08/21/24 The patient is an INPATIENT: No The patient has been examined within 24 hours of the surgical procedure. The History & Physical has been completed within 30 days and I have reviewed it.: Yes Section B - Complete if H&P > 30 days Chief Complaint: gerd Relevant Family History (Specify if Yes): No Relevant Social History: None Present Medications: None Medical History: No relevant PMH History of Previous Operations: Relevant previous surgery/procedure and date(s) (Laparoscopic sleeve gastrectomy) Allergies: Allergies Allergy/AdvReac Type Severity Reaction Status Date / Time No Known Allergies Allergy Verified 08/21/24 12:38 Review of Systems Sugical H&P ROS: Negative: Constitution, Cardiovascular, Respiratory, Neurolog ical, Psychiatric, Hem-Onc, Allergic/Immunologic, Gastrointestinal, Genitourinary, Musculoskeletal, Integumentary, Endocrine and Eyes/Ears/Nose/Throat Exam Surgical H&P Exam: Normal: HEENT, Normal: Heart, Normal: Lungs, Normal: Extremities, Normal: Abdomen, Normal: Skin and Normal: Neurological Plan Diagnosis/Plan: Unchanged (EGD to assess etiology of GERD and the sleeve's anatomy. Risks of bleeding and perforation were discussed with the patient and he is in agreement with the plan.) I have reviewed the history and physical and performed a pertinent physical examination on my patient. No changes have occurred unless specified. Time Spent With Patient Time: Total time managing care of this patient today ____ minutes.
--- NOTE | 2024-08-21 14:15 | P.BOP_ITS ---
Brief Operative Note Date of Service: 08/21/24 Pre-op diagnosis: GERD, s/p sleeve gastrectomy Post-op diagnosis: same (Large fixed diaphragmatic hernia, redundant proximal sleeve) Procedure: PROCEDURE DATE: 08/21/2024 PREOPERATIVE DIAGNOSIS: GERD, s/p sleeve gastrectomy POSTOPERATIVE DIAGNOSIS: ?Same as above. 1) large diaphragmatic hernia, 2) redundant proximal sleeve, 3) large caliber sleeve PROCEDURE: Tctpluad-qqyhrn-zouonjwfbxnq with biopsies Surgeon: ?Sami Britt M.D.. Ph.D. Archivist Political History: None ? Anesthesia: IV sedation Estimated blood loss: ?Minimal FINDINGS AND PROCEDURE: ? OPERATIVE INDICATIONS: ?The patient is a 69 year old male known to me who underwent a laparoscopic sleeve gastrectomy elsewhere. The patient has recently complaining of GERD. A recent barium swallow demonstrated a moderate to large size diaphragmatic hernia Based on this information I recommended an upper endoscopy to evaluate the diaphragmatic hernia and the sleeve's anatomy. Risks and complications of the surgery were discussed with the patient in advance particularly the possibility of perforation or bleeding that may require surgical intervention. The patient understood the risks and was in agreement with the plan. ? PROCEDURE: After informed consent was obtained by the patient, the patient was ?transferred to the Operating Room and was placed in the supine position.? After successful induction of IV sedation, a mouth block was inserted and the patient was placed in the left lateral decubitus position. An upper endoscopy was performed next, the oropharynx and esophagus appeared within the normal limits. There was a 4cm fixed diaphragmatic hernia (GE junction at 41cm, and crura at 45cm). The z-line was smooth. Two biopsies were obtained from the distal esophagus 2-3 cm proximal to the GE junction and two additional biopsies from the GE junction. The proximal sleeve herniated into the mediastinum was enlarged sugestive of incomplete fundal resection at the original operation. The sleeve was entered and it appeared to be enlarged in caliber throughout. There was no gastritis. There was no stricture or ulcer. Due to the size of the sleeve, retroflexion of the scope was possible confirming the presence of a large diaphragmatic hernia. Biopsies were obtained from the proximal sleeve as well as the distal antrum. No significant bleeding was noted from any of the biopsy sites. The scope was then advanced into the duodenum which appeared to be normal as well. At that point the duodenum ?and the sleeve were decompressed and the scope was withdrawn from the patient's mouth. The patient extubated and was transferred in stable condition to the Recovery Room for further care. I was present and performed all steps of the procedure. There were no residents to assist with this case. Sami Britt M.D., Ph.D. Surgeon: Tra Britt MD Anesthesia: MAC Was an Archivist Political History used for this Procedure?: No Estimated blood loss (mL): 0 IV fluids (mL): 400 Urine output (mL): 0 (No Jaimes to record output) Pathology: other (1) antrum x1, 2) proximal sleeve/gastric fundus x1, 3) EGJ x2, 4) distal esophagus x2) Condition: stable Disposition: PACU
[2024-08-21 14:43] VITALS: BP 100/50; PULSE 47; RESP 18; TEMP 36.3; O2SAT 96
[2024-08-21 14:45] VITALS: BP 95/49; PULSE 48; RESP 18; O2SAT 96
[2024-08-21 15:00] VITALS: BP 108/54; PULSE 51; RESP 18; O2SAT 95
[2024-08-21 15:04] VITALS: BP 108/50; PULSE 51; RESP 18; TEMP 36.3; O2SAT 95
--- NOTE | 2024-08-21 15:52 | PC.NURSE ---
PATIENT DOES NOT WANT TO WAIT FOR HIS INSURANCE COVERED VEHICLE TO GO HOME BECAUSE THEY SAID THEY COULDN'T GET HERE AND HAD TO LOOK FOR OUTSIDE COVERAGE. WHEN THEY CALLED BACK PT WAS ADAMENT ABOUT LEAVING AMA AND TAKING A BUS HOME JUST ON PRINCIPAL. PATIENT SIGNED AN AMA FORM AND THIS NURSE ATTEMPTED TO GET LUIS MANUEL CHO TO COME TALK TO PATIENT.
--- NOTE | 2024-08-21 16:08 | PC.NURSE ---
LUIS MANUEL CHO ATTEMPTED TO SWAY PATIENT AGAINST LEAVING AMA. PATIENT REMAINS ADAMANT ABOUT LEAVING. PATIENT WALKED TO MAIN HOSPITAL ENTRANCE.
--- NOTE | 2024-08-22 08:03 | PC.NURSE ---
PATIENT CALLED FOR A FOLLOW UP CALL----MESSAGE LEFT NO ANSWER. ADDENDUM: PATIENT TOOK THE ORIGINAL RIDE HOME FROM A VEHICLE SENT BY HIS INSURANCE COMPANY YESTERDAY.
== END 2024-08-21 16:10 | disposition home or self-care (01) ==
PROVIDERS: PCP Internal Medicine; Visit Provider Surgery
PROC: 0DJ08ZZ Inspection of Upper Intestinal Tract, Via Natural or Artificial Opening Endoscopic (ICD-10-PCS; CPT 43235; principal; 2024-08-21 14:20)
DX: K95.89 Other complications of other bariatric procedure (principal); K21.9 Gastro-esophageal reflux disease without esophagitis; K44.9 Diaphragmatic hernia without obstruction or gangrene; Z98.84 Bariatric surgery status; I48.91 Unspecified atrial fibrillation; I11.0 Hypertensive heart disease with heart failure; I50.9 Heart failure, unspecified; E11.9 Type 2 diabetes mellitus without complications; E78.5 Hyperlipidemia, unspecified; E55.9 Vitamin D deficiency, unspecified; G47.33 Obstructive sleep apnea (adult) (pediatric); N40.1 Benign prostatic hyperplasia with lower urinary tract symptoms; R33.8 Other retention of urine; F32.A Depression, unspecified; F41.1 Generalized anxiety disorder; Z87.820 Personal history of traumatic brain injury; F10.21 Alcohol dependence, in remission; Z79.01 Long term (current) use of anticoagulants; Z79.51 Long term (current) use of inhaled steroids; Z79.82 Long term (current) use of aspirin; Z79.84 Long term (current) use of oral hypoglycemic drugs; Z79.899 Other long term (current) drug therapy; Z87.891 Personal history of nicotine dependence; Z98.890 Other specified postprocedural states
CPT/HCPCS: 43239; 82947; 88305; 88313; 88342; J2003; J2704

== ENCOUNTER → 2024-08-21 11:43 | Outpatient (BNV) | payer OTHER, SELFPAY | PROVIDERS: PCP Internal Medicine; Visit Provider Surgery | DX: K44.0 Diaphragmatic hernia with obstruction, without gangrene (principal); K95.89 Other complications of other bariatric procedure | CPT/HCPCS: 43239 ==

== ENCOUNTER 2024-09-03 09:09 | Outpatient (AMB) | payer OTHER, SELFPAY ==
--- OUTSIDE RECORDS SUMMARY | 2024-09-03 09:27 | XMS_ITS | Clinical Summary ---
Author Organization [facility] Address [address] [address] Phone Care Team Providers Care Cut Lace Machine Operator Name Role Phone Susan Gonsalez MD Primary Care Provider [phone] Allergies No known active allergies Medications multivitamin-iro l-onmdsktz-cyuoj acid (CENTRUM) chewable tablet Chew 1 tablet [...] hours if needed for mild pain Active umeclidinium-carlota anterol (Anoro Ellipta) 62.5-25 MCG/INH aerosol powder [...] Visit [facility] [address] [place] [id number] Ronan Beltrán MD Chronic kidney disease, stage 2 (mild) (Primary Dx); Isolated proteinuria 06/04/2024 Orders Only [facility] [address] [place] [phone] Ronan Beltrán MD Type 2 diabetes mellitus, [...] Office Visit [facility] [address] [address] Ronan Beltrán MD [address] [address] Health Maintenance Due Date Last Done Comments Colorectal Cancer Screening: Annual FOBT 2003 Colorectal Cancer Screening: Colonoscopy 2003 Colorectal Cancer Screening: Sigmoidoscopy 2003 Hepatitis B Vaccine (1 of 3 - Risk 3-dose series) 2014 Diabetes: Ophthalmology Exam 09/29/2020 Diabetes: Pedal Pulse Checked 09/29/2020 Diabetes: Sensory Foot Exam 09/29/2020 Diabetes: Visual Foot Exam 09/29/2020 Diabetes: Hemoglobin A1C 02/03/2023 023, 02/25/2022, 08/19/2020 Influenza Vaccine (#1) 2024 12/31/2013, 2011 Pneumococcal Vaccine: 50+ Years Completed 11/24/2020, 11/12/2019, [...] AM EST) Hemoglobin A1C 6.2(H) (4.0-5.6) % [facility] Comment: MONITORING: In known diabetic patients, hemoglobin A1c targets should be discussed with health care provider. DIAGNOSTIC USE: The [place] [employer] (ADA) and the World Health [...] Supplement 1 Testing performed or reported by [facility], a Service of [facility], [address] [place] [address] Mckayla Vargas MD, Clinical Data Analyst [facility]# [id number] Blood specimen (specimen) Venous blood / Unknown 02/25/2022 10:40 AM EST 02/25/2022 10:51 AM EST us Malcolm German MD LAB BLOOD ORDERABLES Rukhsana kidd Result [facility] from Last 3 Months or Most Recently Relevant to Health Maintenance Insurance ([id number]) [place] [address] ([id number]) Care Teams Cut Lace Machine Operator Relationship Specialty Start Date End Date Susan Gonsalez MD [address] [place] [id number] PCP - General Internal Medicine 07/05/23
--- OUTSIDE RECORDS SUMMARY | 2024-09-03 09:27 | XMS_ITS | Clinical Summary ---
Author Organization [facility] Address [address] [place] [address] Care Team Providers Care Program Technician Name Role Phone Susan Gonsalez MD Primary Care Provider [phone] Allergies No known active allergies Medications Medication [...] season) 2023 05/07/2020, 04/09/2020 Influenza Vaccine (#1) 2024 , 11/12/2019, 12/29/2018, Additional history exists DTap [...] Advance Directives For more information, please contact: [phone] Latest Code Status on File Code Status Date Activated Date Inactivated Comments Full Code 11/03/2022 7:02 PM 11/05/2022 12:09 AM This code status was ascertained in the following way: discussion with patient. Care Teams Program Technician Relationship Specialty Start Date End Date Susan Gonsalez MD PCP - General Internal Medicine 11/03/22
--- OUTSIDE RECORDS SUMMARY | 2024-09-03 09:28 | XMS_ITS | Clinical Summary ---
Author Organization [employer] [facility] Address [address] [place] [address] Phone Care Team Providers Care Telemarketer Name Role Phone Susan Gonsalez MD Primary Care Provider [phone] Allergies No known active allergies Medications digoxin [...] mouth daily (with breakfast). Active [employer] USE TO TEST TWICE A DAY Active [...] Noted Date Diagnosed Date Paroxysmal atrial fibrillation ([facility], [facility] V28) 05/10/2023 Overview (02/21/2024): February 2023 - newly discovered asymptomatic atrial fibrillation with rapid ventricular response; initially rate controlled March 2023 - JOSEF/DCCV attempt aborted due to ROSIO thrombus; patient initially with non-adherence to apixaban June 2023 - ultimately successful adherence to AC therapy with successful JOSEF/DCCV at [facility] Assessment & Plan (02/21/2024 9:16 AM EST): Now paroxysmal atrial fibrillation status post DCCV. Asymptomatic. EKG today showed sinus rhythm. CHADSVASc - 3. Continue with apixaban, metoprolol and digoxin. May consider discontinuation of digoxin at next visit if maintaining sinus rhythm. Orders: ECG 12 lead Chronic diastolic heart failure ([facility] V24, [facility] V28) 03/25/2023 Assessment & Plan (02/21/2024 9:16 [...] medication compliance. Coronary artery disease invo lving [place] coronary artery of [place] heart without angina pectoris 03/25/2023 Traumatic brain injury ([facility]24, [facility] V28 ) 03/25/2023 Cervical arthritis 11/03/2022 Left wrist fracture, closed, initial encounter 0 11/03/2022 Unequal pupils 11/03/2022 Nonischemic cardiomyopathy ([facility] V24, [facility] V28) 07/05/2022 Overview (02/21/2024): 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 February 2023 - [facility] Wing found to have decompensated heart [...] stenosis at l3-4 Diabetes mellitus, type 2 ([facility]) 01/19/2010 Overview (01/04/2024): diagnosed 04/[address] garay podiatry-Eye exam-. dr lopez Depression 01/19/2010 Overview (01/04/2024): Seeing [facility] Hyperlipidemia 01/19/2010 Assessment & Plan (02/21/2024 [...] 0 COPD (chronic obstructive pu lmonary disease) ([facility] V24, [facility] V28) 01/19/2010 Overview (01/04/2024): Dr rodrigez pulmonary-on oxygen HS BPH (benign prostatic hyperplasia) 01/19/2010 Overview (01/04/2024): Dr crawford urology-seen 08/23 Resolved Problems Problem Noted Date Diagnosed Date Resolved Date Chronic atrial fibrillation ([facility]) 03/25/2023 02/21/2024 Obesity 06/22/2010 02/21/2024 Encounters Date Type Department Care Team Description 08/28/2024 1:30 PM EDT Office Visit Pulmonology - [address] [address] Marichuy Flor MD Lung nodule (Primary Dx) 08/03/2024 Telephone Lung Screening Program - [place] [address] [facility] [address] [place] [phone] Michelle Marcum MA 08/01/2024 Telephone [facility] [address] [place] [phone] eTx Aguila NP Pre-operative Clearance 07/17/2024 2:25 PM EDT Lab Draw Station - [address] [facility] [address] [facility] [address] [place] [phone] VANDANA (mycobacterium avium-intracellulare) ([facility] V24, [facility] V28); Necrotizing granuloma of liver 07/17/2024 1:30 PM EDT Consult Infectious Disease - [place] [address] [facility] [address] [place] [phone] Carol Cote MD VANDANA (mycobacterium avium-intracellulare) ([facility] V24, [facility] V28) (Primary Dx); Lung granuloma ([facility] V24, [facility] V28) 06/12/2024 Telephone Pulmonolgy - [place] [address] [facility] [address] [place] [phone] Herve Fuller MA medical records (Realease of information) 06/07/2024 Telephone Infectious Disease - [place] [address] [facility] [address] [place] [phone] Anais Barnett MA Appointment from Last 3 Months Immunizations Name Administration Dates Next Due Influenza trivalent, 0.5mL, preservative free (Fluarix; FluLaval; Fluzone) ages 6mo and older (Afluria) 3 years and older 12/31/2013 Influenza, Unspecified 12/19/2011 Moderna SARS-CoV-2 COVID-19, mRNA, LNP-S, preservative free 03/30/2021,09/28/2020,05/07/2020,2020 Pneumococcal, Unspecified 12/18/2010 Surgical History Surgery Date Site/Laterality Comments CERVICAL LAMINECTOMY 06/24 PROCEDURE: HISTORICAL CERV LAMINECTOMY; COMMENT: [place]; Fusion LUMBAR LAMINECTOMY 06/24 PROCEDURE: HISTORICAL LUMB LAMINECTOMY; COMMENT: Joshua; L4-S1 x 2 EYE SURGERY CATARACT EXTRACTION CARDIOVERSION Per cardiology notes HERNIA REPAIR WRIST SURGERY Right per patient case coordinator BARIATRIC SURGERY Medical History Medical History Date Comments Obesity 06/22/2010 DX:Obesity CKD (chronic kidney disease), stage II DX:CKD (chronic kidney disease), stage II Hypokalemia DX:Hypokalemia Alcoholism ([facility] V24, [facility] V28) DX:Alcoholism ([facility]) Angina pectoris ([facility] V24) DX :Angina pectoris ([facility]) Benign prostatic hyperplasia DX: Benign prostatic hyperplasia Benign prostatic hyperplasia with urinary obstruction DX:Benign prostatic hyperpla simi with urinary obstruction TBI (traumatic brain injury) ([facility] V24, [facility] V28) per lawn care professional Arrhythmia A fib per cardia c notes H/O gastric bypass History of appendectomy Cardiomyopathy ([facility] V24, [facility] V28) history of: Sleep apnea Does not use cpa p per patient case coordinator Oxygen dependent Uses 1 lpm oxyg en at night via nc per patient case coordinatorbuild and release manager mellitus ([facility] V 24, [facility] V28) Forgetfulness Related to TBI COPD (chronic obstructive pu lmonary disease) ([facility] V24, [facility] V28) from H&P GERD (gastroesophageal reflux disease) [...] Sign Reading Time Taken Comments Blood Pressure 141/68 08/28/2024 1:31 PM EDT Pulse 58 08/28/2024 1:31 PM EDT Temperature 36.5 C (97.7 F) 08/28/2024 1:31 PM EDT Respiratory Rate 18 05/25/2024 3:15 PM EDT Oxygen Saturation 93% 07/17/2024 1:45 PM EDT Inhaled Oxygen Concentration - - Weight 89.3 kg (196 lb 12.8 oz) 08/28/2024 1:31 PM EDT Height 182.9 cm (6') 08/28/2024 1:31 PM EDT Body Mass Index 26.69 08/28/2024 1:31 PM EDT Plan of Treatment Upcoming Encounters Date Type Department Care Team (Late st Contact Info) Description 10/09/2024 10:[address] [facility] [address] Scan [address] [place] [phone] 10/16/2024 1:30 PM EDT Office Visit Infectious Disease - [place] [address] [facility] [address] [place] [phone] Carol Cote MD [address] [facility] [address] [place] [address] 10/30/2024 10:00 AM EDT Office Visit Pulmonology - [place] [address] [facility] [address] [place] [phone] Marichuy Flor MD [address] [place] [phone] Health Maintenance Due Date Last Done Comments Diabetes: Annual Foot Exam 01/15/1964 Diabetes: Annual Retina Eye Exam 01/15/1964 Hepatitis A Vaccines (1 of 2 - Risk 2-dose series) 1973 Abdominal Aortic Aneurysm (AAA) Screen 01/23/2022 Social Influencers of Health Screening 01/23/2022 Diabetes: Annual Urine Albumin-Creatinine Ratio (uACR) 01/30/2022 05/27/2020 Diabetes: Blood Sugar Control Test (HGBA1C) 05/05/2023 11/04/2022, 11/04/2022, 02/25/2022 Depression Screening 02/15/2024 03/18/2011 COVID-19 Vaccine (9 - Moderna risk 2024-25 season) 06/05/2024 12/06/2023, 11/14/2022, 06/13/2022, Additional history exists Influenza Vaccine (#1) 2024 , 03/02/2022, 11/24/2020, Additional history exists Falls Risk Assessment 05/16/2025 [...] Vaccine: 50+ Years Completed 11/24/2020, 11/12/2019, 12/18/2010 RSV Immunization Adult Patients Completed 11/14/2023 Zoster [...] this topic Medical Devices Implanted Type Area Kitchen Help Handyman Device Identifier Shelf Expiration Date Model / Serial / Lot Marker Kevin Maelock - Sn/A - [id number] Implanted:Qty : 1 on 05/16/2024 by Marichuy Flor MD at [facility] Implants Left: Lung [employer] 12/21/2027 [id number] / N/A / [id number] Description:LEFT UPPER LOBE Procedures Procedure Name Priority Date/Time Associated Diagnosis Comments ..CONCENTRATION Routine 07/25/2024 10:15 AM EDT VANDANA (mycobacterium avium-intracellula re) (CMS/HCC V24, CMS/HCC V28) Lung granuloma (CMS/HCC V24, CMS/HCC V28) ACID FAST BACILLI STAIN Routine 07/26/19 10:15 AM EDT VANDANA (mycobacterium avium-intracellula re) (CMS/HCC V24, CMS/HCC V28) Lung granuloma (CMS/HCC V24, CMS/HCC V28) CULTURE, AFB AND SMEAR WITH REFLEX TO IDENTIFICATION AND SUSCEPTIBILITY Routine 07/25/2024 10:15 AM EDT VANDANA (mycobacterium avium-intracellula re) (CMS/HCC V24, CMS/HCC V28) Lung granuloma (CMS/HCC V24, CMS/HCC V28) ..CONCENTRATION Routine 07/24/2024 9:45 AM EDT VANDANA (mycobacterium avium-intracellula re) (CMS/HCC V24, CMS/HCC V28) Lung granuloma (CMS/HCC V24, CMS/HCC V28) ACID FAST BACILLI STAIN Routine 07/25/19 9:45 AM EDT VANDANA (mycobacterium avium-intracellula re) (CMS/HCC V24, CMS/HCC V28) Lung granuloma (CMS/HCC V24, CMS/HCC V28) CULTURE, AFB AND SMEAR WITH REFLEX TO IDENTIFICATION AND SUSCEPTIBILITY Routine 07/24/2024 9:45 AM EDT VANDANA (mycobacterium avium-intracellula re) (CMS/HCC V24, CMS/HCC V28) Lung granuloma (CMS/HCC V24, CMS/HCC V28) ..CONCENTRATION Routine 07/23/2024 12:24 PM EDT VANDANA (mycobacterium avium-intracellula re) (CMS/HCC V24, CMS/HCC V28) Lung granuloma (CMS/HCC V24, CMS/HCC V28) ACID FAST BACILLI STAIN Routine 07/24/19 12:24 PM EDT VANDANA (mycobacterium avium-intracellula re) (CMS/HCC V24, CMS/HCC V28) Lung granuloma (CMS/HCC V24, CMS/HCC V28) CULTURE, AFB AND SMEAR WITH REFLEX TO IDENTIFICATION AND SUSCEPTIBILITY Routine 07/23/2024 12:24 PM EDT VANDANA (mycobacterium avium-intracellula re) (CMS/HCC V24, CMS/HCC V28) Lung granuloma (CMS/HCC V24, CMS/HCC V28) CBC WITH AUTO DIFFERENTIAL Routine 07/17/2024 2:26 PM EDT VANDANA (mycobacterium avium-intracellula re) (CMS/HCC V24, CMS/HCC V28) Necrotizing granuloma of liver CBC AND DIFFERENTIAL Routine 07/17/2024 2:26 PM EDT VANDANA (mycobacterium avium-intracellula re) (CMS/HCC V24, CMS/HCC V28) Necrotizing granuloma of liver COMPREHENSIVE METABOLIC PANEL Routine 07/17/2024 2:26 PM EDT VANDANA (mycobacterium avium-intracellula re) (CMS/HCC V24, CMS/HCC V28) Necrotizing granuloma of liver CRYPTOCOCCAL ANTIGEN Routine 07/17/2024 2:26 PM EDT VANDANA (mycobacterium avium-intracellula re) (CMS/HCC V24, CMS/HCC V28) Necrotizing granuloma of liver EXTERNAL COLONOSCOPY REPORT Routine 04/30/2024 1:18 PM EDT HEMOGLOBIN A1C Routine 11/04/2022 HM URINE ALBUMIN CREATININE RATIO Routine 05/27/2020 LIPID PANEL Routine 05/27/2020 HM HEPATITIS C SCREENING Routine 06/14/2012 DEPRESSION SCREENING Routine 03/18/2011 from Last 3 Months or Most Recently Relevant to Health Maintenance Results * Concentration (07/25/2024 10:15 AM EDT) Only the most recent of3 resultswithin the time period is included. AFB Concentration Performed 11:05 AM EDT [facility] Sputum Tracheal structure / Unknown Non-blood Collection / Unknown 07/25/2024 10:15 AM EDT 07/25/2024 12:13 PM EDT Narrative [facility] - 08/08/2024 11:05 AM EDT Performed at: - [address] [id number] Staff Veterinarian: Emerald Cline MD, Phone: [phone] us Carol Cote MD LAB BLOOD ORDERABLES Edited Resu lt - Final [facility] * Acid fast bacilli stain (07/25/2024 10:15 AM EDT) Only the most recent of3 resultswithin the time period is included. Pathologist [facility] AFB Stain Result No Acid fast bacilli seen on direct smear (Fuchsin method, 1000x) No Acid Fast Bacilli seen on direct smear 07/25/2024 7:04 PM EDT [facility] Sputum Tracheal structure / Unknown Non-blood Collection / Unknown 07/25/2024 10:15 AM EDT 07/25/2024 12:13 PM EDT us Carol Cote MD LAB MICROBIOLOGY - GENERAL ORDER MORENO Final Result [facility] [address] [place] [address], [place] [phone] * (ABNORMAL) CBC auto differential (07/17/2024 2:26 PM EDT) Pathologist [facility] WBC 6.9 4.8 - 10.8 K/mcL LAB HEMETOLOGY METHOD 07/17/2024 6:47 PM [facility] RBC 4.70 4.50 - 5.50 M/mcL LAB HEMETOLOGY METHOD 07/17/2024 6:47 PM [facility] Hemoglobin 11.4(L) 13.5 - 17.5 g/dL LAB HEMETOLOGY METHOD 07/17/2024 6:47 PM [facility] Hematocrit 38.8(L) 42.0 - 54.0 % LAB HEMETOLOGY METHOD 07/17/2024 6:47 PM [facility] MCV 81.9 79.0 - 98.0 FL LAB HEMETOLOGY METHOD 07/17/2024 6:47 PM [facility] MCH 24.1(L) 27.0 - 32.0 pcg LAB HEMETOLOGY METHOD 07/17/2024 6:47 PM [facility] MCHC 29.4(L) 32.0 - 37.0 g/dL LAB HEMETOLOGY METHOD 07/17/2024 6:47 PM [facility] RDW 17.0(H) 11.0 - 15.0 % LAB HEMETOLOGY METHOD 07/17/2024 6:47 PM [facility] Platelets 282 130 - 400 K/mcL LAB HEMETOLOGY METHOD 07/17/2024 6:47 PM [facility] MPV 11.0 7.0 - 11.0 FL LAB HEMETOLOGY METHOD 07/17/2024 6:47 PM [facility] NRBC 0.0 <1.0 % LAB HEMETOLOGY METHOD 07/17/2024 6:47 PM [facility] NRBC Absolute 0.00 <0.10 K/mcL LAB HEMETOLOGY METHOD 07/17/2024 6:47 PM [facility] Neutrophils Relative 69.5 % LAB HEMETOLOGY METHOD 07/17/2024 6:47 PM [facility] Lymphocytes Relative 15.0 % LAB HEMETOLOGY METHOD 07/17/2024 6:47 PM [facility] Monocytes Relative 11.0 % LAB HEMETOLOGY METHOD 07/17/2024 6:47 PM [facility] Eosinophils Relative 3.5 % LAB HEMETOLOGY METHOD 07/17/2024 6:47 PM [facility] Basophils Relative 0.7 % LAB HEMETOLOGY METHOD 07/17/2024 6:47 PM [facility] Immature Granulocytes Relative 0.3 % LAB HEMETOLOGY METHOD 07/17/2024 6:47 PM [facility] Neutrophils Absolute 4.78 1.50 - 7.00 K/mcL LAB HEMETOLOGY METHOD 07/17/2024 6:47 PM [facility] Lymphocytes Absolute 1.03 1.00 - 5.00 K/mcL LAB HEMETOLOGY METHOD 07/17/2024 6:47 PM [facility] Monocytes Absolute 0.76 0.20 - 1.00 K/mcL LAB HEMETOLOGY METHOD 07/17/2024 6:47 PM [facility] Eosinophils Absolute 0.24 0.00 - 0.50 K/mcL LAB HEMETOLOGY METHOD 07/17/2024 6:47 PM [facility] Basophils Absolute 0.05 0.00 - 0.20 K/mcL LAB HEMETOLOGY METHOD 07/17/2024 6:47 PM [facility] Immature Granulocytes Absolute 0.02 0.00 - 0.03 K/mcL LAB HEMETOLOGY METHOD 07/17/2024 6:47 PM [facility] Blood Venous blood specimen / Unknown Venipuncture / Unknown 07/17/2024 2:26 PM EDT 07/17/2024 2:26 PM EDT us Carol Cote MD LAB BLOOD ORDERABLES Final Resul t Performing Organization Address City/[facility]/ZIP Co de Phone Number [facility] [address] [place] [address], [place] [phone] * Cryptococcal antigen (07/17/2024 2:26 PM EDT) [facility] Cryptococcal Antigen Serum Negative Negative 07/20/2024 11:05 PM EDT [facility] Blood Venous blood specimen / Unknown Venipuncture / Unknown 07/17/2024 2:26 PM EDT 07/17/2024 2:26 PM EDT Narrative [facility] - 07/20/2024 11:05 PM EDT Performed at: [facility] [id number] Staff Veterinarian: Kristofer Cowart MD, Phone: [phone] us Carol Cote MD LAB BLOOD ORDERABLES Final Resul t [facility] * (ABNORMAL) Comprehensive metabolic panel (07/17/2024 2:26 PM EDT) [facility] Sodium 137 133 - 145 mmol/L LAB CHEMISTRY METHOD 07/17/2024 7:37 PM EDT [facility] Potassium 4.0 3.5 - 5.5 mmol/L LAB CHEMISTRY METHOD 07/17/2024 7:37 PM EDT [facility] Chloride 102 96 - 110 mmol/L LAB CHEMISTRY METHOD 07/17/2024 7:37 PM EDT [facility] CO2 30 21 - 32 mmol/L LAB CHEMISTRY METHOD 07/17/2024 7:37 PM EDT [facility] Anion Gap 5 3 - 11 LAB CHEMISTRY METHOD 07/17/2024 7:37 PM EDT [facility] Glucose 85 70 - 100 mg/dL LAB CHEMISTRY METHOD 07/17/2024 7:37 PM [facility] BUN 9 5 - 25 mg/dL LAB CHEMISTRY METHOD 07/17/2024 7:37 PM [facility] Creatinine 0.88 0.70 - 1.30 mg/dL LAB CHEMISTRY METHOD 07/17/2024 7:37 PM [facility] eGFR 93 >=60 mL/min/1. 73m2 LAB CHEMISTRY METHOD 07/17/2024 7:37 PM [facility] Comment:Calculation based on the Chronic Kidney Disease Epidemiology Collaboration (CKD-EPI) equation refit without adjustment for race. BUN/Creatinine Ratio 10.2 LAB CHEMISTRY METHOD 07/17/2024 7:37 PM [facility] Calcium 9.5 8.5 - 10.5 mg/dL LAB CHEMISTRY METHOD 07/17/2024 7:37 PM [facility] AST (SGOT) 16 10 - 42 unit/L LAB CHEMISTRY METHOD 07/17/2024 7:37 PM [facility] ALT (SGPT) 17 10 - 60 unit/L LAB CHEMISTRY METHOD 07/17/2024 7:37 PM [facility] Alkaline Phosphatase 124(H) 42 - 121 unit/L LAB CHEMISTRY METHOD 07/17/2024 7:37 PM [facility] Total Protein 7.4 6.0 - 8.0 g/dL LAB CHEMISTRY METHOD 07/17/2024 7:37 PM [facility] Albumin 3.7 3.2 - 5.0 g/dL LAB CHEMISTRY METHOD 07/17/2024 7:37 PM [facility] Total Bilirubin 0.4 0.0 - 1.4 mg/dL LAB CHEMISTRY METHOD 07/17/2024 7:37 PM [facility] Blood Venous blood specimen / Unknown Venipuncture / Unknown 07/17/2024 2:26 PM EDT 07/17/2024 2:26 PM EDT Result [facility] Carol Cote MD LAB BLOOD ORDERABLES Final Resul t [facility] [address] [place] [address], [place] [phone] * External Colonoscopy Report (04/30/2024 1:18 PM EDT) Anatomical Region Laterality Modality Endoscopy Result [facility] Historical Provider GI~PROCEDURE ORDERABLES F inal Result * Hemoglobin A1c (11/04/2022) Pathologist [facility] Hemoglobin A1C 0.0 <=6.5 % Comment:No Interpretation Blood Venous blood specimen / Unknown Result [facility] Samuel MIJARES LAB BLOOD ORDERABLES Rukhsana l Result * Urine Albumin Creatinine Ratio (05/27/2020) Pathologist [facility] Urine Albumin Creatinine Ratio Abstracted Result [facility] Historical Provider HEALTH MAINTENANCE Final Result * Lipid panel (05/27/2020) [facility] LDL/HDL Ratio 3 0 - 4 Triglycerides 108 0 - 150 mg/dL Cholesterol 164 0 - 200 mg/dL HDL 50 >=40 mg/dL LDL Cholesterol 93 0 - 100 mg/dL Blood Venous blood specimen / Unknown Result [facility] Provider LAB BLOOD ORDERABLES Rukhsana l Result * Hepatitis C Screening (06/14/2012) Pathologist [facility] Hepatitis C Screening Abstracted Result [facility] Historical Provider HEALTH MAINTENANCE Final Result * Depression Screening (03/18/2011) Pathologist [facility] Depression Screening Abstracted Result [facility] Historical Samuel MIJARES HEALTH MAINTENANCE Final Result from Last 3 Months or Most Recently Relevant to Health Maintenance Insurance [facility] Member Subscriber Plan / Payer (Ef fective 2020-Present) Name:Montana Taylor Relation to Subscriber:Self Name:Montana Taylor Payer ID:[id number] Group ID:[id number] Type:Not on file Address: [place] [address] [address] [id number] Advance Directives * Full Code - Default [...] currently active code status orders. Care Teams Telemarketer Relationship Specialty Start Date End Date Susan Gonsalez MD [address] [place] [address] [address] [place] [address] PCP - General Endocrinology 03/26/24
--- OUTSIDE RECORDS SUMMARY | 2024-09-03 09:28 | XMS_ITS | Data Portability ---
Author Organization [employer], [facility] Address [address] [place] [address] Assessment Encounter Date Assessment Date Assessment LastModified by Organization Details LastModified Time 02/21/2023 02/21/2023 As noted, we were called to see this patient regarding concerns of dyspnea. Evaluation in the field was performed by my aoc operations intelligence officer colleague, as noted above, I provided real-time direction and supervision for this visit. The evaluation revealed the patient has COPD on home oxygen and was in acute distress. Vitals as noted with hypoxemia, worse even with speaking. Head Of Mobile arranged for urgent transport to ED. In [...] flow rate Body weight Heart rate Systolic And Diastolic Provider Name and Address Organization Details Last Updated DateTime 4 97 [degF] 26 /min 185.42 cm 83 % 83 % 2 L/min 50408.3 2 g 77 /min 111/78 mm[Hg] Not Available [facility] - production 11:41:41 Social History None recorded. Functional Status None recorded. Mental Status None recorded. Family History Nothing Reported. Medical History No medical history recorded. Past Encounters Encounter ID Performer Location Encounter Start Date Encounter Closed Date Diagnosis/Indication Diagnosis SNOMED-CT Code Diagnosis ICD10 Code Diagnosis Note [id number] MOISES JOHNSON MD Main - [facility] [address] [place] [address] 02/21/2023 11:41:38 02/21/2023 12:15:00 Acute hypoxemic respiratory failure 221641984 J96.01 Health Concerns Section Related Observation LastModified by Organization Detai ls LastModified Time None Recorded Concern Status LastModified by Organization Details LastModified Time None Recorded Advance Directives Directive None Recorded Payers Insurance Date Sequence Insurance Name Policy Number Policy Perkins Covered Member ID Perkins Member ID Guarantor Name 02/21/2023 1 [facility] - DOS ON OR AFTER 2022 - DUAL ELIGIBLE - JAIL OPTIONS AND ONE CARE (MEDICARE REPLACEMENT/ADV ANTAGE - HMO) Montana Taylor [id number] Montana Taylor Notes Date Note Type Note [...] .................. .................. .................. .................. .................. .................. ............... Head Of Mobile Note From Brent Aguila: Pt reports cough [...] in lower right. 911 immediately initiated. [facility] alerted to pt condition. While waiting for EMS to arrive I increased his O2 and discussed business technology professor plans with the pt. He was very receptive and plans to confer with the ED MD and his CCA unit educator who is going to meet him in the ED. Care transferred to [facility]. .................. .................. .................. .................. .................. .................. .................. ............... Disposition: Fulfilled MOISES JOHNSON MD [address] [facility],[address], [place], [address], GANESH GRADY 02/21/2023 11:44:01
--- NOTE | 2024-09-03 09:30 | A.OFFPC_ITS ---
Vital Signs 09/03/24 09:32 Height 6 ft Weight 193 lb 8 oz BMI 26.2 BP 110/68 Blood Pressure Location Rt brachial Position Sitting Respiration 14 Pulse 58 Pulse Source Pulse Oximeter Pulse Oximetry (%) 100 Oxygen Delivery Method Room Air Intake Visit Reasons: f/up 1/2 hour Intake Note: Follow up Field Seismologist Required: No Allergies No Known Allergies Allergy (Verified 09/03/24 09:30) Tobacco use date assessed: 09/03/24 Dental Screening Dental Screen Date: 08/30/23 HPI HPI Comments History of Present Illness Details The patient is a 69 year old male with a past medical history of TBI, YESICA on CPAP, COPD, recovered alcoholic, type 2 diabetes, hypertension, TAA presenting for follow up. He is accompanied by a health residential care officer-CCA worker BH: Reconnected with psychology, psychologist in [place]. Improved interval anxiety, decreased concentration. On prozac, seroquel, clonazepam CV: Follows with [facility]. Admitted in Mar 2023 for CHF. Is euvolemic without chest pain or dyspnea. Rsp: Follows with [facility] pulmonary, seeing Dr Garcia. Had recent biopsy-c/w bacterial infection. YESICA-compliant on CPAP TBI: History of TBI. Saw neurology at [facility]. Followed with N. Follows with head injury program [facility]. [employer] Sawyer Michael Schwartz. History recovered etoh. continues AA. Sober since 1992. Chronic pain: stable on chronic opioid therapy -DDD-history of cervical fusion and elliott te LS fusion. Follows with PSS. -NEOS sending to [facility] pain managemen t for spinal cord stim trial. A lot of right hip pain, low back pain Endocrine: Diabetes. Controlled. On metformin 500mg daily. A1C 5.7% today GI: Dysphagia. Had barium swallow. Saw ENT. Following with weight management/surgery-plan for upcoming revision surgery for prior bariatric surgery ROS see HPI PHYSICAL EXAM: GENERAL: Alert and oriented x 3. NAD EYES: EOMI. Anicteric. HENT: Moist mucous membranes. No scleral icterus. No cervical lymphadenopathy. LUNGS: Clear to auscultation bilaterally. CARDIOVASCULAR: Regular rate and rhythm. No murmur. No JVD. ABDOMEN: Soft, non-tender +bs EXTREMITIES: No edema. Non-tender. SKIN: No rashes or lesions. Warm. NEUROLOGIC: No focal neurological deficits. Memory impaired PSYCHIATRIC: Cooperative. Appropriate mood and affect PFSH Medical History Atrial fibrillation Paraesophageal hernia Diabetes Vitamin D deficiency, unspecified Tubular adenoma of colon Presenile dementia Polyp of colon YESICA (obstructive sleep apnea) Obesity Nicotine dependence Lumbar spondylosis with myelopathy Lumbar canal stenosis Incomplete emptying of bladder Hypertension Hyperlipidemia H/O traumatic brain injury ELIZABETH (generalized anxiety disorder) Depressive disorder Constipation, unspecified CHF (congestive heart failure) COPD (chronic obstructive pulmonary disease) Cervical arthritis Cardiomyopathy Benign prostatic hyperplasia with urinary obstruction Benign prostatic hyperplasia Benign hypertension Arrhythmia Angina pectoris Alcoholism Surgical History History of spinal fusion History of appendectomy History of cervical spinal arthrodesis History of hernia repair History of gastric surgery History of colonoscopy Family History Mother Lung cancer Smoker Father Diabetes High cholesterol Hypertension Unsteady gait Social History Household Members: None Housing: House Alcohol intake: former Year quit: 1987 Patient Tobacco Use Status: Former Tobacco user Tobacco use type: Cigar and Pipe Cigarettes Per Day: 2 e-Cigarette/Vaping Use: Never Used Second Hand Smoke Exposure: No Substance Use Type: Marijuana service: No Current occupational status: retired and disabled Cognitive needs: Yes (brain injury) Hearing needs: No Vision needs: No Questionnaire Thrive Questionnaire Date Thrive assessed: 03/26/24 I am a: Patient What is your living situation today?: I have a steady place to live Within the past 12 months, did the food you bought not last and you didn't have the money to get more?: Never true Within the past 12 months, did you worry whether your food would run out before you got money to buy more?: Never true Do you have trouble paying for medicines?: No Do you have trouble getting transportation to medical appointments?: No Do you have trouble paying your heating and electricity bill?: No Do you have trouble taking care of your child, family member or friend?: No Do you have trouble with day-to-day activities such as bathing, preparing meals, shopping, managing finances, etc.?: No Are you currently unemployed and looking for a job?: No Are you interested in more education?: No Please select the resources that you would like help with: None Currently or been in a relationship where the following occur: No concerns reported THRIVE Score: 0 Physical exam (Primary Care) Vital Signs: Last Vital Signs Pulse 58 09/03/24 09:32 Resp 14 09/03/24 09:32 BP 110/68 09/03/24 09:32 Pulse Ox 100 09/03/24 09:32 Oxygen Delivery Method Room Air 09/03/24 09:32 BMI result Body Mass Index 26.2 Tobacco/Smoking Status: Tobacco use Status Tobacco use date assessed 09/03/24 09/03/24 09:32 Patient Tobacco Use Status Former Tobacco user 09/03/24 09:40 Tobacco use type Pipe,Cigar 09/03/24 09:40 e-Cigarette/Vaping Use Never Used 09/03/24 09:40 Thrive Assessment: Date of Thrive Assessment Date Thrive assessed 03/26/24 09/03/24 09:32 Currently or been in a relationship where the following occur: No concerns reported Coding Level of Care Code Est Pt Level 4 (76697) Diagnoses Type 2 diabetes mellitus with diabetic polyneuropathy, without long-term current use of insulin E11.42 Diabetes mellitus complication detail: with polyneuropathy Diabetes mellitus complication status: with neurologic complications Diabetes mellitus manager long term care insulin use: without jail use Diabetes mellitus type: type 2 Paraesophageal hernia K44.9 Paroxysmal atrial fibrillation I48.0 Atrial fibrillation type: paroxysmal 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 Heart failure type: combined systolic and diastolic Heart failure chronicity: chronic Anxiety F41.9 Traumatic brain injury, with unknown loss of consciousness status, sequela S06.9XAS Encounter type: sequela Loss of consciousness presence/duration: unknown LOC status Chronic obstructive pulmonary disease, unspecified COPD type J44.9 COPD type: unspecified COPD Assessment & Plan Assessment & Plan (1) Diabetes: Code(s): E11.9 - Type 2 diabetes mellitus without complications Category: Medical Qualifiers: Diabetes mellitus complication detail: with polyneuropathy Diabetes mellitus complication status: with neurologic complications Diabetes mellitus jail insulin use: without manager long term care use Diabetes mellitus type: type 2 Qualified Code(s): E11.42 - Type 2 diabetes mellitus with diabetic polyneuropathy (2) Paraesophageal hernia: Code(s): K44.9 - Diaphragmatic hernia without obstruction or gangrene Category: Medical (3) Atrial fibrillation: Code(s): I48.91 - Unspecified atrial fibrillation Category: Medical Qualifiers: Atrial fibrillation type: paroxysmal Qualified Code(s): I48.0 - Paroxysmal atrial fibrillation (4) CHF (congestive heart failure): Code(s): I50.9 - Heart failure, unspecified Category: Medical Qualifiers: Heart failure type: combined systolic and diastolic Heart failure chronicity: chronic Qualified Code(s): I50.42 - Chronic combined systolic (congestive) and diastolic (congestive) heart failure (5) Anxiety: Code(s): F41.9 - Anxiety disorder, unspecified Category: Medical (6) TBI (traumatic brain injury): Code(s): S06.9XAA - Unspecified intracranial injury with loss of consciousness status unknown, initial encounter Category: Medical Qualifiers: Encounter type: sequela Loss of consciousness presence/duration: unknown LOC status Qualified Code(s): S06.9XAS - Unspecified intracranial injury with loss of consciousness status unknown, sequela (7) COPD (chronic obstructive pulmonary disease): Code(s): J44.9 - Chronic obstructive pulmonary disease, unspecified Category: Medical Qualifiers: COPD type: unspecified COPD Qualified Code(s): J44.9 - Chronic obstructive pulmonary disease, unspecified Plan 69 year old male for follow up anxiety improving -following regularly with BH again Diabetes-on metformin CHF-euvolemic Chronic pain is stable on current medications Orders: Orders TSH reflex Free T4 09/03/24 E11.42 - Type 2 diabetes mellitus with diabetic polyneuropathy, I50.42 - Chronic combined systolic (congestive) and diastolic (congestive) heart failure, K44.9 - Diaphragmatic hernia without obstruction or gangrene Complete Blood Count Auto Diff 09/03/24 E11.42 - Type 2 diabetes mellitus with diabetic polyneuropathy, I50.42 - Chronic combined systolic (congestive) and diastolic (congestive) heart failure, K44.9 - Diaphragmatic hernia without obstruction or gangrene Hemoglobin A1c 09/03/24 E11.42 - Type 2 diabetes mellitus with diabetic polyneuropathy, I50.42 - Chronic combined systolic (congestive) and diastolic (congestive) heart failure, K44.9 - Diaphragmatic hernia without obstruction or gangrene Comprehensive Met. Panel 09/03/24 E11.42 - Type 2 diabetes mellitus with diabetic polyneuropathy, I50.42 - Chronic combined systolic (congestive) and diastolic (congestive) heart failure, K44.9 - Diaphragmatic hernia without obstruction or gangrene Medications: Changed From quetiapine Take along with 25mg oral nightly tab for total of 75mg daily 50 mg PO BEDTIME 90 tabs 3RF To quetiapine 50 mg PO BEDTIME 90 tabs 3RF Refilled clonazepam 0.5 mg PO BID 180 tabs 3RF
[2024-09-03 09:32] VITALS: BP 110/68; PULSE 58; RESP 14; O2SAT 100; BMI 26.2
== END 2024-09-03 09:53 | disposition home or self-care (01) ==
LOC: HO.HMCFM 09:10
PROVIDERS: PCP Internal Medicine; Visit Provider Internal Medicine
DX: E11.42 Type 2 diabetes mellitus with diabetic polyneuropathy (principal); I48.0 Paroxysmal atrial fibrillation; I50.42 Chronic combined systolic (congestive) and diastolic (congestive) heart failure; J44.9 Chronic obstructive pulmonary disease, unspecified; F41.9 Anxiety disorder, unspecified; K44.9 Diaphragmatic hernia without obstruction or gangrene; S06.9XAS Unspecified intracranial injury with loss of consciousness status unknown, sequela

== ENCOUNTER → 2024-09-03 09:09 | Outpatient (BNVA) | payer OTHER, SELFPAY | PROVIDERS: PCP Internal Medicine; Visit Provider Internal Medicine | DX: E11.42 Type 2 diabetes mellitus with diabetic polyneuropathy (principal); K44.9 Diaphragmatic hernia without obstruction or gangrene; I48.0 Paroxysmal atrial fibrillation; I11.0 Hypertensive heart disease with heart failure; I50.42 Chronic combined systolic (congestive) and diastolic (congestive) heart failure; F41.9 Anxiety disorder, unspecified; J44.9 Chronic obstructive pulmonary disease, unspecified; G47.33 Obstructive sleep apnea (adult) (pediatric); Z87.820 Personal history of traumatic brain injury; Z79.84 Long term (current) use of oral hypoglycemic drugs; Z79.891 Long term (current) use of opiate analgesic; Z79.899 Other long term (current) drug therapy; Z99.89 Dependence on other enabling machines and devices | CPT/HCPCS: 99212 ==

== ENCOUNTER 2024-09-03 10:16 | Outpatient (REF) | payer OTHER, SELFPAY ==
[2024-09-03 14:04] LABS: MANUAL DIFF FLAG NO
[2024-09-03 14:16] LABS: Hematocrit 42.3 % (42.0-52.0); Hemoglobin 12.9 g/dl (14.0-18.0); Imm Gran Abs Auto 0.02 X10*3/uL (0.00-0.03); Imm Gran Pct Auto 0.3 % (0.0-0.4); Lymphocytes Absolute Auto 1.0 X10*3/uL (1.2-4.9); Mean Corpuscular HGB Conc 30.5 g/dl (31.0-36.0); Mean Corpuscular Hemoglobin 24.0 pg (27.0-33.0); Mean Corpuscular Volume 78.8 fL (80.0-98.0); NRBC Abs Auto 0.000 X10*3/uL (0.0-0.012); NRBC Pct Auto 0.0 /100WBC (0.0-0.2); Platelet Count 302 X10*3/uL (160-400); Red Blood Count 5.37 X10*6/uL (4.60-5.80); White Blood Count 7.2 X10*3/uL (4.8-10.8)
[2024-09-03 14:40] LABS: Hemoglobin A1C 133.7854 umol/L; Total Hemoglobin (HGBA1C) 3351.1889 umol/L
[2024-09-03 14:44] LABS: Alanine Aminotransferase 16 U/L (0-40); Albumin Level 4.4 g/dL (3.5-5.0); Alkaline Phosphatase 106 U/L (39-117); Anion Gap 14 (12-20); Aspartate Amino Transferase 21 U/L (5-37); Blood Urea Nitrogen 14 mg/dL (9-16); Calcium 9.6 mg/dL (8.4-10.2); Carbon Dioxide 30 mmol/L (22-29); Chloride 103 mmol/L (96-108); Estimated Glomerular Filt Rate > 60; Potassium 4.6 mmol/L (3.3-5.1); Sodium 142 mmol/L (135-145); Total Protein 7.5 g/dL (6.5-8.0)
== END 2024-09-03 10:17 | disposition home or self-care (01) ==
LOC: HO.WFDLDS 10:16
PROVIDERS: Visit Provider Internal Medicine
DX: I50.42 Chronic combined systolic (congestive) and diastolic (congestive) heart failure (principal); E11.42 Type 2 diabetes mellitus with diabetic polyneuropathy; K44.9 Diaphragmatic hernia without obstruction or gangrene
CPT/HCPCS: 36415; 80053; 83036; 84443; 85025

== ENCOUNTER → 2024-09-11 23:59 | Outpatient (BNV) | payer OTHER, SELFPAY | PROVIDERS: PCP Internal Medicine; Visit Provider Internal Medicine | DX: I10 Essential (primary) hypertension (principal); F17.210 Nicotine dependence, cigarettes, uncomplicated; E11.9 Type 2 diabetes mellitus without complications | CPT/HCPCS: G0179 ==

== ENCOUNTER 2024-10-23 08:20 | Outpatient (AMB) | payer OTHER, SELFPAY ==
--- NOTE | 2024-10-23 08:33 | MHC.OFFVIS ---
Vital Signs 10/23/24 08:34 Height 6 ft Weight 191 lb BMI 25.9 BP 136/68 Blood Pressure Location Rt brachial Position Sitting Pulse 60 Pulse Source Pulse Oximeter Pulse Oximetry (%) 94 Oxygen Delivery Method Room Air Intake Visit Reasons: 2mo Intake Note: ESTABLISHED PATIENT for dysphagia mgmt. S/P EGD w/ Dr. Britt Chief Complaint; C.O. dysphagia persistence despite current therapies. Pt does report slight improvement in frequency but still reports having episodes intermittently. Administrative Assistant Office Manager Required: No Accompanied by: Self / Same As Patient Allergies No Known Allergies Allergy (Verified 11/05/24 11:16) HPI HPI 2mo: Details: LAST VISIT: Dysphagia Paraesophageal hernia GERD (gastroesophageal reflux disease) Plan Patient reports history of environmental allergies in the past. Seen business office assistant in the past. Paraesophageal hernia will send patient for consult to see Dr. Britt for hernia repair. Patient will start taking Nexium daily. Avoid dietary triggers and late night snacking. Patient will eat smaller pieces and more often. Patient reports significant change with the way he swallows his medications. Staff will assist with making appointment with bariatric surgeon. Patient will follow-up in our office in 2 months, sooner on as needed basis. Patient is agreeable to this plan and verbalizes understanding of instructions. He was given the opportunity to ask questions and all questions answered. ? Thank you for allowing me to participate in his care Referrals Allergy & Immunology Referral R13.14 Bariatric Surgery Referral K44.9, R13.14 New esomeprazole magnesium (Nexium) 40 mg PO DAILY 30 caps 3RF K21.9 Discontinued omeprazole Discontinued Reason: Doctor's Order 20 mg PO DAILY 90 caps 3RF UPPER ENDOSCOPY: PROCEDURE: After informed consent was obtained by the patient, the patient was ?transferred to the Operating Room and was placed in the supine position.? After successful induction of IV sedation, a mouth block was inserted and the patient was placed in the left lateral decubitus position. An upper endoscopy was performed next, the oropharynx and esophagus appeared within the normal limits. There was a 4cm fixed diaphragmatic hernia (GE junction at 41cm, and crura at 45cm). The z-line was smooth. Two biopsies were obtained from the distal esophagus 2-3 cm proximal to the GE junction and two additional biopsies from the GE junction. The proximal sleeve herniated into the mediastinum was enlarged sugestive of incomplete fundal resection at the original operation. The sleeve was entered and it appeared to be enlarged in caliber throughout. There was no gastritis. There was no stricture or ulcer. Due to the size of the sleeve, retroflexion of the scope was possible confirming the presence of a large diaphragmatic hernia. Biopsies were obtained from the proximal sleeve as well as the distal antrum. No significant bleeding was noted from any of the biopsy sites. The scope was then advanced into the duodenum which appeared to be normal as well. At that point the duodenum ?and the sleeve were decompressed and the scope was withdrawn from the patient's mouth. PATHOLOGY: Diagnosis A. Stomach, antrum, biopsy: Antral-type and oxyntic mucosa with mild chronic inactive inflammation; no Helicobacter organisms seen. B. Stomach, proximal sleeve, biopsy: Oxyntic mucosa within normal limits; no Helicobacter organisms seen. C. EG junction, biopsy: - Squamous epithelium within normal limits; no inflammation seen. - No glandular epithelium present. D. Esophagus, biopsy: Mildly active esophagitis (maximum eosinophil count 1 per high powered field). TODAY'S VISIT; Patient is here today for follow-up. Patient reports that he has been doing better since his surgery. Able to swallow better, occasional dysphagia depending on what he eats. Patient is aware that he has to eat slower. Currently he is taking pantoprazole with good affect. Denies dyspepsia or odynophagia. Reports to have a good appetite. Denies melena, hematochezia, unintentional weight loss or ribbon like stools. Patient has follow-up appointment with Dr. Britt end of this month. Patient reports that he has been doing quite well. He does not feel like he has acid reflux. Patient reports that he never felt like he did. [facility] Medical History (Reviewed 10/23/24 @ 08:36 by Ronan Hill [facility]) Atrial fibrillation Paraesophageal hernia Diabetes Vitamin D deficiency, unspecified Tubular adenoma of colon Presenile dementia Polyp of colon YESICA (obstructive sleep apnea) Obesity Nicotine dependence Lumbar spondylosis with myelopathy Lumbar canal stenosis Incomplete emptying of bladder Hypertension Hyperlipidemia H/O traumatic brain injury ELIZABETH (generalized anxiety disorder) Depressive disorder Constipation, unspecified CHF (congestive heart failure) COPD (chronic obstructive pulmonary disease) Cervical arthritis Cardiomyopathy Benign prostatic hyperplasia with urinary obstruction Benign prostatic hyperplasia Benign hypertension Arrhythmia Angina pectoris Alcoholism Surgical History History of spinal fusion History of appendectomy History of cervical spinal arthrodesis History of hernia repair History of gastric surgery History of colonoscopy Family History Mother Lung cancer Smoker Father Diabetes High cholesterol Hypertension Unsteady gait Social History Household Members: None Housing: House Alcohol intake: former Year quit: 1987 Patient Tobacco Use Status: Former Tobacco user Tobacco use type: Cigar and Pipe Cigarettes Per Day: 2 e-Cigarette/Vaping Use: Never Used Second Hand Smoke Exposure: No Substance Use Type: Marijuana service: No Current occupational status: retired and disabled Cognitive needs: Yes (brain injury) Hearing needs: No Vision needs: No Review of Systems Const Denies weight gain and Denies weight loss ENT Reports no additional complaints, Reports dysphagia (Improved) and Denies odynophagia Card Reports no additional complaints Resp Reports no additional complaints GI Denies abdominal pain, Denies belching, Denies melena, Denies bloating, Denies change in bowel habits, Reports dysphagia (Improved), Denies excessive flatus, Denies dyspepsia, Denies heartburn, Denies diarrhea, Denies loose stools, Denies nausea, Denies odynophagia and Denies vomiting Reports no additional complaints Musc Reports no additional complaints Neuro Reports no additional complaints Psych Reports no additional complaints Endo Reports no additional complaints Physical Exam Vital Signs: Last Vital Signs Pulse 60 10/23/24 08:34 BP 136/68 10/23/24 08:34 Pulse Ox 94 10/23/24 08:34 Oxygen Delivery Method Room Air 10/23/24 08:34 BMI result Body Mass Index 25.9 Const General: healthy appearing, no acute distress and well developed Nutritional Appearance: well nourished Orientation/consciousness: patient oriented x3 Resp Effort & Inspection: normal respiratory effort, able to speak in complete sentences, no tracheal deviation and symmetric chest movement Auscultation: clear to auscultation bilaterally Cardio Rate: regular rate GI Inspection: Yes normal to inspection and No distended Palpation (GI): Soft to palpation, not firm, nontender and No hepatosplenomegaly present Auscultation: normal bowel sounds General: Yes no CVA tenderness Back/Spine/Pelvis Back: no CVA tenderness Skin General skin exam: elasticity normal, turgor normal and dry skin Neuro General: patient oriented x3 Psych Appearance: grossly normal Mental Status: mental status grossly normal Speech and movement: Psychomotor agitation in speech present (At times) and Restless speech present (Somewhat) Affect: Animated affect present Attitude: cooperative Assessment & Plan Assessment & Plan (1) Dysphagia: Code(s): R13.10 - Dysphagia, unspecified Category: Medical Qualifiers: Dysphagia type: pharyngoesophageal phase Qualified Code(s): R13.14 - Dysphagia, pharyngoesophageal phase (2) Paraesophageal hernia: Code(s): K44.9 - Diaphragmatic hernia without obstruction or gangrene Category: Medical (3) Gastroesophageal reflux disease: Code(s): K21.9 - Gastro-esophageal reflux disease without esophagitis Qualifiers: Esophagitis presence: esophagitis presence not specified Qualified Code(s): K21.9 - Gastro-esophageal reflux disease without esophagitis Plan Long discussion with patient about avoiding dietary triggers and like and snacking. Staying upright for minimum 3 hours after meals discussed with patient. Patient will continue following up with bariatric services. He will see us in 3 months, sooner on as needed basis. Continue pantoprazole. Patient is agreeable to this plan and verbalizes understanding of instructions. He was given the opportunity to ask questions and all questions answered. Thank you for allowing me to participate in his care Medications: Refilled pantoprazole take one tablet half an hour before breakfast 40 mg PO DAILY 90 tabs 2RF K21.9 - Gastro-esophageal reflux disease without esophagitis Coding Level of Care Code Est Pt Level 4 (90014) Complex EM visit Add On G2211 Diagnoses Pharyngoesophageal dysphagia R13.14 Dysphagia type: pharyngoesophageal phase Paraesophageal hernia K44.9 Gastroesophageal reflux disease, unspecified whether esophagitis present K21.9 Esophagitis presence: esophagitis presence not specified Time Spent (min) 40 Comment 25 minutes spent with patient and additional 15 minutes spent reviewing his records
[2024-10-23 08:34] VITALS: BP 136/68; PULSE 60; O2SAT 94; BMI 25.9
--- OUTSIDE RECORDS SUMMARY | 2024-10-23 09:18 | XMS_ITS | Clinical Summary ---
Author Organization [facility] [employer] [facility] Address [address] [place] [address] Phone Care Team Providers Care Cheese Tester Name Role Phone Susan Gonsalez MD Primary Care Provider [phone] Allergies No known active allergies Medications digoxin [...] mouth daily (with breakfast). Active FREESTYLE LANCETS [facility] USE TO TEST TWICE A DAY Active [...] Noted Date Diagnosed Date Paroxysmal atrial fibrillation ([facility] V24, [facility] V28) 05/10/2023 Overview (02/21/2024): February 2023 - newly discovered asymptomatic atrial fibrillation with rapid ventricular response; initially rate controlled March 2023 - JOSEF/DCCV attempt aborted due to ROSIO thrombus; patient initially with non-adherence to apixaban June 2023 - ultimately successful adherence to AC therapy with successful JOSEF/DCCV at [facility] Assessment & Plan (02/21/2024 9:16 AM EST): Now paroxysmal atrial fibrillation status post DCCV. Asymptomatic. EKG today showed sinus rhythm. CHADSVASc - 3. Continue with apixaban, metoprolol and digoxin. May consider discontinuation of digoxin at next visit if maintaining sinus rhythm. Orders: ECG 12 lead Chronic diastolic heart failure ([facility] V24, [facility] V28) 03/25/2023 Assessment & Plan (02/21/2024 9:16 [...] medication compliance. 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 dr lopez Depression 01/19/2010 Overview (01/04/2024): Seeing [facility] Hyperlipidemia 01/19/2010 Assessment & Plan (02/21/2024 [...] 0 COPD (chronic obstructive pu lmonary disease) ([facility] V24, [facility] V28) 01/19/2010 Overview (01/04/2024): Dr rodrigez pulmonary-on oxygen HS BPH (benign prostatic hyperplasia) 01/19/2010 Overview (01/04/2024): Dr crawford urology-seen 08/23 Resolved Problems Problem Noted Date Diagnosed Date Resolved Date Chronic atrial fibrillation ([facility] V24, [facility] V28) 03/25/2023 02/21/2024 Obesity 06/22/2010 02/21/2024 Encounters Date Type Department Care Team Description 08/28/2024 1:30 PM EDT Office Visit Pulmonology - [address] [address] Marichuy Flor MD Lung nodule (Primary Dx) 08/20/2024 Telephone [facility] Cardiology [facility] [address] [place] [address] Susan Gonsalez MD 08/03/2024 Telephone Lung Screening Program - [address] [place] [address] Michelle Marcum MA 08/01/2024 Telephone [facility] [address] [place] [address] Tex Aguila NP 07/25/2024 10:15 AM EDT Lab Draw Station - [address] [place] [address] VANDANA (mycobacterium avium-intracellulare) ([facility] V24, [facility] V28); Lung granuloma ([facility] V24, [facility] V28) from Last 3 Months Immunizations Name Administration [...] notes HERNIA REPAIR WRIST SURGERY Right per porter sample case BARIATRIC SURGERY Medical History Medical History Date Comments Obesity 06/22/2010 DX:Obesity CKD (chronic kidney disease), stage II DX:CKD (chronic kidney disease), stage II Hypokalemia DX:Hypokalemia Alcoholism ([facility] V24, [facility] V28) DX:Alcoholism (HCC) Angina pectoris ([facility] V24) DX :Angina pectoris (HCC) Benign prostatic hyperplasia DX: Benign prostatic hyperplasia Benign prostatic hyperplasia with urinary obstruction DX:Benign prostatic hyperpla simi with urinary obstruction TBI (traumatic brain injury) ([facility] V24, [facility] V28) per vehicle care specialist Arrhythmia A fib per cardia c notes H/O gastric bypass History of appendectomy Cardiomyopathy ([facility] V24, [facility] V28) history of: Sleep apnea Does not use cpa p per porter sample case Oxygen dependent Uses 1 lpm oxyg en at night via nc per porter sample casegrant manager mellitus ([facility] V 24, [facility] V28) Forgetfulness Related to TBI COPD (chronic obstructive pu lmonary disease) ([facility] V24, [facility] V28) from H&P GERD (gastroesophageal reflux disease) [...] Care Team (Late st Contact Info) Description 10/29/2024 7:30 AM EDT Appointment [facility] CT Scan [address] [place] [address] 10/30/2024 10:00 AM EDT Office Visit Pulmonology - [place] [address] [facility] [address] [place] [phone] Marichuy Flor MD [address] [place] [address] Health Maintenance Due Date Last Done Comments [...] 03/18/2011 COVID-19 Vaccine (9 - Moderna risk season) 2024 12/06/2023, 11/14/2022, 06/13/2022, Additional history exists Influenza [...] this topic Medical Devices Implanted Type Area Equipment Washer Device Identifier Shelf Expiration Date Model / Serial / Lot Marker Cobra Superlock - Sn/A - [id number] Implanted:Qty : 1 on 05/16/2024 by Marichuy Flor MD at [facility] Imaging Implants Left: Lung COVIDIEN SUPERDIMENSION 12/21/2027 [id number] / N/A / [id number] Description:LEFT UPPER LOBE Procedures Procedure Name Priority Date/Time Associated Diagnosis Comments ..CONCENTRATION Routine 07/25/2024 10:15 AM EDT VANDANA (mycobacterium avium-intracellula re) ([facility] V24, [facility] V28) Lung granuloma ([facility] V24, [facility] V28) ACID FAST BACILLI STAIN Routine 07/26/19 10:15 AM EDT VANDANA (mycobacterium avium-intracellula re) ([facility] V24, [facility] V28) Lung granuloma ([facility] V24, [facility] V28) CULTURE, AFB AND SMEAR WITH REFLEX [...] V28) Lung granuloma (CMS/HCC V24, CMS/HCC V28) COMPREHENSIVE METABOLIC PANEL Routine 07/17/2024 2:26 PM [...] time period is included. AFB Concentration Performed 1:05 PM EDT [facility] Sputum Tracheal structure / Unknown Non-blood Collection / Unknown 07/25/2024 10:15 AM EDT 07/25/2024 12:13 PM EDT Narrative [facility] - 09/10/2024 1:05 PM EDT Performed at: - [address] [id number] [place]: Emerald Cline MD, Phone: [phone] us Carol Cote MD LAB BLOOD ORDERABLES Edited Resu lt - Final [facility] * Culture, afb and smear with reflex to identification and susceptibility (07/25/2024 10:15 AM EDT) Only the most recent of3 resultswithin the time period is included. AFB Specimen Processing Concentration 09/10/2024 1:05 PM EDT [facility] Acid Fast Smear Negative 09/10/2024 1:05 PM EDT [facility] Acid Fast Culture Negative 09/10/2024 1:05 PM EDT [facility] Comment:No acid fast bacilli isolated after 6 weeks. Sputum Tracheal structure / Unknown Non-blood Collection / Unknown 07/25/2024 10:15 AM EDT 07/25/2024 12:13 PM EDT Narrative [facility] - 09/10/2024 1:05 PM EDT Performed at: 01 - [facility] [id number] [place]: Emerald Cline MD, Phone: [phone] Carol Cote MD LAB MICROBIOLOGY - GENERAL ORDER MORENO Final Result [facility] * Acid fast bacilli stain (07/25/2024 10:15 AM EDT) Only the most recent of3 resultswithin the time period is included. AFB Stain Result No Acid fast bacilli seen on direct smear (Fuchsin method, 1000x) No Acid Fast Bacilli seen on direct smear 07/25/2024 7:04 PM EDT [facility] Sputum Tracheal structure / Unknown Non-blood Collection / Unknown 07/25/2024 10:15 AM EDT 07/25/2024 12:13 PM EDT us Carol Cote MD LAB MICROBIOLOGY - GENERAL ORDER OMRENO Final Result Performing Organization Address City/[facility]/ZIP Co de Phone Number [facility] [address] [place] [address], * (ABNORMAL) Comprehensive metabolic panel (07/17/2024 2:26 PM EDT) Sodium 137 133 - 145 mmol/L LAB CHEMISTRY METHOD 07/17/2024 7:37 PM EDT [facility] Potassium 4.0 3.5 - 5.5 mmol/L LAB CHEMISTRY METHOD 07/17/2024 7:37 PM EDT [facility] Chloride 102 96 - 110 mmol/L LAB CHEMISTRY METHOD 07/17/2024 7:[address] [facility] CO2 30 21 - 32 mmol/L LAB CHEMISTRY METHOD 07/17/2024 7:[address] [facility] Anion Gap 5 3 - 11 LAB CHEMISTRY METHOD 07/17/2024 7:[address] [facility] Glucose 85 70 - 100 mg/dL LAB CHEMISTRY METHOD 07/17/2024 7:[address] [facility] BUN 9 5 - 25 mg/dL LAB CHEMISTRY METHOD 07/17/2024 7:[address] [facility] Creatinine 0.88 0.70 - 1.30 mg/dL LAB CHEMISTRY METHOD 07/17/2024 7:[address] [facility] eGFR 93 >=60 mL/min/1. 73m2 LAB CHEMISTRY METHOD 07/17/2024 7:[address] [facility] Comment:Calculation based on the Chronic Kidney Disease Epidemiology Collaboration (CKD-EPI) equation refit without adjustment for race. BUN/Creatinine Ratio 10.2 LAB CHEMISTRY METHOD 07/17/2024 7:[address] [facility] Calcium 9.5 8.5 - 10.5 mg/dL LAB CHEMISTRY METHOD 07/17/2024 7:[address] [facility] AST (SGOT) 16 10 - 42 unit/L LAB CHEMISTRY METHOD 07/17/2024 7:[address] [facility] ALT (SGPT) 17 10 - 60 unit/L LAB CHEMISTRY METHOD 07/17/2024 7:[address] [facility] Alkaline Phosphatase 124(H) 42 - 121 unit/L LAB CHEMISTRY METHOD 07/17/2024 7:[address] [facility] Total Protein 7.4 6.0 - 8.0 g/dL LAB CHEMISTRY METHOD 07/17/2024 7:[address] [facility] Albumin 3.7 3.2 - 5.0 g/dL LAB CHEMISTRY METHOD 07/17/2024 7:37 PM EDT [facility] Total Bilirubin 0.4 0.0 - 1.4 mg/dL LAB CHEMISTRY METHOD 07/17/2024 7:37 PM EDT [facility] Blood Venous blood specimen / Unknown Venipuncture / Unknown 07/17/2024 2:26 PM EDT 07/17/2024 2:26 PM EDT Result [facility] Carol Cote MD LAB BLOOD ORDERABLES Final Resul t [facility] [address] [place] [address], [place] [phone] * External Colonoscopy Report (04/30/2024 1:18 PM EDT) Anatomical Region Laterality Modality Endoscopy Result [facility] Provider GI~PROCEDURE ORDERABLES F inal Result * Hemoglobin A1c (11/04/2022) Pathologist [facility] Hemoglobin A1C 0.0 <=6.5 % Comment:No Interpretation Blood Venous blood specimen / Unknown Result [facility] Historical Samuel MIJARES LAB BLOOD ORDERABLES Rukhsana l Result * Urine Albumin Creatinine Ratio (05/27/2020) Pathologist [facility] Urine Albumin Creatinine Ratio Abstracted Result [facility] Historical Samuel MIJARES HEALTH MAINTENANCE Final Result * Lipid panel (05/27/2020) Pathologist [facility] LDL/HDL Ratio 3 0 - 4 Triglycerides 108 0 - 150 mg/dL Cholesterol 164 0 - 200 mg/dL HDL 50 >=40 mg/dL LDL Cholesterol 93 0 - 100 mg/dL Blood Venous blood specimen / Unknown Result [facility] Historical Samuel MIJARES LAB BLOOD ORDERABLES Rukhsana l Result * Hepatitis C Screening (06/14/2012) Pathologist [facility] Hepatitis C Screening Abstracted us Historical Provider HEALTH MAINTENANCE Final Result * Depression Screening (03/18/2011) Depression Screening Abstracted us Historical Provider HEALTH MAINTENANCE Final Result from Last 3 Months or Most Recently Relevant to Health Maintenance Insurance [facility] Member Subscriber Plan / Payer (Ef fective 2020-Present) Name:Montana Taylor Relation to Subscriber:Self Name:Montana Taylor Payer ID:[id number] Group ID:[id number] Type:Not on file Address: [place] [address] [address] [id number] Advance Directives * Full Code - Default [...] currently active code status orders. Care Teams Cheese Tester Relationship Specialty Start Date End Date Susan Gonsalez MD [address] [place] [address] [address] [place] [address] PCP - General Endocrinology 03/26/24
--- OUTSIDE RECORDS SUMMARY | 2024-10-23 09:18 | XMS_ITS | Clinical Summary ---
Author Organization [facility] Address [address] [address] Phone Care Team Providers Care Supervisor Irrigation Name Role Phone Susan Gonsalez MD Primary Care Provider [phone] Allergies No known active allergies Medications multivitamin-iro b-vglqhxzw-ovimm acid (CENTRUM) chewable tablet Chew 1 tablet [...] Office Visit [facility] [address] [place] [phone] Ronan Beltrán MD Chronic kidney disease, stage 2 (mild) (Primary Dx); Isolated proteinuria from Last 3 Months Immunizations Immunization Administration [...] Office Visit [facility] [address] [address] Ronan Beltrán MD [address] [address] Health Maintenance Due Date Last Done Comments [...] AM EST) Hemoglobin A1C 6.2(H) (4.0-5.6) % [facility] Comment: MONITORING: In known diabetic patients, hemoglobin A1c targets should be discussed with health care provider. DIAGNOSTIC USE: The [place] Diabetes Association (ADA) and the World Health [...] Supplement 1 Testing performed or reported by [facility], a Service of [facility], [address] [place] [address] Mckayla Vargas MD, Slasher Tender Helper [facility]# [id number] Blood specimen (specimen) Venous blood / Unknown 02/25/2022 10:40 AM EST 02/25/2022 10:51 AM EST us Malcolm German MD LAB BLOOD ORDERABLES Rukhsana kidd Result [facility] from Last 3 Months or Most Recently Relevant to Health Maintenance Insurance ([id number]) ([id number]) Care Teams Supervisor Irrigation Relationship Specialty Start Date End Date Susan Gonsalez MD [address] [place] [address], [facility] [address] [place] [address] PCP - General Internal Medicine 07/05/23
--- OUTSIDE RECORDS SUMMARY | 2024-10-23 09:18 | XMS_ITS | Clinical Summary ---
Author Organization [facility] Address [address] [place] [address] Care Team Providers Care Text Transcriber Name Role Phone Susan Gonsalez MD Primary Care Provider [phone] Allergies No known active allergies Medications Medication [...] 2) 03/10/2022 01/13/2022 COVID-19 Vaccine (3 - 2024- season) 2024 05/07/2020, 04/09/2020 Influenza Vaccine (#1) 2024 , [...] Advance Directives For more information, please contact: [phone] Latest Code Status on File Code Status Date Activated Date Inactivated Comments Full Code 11/03/2022 7:02 PM 11/05/2022 12:09 AM This code status was ascertained in the following way: discussion with patient. Care Teams Text Transcriber Relationship Specialty Start Date End Date Susan Gonsalez MD PCP - General Internal Medicine 11/03/22
--- OUTSIDE RECORDS SUMMARY | 2024-10-23 09:18 | XMS_ITS ---
Author Organization [facility] Care Team Providers Care Travel Information Center Supervisor Name Role Phone Jen Vizcaino Unavailable Unavailable Marine Espitia Unavailable Unavailable Bailey Sheffield Unavailable Unavailable Allergies and adverse reactions No Known Allergies Care Team Name Role Address Phone Organization Dates Marine Espitia PCP [address] [facility] [address], [place], [address], [facility] (Office): [facility] 03/06/2023 - 03/06/2023 Jen Vizcaino [address], [address], [facility] (Office): [facility] 03/06/2023 - 03/06/2023 Bailey Sheffield [address], [address], [facility] (Office): [facility] 03/06/2023 - 03/06/2023 Mental Status Section Date Assessment Total Score Description 03/06/2023 CAM 0 No delirium ind icated Problems Problem # Description Date of onset Resolved Date Code CodeSystem Concern Status 1 ACUTE ON CHRONIC DIASTOLIC (CONGESTIVE) HEART FAILURE 03/05/[address] active 2 ACUTE ON CHRONIC SYSTOLIC (CONGESTIVE) HEART FAILURE 03/05/[address] active 3 ACUTE RESPIRATORY FAILURE WITH HYPOXIA 03/05/[address] active 4 ANXIETY DISORDER, UNSPECIFIED 03/05/[address] active 5 CARDIOMYOPATHY, UNSPECIFIED 03/05/[address] active 6 CHRONIC ATRIAL FIBRILLATION, UNSPECIFIED 03/05/[address] active 7 CHRONIC OBSTRUCTIVE PULMONARY DISEASE, UNSPECIFIED 03/05/[address] active 8 ESSENTIAL (PRIMARY) HYPERTENSION 03/05/[address] active 9 HYPERLIPIDEMIA, UNSPECIFIED 03/05/[address] active 10 OBSTRUCTIVE SLEEP APNEA (ADULT) (PEDIATRIC) 03/05/[address] active 11 OTHER CARDIOMYOPATHIES 03/05/[address] active 12 OTHER CHRONIC PAIN 03/05/[address] active 13 PERSONAL HISTORY OF TRAUMATIC BRAIN INJURY 03/05/[address] active 14 TYPE 2 DIABETES MELLITUS WITHOUT COMPLICATIONS 03/05/[address] active 15 UNSPECIFIED ATRIAL FIBRILLATION 03/05/[address] active Reason for Referral No Reasons for Referral Entered Social History Social History Observation Description Start Date End Date Code Code System Current Smoking Status Tobacco smoking consumption unknown 380116837 SNOMED CT Sex Assigned At Male 1955 22145-1 [facility] Gender Identity Vital Signs Code Code System Vitals Name Values and Units Timing Information 11086-6 [facility] Weight Rmpdi=789.6 Units=Lbs 9279-1 [facility] Respiratory Rate Value=18.0 Units=/m in 03/06/2023 8462-4 [facility] Blood Pressure-Diastolic Value=55 Un its=mmHg 03/06/2023 8480-6 [facility] Blood Pressure-Systolic Lpflu=880 Un its=mmHg 03/06/2023 8310-5 [facility] Body Temperature Value=97.1 Units= F 03/06/2023 8867-4 [facility] Heart rate Value=90.0 Units=/min 8302-2 [facility] Height Value=72.2 Units=Inches 03/06/2023 22954-8 [facility] O2 % BldC Oximetry Value=98.0 Units= % 03/06/2023 06279-0 [facility] Pain Level Value=1.0 03/06/2023 3151-8 [facility] Inhaled oxygen flow rate Value=2.0 U nits=L/Min 03/06/2023
== END 2024-10-23 09:06 | disposition home or self-care (01) ==
LOC: HO.HGI 08:21
PROVIDERS: PCP Internal Medicine; Visit Provider Nurse Practitioner Family
DX: R13.14 Dysphagia, pharyngoesophageal phase (principal); K44.9 Diaphragmatic hernia without obstruction or gangrene; K21.9 Gastro-esophageal reflux disease without esophagitis
CPT/HCPCS: 99214; G2211

== ENCOUNTER → 2024-10-23 08:20 | Outpatient (BNVA) | payer OTHER, SELFPAY | PROVIDERS: PCP Internal Medicine; Visit Provider Nurse Practitioner Family | DX: R13.10 Dysphagia, unspecified (principal); K44.9 Diaphragmatic hernia without obstruction or gangrene; K21.9 Gastro-esophageal reflux disease without esophagitis | CPT/HCPCS: 99212 ==

== ENCOUNTER 2024-11-05 11:07 | Outpatient (AMB) | payer OTHER, SELFPAY ==
--- NOTE | 2024-11-05 11:09 | MHC.OFFVISWM ---
VS Expanded 11/05/24 11:20 BP 134/61 Blood Pressure Location Rt brachial Blood Pressure Position Sitting Pulse 53 Pulse Source Pulse Oximeter Temp 96.6 F L Temperature Source Temporal Artery Scan Pulse Oximetry 95 Oxygen Delivery Method Room Air Height 6 ft Weight 194 lb BMI 26.3 Intake Visit Reasons: OV F/U Hernia Allergies No Known Allergies Allergy (Verified 11/05/24 11:16) HPI Comments Details: We discussed the findings of the UGI, EGD and Naylor test [facility] Medical History Atrial fibrillation Paraesophageal hernia Diabetes Vitamin D deficiency, unspecified Tubular adenoma of colon Presenile dementia Polyp of colon YESICA (obstructive sleep apnea) Obesity Nicotine dependence Lumbar spondylosis with myelopathy Lumbar canal stenosis Incomplete emptying of bladder Hypertension Hyperlipidemia H/O traumatic brain injury ELIZABETH (generalized anxiety disorder) Depressive disorder Constipation, unspecified CHF (congestive heart failure) COPD (chronic obstructive pulmonary disease) Cervical arthritis Cardiomyopathy Benign prostatic hyperplasia with urinary obstruction Benign prostatic hyperplasia Benign hypertension Arrhythmia Angina pectoris Alcoholism Surgical History History of spinal fusion History of appendectomy History of cervical spinal arthrodesis History of hernia repair History of gastric surgery History of colonoscopy Family History Mother Lung cancer Smoker Father Diabetes High cholesterol Hypertension Unsteady gait Social History Household Members: None Housing: House Alcohol intake: former Year quit: 1987 Patient Tobacco Use Status: Former Tobacco user Tobacco use type: Cigar and Pipe Cigarettes Per Day: 2 e-Cigarette/Vaping Use: Never Used Second Hand Smoke Exposure: No Substance Use Type: Marijuana service: No Current occupational status: retired and disabled Cognitive needs: Yes (brain injury) Hearing needs: No Vision needs: No Physical Exam Vital Signs: Last Vital Signs Temp 96.6 F L 11/05/24 11:20 Pulse 53 11/05/24 11:20 BP 134/61 11/05/24 11:20 Pulse Ox 95 11/05/24 11:20 Oxygen Delivery Method Room Air 11/05/24 11:20 BMI result Body Mass Index 26.3 GI Inspection: Yes normal to inspection and Yes incision (well healed) Palpation (GI): Soft to palpation Extrem Right lower extremity: normal to inspection Left lower extremity: normal to inspection Assessment & Plan Assessment & Plan (1) Paraesophageal hernia: Code(s): K44.9 - Diaphragmatic hernia without obstruction or gangrene Category: Medical Plan: 1.? Plan for lap sleeve gastrectomy with concomitant paraesophageal hernia repair. The sleeve needs to be revised because according to the endoscopy I performed it has significant proximal lateral redundancy which contributes to the acid reflux the patient suffers from. I emphasized the importance of close follow-up, adherence to instructions and good communication. The surgery does not replace the need to change your lifestlyle which is the cause of the obesity problem. The surgery provides the motivation to try again to change your lifestyle, it reduces the appetite and make the transition to a better lifestyle easier and doubles the amount of weight you would lose compared to doing the lifestyle change without the surgery. You will need to be on a liquid diet with protein shakes for 2 weeks before surgery to maximize weight loss and boost your nutritional status to recover better from surgery and also for the first two weeks after surgery to let the stomach heal before we introduce other foods. After the first 2 weeks we will introduce protein bars and soft foods like scrambled eggs, cottage cheese and yogurt and after the 6th week will introduce meat, fish and cooked vegetables in small amounts. Over time you should be able to eat everything in small amounts. Side effects like nausea, vomiting, heartburn or abdominal pain are not common in the practice unless you are not following in the practice. This operation requires lifetime commitment to following in our practice and communication with me. You will much less weight and experience side effects if you don?t communicate or not following in the practice. Complications are rare and in our practice is about 1/10 of the national average. However, you can develop bleeding that may require transfusion (hasn?t happened for year in the practice), you may from complications (we did not have any deaths in the practice) and infections. Infections are usually a result of breakdown in communication or not understanding or following directions correctly. They are difficult to treat, they can happen during the first 6 weeks, they may require to be in the hospital for weeks or even months, not being able to eat by mouth and you may have drains and surgeries to try and correct the issue. Other risks and complications include possible conversion to an open procedure, leaks, small bowel obstruction, blood clots, cardiac, or pulmonary complications, as movement assembler complications such as ulcers, insufficient weight loss and vitamin deficiencies. 2. Nutritional counseling. Start with one premade PREMIER protein (buy at [employer] or [employer]) shake (mix 4oz of Premier mixed with 4oz low fat unsweetened almond milk each) at 7am-9am, one protein bar (Fit Crunch protein bar, buy at [employer], or [employer]) at 10am-12pm, another premade PREMIER protein shake (mix 4oz of Premier mixed with 4oz low fat unsweetened almond milk each) at 1pm-3pm, dinner at 5pm (4 forks of protein and 4 forks of salad/vegetables) and another HALF [employer] protein bar at 6pm-7pm So you do 2 protein shakes, 1.5 protein bars and one meal per day. Meal to include lean meat (beef, fish, pork, turkey, chicken), or czech yogurt, or egg whites, or beans with a salad with olive oil and fruits (berries, pears, apples, kiwi). Avoid salt, breads, potatoes, rice, pasta, desserts. 3. Each shake would be drunk slowly, like coffee in a period of 2 hours. 4. Cut each bar in 4 pieces and eat each piece in 30min ?to make each bar last 2 hours. 5. I emphasized the importance of measuring accurately the food portion and measure it when serving the food in plate 6. The meal portions include 4 full-size forks of meat and 4 full-size forks of salad, OR 4 forks of potatoes or rice. You always eat the meat portion first. 7. One full-size fork is what it can be scooped on the fork without falling aside and not what can be bit with the fork. Use regular forks like those you find in a typical restaurant. 8.? Please buy the body composition scale we discussed and send me weight measurements as soon as possible and then once a week. Always include your diet and exercise plan. 9. The best choice would be to purchase a stationary bike, elliptical or treadmill at home that can track calories. Let me know if you do so I can give you an exercise plan. If you get one, please start stationary bike at a resistance level of 4.0 Increase level by 1.0 every 3 min to a max level of 10.0. Stay at this level for 3 min and then return to level 4.0 and repeat same steps until 300 calories are burned. Goal is to burn 2000 calories per week on exercise 10. Goal is to lose at least 1.5-2lbs per week 11. Goal to lose 10% of your weight before surgery, which is about 20lbs. Ultimate weight goal: 174lbs before surgery 12. Please follow the diet plan exactly without any change. If you don't like something about the plan or you feel hungry you need to communicate with me so I can help you revise the plan. You should not change the plan yourself Orders: Orders TSH reflex Free T4 Today I48.0 - Paroxysmal atrial fibrillation, I50.42 - Chronic combined systolic (congestive) and diastolic (congestive) heart failure, K44.9 - Diaphragmatic hernia without obstruction or gangrene Complete Blood Count Auto Diff Today I48.0 - Paroxysmal atrial fibrillation, I50.42 - Chronic combined systolic (congestive) and diastolic (congestive) heart failure, K44.9 - Diaphragmatic hernia without obstruction or gangrene Insulin Today I48.0 - Paroxysmal atrial fibrillation, I50.42 - Chronic combined systolic (congestive) and diastolic (congestive) heart failure, K44.9 - Diaphragmatic hernia without obstruction or gangrene Ferritin Today I48.0 - Paroxysmal atrial fibrillation, I50.42 - Chronic combined systolic (congestive) and diastolic (congestive) heart failure, K44.9 - Diaphragmatic hernia without obstruction or gangrene Vitamin B1 Today I48.0 - Paroxysmal atrial fibrillation, I50.42 - Chronic combined systolic (congestive) and diastolic (congestive) heart failure, K44.9 - Diaphragmatic hernia without obstruction or gangrene Vitamin A Today I48.0 - Paroxysmal atrial fibrillation, I50.42 - Chronic combined systolic (congestive) and diastolic (congestive) heart failure, K44.9 - Diaphragmatic hernia without obstruction or gangrene US abdomen comp w elastography Today I48.0 - Paroxysmal atrial fibrillation, I50.42 - Chronic combined systolic (congestive) and diastolic (congestive) heart failure, K44.9 - Diaphragmatic hernia without obstruction or gangrene PFT pulmonary function test Today I48.0 - Paroxysmal atrial fibrillation, I50.42 - Chronic combined systolic (congestive) and diastolic (congestive) heart failure, K44.9 - Diaphragmatic hernia without obstruction or gangrene ECG 12 lead EKG Today I48.0 - Paroxysmal atrial fibrillation, I50.42 - Chronic combined systolic (congestive) and diastolic (congestive) heart failure, K44.9 - Diaphragmatic hernia without obstruction or gangrene C Reactive Protein Today I48.0 - Paroxysmal atrial fibrillation, I50.42 - Chronic combined systolic (congestive) and diastolic (congestive) heart failure, K44.9 - Diaphragmatic hernia without obstruction or gangrene Comprehensive Met. Panel Today I48.0 - Paroxysmal atrial fibrillation, I50.42 - Chronic combined systolic (congestive) and diastolic (congestive) heart failure, K44.9 - Diaphragmatic hernia without obstruction or gangrene Vitamin B12 and Folate Today I48.0 - Paroxysmal atrial fibrillation, I50.42 - Chronic combined systolic (congestive) and diastolic (congestive) heart failure, K44.9 - Diaphragmatic hernia without obstruction or gangrene Lipid Panel Today I48.0 - Paroxysmal atrial fibrillation, I50.42 - Chronic combined systolic (congestive) and diastolic (congestive) heart failure, K44.9 - Diaphragmatic hernia without obstruction or gangrene Hemoglobin A1c Today I48.0 - Paroxysmal atrial fibrillation, I50.42 - Chronic combined systolic (congestive) and diastolic (congestive) heart failure, K44.9 - Diaphragmatic hernia without obstruction or gangrene Vitamin D 25-OH Total Today I48.0 - Paroxysmal atrial fibrillation, I50.42 - Chronic combined systolic (congestive) and diastolic (congestive) heart failure, K44.9 - Diaphragmatic hernia without obstruction or gangrene Zinc Today I48.0 - Paroxysmal atrial fibrillation, I50.42 - Chronic combined systolic (congestive) and diastolic (congestive) heart failure, K44.9 - Diaphragmatic hernia without obstruction or gangrene IRON PROFILE Today I48.0 - Paroxysmal atrial fibrillation, I50.42 - Chronic combined systolic (congestive) and diastolic (congestive) heart failure, K44.9 - Diaphragmatic hernia without obstruction or gangrene XR chest 2V Today I48.0 - Paroxysmal atrial fibrillation, I50.42 - Chronic combined systolic (congestive) and diastolic (congestive) heart failure, K44.9 - Diaphragmatic hernia without obstruction or gangrene Referrals Behavioral Health Referral I48.0 - Paroxysmal atrial fibrillation, I50.42 - Chronic combined systolic (congestive) and diastolic (congestive) heart failure, K44.9 - Diaphragmatic hernia without obstruction or gangrene
[2024-11-05 11:20] VITALS: BP 134/61; PULSE 53; TEMP 35.9; O2SAT 95; BMI 26.3
--- OUTSIDE RECORDS SUMMARY | 2024-11-05 13:49 | XMS_ITS | Clinical Summary ---
Author Organization [facility] Address [address] [place] [id number] Care Team Providers Care Director Of Marketing Analytics Name Role Phone Susan Gonsalez MD Primary Care Provider [phone] Allergies No known active allergies Medications Medication [...] Advance Directives For more information, please contact: [phone] Latest Code Status on File Code Status Date Activated Date Inactivated Comments Full Code 11/03/2022 7:02 PM 11/05/2022 12:09 AM This code status was ascertained in the following way: discussion with patient. Care Teams Director Of Marketing Analytics Relationship Specialty Start Date End Date Susan Gonsalez MD PCP - General Internal Medicine 11/03/22
--- OUTSIDE RECORDS SUMMARY | 2024-11-05 13:49 | XMS_ITS | Patient Health Record ---
Author Organization [facility] Address [address] [facility] [place] [address] Care Team Providers Care Lacrosse Player Name Role Phone Susan Hardy MD Primary Care Provider UnavailJuan Jeff Unavailable [phone] Roberta Hopper Unavailable [phone] Allergies Allergen (clinical drug ingredient) Drug/Non Drug Allergy documented on EMR Reaction Allergy Type Onset Date Status Seasonal IC Unknown Drug Allergy Activ e Results Component Value Reference Range Notes HEMOGLOBIN A1C (GLYCOHEMOGLO BIN) Reviewed date:10/30/2024 08:56:17 AM Interpretation: Performing Lab: Notes/Report: HEMOGLOBIN A1C % (HH) 6.0 Reason For Referral No Information Medications Medication SIG (Take, Route, Frequency, Duration) Notes Start Date End Date Status Extra Depth Orthopedic Shoes (1 Pair) with Customized Heat Molded Multidensity Innersoles (3 Pair) Dx: NIDDM/Polyneuropathy (E11.42), Hammertoe Foot Deformity (M20.41,M20.42), Preulcerative Skin Lesion(s) (L85.1); Duration: 365 days 10/30/2024 Active Fluticasone Furoate Active Albuterol Active Fondaparinux Sodium 2.5 MG/0.5ML as directed Subcutaneous Act zack Apixaban 5 MG as directed Orally t wice a day Active Aspirin 81 MG 1 tablet Orally Once a day Active QUEtiapine Fumarate 50 MG 1 tablet at be dtime Orally Once a day Active Ensure High Protein Active Spironolactone 25 MG 1 tablet Orally Onc e a day Active Farxiga 10 MG 1 tablet Orally Once a day Active FLUoxetine HCl 20 MG 1 capsule Orally On ce a day Active Fluticasone Propionate 50 MCG/ACT 1 spray in each nostril Nasally Twice a day Active metFORMIN HCl 500 MG 1 tablet with a sirisha l Orally Once a day Active Azelastine HCl 137 MCG/SPRAY 2 puffs (1 spray in each nostril) Nasally Twice a day Active Metoprolol Succinate 50 MG 1 capsule Ora lly Once a day Active FreeStyle Lite Test Active oxyCODONE HCl 30 MG as directed Orally Active clonazePAM 0.5 MG 1 tablet Orally Once a day Active Pantoprazole Sodium 40 MG 1 tablet 1/2 t o 1 hour before morning meal Orally Once a day Active Digoxin 125 MCG 1 tablet Orally Active Furosemide 20 MG 1 tablet Orally Once a day Active Immunizations Vaccine Route Administration Date Status Comme nts Influenza Unknown 11/15/2023 Administered Social History Tobacco Use: Social History Observation Description Date Details (start date - stop date) Never Smoker NA - NA Tobacco use other than smoking: Question Answer Notes Are you an other tobacco user? No Tobacco Control (Standard) Question Answer Notes Tobacco use: Nonsmoker Additional Findings: Tobacco non-user Current no nsmoker AUDIT-C (Standard) Question Answer Notes Did you have a drink containing alcohol in the p ast year? No Points 0 Interpretation Negative Problems Problem Type SNOMED Code ICD Code Onset Dates Problem Status W/U Status Risk Notes Problem Polyneuropathy due to type 2 diabetes mellitus (449857659) Type 2 diabetes mellitus with diabetic polyneuropathy (E11.42) Active confirmed Vital Signs Blood pressure diastolic 80 mm Hg 10/30/2024 Height 6ft in 10/30/2024 Blood pressure systolic 120 mm Hg 10/30/2024 Weight 200 lbs 10/30/2024 BMI 27.12 kg/m2 10/30/2024 Encounters Encounter Location Date Provider Diagnosis [facility] [address] [place] [address] 10/30/2024 Roberta Hopper Type 2 diabetes mellitus with diabetic polyneuropathy E11.42 ; Other hammer toe(s) (acquired), right foot M20.41 ; Tinea unguium B35.1 and Other hammer toe(s) (acquired), left foot M20.42 Assessments Encounter Date Diagnosis (ICD Code) Assessment Notes Treatment Notes Treatment Clinical Notes Section Notes 10/30/2024 Other hammer toe(s) (acquired), right foot (ICD-10 - M20.41) Patient Educated with: DIABETIC FOOT CARE INSTRUCTIONS. pdf (DIABETIC FOOT CARE INSTRUCTIONS. pdf) 10/30/2024 Type 2 diabetes mellitus with diabetic polyneuropathy (ICD-10 - E11.42) 10/30/2024 Tinea unguium (ICD-10 - B35.1) 10/30/2024 Other hammer toe(s) (acquired), left foot (ICD-10 - M20.42) Plan Of Treatment Next Appt Details Provider Name:Roberta goldman, 2025 09:00:00 AM, [address] [facility], [place], [address], Insurance Providers Payer Name Payer Address Payer Phone Subscriber Number Group Number Insured Name Patient Relationship to Insured Coverage Start Date Coverage End Date [facility] [employer] Claims [address] [place] [phone] [id number] [place] Taylor Self - patient is the insured Medical (General) History Medical History History ICD Code COPD TBI Diabetic Reflux ( GERD) Heart disease Bone implants/screws Surgical History Surgery Date(Month/Year) 3 fused vert. in neck 1994 2 fused lower back 1997
--- OUTSIDE RECORDS SUMMARY | 2024-11-05 13:49 | XMS_ITS | Clinical Summary ---
Author Organization [facility] Address [address] [address] Phone Care Team Providers Care Egg Pasteurizer Name Role Phone Susan Gonsalez MD Primary Care Provider [phone] Allergies No known active allergies Medications multivitamin-iro w-lglakmah-pqvwv acid (CENTRUM) chewable tablet Chew 1 tablet [...] changes severa central canal stenosis at l3-4 Immunizations Immunization Administration Dates Next Due Influenza [...] Visit [facility] [address] [facility] [address] [place] [id number] Ronan Beltrán MD [address] [facility] [address] [place] [address] Health Maintenance Due Date Last Done [...] AM EST) Hemoglobin A1C 6.2(H) (4.0-5.6) % [facility] Comment: MONITORING: In known diabetic patients, hemoglobin A1c targets should be discussed with health care provider. DIAGNOSTIC USE: The [place] Diabetes Association (ADA) and the World Health [...] Supplement 1 Testing performed or reported by [facility], a Service of [facility], [address] [place] [address] Mckayla Vargas MD, Scenario Writer [facility]# [id number] Blood specimen (specimen) Venous blood / Unknown 02/25/2022 10:40 AM EST 02/25/2022 10:51 AM EST Malcolm German MD LAB BLOOD ORDERABLES Rukhsana kidd Result [facility] from Last 3 Months or Most Recently Relevant to Health Maintenance Insurance ([id number]) [facility] ([id number]) [place] [id number] Care Teams Egg Pasteurizer Relationship Specialty Start Date End Date Susan Gonsalez MD [address] [place] [address], [address] [place] [address] PCP - General Internal Medicine 07/05/23
--- OUTSIDE RECORDS SUMMARY | 2024-11-05 13:49 | XMS_ITS | Clinical Summary ---
Author Organization [facility] Address [address] [facility] [place] [address] Phone Care Team Providers Care Site Planner Name Role Phone Susan Gonsalez MD Primary Care Provider [phone] Allergies No known active allergies Medications digoxin [...] daily (with breakfast). Active FREESTYLE LANCETS [facility] USE TO TEST TWICE A DAY Active aspirin 81 mg EC tablet TAKE 1 TABLET BY MOUTH EVERY DAY Active blood sugar diagnostic (FreeStyle Lite Strips) test strip Apply 1 Strip topically 2 times daily. Active alcohol swabs pads, medicated 1 Each by route 2 times daily. Use when testing blood sugar Active furosemide (LASIX) 20 mg tabletIndications:O ther cardiomyopathies (CMS/HCC V24, CMS/HCC V28) TAKE 1 [...] (six) hours if needed for wheezing. Active clonazePAM (KlonoPIN) 0.5 mg tablet 1 tablet (0.5 mg total). 08/28/19 25 Active fondaparinux (ARIXTRA) 2.5 mg/0.5 mL syringe INJECT 2.5 SUBCUTANEOUSLY EVERY 24 HRS Active pantoprazole (PROTONIX) 40 mg EC tablet 1 tablet (40 mg total). Active Active Problems Problem Noted Date Diagnosed Date Paroxysmal atrial fibrillation ([facility] V24, [facility] V28) 05/10/2023 Overview (02/21/2024): February 2023 - newly discovered asymptomatic atrial fibrillation with rapid ventricular response; initially rate controlled March 2023 - JOSEF/DCCV attempt aborted due to ROSIO thrombus; patient initially with non-adherence to apixaban June 2023 - ultimately successful adherence to AC therapy with successful JOSEF/DCCV at [facility] Assessment & Plan (02/21/2024 9:16 AM EST): Now paroxysmal atrial fibrillation status post DCCV. Asymptomatic. EKG today showed sinus rhythm. CHADSVASc - 3. Continue with apixaban, metoprolol and digoxin. May consider discontinuation of digoxin at next visit if maintaining sinus rhythm. Orders: ECG 12 lead Chronic diastolic heart failure ([facility] V24, [facility] V28) 03/25/2023 Assessment & Plan (02/21/2024 9:16 [...] medication compliance. Coronary artery disease invo lving [place] coronary artery of [place] heart without angina pectoris 03/25/2023 Traumatic brain injury ([facility] V24, [facility] V28 ) 03/25/2023 Cervical arthritis 11/03/2022 Left wrist fracture, closed, initial encounter 0 11/03/2022 Unequal pupils 11/03/2022 Nonischemic cardiomyopathy ([facility] V24, 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 V24, [facility] V28) 01/19/2010 Overview (01/04/2024): diagnosed 04/[address] garay podiatry-Eye exam-.10 dr lopez Depression 01/19/2010 Overview (01/04/2024): Seeing wautoma psych Hyperlipidemia 01/19/2010 Assessment & Plan (02/21/2024 [...] 0 COPD (chronic obstructive pu lmonary disease) ([facility] V24, [facility] V28) 01/19/2010 Overview (01/04/2024): Dr rodrigez pulmonary-on oxygen HS BPH (benign prostatic hyperplasia) 01/19/2010 Overview (01/04/2024): Dr crawford urology-seen 08/23 Resolved Problems Problem Noted Date Diagnosed Date Resolved Date Chronic atrial fibrillation ([facility] V24, [facility] V28) 03/25/2023 02/21/2024 Obesity 06/22/2010 02/21/2024 Encounters Date Type Department Care Team Description 10/30/2024 10:00 AM EDT Office Visit Pulmonology - [place] [address] [facility] [address] [place] [id number] Marichuy Flor MD Lung nodule (Primary Dx) 10/29/2024 7:06 AM EDT - 10/29/2024 11:59 PM EDT Hospital Encounter [facility] CT Scan [address] [place] [id number] Lung nodule Discharge Disposition: Home or Self Care 08/28/2024 1:30 PM EDT Office Visit Pulmonology - [place] [address] [facility] [address] [place] [phone] Marichuy Flor MD Lung nodule (Primary Dx) 08/20/[address] [place] [address] Susan Gonsalez MD from Last 3 Months Immunizations Name [...] notes HERNIA REPAIR WRIST SURGERY Right per case planner BARIATRIC SURGERY Medical History Medical History Date Comments Obesity 06/22/2010 DX:Obesity CKD (chronic kidney disease), stage II DX:CKD (chronic kidney disease), stage II Hypokalemia DX:Hypokalemia Alcoholism (CMS/HCC V24, CMS/HCC V28) DX:Alcoholism ([facility]) Angina pectoris ([facility]) DX :Angina pectoris ([facility]) Benign prostatic hyperplasia DX: Benign prostatic hyperplasia Benign prostatic hyperplasia with urinary obstruction DX:Benign prostatic hyperpla simi with urinary obstruction TBI (traumatic brain injury) ([facility] [place], [facility] V28) per acute care nurse practitioner Arrhythmia A fib per cardia c notes H/O gastric bypass History of appendectomy Cardiomyopathy ([facility] [place], [facility] V28) history of: Sleep apnea Does not use cpa p per case planner Oxygen dependent Uses 1 lpm oxyg en at night via nc per case plannersr. manager marketing mellitus ([facility] V 24, [facility] V28) Forgetfulness Related to TBI COPD (chronic obstructive pu lmonary disease) ([facility] [place], [facility] V28) from H&P GERD (gastroesophageal reflux disease) [...] Sign Reading Time Taken Comments Blood Pressure 124/70 10/30/2024 10:17 AM EDT Pulse 48 10/30/2024 10:17 AM EDT Temperature 36.8 C (98.3 F) 10/30/2024 10:17 AM EDT Respiratory Rate 18 05/25/2024 3:15 PM EDT Oxygen Saturation 97% 10/30/2024 10:17 AM EDT Inhaled Oxygen Concentration - - Weight 86.8 kg (191 lb 6.4 oz) 10/30/2024 10:17 AM EDT Height 182.9 cm (6') 10/30/2024 10:17 AM EDT Body Mass Index 25.96 10/30/2024 10:17 AM EDT Plan of Treatment Health Maintenance Due [...] this topic Medical Devices Implanted Type Area Electric Mule Driver Device Identifier Shelf Expiration Date Model / Serial / Lot Marker Cobra Superlock - Sn/A - [id number] Implanted:Qty : 1 on 05/16/2024 by Marichuy Flor MD at [facility] Implants Left: Lung [employer] 12/21/2027 [id number] / N/A / [id number] Description:LEFT UPPER LOBE Procedures Procedure Name Priority Date/Time Associated Diagnosis Comments CT CHEST WO CONTRAST Routine 10/29/2024 7:21 AM EDT Lung nodule COMPREHENSIVE METABOLIC PANEL Routine 07/17/2024 2:26 PM EDT VANDANA (mycobacterium avium-intracellula re) ([facility]/HCC V24, [facility]/HCC V28) Necrotizing granuloma of liver EXTERNAL COLONOSCOPY REPORT Routine 04/30/2024 1:18 PM EDT HEMOGLOBIN A1C Routine 11/04/2022 HM URINE ALBUMIN CREATININE RATIO Routine 05/27/2020 LIPID PANEL Routine 05/27/2020 HM HEPATITIS C SCREENING Routine 06/14/2012 HM DEPRESSION SCREENING Routine 03/18/2011 from Last 3 Months or Most Recently Relevant to Health Maintenance Results * CT Chest wo Contrast (10/29/2024 7:21 AM EDT) Anatomical Region Laterality Modality Body Computed Tomogra phy 10/30/2024 10:5 9 AM EDT Impressions 10/30/2024 11:09 AM EDT Impression: 1. Slight decrease in size of the left upper lobe nodule being followed, status post interim cryobiopsy. 2. No suspicious developing nodule identified. 3. Scattered foci of peripheral tree-in-bud opacity in both lungs, consistent with distal airways infection/mucous plugging. 4. No developing thoracic lymphadenopathy. Telerad PA ([id number]) -------- FINAL REPORT -------- Dictated By: Gabrielle Cobos Dictated Date: 10/30/2024 10:59 ET Assigned Physician: Gabrielle Cobos Reviewed and Electronically Signed By: Gabrielle Cobos Signed Date: 10/30/2024 11:09 ET Workstation ID: [id number] Transcribed By: Self Edit Transcribed Date: 10/30/2024 10:59 ET Narrative 10/30/2024 11:09 AM EDT History: Lung nodule, greater than 8 mm. Status post cryobiopsy left upper lobe 05/16/24 yielding necrotizing granulomatous inflammation. Comparison: 02/28/24 Technique: Helical volumetric imaging of the thorax was performed without IV contrast. DLP: 901.61 mGy/cm INBEP VCT Iterative reconstruction technique Findings: The left upper lobe nodule being followed persists, slightly smaller, measuring 9 x 4 mm (image 66 series 4) compared to 9 x 7 mm on the previous exam. There is an adjacent fiducial marker, consistent with the interim biopsy procedure. Minimal stranding within the adjacent parenchyma is new, extending to the major fissure, possibly infectious/inflammatory. The trachea and central bronchial tree remain patent. Diffuse bronchial wall thickening is consistent with bronchitis, without significant change. Centrilobular emphysema is again noted. There are minimal scattered foci of peripheral tree-in-bud opacity in both lungs, new from the previous study, consistent with distal airways infection/mucous plugging. No suspicious developing pulmonary nodule is seen. No pleural or pericardial effusions are seen. The heart remains normal in size. Severe, three-vessel coronary artery calcification is again noted. Mild mediastinal lymphadenopathy is again seen, including an enlarged aortopulmonary window lymph node measuring 15 mm short axis. No significant change is seen. A small portion of the upper abdomen included on the lowest images through the thorax is remarkable for sleep gastrectomies sequela and a small hiatal hernia. Diffuse low-density thickening of the adrenal glands is unchanged, suggesting hyperplasia. There is thick, flowing hyperostosis along the anterior aspect of the thoracic spine, suggesting diffuse idiopathic skeletal hyperostosis (DISH). Procedure Note Gabrielle Cobos MD - 10/30/2024 History: Lung nodule, greater than 8 mm. Status post cryobiopsy left upperlobe 05/16/24 yielding necrotizing granulomatous inflammation. Comparison: 02/28/24 Technique: Helical volumetric imaging of the thorax was performed withoutIV contrast. DLP: 901.61 mGy/cm [employer] Iterative reconstruction technique Findings: The left upper lobe nodule being followed persists, slightly smaller,measuring 9 x 4 mm (image 66 series 4) compared to 9 x 7 mm on theprevious exam. There is an adjacent fiducial marker, consistent with theinterim biopsy procedure. Minimal stranding within the adjacent parenchymais new, extending to the major fissure, possiblyinfectious/inflammatory. The trachea and central bronchial tree remain patent. Diffuse bronchialwall thickening is consistent with bronchitis, without significant change.Centrilobular emphysema is again noted. There are minimal scattered foci of peripheral tree-in-bud opacity in bothlungs, new from the previous study, consistent with distal airwaysinfection/mucous plugging. No suspicious developing pulmonary nodule isseen. No pleural or pericardial effusions are seen. The heart remains normal in size. Severe, three-vessel coronary arterycalcification is again noted. Mild mediastinal lymphadenopathy is againseen, including an enlarged aortopulmonary window lymph node measuring 15mm short axis. No significant change is seen. A small portion of the upper abdomen included on the lowest images throughthe thorax is remarkable for sleep gastrectomies sequela and a smallhiatal hernia. Diffuse low-density thickening of the adrenal glands isunchanged, suggesting hyperplasia. There is thick, flowing hyperostosis along the anterior aspect of thethoracic spine, suggesting diffuse idiopathic skeletal hyperostosis(DISH). IMPRESSION: Impression: 1. Slight decrease in size of the left upper lobe nodule being followed,status post interim cryobiopsy. 2. No suspicious developing nodule identified. 3. Scattered foci of peripheral tree-in-bud opacity in both lungs,consistent with distal airways infection/mucous plugging. 4. No developing thoracic lymphadenopathy. Telerad PA ([id number]) -------- FINAL REPORT -------- Dictated By: Gabrielle Cobos Dictated Date: 10/30/2024 10:59 ET Assigned Physician: Gabrielle Cobos Reviewed and Electronically Signed By: Gabrielle Cobos Signed Date: 10/30/2024 11:09 ET Workstation ID: [id number] Transcribed By: Self Edit Transcribed Date: 10/30/2024 10:59 ET us Marichuy Flor MD IM CT PROCEDURES Final Re sult * (ABNORMAL) Comprehensive metabolic panel (07/17/2024 2:26 PM EDT) Sodium 137 133 - 145 mmol/L LAB CHEMISTRY METHOD 07/17/2024 7:37 PM [facility] Potassium 4.0 3.5 - 5.5 mmol/L LAB CHEMISTRY METHOD 07/17/2024 7:37 PM [facility] Chloride 102 96 - 110 mmol/L LAB CHEMISTRY METHOD 07/17/2024 7:37 PM [facility] CO2 30 21 - 32 mmol/L LAB CHEMISTRY METHOD 07/17/2024 7:37 PM [facility] Anion Gap 5 3 - 11 LAB CHEMISTRY METHOD 07/17/2024 7:37 PM [facility] Glucose 85 70 - 100 mg/dL LAB CHEMISTRY METHOD 07/17/2024 7:37 PM [facility] BUN 9 5 - 25 mg/dL LAB CHEMISTRY METHOD 07/17/2024 7:37 PM [facility] Creatinine 0.88 0.70 - 1.30 mg/dL LAB CHEMISTRY METHOD 07/17/2024 7:37 PM [facility] eGFR 93 >=60 mL/min/1. 73m2 LAB CHEMISTRY METHOD 07/17/2024 7:37 PM EDT [facility] Comment:Calculation based on the Chronic Kidney Disease Epidemiology Collaboration (CKD-EPI) equation refit without adjustment for race. BUN/Creatinine Ratio 10.2 LAB CHEMISTRY METHOD 07/17/2024 7:37 PM EDT [facility] Calcium 9.5 8.5 - 10.5 mg/dL LAB CHEMISTRY METHOD 07/17/2024 7:37 PM EDT [facility] AST (SGOT) 16 10 - 42 unit/L LAB CHEMISTRY METHOD 07/17/2024 7:37 PM [facility] ALT (SGPT) 17 10 - 60 unit/L LAB CHEMISTRY METHOD 07/17/2024 7:37 PM [facility] Alkaline Phosphatase 124(H) 42 - 121 unit/L LAB CHEMISTRY METHOD 07/17/2024 7:37 PM [facility] Total Protein 7.4 6.0 - 8.0 g/dL LAB CHEMISTRY METHOD 07/17/2024 7:37 PM [facility] Albumin 3.7 3.2 - 5.0 g/dL LAB CHEMISTRY METHOD 07/17/2024 7:37 PM [facility] Total Bilirubin 0.4 0.0 - 1.4 mg/dL LAB CHEMISTRY METHOD 07/17/2024 7:37 PM T [facility] Blood Venous blood specimen / Unknown Venipuncture / Unknown 07/17/2024 2:26 PM EDT 07/17/2024 2:26 PM EDT us Carol Cote MD LAB BLOOD ORDERABLES Final Resul t [facility] [address] [place] [address], * External Colonoscopy Report (04/30/2024 1:18 PM EDT) Anatomical Region Laterality Modality Endoscopy Result [facility] Provider GI~PROCEDURE ORDERABLES F inal Result * Hemoglobin A1c (11/04/2022) [facility] Hemoglobin A1C 0.0 <=6.5 % Comment:No Interpretation Blood Venous blood specimen / Unknown Result [facility] Provider LAB BLOOD ORDERABLES Rukhsana l Result * Urine Albumin Creatinine Ratio (05/27/2020) [facility] Urine Albumin Creatinine Ratio Abstracted Result [facility] Provider HEALTH MAINTENANCE Final Result * Lipid panel (05/27/2020) [facility] LDL/HDL Ratio 3 0 - 4 Triglycerides 108 0 - 150 mg/dL Cholesterol 164 0 - 200 mg/dL HDL 50 >=40 mg/dL LDL Cholesterol 93 0 - 100 mg/dL Blood Venous blood specimen / Unknown Result [facility] Provider LAB BLOOD ORDERABLES Rukhsana l Result * Hepatitis C Screening (06/14/2012) [facility] Hepatitis C Screening Abstracted Result [facility] Provider HEALTH MAINTENANCE Final Result * Depression Screening (03/18/2011) [facility] Depression Screening Abstracted Result [facility] Provider HEALTH MAINTENANCE Final Result from Last 3 Months or Most Recently Relevant to Health Maintenance [place] [address] [place] [address] [employer] Member Subscriber Plan / Payer (Ef fective 2020-Present) Name:Montana Taylor Relation to Subscriber:Self Name:Montana Tyalor Payer ID:[id number] Group ID:[id number] Type:Not on file Address: [place] [address] [address] [id number] Advance Directives * Full Code - Default [...] currently active code status orders. Care Teams Site Planner Relationship Specialty Start Date End Date Susan Gonsalez MD [address] [place] [id number] PCP - General Endocrinology 03/26/24
== END 2024-11-05 12:57 | disposition home or self-care (01) ==
LOC: HO.HBS 11:08
PROVIDERS: PCP Internal Medicine; Visit Provider Surgery
DX: K44.9 Diaphragmatic hernia without obstruction or gangrene (principal)
CPT/HCPCS: 99214

== ENCOUNTER → 2024-11-05 11:07 | Outpatient (BNVA) | payer OTHER, SELFPAY | PROVIDERS: PCP Internal Medicine; Visit Provider Surgery | DX: K44.9 Diaphragmatic hernia without obstruction or gangrene (principal); I48.0 Paroxysmal atrial fibrillation; I50.32 Chronic diastolic (congestive) heart failure | CPT/HCPCS: 99212 ==

== ENCOUNTER → 2024-11-09 23:59 | Outpatient (BNV) | payer OTHER, SELFPAY | PROVIDERS: PCP Internal Medicine; Visit Provider Internal Medicine | DX: J44.9 Chronic obstructive pulmonary disease, unspecified (principal); F17.210 Nicotine dependence, cigarettes, uncomplicated; I42.9 Cardiomyopathy, unspecified | CPT/HCPCS: G0179 ==

== ENCOUNTER 2025-01-01 08:12 | Outpatient (REF) | payer OTHER, SELFPAY ==
--- NOTE | ~2025-01-01 | XR_ITS ---
EXAMINATION: XR CHEST CLINICAL INFORMATION: I50.42 - Chronic combined systolic (congestive) and diastolic (congestiv... COMPARISON: None available. TECHNIQUE: 2 views of the chest were obtained. FINDINGS: Cardiomediastinal silhouette is within normal limits. There is prominence of the central pulmonary vasculature. No focal consolidation. No effusion. No thorax. Multilevel thoracolumbar spondylosis. Spinal stimulator wires present. XR/XR chest 2V IMPRESSION: No acute findings Electronically signed by: Andre Sahni MD 01/01/2025 12:57 PM EST
--- NOTE | ~2025-01-01 | US_ITS ---
EXAMINATION: US COMPLETE ABDOMEN WITH LIVER ELASTOGRAPHY CLINICAL INFORMATION: Obesity. Congestive heart failure. COMPARISON: None available. TECHNIQUE: Real-time imaging of the abdominal viscera. Noninvasive ultrasound liver fibrosis assessment is performed using Siemens point quantification shear wave elastography (pSWE) with a C5-2 MHz transducer. Multiple elastography samples are obtained. FINDINGS: PANCREAS: Mostly obscured by gas. ABDOMINAL AORTA: The proximal and mid aorta are obscured by gas. The distal aorta is normal in caliber. INFERIOR VENA CAVA: Visualized portions are normal. LIVER: The liver demonstrates mildly increased size, normal contour and slightly increased parenchymal echogenicity. No focal lesion or intrahepatic biliary duct dilatation. The right lobe measures 19.6 cm in length. The left lobe measures 9.3 cm in length. Portal flow is towards the liver (hepatopetal). Shear wave liver elastography median stiffness is 1.08 m/s (reference: normal median stiffness is 1.3 m/s or less). IQR/median stiffness to assess sampling precision is 0.31 (reference: good quality data set is IQR/median stiffness of 0.30 or less). GALLBLADDER: The gallbladder is physiologically distended without evidence of stones, sludge, polyps, wall thickening or pericholecystic fluid. There is adenomyomatosis of the gallbladder wall. Negative sonographic Coulter's sign. COMMON BILE DUCT: Normal in caliber measuring 0.4 cm in diameter. RIGHT KIDNEY: No hydronephrosis. No renal calculi or suspicious focal parenchymal lesions. The kidney measures 10.3 cm in maximum dimension. There is a simple cyst in the upper pole medially measuring 1.7 x 1.2 x 1.3 cm. LEFT KIDNEY: No hydronephrosis. No renal calculi or suspicious focal parenchymal lesions. The kidney measures 12.1 cm in maximum dimension. SPLEEN: Unremarkable. The spleen measures 10.7 cm in maximum dimension. FREE FLUID: None seen. US/US abdomen comp w elastography IMPRESSION: 1. Mild hepatomegaly and minimally increased hepatic echogenicity. Findings most likely relate to steatosis. No suspicious focal lesion. No biliary dilatation. 2. Liver elastography: Although measurements suggest a high probability of normal liver stiffness, there is statistical variability of the sampling which decreases accuracy. 3. There is adenomyomatosis of gallbladder wall. The gallbladder is otherwise normal. 4. There is a 1.7 cm simple cyst in the right kidney upper pole medially. REFERENCE: Society of [employer]iologists in Ultrasound Liver Stiffness Thresholds (2019): LIVER STIFFNESS THRESHOLDS: *Liver Stiffness equal or less than 1.3 m/s: High probability of being normal. *Liver Stiffness less than 1.7 m/s: In the absence of other known clinical signs, rules out compensated advanced chronic liver disease. *Liver Stiffness 1.7-2.1 m/s: Suggestive of compensated advanced chronic liver disease but need further test for confirmation. *Liver Stiffness over 2.1 m/s: Rules in compensated advanced chronic liver disease. *Liver Stiffness over 2.4 m/s: Suggestive of clinically significant portal hypertension. QUALITY OF DATA SET: *IQR/Median value equal or less than 0.30 implies a quality data set. *IQR/Median value over 0.30 implies a poor quality data set. SIGNIFICANT CHANGE FROM PRIOR EXAM: Significant change if liver stiffness measurement is 10% or greater from prior exam. OTHER CONSIDERATIONS: The stage of liver fibrosis may be overestimated in the setting of acute hepatitis, liver inflammation, elevated liver function tests, hepatic vascular congestion, obstructive cholestasis, non-fasting state, and infiltrative diseases such as amyloidosis and lymphoma. In some patients with NAFLD, the liver stiffness thresholds for compensated advanced chronic liver disease may be lower. In causes other than viral hepatitis and NAFLD, liver stiffness thresholds are not well established. Electronically signed by: Aldo Hartman MD 01/01/2025 09:21 AM [facility]
== END 2025-01-01 08:13 | disposition home or self-care (01) ==
LOC: HO.US 08:12
PROVIDERS: PCP Internal Medicine; Visit Provider Surgery
DX: I50.42 Chronic combined systolic (congestive) and diastolic (congestive) heart failure (principal); I48.0 Paroxysmal atrial fibrillation; K44.9 Diaphragmatic hernia without obstruction or gangrene; E66.9 Obesity, unspecified
CPT/HCPCS: 71046; 76700; 76981

== ENCOUNTER → 2025-01-01 08:14 | Outpatient (BNV) | payer OTHER, SELFPAY | PROVIDERS: PCP Internal Medicine; Visit Provider Radiology Diagnostic Radiology | DX: K76.0 Fatty (change of) liver, not elsewhere classified (principal); R93.2 Abnormal findings on diagnostic imaging of liver and biliary tract; N28.1 Cyst of kidney, acquired; I50.42 Chronic combined systolic (congestive) and diastolic (congestive) heart failure | CPT/HCPCS: 71046; 76700 ==

== ENCOUNTER 2025-01-04 09:54 | Outpatient (AMB) | payer OTHER, SELFPAY ==
--- OUTSIDE RECORDS SUMMARY | 2024-11-27 08:00 | XMS_ITS ---
Author Organization [facility] Address [address] [place] [address] Care Team Providers Care Cane Flume Chute Operator Name Role Phone Susan Hardy MD Primary Care Provider Unavailabl Juan Fischer Unavailable [phone] REASON FOR VISIT Seen Sooner Encounters Encounter Location Date Provider Diagnosis [address] [phone] 11/27/2024 Juan Fleming Plan Of Treatment Next Appt Details Provider Name:Roberta goldman, 2025 09:00:00 AM, [address] [place], [address], Progress Notes * Terrell TAYLORSaundraOB: (69 yo M)Acc No.[id number]:11/27/2024 Progress Notes Patient: [place] KATE Provider: Sarah Beth Fleming DPM :1955 A ge:69 Y S ex:Male Date:11/27/2024 Address:[address], [place], [place]-[phone] Pcp:Susan Hardy MD Subjective: * Chief Complaints: * 1 . Seen Sooner. * Medical History: Objective: * Vitals: Assessment: Plan: * Treatment: * Images: * The named appointment provid er may or may not be the originator of this progress note, and it is not deemed complete until electronically signed by the appointment provider. Sign off status: Pending * Provider: Sarah Beth Fleming DPM Date: Generated for Zuhair Chance on: 03/06/2024 10:33 AM EST
--- OUTSIDE RECORDS SUMMARY | 2025-01-01 09:40 | XMS_ITS | Encounter Summary ---
Author Organization [facility] Address [address] [place] [address] Care Team Providers Care Cementer Machine Joiner Name Role Phone Susan Gonsalez MD Primary Care Provider Reason for Visit * Reason Comments Pre-op Exam Encounter Details Date Type Department Care Team (Late st Contact Info) Description 01/01/2025 9:40 AM EST Consult [facility] [address] [place] [phone] Tex Aguila NP [address] [place] [address] [address] [place] [phone] Preop cardiovascular exam (Primary Dx); Paroxysmal atrial fibrillation (CMS/HCC V24, CMS/HCC V28); Nonischemic cardiomyopathy (CMS/HCC V24, CMS/HCC V28); HTN (hypertension), benign; Hyperlipidemia, unspecified hyperlipidemia type; Chronic diastolic heart failure (CMS/HCC V24, CMS/HCC V28) Social History Tobacco Use Types Packs/Day Years [...] Sign Reading Time Taken Comments Blood Pressure 90/54 01/01/2025 9:32 AM EST Pulse 68 01/01/2025 9:32 AM EST Temperature - - Respiratory Rate - - Oxygen Saturation 98% 01/01/2025 9:32 AM EST Inhaled Oxygen Concentration - - Weight 91.6 kg (202 lb) 01/01/2025 9:32 AM EST Height 182.9 cm (6') 01/01/2025 9:32 AM EST Body Mass Index 27.4 01/01/2025 9:32 AM EST documented in this encounter Progress Notes * Tex Aguila NP - 01/01/2025 9:40 AM ESTAssociated Problem(s): Paroxysmal atrial fibrillation (CMS/HCC V24, CMS/HCC V28) Now paroxysmal atrial fibrillation status post DCCV. Asymptomatic. EKG today showed sinus rhythm. CHADSVASc - 3. Continue with apixaban, metoprolol and digoxin. May consider discontinuation of digoxin at next visit (after surgeries) if maintaining sinus rhythm. Orders: ECG 12 lead * Tex Aguila NP - 01/01/2025 9:40 AM ESTAssociated Problem(s): Nonischemic cardiomyopathy (CMS/HCC V24, CMS/HCC V28) Severe reduced LV systolic function in setting of tachycardia induced cardiomyopathy, now normalized LV systolic function LVEF 60-65% on echocardiogram from October 2023. Continue with dapagliflozin, furosemide, digoxin, lisinopril, metoprolol and spironolactone. * Tex Aguila NP - 01/01/2025 9:40 AM ESTAssociated Problem(s): HTN (hypertension), benign Well controlled. Continue with dapagliflozin, lisinopril, furosemide, metoprolol and spironolactone. * Tex Aguila NP - 01/01/2025 9:40 AM ESTAssociated Problem(s): Chronic diastolic heart failure (CMS/HCC V24, CMS/HCC V28) Echocardiogram from October 2023 showed normal LV systolic function LVEF 60- 65%. He appears compensated on exam. Continue with dapagliflozin, furosemide, digoxin, lisinopril, metoprolol and spironolactone. Consider stopping digoxin at next visit as well as aspirin. We reviewed heart failure management including low-sodium diet, symptom surveillance, daily weights and medication compliance. * Tex Aguila NP - 01/01/2025 9:40 AM ESTAssociated Problem(s): Hyperlipidemia July 2022 - Non HDL cholesterol 102. Continue with simvastatin. We discussed risk reduction throughlifestyle choices including healthy diet, routine exercise and weight management. Orders: ECG 12 lead * Tex Aguila NP - 01/01/2025 9:40 AM ESTAssociated Problem(s): Preop cardiovascular exam The patient is here for preop cardiovascular examination prior to a hernia surgery and then Inspireimplant surgery. Pre-procedure EKG was completed today and showed no new changes. Per the Maki Cardiac Risk Index the patient is low for this procedure. He is stable from a cardiovascular standpointand is not recommended for any preoperative testing. Please continue with his metoprolol and digoxin perioperatively. He may discontinue with aspirin seven days and apixaban two days prior to surgery. He is at elevated risk for arrhythmias and heart failure. If inpatient, I would recommend telemetry monitoring as well as daily weights, strict intake and output, electrolyte monitoring and careful use of intravenous fluids. * Tex Aguila NP - 01/01/2025 9:40 AM EST Images from the original note were not included. [facility] PRIMARY FIRE MARSHAL REFINERY: Ann Gutierrez MD PCP: Susan Gonsalez MD HPI: Mr. Taylor is a 69-year-old male with past medical history of nonischemic cardiomyopathy LVEF 15-20% now normalized and related to persistent atrial fibrillation with rapid ventricular response s/p successful JOSEF/DCCV on Eliquis, traumatic brain injury with short-term memory loss, anxiety and depression, history of alcohol addiction sober since 1984, cocaine addiction in the past, thoracic aortic aneurysm 4.4 cm, obstructive sleep apnea on CPAP, diabetes mellitus, systemic hypertension, hyperlipidemia, GERD, COPD, BPH and insomnia. Today the patient presents for preoperative cardiac evaluation. He just had a spinal stimulator implanted with no complications. He is awaiting hernia surgery and then Inspire implant. He is otherwise feeling well. His weights are stable. No swelling, abdominal distention or significant shortness of breath. No chest pain, palpitations, lightheadedness, presyncope or syncope. No orthopnea, paroxysmal nocturnal dyspnea, cough or abrupt increases in weight. The patient reports adherence with theirmedications, which has been confirmed by his patient child adolescent care, Bebe. ACTIVE MEDICATIONS: Medications Taking[1] PAST MEDICAL HISTORY: Patient Active Problem List Diagnosis Date Noted Preop cardiovascular exam 01/01/2025 01/01/25 - preop for hernia surgery and then Inspire implant surgery Paroxysmal atrial fibrillation (CMS/HCC V24, CMS/HCC V28) 05/10/2023 - newly discovered asymptomatic atrial fibrillation with rapid ventricular response; initially rate controlled March 2023 - JOSEF/DCCV attempt aborted due to ROSIO thrombus; patient initially with non-adherence to apixaban June 2023 - ultimately successful adherence to AC therapy with successful JOSEF/DCCV at [facility] Chronic diastolic heart failure ([facility] V24, [facility] V28) 03/25/2023 Coronary artery disease involving chemehuevi coronary artery of chemehuevi heart without angina pectoris 03/25/2023 Traumatic brain injury ([facility] V24, [facility] V28) 03/25/2023 Cervical arthritis 11/03/2022 Left wrist fracture, closed, initial encounter 11/03/2022 Unequal pupils 11/03/2022 Nonischemic cardiomyopathy ([facility] V24, [facility] V28) 07/05/2022 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 February 2023 - [facility] Wing found to have decompensated heart failure LVEF 15- 20% and asymptomaticatrial fibrillation with rapid ventricular response; inpatient stress test revealed areas of myocardial infarction without ischemia; delayed, but eventually successful DCCV October 2023 - repeat echocardiogram showed normalized LV systolic function LVEF 60-65% Chronic kidney disease, stage 2 (mild) 09/14/2021 Tubular adenoma of colon 03/16/2017 Colonoscopy 03/25-dr dey,tubular adenoma-repeat in 5 Anxiety 10/20/2016 Hypokalemia 09/27/2016 Cervicalgia 05/27/201605/24-Cervical decompression by dr silva 05/24- mri c spine-deg and spndlylotic changes acqured central canal and foraminal stenosis with mild cord compression Difficulty in urination 03/04/2016 Fatigue 03/04/2016 Insomnia 03/04/2016 Gastritis 03/04/2016 Memory loss 02/26/2016 Vitamin D deficiency 11/19/2015 Arthralgia of hip 10/14/2015 Constipation 12/11/2012 Obstructive sleep apnea syndrome 01/30/2010 Cpap@10 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 curtis.04/23 had had fiberoptic eval.2mm nodule on post aspect of left vocal cord Lumbar spinal stenosis 01/19/2010 Was on percocet 4 times a day by previous pc 05/24- mri lumber-multilvel spondlov deg and post op changes severa central canal stenosis at l3-4 Diabetes mellitus, type 2 ([facility] V24, [facility] V28) 01/19/2010 diagnosed 04/[address] garay podiatry-Eye exam-10.10 dr lopez Depression 01/19/2010 Seeing harrison psych Hyperlipidemia 01/19/2010 HTN (hypertension), benign 01/19/2010 GERD (gastroesophageal reflux disease) 01/19/2010 COPD (chronic obstructive pulmonary disease) ([facility] V24, [facility] V28) 01/19/2010 Dr rodrigez pulmonary-on oxygen HS BPH (benign prostatic hyperplasia) 01/19/2010 Dr crawford urology-seen 08/23 Resolved Problems Diagnosis Chronic atrial fibrillation ([facility] V24, [facility] V28) Obesity ALLERGIES: Allergies[2] SOCIAL HISTORY: Social History Tobacco Use Smoking status: Some Days Types: Cigarettes, Cigars Smokeless tobacco: Never Substance Use Topics Alcohol use: Not Currently PHYSICAL EXAM: Vitals: 01/01/25 0932 BP: 90/54 BP Location: Left arm Patient Position: Sitting BP Cuff Size: Adult Pulse: 68 SpO2: 98% Weight: 91.6 kg (202 lb) Height: 1.829 m (72 ) Physical Exam Constitutional: General: He is not in acute distress. HENT: Head: Normocephalic and atraumatic. Right Ear: External ear normal. Left Ear: External ear normal. Nose: Nose normal. Mouth/Throat: Mouth: Mucous membranes are moist. Pharynx: No oropharyngeal exudate or posterior oropharyngeal erythema. Eyes: General: No scleral icterus. Extraocular Movements: Extraocular movements intact. Conjunctiva/sclera: Conjunctivae normal. Pupils: Pupils are equal, round, and reactive to light. Neck: Vascular: No carotid bruit, hepatojugular reflux or JVD. Cardiovascular: Rate and Rhythm: Normal rate and regular rhythm. Pulses: Normal pulses. Heart sounds: Normal heart sounds. No murmur heard. No friction rub. No gallop. Pulmonary: Effort: Pulmonary effort is normal. Breath sounds: Normal breath sounds. Chest: Chest wall: No tenderness. Abdominal: General: Bowel sounds are normal. There is no distension. Palpations: Abdomen is soft. Tenderness: There is no abdominal tenderness. Musculoskeletal: Cervical back: Neck supple. Right lower leg: No edema. Left lower leg: No edema. Skin: General: Skin is warm and dry. Neurological: General: No focal deficit present. Mental Status: He is alert and oriented to person, place, and time. Psychiatric: Mood and Affect: Mood normal. Behavior: Behavior normal. EKG: Encounter Date: 01/01/25 ECG 12 lead Result Value Ventricular Rate ECG 59 Atrial Rate 59 P-R Interval 208 QRS Duration 134 Q-T Interval 424 QTc 419 P Wave Emmett 59 R Emmett -45 T Emmett 132 ECG Interpretation Sinus bradycardia Left axis deviation Non-specific intra-ventricular conduction block Nonspecific T wave abnormality Abnormal ECG When compared with ECG of 21-FEB-2024 08:14, Premature supraventricular complexes are no longer Present *Note: Due to a large number of results and/or encounters for the requested time period, some results have not been displayed. A complete set of results can be found in Results Review. TESTING: Labs available were reviewed. ASSESSMENT/PLAN: Assessment & Plan Preop cardiovascular exam The patient is here for preop cardiovascular examination prior to a hernia surgery and then Inspireimplant surgery. Pre-procedure EKG was completed today and showed no new changes. Per the Maki Cardiac Risk Index the patient is low for this procedure. He is stable from a cardiovascular standpointand is not recommended for any preoperative testing. Please continue with his metoprolol and digoxin perioperatively. He may discontinue with aspirin seven days and apixaban two days prior to surgery. He is at elevated risk for arrhythmias and heart failure. If inpatient, I would recommend telemetry monitoring as well as daily weights, strict intake and output, electrolyte monitoring and careful use of intravenous fluids. Paroxysmal atrial fibrillation (CMS/HCC V24, CMS/HCC V28) Now paroxysmal atrial fibrillation status post DCCV. Asymptomatic. EKG today showed sinus rhythm. CHADSVASc - 3. Continue with apixaban, metoprolol and digoxin. May consider discontinuation of digoxin at next visit (after surgeries) if maintaining sinus rhythm. Orders: ECG 12 lead Nonischemic cardiomyopathy (CMS/HCC V24, CMS/HCC V28) Severe reduced LV systolic function in setting of tachycardia induced cardiomyopathy, now normalized LV systolic function LVEF 60-65% on echocardiogram from October 2023. Continue with dapagliflozin, furosemide, digoxin, lisinopril, metoprolol and spironolactone. HTN (hypertension), benign Well controlled. Continue with dapagliflozin, lisinopril, furosemide, metoprolol and spironolactone. Hyperlipidemia, unspecified hyperlipidemia type July 2022 - Non HDL cholesterol 102. Continue with simvastatin. We discussed risk reduction throughlifestyle choices including healthy diet, routine exercise and weight management. Orders: ECG 12 lead Chronic diastolic heart failure (CMS/HCC V24, CMS/HCC V28) Echocardiogram from October 2023 showed normal LV systolic function LVEF 60- 65%. He appears compensated on exam. Continue with dapagliflozin, furosemide, digoxin, lisinopril, metoprolol and spironolactone. Consider stopping digoxin at next visit as well as aspirin. We reviewed heart failure management including low-sodium diet, symptom surveillance, daily weights and medication compliance. Thank you for allowing us to participate in the care of this patient. The patient will follow up infour months with myself, sooner PRN. As per AHA guidelines and previously established plan of care by Dr. Ann Gutierrez MD, we discussedthe following today: 1. Preop cardiovascular exam 2. Paroxysmal atrial fibrillation (CMS/HCC V24, CMS/HCC V28) 3. Nonischemic cardiomyopathy (CMS/HCC V24, CMS/HCC V28) 4. HTN (hypertension), benign 5. Hyperlipidemia, unspecified hyperlipidemia type 6. Chronic diastolic heart failure (CMS/HCC V24, CMS/HCC V28) [facility] [1] Outpatient Medications Marked as Taking for the 01/01/25 encounter (Consult) with Tex Aguila NP Medication Sig Dispense Refill albuterol 2.5 mg /3 mL (0.083 %) nebulizer solution Take 1 Vial by nebulization every 4 hours as needed. albuterol HFA (PROAIR HFA ; PROVENTIL HFA ; VENTOLIN HFA) 90 mcg/actuation inhaler Inhale 2 puffs by mouth every 6 (six) hours if needed for wheezing. alcohol swabs pads, medicated 1 Each by route 2 times daily. Use when testing blood sugar apixaban (ELIQUIS) 5 mg tablet Take 1 Tablet by mouth 2 Times Daily. aspirin 81 mg EC tablet TAKE 1 TABLET BY MOUTH EVERY DAY azelastine-fluticasone 137-50 mcg/spray spray,non-aerosol 2 Sprays by Nasal route daily. blood sugar diagnostic (FreeStyle Lite Strips) test strip Apply 1 Strip topically 2 times daily. buPROPion SR (WELLBUTRIN SR) 150 mg 12 hr tablet Take 150 mg by mouth 2 times daily. calcium carbonate (OS-BALDEMAR) 1,250 mg (500 mg elemental calcium) tablet Take 1 tablet (1,250 mg total) by mouth. (Patient taking differently: Take 500 mg by mouth 1 (one) time each day.) clonazePAM (KlonoPIN) 0.5 mg tablet 1 tablet (0.5 mg total). cloNIDine (CATAPRES) 0.1 mg tablet Take 1 tablet (0.1 mg total) by mouth 1 (one) time each day after lunch. dapagliflozin propanediol (Farxiga) 10 mg tablet Take 1 tablet (10 mg total) by mouth 1 (one) time each day. Do not crush, chew, or split. digoxin (LANOXIN) 125 mcg (0.125 mg) tablet Take 1 Tablet by mouth daily. famotidine (PEPCID) 20 mg tablet Take 1 tablet (20 mg total) by mouth if needed for heartburn. FLUoxetine (PROzac) 20 mg capsule Take 20 mg by mouth daily. fluticasone propionate (FLONASE) 50 mcg/actuation nasal spray INHALE 2 SPRAYS BY NASAL ROUTE DAILY ejwlurmdkvh-pzkawdhmgegp-dfggycxipa (Trelegy Ellipta) 100-62.5-25 mcg inhaler Inhale 1 Puff into the lungs daily. FREESTYLE LANCETS MIS USE TO TEST TWICE A DAY furosemide (LASIX) 20 mg tablet TAKE 1 TABLET BY MOUTH EVERY DAY 90 tablet 3 lactose-reduced food (ENSURE MAX PROTEIN ORAL) Take 1 Can by mouth 1 (one) time each day. lisinopriL (PRINIVIL,ZESTRIL) 20 mg tablet Take 1 Tablet by mouth 2 times daily. (Patient taking differently: Take 1 tablet (20 mg total) by mouth 1 (one) time each day.) metFORMIN (GLUCOPHAGE) 1,000 mg tablet Take 0.5 Tabs by mouth daily (with breakfast). metoprolol succinate (TOPROL-XL) 50 mg 24 hr tablet Take 1 Tablet by mouth daily. oxyCODONE (ROXICODONE) 30 mg immediate release tablet Take 1 Tablet by mouth every 4 hours as needed. pantoprazole (PROTONIX) 40 mg EC tablet 1 tablet (40 mg total). QUEtiapine (SEROquel) 50 mg tablet Take 50 mg by mouth at bedtime. spironolactone (ALDACTONE) 25 mg tablet Take 1 Tablet by mouth daily. turmeric root extract 500 mg capsule Take 1 Tablet by mouth at bedtime. UNABLE TO FIND CPAP Historical (HISTORICAL CPAP) Patient sig: Inhale into the lungs. ZINC ORAL Zinc 50 MG Tab Patient sig: Take 1 Tablet by mouth daily. [2] No Known Allergies Cosigned by Erasmo Rodriguez MD at 01/01/2025 10:03 PM EST documented in this encounter Plan of Treatment Not on file documented as of this encounter Procedures Procedure Name Priority Date/Time Associated Diagnosis Comments ECG 12-LEAD Routine 01/01/2025 12:04 PM EST Paroxysmal atrial fibrillation (CMS/HCC V24, CMS/HCC V28) Hyperlipidemia, unspecified hyperlipidemia type documented in this encounter Results * ECG 12 lead (01/01/2025 12:04 PM EST) Ventricular Rate ECG 59 BPM GEMUSE Atrial Rate 59 BPM GEMUSE P-R Interval 208 ms GEMUSE QRS Duration 134 ms GEMUSE Q-T Interval 424 ms GEMUSE QTc 419 ms GEMUSE P Wave Emmett 59 degrees GEMUSE R Emmett -45 degrees GEMUSE T Emmett 132 degrees GEMUSE ECG Interpretation Sinus bradycardia Left anterior fascicular block Nonspecific T wave abnormality Abnormal ECG When compared with ECG of 21-FEB-2024 08:14, Premature supraventricular complexes are no longer Present Confirmed by MD TRACY, ERASMO ([id number]) on 01/01/2025 12:27:39 PM GEMUSE 01/01/2025 9:46 AM EST 01/01/2025 12:27 PM EST Tex Cycz BUILDING ASSOCIATE ECG ORDERABLES Edited Resu lt - Final GEMUSE documented in this encounter Visit Diagnoses Diagnosis Preop cardiovascular exam- Primary Pre-operative cardiovascular examination Paroxysmal atrial fibrillation (CMS/HCC V24, CMS/HCC V28) Atrial fibrillation Nonischemic cardiomyopathy (CMS/HCC V24, CMS/HCC V28) Other primary cardiomyopathies HTN (hypertension), benign Essential hypertension, benign Hyperlipidemia, unspecified hyperlipidemia type Chronic diastolic heart failure (CMS/HCC V24, CMS/HCC V28) Chronic diastolic heart failure documented in this encounter Discontinued Medications Medication Sig Discontinue Reason Start Date End Da te azithromycin (ZITHROMAX) 250 mg tablet Take 1 Tablet by mouth daily. Discontinued by another clinician 01/01/2025 dapagliflozin propanediol (FARXIGA) 10 mg tablet Take 10 mg by mouth daily. Entered in Error 01/01/2025 lidocaine (LIDODERM) 5 % patch Place 1 Patch onto the skin every 24 hours. Apply for no more than 12 hours in any 24 hour period. Discontinued by another clinician 01/01/2025 omeprazole (PriLOSEC) [address] capsule Take 20 mg by mouth daily. Discontinued by another clinician 01/01/2025 OXcarbazepine (TRILEPTAL) 300 mg tablet Take 1 Tablet by mouth 2 times daily. Discontinued by another clinician 01/01/2025 documented as of this encounter Historical Medications * This list may reflect changes made after this encounter. famotidine (PEPCID) 20 mg tablet Take 1 tablet (20 mg total) by mouth if needed for heartburn. dapagliflozin propanediol (Farxiga) 10 mg tablet Take 1 tablet (10 mg total) by mouth 1 (one) time each day. Do not crush, chew, or split. lactose-reduced food (ENSURE MAX PROTEIN ORAL) Take 1 Can by mouth 1 (one) time each day. added in this encounter Care Teams Cementer Machine Joiner Relationship Specialty Start Date End Date Susan Gonsalez MD [address] [place] [id number] PCP - General Endocrinology 03/26/24 documented as of this encounter
--- OUTSIDE RECORDS SUMMARY | 2025-01-03 23:59 | XMS_ITS | Continuity of Care Document ---
Author Organization Pre [facility] Address [address] [place] [id number] Care Team Providers Care Senior Technical Writer Name Role Phone Wallace MIJARES, Susan Rutherford Primary Care Physician En[place] [facility] [place] [id number] Date(s): 12/04/24 - 01/03/25 Pre [facility]flow [address] [place] [id number] Attending Physician: Gaby Quinones Admitting Physician: AdmtrGaby Referring Physician: AdmtrGaby Encounter Type: Triage Allergies, Adverse Reactions, Alerts No Known Allergies Immunizations Given and Recorded Vaccine Date Status Refusal Reason SARS-CoV-2 (COVID-19) mRNA-1273 vaccine 11/14/22 R ecorded SARS-CoV-2 (COVID-19) mRNA-1273 vaccine 03/30/21 R ecorded SARS-CoV-2 (COVID-19) mRNA-1273 vaccine 09/28/20 R ecorded SARS-CoV-2 (COVID-19) mRNA-1273 vaccine 05/07/20 G iven SARS-CoV-2 (COVID-19) mRNA-1273 vaccine 04/09/20 G iven [id number] 12y+ bivalent booster vax 06/13/22 Recorded [id number] 12y+ bivalent booster vax 10/20/21 Recorded influenza virus vaccine, inactivated 03/02/22 Kris rded influenza virus vaccine, inactivated 11/24/20 Give n influenza virus vaccine, inactivated 11/12/19 Kris rded influenza virus vaccine, inactivated 12/29/18 Kris rded influenza virus vaccine, inactivated 11/28/17 Kris rded influenza virus vaccine, inactivated 11/13/16 Kris rded influenza virus vaccine, inactivated 12/31/13 Kris rded influenza virus vaccine, inactivated 1 01/05/12 Gi elizabeth influenza virus vaccine, inactivated 12/08/09 Kris rded influenza virus vaccine, inactivated 05/29/09 Give n zoster vaccine, inactivated 01/13/22 Recorded tetanus/diphtheria/pertussis, acel(Tdap) 01/13/22 Recorded pneumococcal 23-valent vaccine 11/24/20 Given pneumococcal 13-valent vaccine 11/12/19 Recorded 1Early/Late Reason: Patient Not Available/Off Unit Medications Karl Bandages See Instructions, # 4 each, Maintenance, Wrap left wrist injury daily, 12/13/22 12:32:00 PM EDT, Supply, 183, cm, 12/13/22 12:28:00 EDT, Height, 104, kg, 06/22/21 10:10:00 EDT, Dry Weight Start Date: 12/13/22 Status: Ordered Medication Dispense Status: Completed Quantity: 4.0 Unit: each Total Allowed Fills: 1 Fills Dispensed: 0 Indications: Fracture of unspecified carpal bone, left wrist, initial encounter for closed fracture; albuterol 0.083% inhalation solution 3 mL = 2.5 mg, Inhalation, Every 6 hours, PRN Wheezing/Shortness of Breath, # 150 mL, 5 Refills, Maintenance, 07/12/23 1:44:00 PM EDT, Solution, [id number], copd j44.9, 183, cm, 07/12/23 13:41:00 EDT, Height, 90.91, kg, 06/16/23 10:53:00 EDT, Dry Weight Start Date: 07/12/23 Stop Date: 01/08/24 Status: Ordered Medication Dispense Status: Completed Quantity: 150.0 Unit: mL Total Allowed Fills: 6 Fills Dispensed: 0 apixaban Starter Pack 5 mg oral tablet = 5 mg, By Mouth, 2 times a day, # 180 tablet, 3 Refills, Maintenance, 03/08/23 12:18:00 PM EST, Tablet, [id number], Partial fill upon patient request if the prescription is for a schedule II opioid drug., 183, cm, 03/05/23 8:45:00 EST, Height, 96.5, kg, 02/21/23 20:53:00 EST, Dry Weight Start Date: 03/08/23 Stop Date: 03/02/24 Status: Ordered Medication Dispense Status: Completed Quantity: 180.0 Unit: tablet Total Allowed Fills: 4 Fills Dispensed: 0 Aspirin Low Dose 81 mg oral delayed release tablet See Instructions, TAKE 1 TABLET BY MOUTH EVERY DAY, # 90 tablet, 3 Refills, Maintenance, 05/09/23 8:53:00 AM EDT, [id number], 182.9, cm, 04/11/23 8:05:00 EST, Height, 93.1, kg, 04/02/23 0:33:00 EST, Dry Weight Start Date: 05/09/23 Status: Ordered Medication Dispense Status: Completed Quantity: 90.0 Unit: tablet Total Allowed Fills: 1 Fills Dispensed: 0 azelastine 137 mcg/inh (0.1%) nasal spray 2 sprays, Nares, Both, Daily, PRN Other Allergies, # 30 mL, 11 Refills, Maintenance, 03/26/24 1:17:00 PM EST, Kathryn, [id number], Partial fill upon patient request if the prescription is for a schedule II opioid drug., 2 sprays Nares, Both Daily,x30 days,PRN:Other Allergies, 183, cm, 03/26/24 12:54:00 EST, Height, 90.91, kg, 06/16/23 10:53:00 EDT, Dry Weight Start Date: 03/26/24 Stop Date: 03/21/25 Status: Ordered Medication Dispense Status: Completed Quantity: 30.0 Unit: mL Total Allowed Fills: 12 Fills Dispensed: 0 azithromycin 250 mg oral tablet See Instructions, 1 tablet By Mouth Daily, # 6 tablet, 0 Refills, Maintenance, 03/08/23 12:19:00 PM EST, Tablet, [facility] #[id number], Partial fill upon patient request if the prescription is for a schedule II opioid drug., 183, cm, 03/05/23 8:45:00 EST, Height, 96.5, kg, 02/21/23 20:53:00 EST, Dry Weight Start Date: 03/08/23 Status: Ordered Medication Dispense Status: Completed Quantity: 6.0 Unit: tablet Total Allowed Fills: 1 Fills Dispensed: 0 BuPROPion (Eqv-Wellbutrin SR) 150 mg/12 hours oral tablet, extended release 1 tablet, By Mouth, 2 times a day, # 180 Unknown, 0 Refills, Maintenance, 03/08/23 8:39:00 PM EST, [id number], 183, cm, 03/05/23 8:45:00 EST, Height, 96.5, kg, 02/21/23 20:53:00 EST, Dry Weight Start Date: 03/08/23 Status: Ordered Medication Dispense Status: Completed Quantity: 180.0 Unit: Unknown Total Allowed Fills: 1 Fills Dispensed: 0 clonazePAM 0.5 mg oral tablet 1 tablet = 0.5 mg, 0 Refills, Maintenance, 07/16/24 9:52:00 AM EDT, Partial fill upon patient requestif the prescription is for a schedule II opioid drug. Start Date: 07/16/24 Status: Ordered Medication Dispense Status: Completed Total Allowed Fills: 1 Fills Dispensed: 0 cloNIDine 0.1 mg oral tablet Refills 0, Maintenance, 06/14/24 1:34:00 PM EDT, Partial fill upon patient request if the prescription is for a schedule II opioid drug. Start Date: 06/14/24 Status: Ordered Medication Dispense Status: Completed Total Allowed Fills: 1 Fills Dispensed: 0 Compression Stockings See Instructions, # 1 each, Maintenance, surgical, knee length 20-30 mm Hg, 03/10/23 8:57:00 AM EST,Supply Start Date: 03/10/23 Status: Ordered Medication Dispense Status: Completed Quantity: 1.0 Unit: each Total Allowed Fills: 1 Fills Dispensed: 0 Indications: Edema, unspecified; CPAP Machine See Instructions, # 1 each, Refills 11, Tot. Refills 11, Maintenance, E0601 AutoCPAP 7 to 12 cm H20 with compliance data A4604 Heated Tubing/Climate line or A7037 Tubing A7038 or A7039 Filters B9140Btto strap A7046 Humidifier Chamber A7035 Headgear A7027, A7030, A7031, A7032, A7033, A7034 Nasal, Full or Pillow Mask and parts E0562 Heated Humidifier length of need Lifetime 99 months For home useDx yesica G47.33, 10/25/23 8:00:00 AM EDT, Supply Start Date: 10/25/23 Status: Ordered Medication Dispense Status: Completed Quantity: 1.0 Unit: each Total Allowed Fills: 12 Fills Dispensed: 0 dapagliflozin 10 mg oral tablet = 10 mg, By Mouth, Daily, # 90 tablet, 3 Refills, Maintenance, 04/11/23 11:45:00 AM EST, Tablet, [facility], Partial fill upon patient request if the prescription is for a schedule II opioid drug., 182.9, cm, 04/11/23 8:05:00 EST, Height, 93.1, kg, 04/02/23 0:33:00 EST, Dry Weight Start Date: 04/11/23 Status: Ordered Medication Dispense Status: Completed Quantity: 90.0 Unit: tablet Total Allowed Fills: 4 Fills Dispensed: 0 digoxin 0.125 mg oral tablet 125 mcg, 1, tablet, By Mouth, Daily, # 90 tablet, Refills 0, Tot. Refills 0, Maintenance, 03/10/23 1:36:00 PM EST, Route to Pharmacy Electronically, [facility] #[id number], Partial fill upon patient request if the prescription is for a schedule II opioid drug., 183, cm, 03/05/23 8:45:00 EST, Height, 96.5, kg, 02/21/23 20:53:00 EST, Dry Weight Start Date: 03/10/23 Status: Ordered Medication Dispense Status: Completed Quantity: 90.0 Unit: tablet Total Allowed Fills: 1 Fills Dispensed: 0 Ensure Plus Ensure Plus, See Instructions, # 60 each, Refills 6, Tot. Refills 6, Maintenance, Take 2 oral dailywith meals Chocolate, strawberry, and vanilla (mix of flavors). DX: Malnurished., 07/28/23 5:42:00 PM EDT, Supply Start Date: 07/28/23 Status: Ordered Medication Dispense Status: Completed Quantity: 60.0 Unit: each Total Allowed Fills: 7 Fills Dispensed: 0 Indications: Abnormal weight loss; Flomax 0.4 mg oral capsule 0.4 mg, By Mouth, Daily, # 30 capsule, Refills 0, Tot. Refills 0, Maintenance, 03/05/23 4:30:00 PM EST, Route to Pharmacy Electronically, [facility]/pharmacy #[id number], Partial fill upon patient request if the prescription is for a schedule II opioid drug., 183, cm, 03/05/23 8:45:00 EST, Height, 96.5, kg, 02/21/23 20:53:00 EST, Dry Weight Start Date: 03/05/23 Stop Date: 04/04/23 Status: Ordered Medication Dispense Status: Completed Quantity: 30.0 Unit: capsule Total Allowed Fills: 1 Fills Dispensed: 0 FLUoxetine 20 mg oral capsule 20 mg, 1, capsule, By Mouth, Daily, # 90 capsule, Refills 3, Tot. Refills 3, Maintenance, 06/22/22 9:32:00 AM EDT, Route to Pharmacy Electronically, [facility]/pharmacy #[id number], Partial fill upon patient request if the prescription is for a schedule II opioid drug., 183, cm, 04/20/22 9:52:00 EST, Height, 104,kg, 06/22/21 10:10:00 EDT, Dry Weight Start Date: 06/22/22 Status: Ordered Medication Dispense Status: Completed Quantity: 90.0 Unit: capsule Total Allowed Fills: 4 Fills Dispensed: 0 fluticasone 50 mcg/inh nasal spray See Instructions, USE 2 SPRAY(S) IN EACH NOSTRIL EVERY MORNING, # 3 each, 3 Refills, Maintenance, 06/22/22 9:29:00 AM EDT, [facility]/pharmacy #[id number], USE 2 SPRAY(S) IN EACH NOSTRIL EVERY MORNING, 183, cm, 04/20/22 9:52:00 EST, Height, 104, kg, 06/22/21 10:10:00 EDT, Dry Weight Start Date: 06/22/22 Status: Ordered Medication Dispense Status: Completed Quantity: 3.0 Unit: each Total Allowed Fills: 4 Fills Dispensed: 0 FREESTYLE LITE TEST STRIP FREESTYLE LITE TEST STRIP, See Instructions, # 50 Unknown, 5 Refills, USE TO CHECK GLUCOSE EVERY DAY E11.9, 182.9, cm, 11/24/20 8:59:00 EDT, Height, 104.3, kg, 01/29/19 9:19:00 EST, Dry Weight Start Date: 12/15/20 Status: Ordered Medication Dispense Status: Completed Quantity: 50.0 Unit: Unknown Total Allowed Fills: 1 Fills Dispensed: 0 furosemide 20 mg oral tablet 20 mg, 1, tablet, By Mouth, Daily, Refills 0, Maintenance, 03/26/24 1:08:00 PM EST, Partial fill upon patient request if the prescription is for a schedule II opioid drug. Start Date: 03/26/24 Status: Ordered Medication Dispense Status: Completed Total Allowed Fills: 1 Fills Dispensed: 0 furosemide 40 mg oral tablet 40 mg, 1, tablet, By Mouth, 2 times a day, # 180 tablet, Refills 3, Tot. Refills 3, Maintenance, 04/04/23 4:30:00 PM EST, Route to Pharmacy Electronically, [facility]/pharmacy #[id number], Partial fill upon patient request if the prescription is for a schedule II opioid drug., 183, cm, 03/05/23 8:45:00 EST, Height, 96.5, kg, 02/21/23 20:53:00 EST, Dry Weight Start Date: 04/04/23 Status: Ordered Medication Dispense Status: Completed Quantity: 180.0 Unit: tablet Total Allowed Fills: 4 Fills Dispensed: 0 Leg elevation pillow Leg elevation pillow, See Instructions, # 1 each, Refills 0, Tot. Refills 0, Maintenance, Use dailyas needed continuous, 11/02/21 3:56:00 PM EDT, Supply Start Date: 11/02/21 Status: Ordered Medication Dispense Status: Completed Quantity: 1.0 Unit: each Total Allowed Fills: 1 Fills Dispensed: 0 Indications: Radiculopathy, lumbar region; Low back pain, unspecified; lisinopril 20 mg oral tablet 2, tablet, By Mouth, Daily, # 60 tablet, Refills 5, Tot. Refills 0, Maintenance, 12/05/19 1:00:00 PM EDT, Route to Pharmacy Electronically, [id number], 182.9, cm, 12/05/19 10:28:00 EDT, Height, 104.3, kg, 01/29/19 9:19:00 EST, Dry Weight Start Date: 12/05/19 Status: Ordered Medication Dispense Status: Completed Quantity: 60.0 Unit: tablet Total Allowed Fills: 1 Fills Dispensed: 0 metFORMIN 500 mg oral tablet 2 tablet = 1,000 mg, By Mouth, Daily, 0 Refills, Maintenance, 03/26/24 1:06:00 PM EST, Partial fill upon patient request if the prescription is for a schedule II opioid drug. Start Date: 03/26/24 Status: Ordered Medication Dispense Status: Completed Total Allowed Fills: 1 Fills Dispensed: 0 Mucinex 600 mg oral tablet, extended release 1 tablet = 600 mg, By Mouth, Every 12 hours, for 30 days, # 60 tablet, 1 Refills, Acute 02/09/25 8:31:00 AM EST, 12/11/24 8:31:00 AM EDT, ER Tablet, [facility]/pharmacy #[id number], Partial fill upon patient request if the prescription is for a schedule II opioid drug., 183, cm, 12/11/24 8:09:00 EDT, Height, 90, kg, 11/14/24 13:13:00 EDT, Dry Weight Start Date: 12/11/24 Stop Date: 02/09/25 Status: Ordered Medication Dispense Status: Completed Quantity: 60.0 Unit: tablet Total Allowed Fills: 2 Fills Dispensed: 0 Nebulizer/Compressor See Instructions, # 1 each, Refills 11, Tot. Refills 11, Maintenance, E0570 Nebulizer A7003 Neb Disp Set A7014 Neb non-Disp Filter A7005 Neb Non-Disp set A7015 Aerosol Mask A7013 Neb Disp Filter length of need lifetime 99 months for home use, 07/12/23 2:46:00 PM EDT, Supply Start Date: 07/12/23 Status: Ordered Medication Dispense Status: Completed Quantity: 1.0 Unit: each Total Allowed Fills: 12 Fills Dispensed: 0 Neck Support Cushion Neck Support Cushion, See Instructions, # 1 each, Refills 0, Tot. Refills 0, Maintenance, Use as needed daily continuous, 11/02/21 3:55:00 PM EDT, Supply Start Date: 11/02/21 Status: Ordered Medication Dispense Status: Completed Quantity: 1.0 Unit: each Total Allowed Fills: 1 Fills Dispensed: 0 Indications: Cervicalgia; O2 Sat Monitor See Instructions, # 1 each, Maintenance, Finger pulse oximeter use to monitor o2 levels I50.21 R09.02 Z99.81, 05/20/23 9:48:00 AM EDT, Supply, 182.9, cm, 05/20/23 9:12:00 EDT, Height, 93.1, kg, 04/02/23 0:33:00 EST, Dry Weight Start Date: 05/20/23 Status: Ordered Medication Dispense Status: Completed Quantity: 1.0 Unit: each Total Allowed Fills: 1 Fills Dispensed: 0 Indications: Dependence on supplemental oxygen; Hypoxemia; Acute systolic (congestive) heart failure; omeprazole 20 mg oral enteric coated capsule 1 capsule, By Mouth, Daily, # 90 capsule, 1 Refills, Maintenance, 01/04/23 1:34:00 PM EST, [id number], 183, cm, 12/22/22 8:52:00 EST, Height, 90.5, kg, 12/22/22 8:52:00 EST, Dry Weight Start Date: 01/04/23 Status: Ordered Medication Dispense Status: Completed Quantity: 90.0 Unit: capsule Total Allowed Fills: 1 Fills Dispensed: 0 OXcarbazepine 300 mg oral tablet 300 mg, 1, tablet, By Mouth, 2 times a day, # 180 tablet, Refills 3, Tot. Refills 3, Maintenance, 06/22/22 9:29:00 AM EDT, Route to Pharmacy Electronically, [facility]/pharmacy #[id number], Partial fill upon patient request if the prescription is for a schedule II opioid drug., 183, cm, 04/20/22 9:52:00 EST, Height, 104, kg, 06/22/21 10:10:00 EDT, Dry Weight Start Date: 06/22/22 Stop Date: 06/17/23 Status: Ordered Medication Dispense Status: Completed Quantity: 180.0 Unit: tablet Total Allowed Fills: 4 Fills Dispensed: 0 oxyCODONE 30 mg IR tablet 1 tablet = 30 mg, By Mouth, Every 8 hours, # 84 tablet, 0 Refills, Maintenance, 11/01/23 5:37:00 PM EDT, [facility]/pharmacy #[id number], Partial fill upon patient request if the prescription is for a schedule II opioid drug. Refill sent in absence of PCP. future refill request to PCP., 183, cm, 07/12/23 13:41:00 EDT, Height, 90.91, kg, 06/16/23 10:53:00 EDT, Dry Weight Start Date: 11/01/23 Stop Date: 11/29/23 Status: Ordered Medication Dispense Status: Completed Quantity: 84.0 Unit: tablet Total Allowed Fills: 1 Fills Dispensed: 0 pantoprazole 40 mg oral delayed release tablet 1 tablet = 40 mg, TAKE 1 TABLET BY MOUTH EVERY DAY HALF AN HOUR BEFORE BREAKFAST Start Date: 07/16/24 Status: Ordered Medication Dispense Status: Completed Total Allowed Fills: 1 Fills Dispensed: 0 QUEtiapine 50 mg oral tablet See Instructions, Take one tablet oral nightly before bed and 1/2 tab for nighttime awakening as needed, # 135 tablet, 3 Refills, Maintenance, 04/28/23 2:54:00 PM EDT, [facility]/pharmacy #[id number], 182.9, cm, 04/11/23 8:05:00 EST, Height, 93.1, kg, 04/02/23 0:33:00 EST, Dry Weight Start Date: 04/28/23 Status: Ordered Medication Dispense Status: Completed Quantity: 135.0 Unit: tablet Total Allowed Fills: 4 Fills Dispensed: 0 SEROquel 25 mg oral tablet 25 mg, 1, tablet, By Mouth, Daily, for total daily dose of 75mg daily, # 90 tablet, Refills 3, Tot.Refills 3, Maintenance, 05/12/23 9:52:00 AM EDT, Route to Pharmacy Electronically, [id number], Partial fill upon patient request if the prescription is for a schedule II opioid drug., 182.9, cm, 04/11/23 8:05:00 EST, Height, 93.1, kg, 04/02/23 0:33:00 EST, Dry Weight Start Date: 05/12/23 Stop Date: 05/06/24 Status: Ordered Medication Dispense Status: Completed Quantity: 90.0 Unit: tablet Total Allowed Fills: 4 Fills Dispensed: 0 spironolactone 25 mg oral tablet 25 mg, By Mouth, Daily, # 90 tablet, Refills 3, Tot. Refills 3, Maintenance, 04/11/23 11:45:00 AM EST, Route to Pharmacy Electronically, [facility], Partial fill upon patient request if the prescription is for a schedule II opioid drug., 182.9, cm, 04/11/23 8:05:00 EST, Height, 93.1, kg, 04/02/23 0:33:00 EST, Dry Weight Start Date: 04/11/23 Status: Ordered Medication Dispense Status: Completed Quantity: 90.0 Unit: tablet Total Allowed Fills: 4 Fills Dispensed: 0 Toprol XL 50 mg oral tablet, extended release 50 mg, 1, tablet, By Mouth, Daily, # 90 tablet, Refills 3, Tot. Refills 3, Maintenance, 03/10/23 1:37:00 PM EST, [id number] Partial fill upon patient requestif the prescription is for a schedule II opioid drug., 183, cm, 03/05/23 8:45:00 EST, Height, 96.5,kg, 02/21/23 20:53:00 EST, Dry Weight Start Date: 03/10/23 Status: Ordered Medication Dispense Status: Completed Quantity: 90.0 Unit: tablet Total Allowed Fills: 4 Fills Dispensed: 0 Trelegy Ellipta 100 mcg-62.5 mcg-25 mcg/inh inhalation powder 1 puffs, Inhalation, Daily, at the same time every day, # 1 each, 11 Refills, Maintenance, 03/26/24 1:17:00 PM EST, Powder, [facility]/pharmacy #[id number], copd j44.9, 183, cm, 03/26/24 12:54:00 EST, Height, 90.91, kg, 06/16/23 10:53:00 EDT, Dry Weight Start Date: 03/26/24 Stop Date: 03/21/25 Status: Ordered Medication Dispense Status: Completed Quantity: 1.0 Unit: each Total Allowed Fills: 12 Fills Dispensed: 0 Ventolin HFA 108 mcg/inh inhalation aerosol with adapter See Instructions, INHALE 2 PUFFS INTO THE LUNGS EVERY 4 HOURS NEEDED FOR WHEEZING FOR UP TO 30 DAYS., # 1 each, 11 Refills, Maintenance, 03/26/24 1:16:00 PM EST, [facility]/pharmacy #[id number], copd j44.9, 183, cm, 03/26/24 12:54:00 EST, Height, 90.91, kg, 06/16/23 10:53:00 EDT, Dry Weight Start Date: 03/26/24 Status: Ordered Medication Dispense Status: Completed Quantity: 1.0 Unit: each Total Allowed Fills: 12 Fills Dispensed: 0 ZenToes Gel Toe Separators ZenToes Gel Toe Separators, See Instructions, # 12 each, Refills 3, Tot. Refills 3, Maintenance, Left fifth toe continuous, 12/13/22 12:36:00 PM EDT, Supply, 183, cm, 12/13/22 12:28:00 EDT, Height, 104, kg, 06/22/21 10:10:00 EDT, Dry Weight Start Date: 12/13/22 Status: Ordered Medication Dispense Status: Completed Quantity: 12.0 Unit: each Total Allowed Fills: 4 Fills Dispensed: 0 Indications: Unspecified acquired deformity of unspecified lower leg; Pain in left toe(s); ZyrTEC 10 mg oral tablet 1 tablet = 10 mg, By Mouth, Daily, take it in the evening, # 30 tablet, 5 Refills, Maintenance, 12/11/24 8:31:00 AM EDT, Tablet, [facility]/pharmacy #[id number], Partial fill upon patient request if the prescription is for a schedule II opioid drug., 183, cm, 12/11/24 8:09:00 EDT, Height, 90, kg, 11/14/24 13:13:00 EDT, Dry Weight Start Date: 12/11/24 Stop Date: 06/09/25 Status: Ordered Medication Dispense Status: Completed Quantity: 30.0 Unit: tablet Total Allowed Fills: 6 Fills Dispensed: 0 Problem List Condition Confirmation Course Effective Dates Status H ealth Status Informant Alcoholism Confirmed Active Angina pectoris Confirmed Active Benign hypertension 1 Confirmed 01/19/10 Active Benign prostatic hyperplasia 2 Confirmed 01/19/10 Active Benign prostatic hypertrophy with urinary obstruction Confirmed Active Arrhythmia Confirmed Active Cardiomyopathy 3 Confirmed 07/05/22 Active Cervical arthritis Confirmed Active Chronic obstructive pulmonary disease Confirmed Active COPD, group B, by GOLD 2017 classification Confirmed Active Congestive heart failure Confirmed Active Constipation Confirmed Active Depressive disorder 4 Confirmed 01/19/10 Active Generalized anxiety disorder Confirmed Active H/O traumatic brain injury Confirmed Active Hyperlipidemia Confirmed Active Hypertension Confirmed Active Incomplete emptying of bladder Confirmed Active Lumbar spondylosis with myelopathy Confirmed Active Nicotine dependence Confirmed Active Obesity Confirmed Active Obstructive sleep apnea syndrome Confirmed Active YESICA on CPAP Confirmed Active *[id number] Title Examiner Jessica Smith Confirmed Active Polyp of colon Confirmed Active Presenile dementia Confirmed Active Lumbar canal stenosis Confirmed Active Tubular adenoma Confirmed Active Tubular adenoma of colon Confirmed Active Type 2 diabetes mellitus 5 Confirmed 01/19/10 Active Type II diabetes mellitus uncontrolled Confirmed Active Vitamin D deficiency Confirmed Active 1Outside Source Comment: Overview: 04/23- ct head negative 2Outside Source Comment: Overview: Dr crawford urology-seen 08/23 3Outside Source Comment: Overview: -Unclear if he truly has heart failure symptoms since his main limitations are musculoskeletal nature -Most recent echocardiogramIn February 2022 showed mildly dilated LV cavity size with mild, concentricLV hypertrophy, low normal systolic function with normal regional wall motion and ejection fractionof 50 to 55%, normal RV size and [...] and given low normal EF on recent ec ho, I do not feel strongly about initiating 1. Continue CPAP use. Euvolemic on exam. No active cardiac symptoms. 4Outside Source Comment: Overview: Seeing [facility] 5Outside Source Comment: Overview: diagnosed 04/[address] garay podiatry-Eye exam-11.23 dr lopez Social History Social History Type Response Sexual Sexually involved in last 6 months: No. Smoking Status Cigars or pipes but not daily within last 30 days entered on: 06/14/24 Sex Sex Representation Male (finding) Patient Care team information Care Team Personnel Name: Karishma Peña RN Position: S RN Member Role: Primary Care Nurse Name: Michelle Rodriguez RN Position: S RN Member Role: Primary Care Nurse Name: Caleb Marks Position: [facility] PCO Associate Professional Member Role: [employer] Provider Address: [address] [place] [address]- Telecom: Name: Emerson Martin RN Position: [facility] RN Member Role: Primary Care Nurse Name: Aye Menard RN Position: [facility] RN Member Role: Primary Care Nurse Name: Oksana Sánchez RN Position: S RN Member Role: Primary Care Nurse Name: Michael Yañez RN Position: [facility] RN Member Role: Primary Care Nurse Name: Susan Gonsalez MD Position: Reference Physician Member Role: PCP Address: [address] [place] [address]- Telecom: Name: Malcolm German MD Position: [facility] Outreach Member Role: [employer] Physician Address: [address] [facility] [place] [address]- [place] Telecom: Name: Geronimo Avitia RN Position: [facility] RN Member Role: Primary Care Nurse Name: Maritza Miller RN Position: [facility] RN Member Role: Primary Care Nurse Name: Sherrie Alonzo RN Position: [facility] RN Member Role: Primary Care Nurse Name: Aubrey Gore RN Position: [facility] RN Member Role: Primary Care Nurse Name: Harriet Mercado RN Position: [facility] RN Member Role: Primary Care Nurse Name: Lorena Goldberg NP Position: Reference Physician Member Role: Primary Care Nurse Address: [address] [facility] [place] [address]- Telecom: Name: Ronan Beltrán MD Position: [facility] Renal MD Member Role: Lifetime Consulting Physician Address: [address] [facility] [place], [place] [address] Telecom: Name: Frida CARRERA, Hawa Varner Position: [facility] PRATEEK Nurse Member Role: Primary Care Nurse Name: Brittany CARRERA, Soo Position: [facility] RN Member Role: Primary Care Nurse Care Team Related Persons Name: RISSA GUILLORY Name: PT STATES, NO ONE Name: REFUSED, REFUSED Insurance Providers Guarantor name: RICKEY GUILLORY [employer] Plan Information #: 1 Payer: [facility] [employer] Payer Identifier: NA Member Number: [id number] Group Number: [id number] Subscriber Identifier: NA Relationship to Subscriber: self Coverage Type: Medicare Managed Care (Includes Medicare Advantage Plans) Coverage Verification Date: NA Telecom: NA Address: NA
--- NOTE | 2025-01-04 10:05 | A.OFFWM_ITS ---
Intake Intake Visit Reasons: OV BH Intake Allergies No Known Allergies Allergy (Verified 11/05/24 11:16) [facility] Medical History Atrial fibrillation Paraesophageal hernia Diabetes Vitamin D deficiency, unspecified Tubular adenoma of colon Presenile dementia Polyp of colon YESICA (obstructive sleep apnea) Obesity Nicotine dependence Lumbar spondylosis with myelopathy Lumbar canal stenosis Incomplete emptying of bladder Hypertension Hyperlipidemia H/O traumatic brain injury ELIZABETH (generalized anxiety disorder) Depressive disorder Constipation, unspecified CHF (congestive heart failure) COPD (chronic obstructive pulmonary disease) Cervical arthritis Cardiomyopathy Benign prostatic hyperplasia with urinary obstruction Benign prostatic hyperplasia Benign hypertension Arrhythmia Angina pectoris Alcoholism Surgical History History of spinal fusion History of appendectomy History of cervical spinal arthrodesis History of hernia repair History of gastric surgery History of colonoscopy Family History Mother Lung cancer Smoker Father Diabetes High cholesterol Hypertension Unsteady gait Social History Household Members: None Housing: House Alcohol intake: former Year quit: 1987 Patient Tobacco Use Status: Former Tobacco user Tobacco use type: Cigar and Pipe Cigarettes Per Day: 2 e-Cigarette/Vaping Use: Never Used Second Hand Smoke Exposure: No Substance Use Type: Marijuana service: No Current occupational status: retired and disabled Cognitive needs: Yes (brain injury) Hearing needs: No Vision needs: No Behavioral Health Assessment Weight Management Therapy Therapy Notes Details The patient is a 70-year-old male presenting for a behavioral health assessment as part of the surgical weight loss program. He initially sought consultation for hernia repair but has a history of prior bariatric surgery. Following further evaluation, he is now scheduled for revision bariatric surgery in conjunction with hernia repair. Presenting Concerns Referral Source WMP-Provider. Reason for referral Completion of behavioral health assessment as part of process for weight-loss revision surgery. Precipitating Event PT initially consulted for hernia however, the sleeve needs to be revised because according to the endoscopy our surgeon performed the it has significant proximal lateral redundancy which contributes to the acid reflux the patient suffers from. Living Situation Current Living Situation Own Comments PT lives Food/Weight/Diet Expectations of change 2 protein shakes, 1.5 protein bars and o ne meal per day. Social History Family history and relationship PT is divorce since 1984. PT has 2 adult children his oldest lives next door. PT has a brother. 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 Developmental history and status Brain injury, memory re-issues. Social support Son Community support 3 PCCA and 1 VNA nurse, [facility] care coordin ator they meet 1x week. Hindu/Spirituality Alevism. Cultural/Ethnic information . Legal Involvement and History Current or historical involvement with the legal system? None reported. Education Highest grade completed Bachelors Preferred learning style Auditory, Verbal, Written, Learn by doing and Visual Currently enrolled in educational program? No Interested in further educational program? 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 Employment Employment Status Retired Wants help to find employment? No Financial Situation Describe current financial situation Comfortable Service Service? No Mental Health and Addiction Treatment Psychiatric history The patient receives care at [facility] and is currently prescribed clonazepam 0.5 mg and fluoxetine 20 mg. She has a history of panic attacks and agoraphobia. While her symptoms have been stable, she reports feeling down recently. Medications Is the patient compliant with medications? Yes Does the patient have Otero Guardian in place? Not applicable Does the patient use complimentary health approaches? No Assessment & Plan Assessment & Plan (1) Mood disorder: Code(s): F39 - Unspecified mood [affective] disorder (2) Anxiety: Code(s): F41.9 - Anxiety disorder, unspecified Plan The patient was not cleared today as the assessment was not completed. The patient will return in 2-4 weeks to continue the evaluation. Next appointment: 01/17/2025 at 2pm, [place] [address] Psy Diag Eval Patient Type New Diagnoses Mood disorder F39 Anxiety F41.9 Time Spent (min) 55
--- OUTSIDE RECORDS SUMMARY | 2025-01-04 10:36 | XMS_ITS | Clinical Summary ---
Author Organization [facility] Address [address] [address] Phone Care Team Providers Care Computer Network Specialist Name Role Phone Susan Gonsalez MD Primary Care Provider [phone] Allergies No known active allergies Medications multivitamin-iro x-lqezlwtk-pblnv acid (CENTRUM) chewable tablet Chew 1 tablet [...] 11/07/2020 History of alcohol abuse 03/16/2017 Tubular adenomatous polyp of colon 03/16/2017 11/07/2020 Overview (11/07/2020): Colonoscopy 03/25-dr dey,tubular adenoma-repeat in 5 Anxiety 10/20/2016 11/07/2020 Cervicalgia 05/27/2016 11/07/2020 Overview (11/07/2020): 05/24-Cervical decompression by dr silva 05/24- mri c spine-deg and spndlylotic changes acqured central canal and foraminal stenosis with mild cord compression Difficulty passing urine 03/04/2016 Fatigue 03/04/2016 11/07/2020 Insomnia 03/04/2016 11/07/2020 Memory loss 02/26/2016 11/07/2020 H/O Spinal surgery 01/28/2016 1 Vitamin D deficiency 11/19/2015 021 Pain of hip region 10/14/2015 1 Constipation 12/11/2012 11/07/2020 Obesity 06/22/2010 11/07/2020 Congestive [...] Visit [facility] [address] [phone] Ronan Beltrán MD [address] [address] Health Maintenance Due Date Last [...] AM EST) Hemoglobin A1C 6.2(H) (4.0-5.6) % [facility] Comment: MONITORING: In known diabetic patients, hemoglobin A1c targets should be discussed with health care provider. DIAGNOSTIC USE: The [place] Diabetes Association (ADA) and the World Health [...] Supplement 1 Testing performed or reported by [facility], a Service of [facility], [address] [place] [address] Mckayla Vargas MD, Pediatric Dietician [facility]# [id number] Blood specimen (specimen) Venous blood / Unknown 02/25/2022 10:40 AM EST 02/25/2022 10:51 AM EST Malcolm German MD LAB BLOOD ORDERABLES Rukhsana kidd Result [facility] from Last 3 Months or Most Recently Relevant to Health Maintenance Insurance ([id number]) [facility] ([id number]) MILI GARRISON [id number] Care Teams Computer Network Specialist Relationship Specialty Start Date End Date Susan Gonsalez MD [address] [place] [address], [address] [place] [address] PCP - General Internal Medicine 07/05/23
--- OUTSIDE RECORDS SUMMARY | 2025-01-04 10:36 | XMS_ITS | Data Portability ---
Author Organization [employer] Address [address] [place] [address] Assessment Encounter Date Assessment Date Assessment LastModified by Organization Details LastModified Time 02/21/2023 02/21/2023 As noted, we were called to see this patient regarding concerns of dyspnea. Evaluation in the field was performed by my junior network engineer colleague, as noted above, I provided real-time direction and supervision for this visit. The evaluation revealed the patient has COPD on home oxygen and was in acute distress. Vitals as noted with hypoxemia, worse even with speaking. Tram Driver arranged for urgent transport to ED. [...] temperature Respiratory rate Body height Oxygen saturation Inhaled oxygen flow rate Body weight Heart rate Systolic And Diastolic Provider Name and Address Organization Details Last Updated DateTime 4 97 [degF] 26 /min 185.42 cm 83 % 2 L/min 18355.3 2 g 77 /min 111/78 mm[Hg] Not Available [facility] - production 11:41:41 Social History None recorded. Functional Status None recorded. Mental Status None recorded. Family History Nothing Reported. Medical History No medical history recorded. Past Encounters Encounter ID Performer Location Encounter Start Date Encounter Closed Date Diagnosis/Indication Diagnosis SNOMED-CT Code Diagnosis ICD10 Code Diagnosis IMO Codes Diagnosis Note [id number] MOISES JOHNSON MD [address] - [facility] [address] [place] [address] 02/21/2023 11:41:38 02/21/2023 12:15:00 Acute hypoxemic respiratory failure 223143960 J96.01 Health Concerns Section Related Observation LastModified by Organization Detai ls LastModified Time None Recorded Concern Status LastModified by Organization Details LastModified Time None Recorded Advance Directives Directive None Recorded Payers Insurance Date Sequence Insurance Name Policy Number Policy Perkins Covered Member ID Perkins Member ID Guarantor Name 02/21/2023 1 [facility] - DOS ON OR AFTER 2022 - DUAL ELIGIBLE - NURSING HOME OPTIONS AND ONE CARE (MEDICARE REPLACEMENT/ADV ANTAGE - HMO) Montana Taylor [id number] Montana Taylor Notes Date Note Type Note [...] .................. .................. .................. .................. .................. .................. ............... Tram Driver Note From Brent Aguila: Pt reports [...] rales in lower right. 911 immediately initiated. [facility] alerted to pt condition. While waiting for EMS to arrive I increased his O2 and discussed penitentiary plans with the pt. He was very receptive and plans to confer with the ED MD and his CCA box printing machine operator who is going to meet him in the ED. Care transferred to [facility]. .................. .................. .................. .................. .................. .................. .................. ............... Disposition: Fulfilled MOISES JOHNSON MD [address] [place] [address],[address], [place], [address], JOSHUA - GANESH ROUSE 02/21/2023 11:44:01
--- OUTSIDE RECORDS SUMMARY | 2025-01-04 10:36 | XMS_ITS | Clinical Summary ---
Author Organization [facility] Address [address] [place] [address] Care Team Providers Care Kitchen Assistant Name Role Phone Susan Gonsalez MD Primary Care Provider [phone] Allergies No known active allergies Medications Medication [...] Advance Directives For more information, please contact: [phone] Latest Code Status on File Code Status Date Activated Date Inactivated Comments Full Code 11/03/2022 7:02 PM 11/05/2022 12:09 AM This code status was ascertained in the following way: discussion with patient. Care Teams Kitchen Assistant Relationship Specialty Start Date End Date Susan Gonsalez MD PCP - General Internal Medicine 11/03/22
--- OUTSIDE RECORDS SUMMARY | 2025-01-04 10:36 | XMS_ITS | Encounter Summary ---
Author Organization [facility] Address [address] [place] [address] Care Team Providers Care Vein Pumper Name Role Phone Susan Gonsalez MD Primary Care Provider [phone] Reason for Visit * Reason Onset Date Comments Office note faxed 01/01/2025 Encounter Details Date Type Department Care Team (Late st Contact Info) Description 01/01/2025 Telephone [facility] [address] [place] [phone] Tex Aguila NP [address] [place] [address] [address] [place] [phone] Social History Tobacco Use Types Packs/Day Years Used Date Smoking Tobacco: Some Days Cigarettes Cigars Smokeless Tobacco: Never Alcohol Use Standard Drinks/Week [...] as of this encounter Progress Notes * Sandra Mcleod MA - 01/01/2025 3:33 PM EST Office note was faxed to Dr. Britt [facility], fax # [phone]. Office note faxed to Dr. Familia Chen, fax # [phone]. Confirmation was received from right fax on both faxes. documented in this encounter Plan of Treatment Not on file documented as of this encounter Visit Diagnoses Not on filedocumented in this encounter Care Teams Vein Pumper Relationship Specialty Start Date End Date Susan Gonsalez MD [address] [place] [address] PCP - General Endocrinology 03/26/24 documented as of this encounter
--- OUTSIDE RECORDS SUMMARY | 2025-01-04 10:36 | XMS_ITS | Clinical Summary ---
Author Organization [facility] Address [address] [place] [address] Phone Care Team Providers Care Critical Care Specialist Name Role Phone Susan Gonsalez MD Primary Care Provider [phone] Allergies No known active allergies Medications digoxin (LANOXIN) 125 mcg (0.125 mg) tablet Take 1 Tablet by mouth daily. Active azelastine-fluticas one 137-50 mcg/spray spray,non-aerosol 2 Sprays by Nasal route daily. Active fluticasone-umeclid inium-vilanterol (Trelegy Ellipta) 100-62.5-25 mcg inhaler Inhale 1 Puff into the lungs daily. Active lisinopriL (PRINIVIL,ZESTRIL) 20 mg tablet [...] Take 1 Tablet by mouth daily. Active apixaban (ELIQUIS) 5 mg tablet [...] 50 mg by mouth at bedtime. Active UNABLE TO FIND CPAP Historical (HISTORICAL [...] nebulization every 4 hours as needed. Active FLUoxetine (PROzac) 20 mg capsule Take [...] EVERY DAY 90 tablet 3 025 Active cloNIDine (CATAPRES) 0.1 mg tablet Take [...] mg tablet 1 tablet (0.5 mg total). 025 Active fondaparinux (ARIXTRA) 2.5 mg/0.5 mL syringe INJECT 2.5 SUBCUTANEOUSLY EVERY 24 HRS Active pantoprazole (PROTONIX) 40 mg EC tablet 1 tablet (40 mg total). Active lactose-reduced food (ENSURE MAX PROTEIN ORAL) Take 1 Can by mouth 1 (one) time each day. Active dapagliflozin propanediol (Farxiga) 10 mg tablet Take 1 tablet (10 mg total) by mouth 1 (one) time each day. Do not crush, chew, or split. Active famotidine (PEPCID) 20 mg tablet Take 1 tablet (20 mg total) by mouth if needed for heartburn. Active dapagliflozin propanediol (FARXIGA) 10 mg tablet Take 10 mg by mouth daily. 2024 Discontin ued(Enter ed in Error) azithromycin (ZITHROMAX) 250 mg tablet Take 1 Tablet by mouth daily. 2024 Discontin ued(Disco ntinued by another clinician ) OXcarbazepine (TRILEPTAL) 300 mg tablet Take 1 Tablet by mouth 2 times daily. 2024 Discontin ued(Disco ntinued by another clinician ) lidocaine (LIDODERM) 5 % patch Place 1 Patch onto the skin every 24 hours. Apply for no more than 12 hours in any 24 hour period. 2024 Discontin ued(Disco ntinued by another clinician ) omeprazole (PriLOSEC) [address] capsule Take 20 mg by mouth daily. 2024 Discontin ued(Disco ntinued by another clinician ) Active Problems Problem Noted Date Diagnosed Date Preop cardiovascular exam 01/01/2025 Overview (01/01/2025): 01/01/25 - preop for hernia surgery and then Inspire implant surgery Assessment & Plan (01/01/2025 12:04 PM EST): The patient is here for preop cardiovascular examination prior to a hernia surgery and then Inspire implant surgery. Pre-procedure EKG was completed today and showed no new changes. Per the Maki Cardiac Risk Index the patient is low for this procedure. He is stable from a cardiovascular standpoint and is not recommended for any preoperative testing. [...] intravenous fluids. Paroxysmal atrial fibrillation (CMS/HCC V24, CMS /HCC V28) 05/10/2023 Overview (02/21/2024): February 2023 - newly discovered asymptomatic atrial fibrillation with rapid ventricular response; initially rate controlled March 2023 - JOSEF/DCCV attempt aborted due to ROSIO thrombus; patient initially with non-adherence to apixaban June 2023 - ultimately successful adherence to AC therapy with successful JOSEF/DCCV at [facility] Assessment & Plan (01/01/2025 12:04 PM EST): Now paroxysmal atrial fibrillation status post DCCV. Asymptomatic. EKG today showed sinus rhythm. CHADSVASc - 3. Continue with apixaban, metoprolol and digoxin. May consider discontinuation of digoxin at next visit (after surgeries) if maintaining sinus rhythm. Orders: ECG 12 lead Assessment & Plan (02/21/2024 9:16 AM EST): Now paroxysmal atrial fibrillation status post DCCV. Asymptomatic. EKG today showed sinus rhythm. CHADSVASc - 3. Continue with apixaban, metoprolol and digoxin. May consider discontinuation of digoxin at next visit if maintaining sinus rhythm. Orders: ECG 12 lead Chronic diastolic heart failure (CMS/HCC V24, CM S/HCC V28) 03/25/2023 Assessment & Plan (01/01/2025 12:04 PM EST): Echocardiogram from October 2023 showed normal LV systolic function LVEF 60- 65%. He appears compensated on exam. Continue with dapagliflozin, furosemide, digoxin, lisinopril, metoprolol and spironolactone. Consider stopping digoxin at next visit as well as aspirin. We reviewed heart failure management including low-sodium diet, symptom surveillance, daily weights and medication compliance. Assessment & Plan (02/21/2024 9:16 AM EST): Echocardiogram from October 2023 showed normal LV systolic function LVEF 60- 65%. He appears compensated on exam. Continue with dapagliflozin, furosemide, digoxin, lisinopril, metoprolol and spironolactone. Consider stopping digoxin at next visit as well as aspirin. We reviewed heart failure management including low-sodium diet, symptom surveillance, daily weights and medication compliance. Coronary artery disease invo lving [place] coronary artery of [place] heart without angina pectoris 03/25/2023 Traumatic brain injury ([facility] V24, [facility] V28 ) 03/25/2023 Cervical arthritis 11/03/2022 Left wrist fracture, closed, initial encounter 0 11/03/2022 Unequal pupils 11/03/2022 Nonischemic cardiomyopathy ([facility] V24, [facility] V28) 07/05/2022 Overview (02/21/2024): 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 February 2023 - [facility] Wing found to have decompensated heart failure LVEF 15- 20% and asymptomatic atrial fibrillation with rapid ventricular response; inpatient stress test revealed areas of myocardial infarction without ischemia; delayed, but eventually successful DCCV October 2023 - repeat echocardiogram showed normalized LV systolic function LVEF 60-65% Assessment & Plan (01/01/2025 12:04 PM EST): Severe reduced LV systolic function in setting of tachycardia induced cardiomyopathy, now normalized LV systolic function LVEF 60-65% on echocardiogram from October 2023. Continue with dapagliflozin, furosemide, digoxin, lisinopril, metoprolol and spironolactone. Assessment & Plan (02/21/2024 9:16 AM EST): [...] stenosis at l3-4 Diabetes mellitus, type 2 (CMS/HCC V24, CMS/HCC V28) 01/19/2010 Overview (01/04/2024): diagnosed 04/[address] garay podiatry-Eye exam-10.10 dr lopez Depression 01/19/2010 Overview (01/04/2024): [facility] Hyperlipidemia 01/19/2010 Assessment & Plan (01/01/2025 12:04 PM EST): July 2022 - Non HDL cholesterol 102. Continue with simvastatin. We discussed risk reduction through lifestyle choices including healthy diet, routine exercise and weight management. Orders: ECG 12 lead Assessment & Plan (02/21/2024 9:16 AM EST): July 2022 - Non HDL cholesterol 102. Continue with simvastatin. We discussed risk reduction through lifestyle choices including healthy diet, routine exercise and weight management. HTN (hypertension), benign 01/19/2010 Assessment & Plan (01/01/2025 12:04 PM EST): Well controlled. Continue with dapagliflozin, lisinopril, furosemide, metoprolol and spironolactone. Assessment & Plan (02/21/2024 9:16 AM EST): Well controlled. Continue with dapagliflozin, lisinopril, furosemide, metoprolol and spironolactone. GERD (gastroesophageal reflux disease) 0 COPD (chronic obstructive pu lmonary disease) ([facility] V24, CMS/HCC V28) 01/19/2010 Overview (01/04/2024): Dr rodrigez pulmonary-on oxygen HS BPH (benign prostatic hyperplasia) 01/19/2010 Overview (01/04/2024): Dr crawford urology-seen 08/23 Resolved Problems Problem Noted Date Diagnosed Date Resolved Date Chronic atrial fibrillation ([facility]/HCC V24, CMS/HCC V28) 03/25/2023 02/21/2024 Obesity 06/22/2010 02/21/2024 Encounters Date Type Department Care Team Description 01/01/2025 9:40 AM EST Consult [facility]iology [facility] [address] [facility] [address] [place] [address] Tex Aguila NP Preop cardiovascular exam (Primary Dx); Paroxysmal atrial fibrillation (CMS/HCC V24, CMS/HCC V28); Nonischemic cardiomyopathy (CMS/HCC V24, CMS/HCC V28); HTN (hypertension), benign; Hyperlipidemia, unspecified hyperlipidemia type; Chronic diastolic heart failure (CMS/HCC V24, CMS/HCC V28) 01/01/2025 Telephone [facility]iology [facility] [address] [address] Tex Aguila NP 11/16/2024 Telephone [facility] Cardiology [facility] [address] [place] [id number] Ann Gutierrez MD 11/15/2024 Telephone [facility] - [address] [place] [address] Provider, Not In System 10/30/2024 10:00 AM EDT Office Visit Pulmonology - [place] [address] [facility] [facility] [address] [place] [address] Marichuy Flor MD Lung nodule (Primary Dx) 10/29/2024 7:06 AM EDT - 10/29/2024 11:59 PM EDT Hospital Encounter [facility] CT Scan [address] [place] [address] Lung nodule Discharge Disposition: Home or Self Care from Last 3 Months Immunizations Immunization Administration Dates Next Due Influenza trivalent, 0.5mL, [...] notes HERNIA REPAIR WRIST SURGERY Right per social work case manager BARIATRIC SURGERY Medical History Medical History Date [...] with urinary obstruction TBI (traumatic brain injury) (CMS/HCC V24, [facility] V28) per manager progressive care Arrhythmia A fib per cardia c notes H/O gastric bypass History of appendectomy Cardiomyopathy ([facility] V24, [facility] V28) history of: Sleep apnea Does not use cpa p per social work case manager Oxygen dependent Uses 1 lpm oxyg en at night via nc per social work case managermanager report mellitus ([facility] V 24, [facility] V28) Forgetfulness Related to TBI COPD (chronic obstructive pu lmonary disease) ([facility] V24, [facility] V28) from H&P GERD [...] Pulse 68 01/01/2025 9:32 AM EST Temperature 36.8 C (98.3 F) 10/30/2024 10:17 AM EDT Respiratory Rate 18 05/25/2024 3:15 PM EDT Oxygen Saturation 98% 01/01/2025 9:32 AM EST Inhaled Oxygen Concentration - - Weight 91.6 kg (202 lb) 01/01/2025 9:32 AM EST Height 182.9 cm (6') 01/01/2025 9:32 AM EST Body Mass Index 27.4 01/01/2025 9:32 AM EST Plan of Treatment Health Maintenance Due Date Last Done Comments Diabetes: Annual Foot Exam 01/15/1964 Diabetes: Annual Retina Eye Exam 01/15/1964 Hepatitis A Vaccines (1 of 2 - Risk 2-dose series) 1973 Abdominal Aortic Aneurysm (AAA) Screen 01/23/2022 Medicare Annual Wellness Visit 01/23/2022 Social Influencers of Health Screening 01/23/2022 Diabetes: Annual Urine Albumin-Creatinine Ratio (uACR) 01/30/2022 05/27/2020 Diabetes: Blood Sugar Control Test (HGBA1C) 05/05/2023 11/04/2022, 11/04/2022, 02/25/2022 Depression Screening 02/15/2024 03/18/2011 COVID-19 Vaccine (10 - Moderna risk season) 2025 10/30/2024, 12/06/2023, 11/14/2022, Additional history exists Falls Risk Assessment 05/16/2025 [...] Completed 11/14/2023 Zoster Vaccines Completed 11/14/2023, 01/13/2022 Influenza Vaccine Completed 10/30/2024, , 03/02/2022, Additional history exists HIB Vaccines Aged Out [...] this topic Medical Devices Implanted Type Area Target Man Device Identifier Shelf Expiration Date Model / Serial / Lot Marker Cobra Superlock - Sn/A - [id number] Implanted:Qty : 1 on 05/16/2024 by Marichuy Flor MD at [facility] Implants Left: Lung COVIDIEN SUPERDIMENSION 12/21/2027 [id number] / N/A / [id number] Description:LEFT UPPER LOBE Procedures Procedure Name Priority Date/Time Associated Diagnosis Comments ECG 12-LEAD Routine 01/01/2025 12:04 PM EST Paroxysmal atrial fibrillation (CMS/HCC V24, CMS/HCC V28) Hyperlipidemia, unspecified hyperlipidemia type CT CHEST WO CONTRAST Routine 10/29/2024 7:21 AM EDT Lung nodule COMPREHENSIVE METABOLIC PANEL Routine 07/17/2024 2:26 PM EDT VANDANA (mycobacterium avium-intracellulare) (CMS/HCC V24, CMS/HCC V28) Necrotizing granuloma of liver EXTERNAL COLONOSCOPY REPORT Routine 04/30/2024 1:18 PM EDT HEMOGLOBIN A1C Routine 11/04/2022 URINE ALBUMIN CREATININE RATIO Routine 05/27/2020 LIPID PANEL Routine 05/27/2020 HEPATITIS C SCREENING Routine 06/14/2012 DEPRESSION SCREENING Routine 03/18/2011 from Last 3 Months or Most Recently Relevant to Health Maintenance Results * ECG 12 lead (01/01/2025 12:04 PM EST) Ventricular Rate ECG 59 BPM GEMUSE Atrial Rate 59 BPM GEMUSE P-R Interval 208 ms GEMUSE QRS Duration 134 ms GEMUSE Q-T Interval 424 ms GEMUSE QTc 419 ms GEMUSE P Wave [place] 59 degrees GEMUSE R [place] -45 degrees GEMUSE T [place] 132 degrees GEMUSE ECG Interpretation Sinus bradycardia Left anterior fascicular block Nonspecific T wave abnormality Abnormal ECG When compared with ECG of 21-FEB-2024 08:14, Premature supraventricular complexes are no longer Present Confirmed by MD TRACY, ERASMO ([id number]) on 01/01/2025 12:27:39 PM GEMUSE 01/01/2025 9:46 AM EST 01/01/2025 12:27 PM EST us Tex Aguila NP ECG ORDERABLES Edited Resu lt - Final GEMUSE * CT Chest wo Contrast (10/29/2024 7:21 [...] 4. No developing thoracic lymphadenopathy. [place] ([id number]) -------- FINAL REPORT -------- Dictated By: Gabrielle Cobos Dictated Date: 10/30/2024 10:59 ET Assigned Physician: Gabrielle Cobos Reviewed and Electronically Signed By: Gabrielle Cobos Signed Date: 10/30/2024 11:09 ET Workstation ID: [id number] Transcribed By: Self Edit Transcribed Date: 10/30/2024 10:59 ET Narrative 10/30/2024 11:09 AM EDT History: Lung nodule, greater than 8 mm. Status post cryobiopsy left upper lobe 05/16/24 yielding necrotizing granulomatous inflammation. Comparison: 02/28/24 Technique: Helical volumetric imaging of the thorax was performed without IV contrast. DLP: 901.61 mGy/cm GE TYT ([employer])peed VCT Iterative reconstruction technique Findings: The left [...] was performed withoutIV contrast. DLP: 901.61 mGy/cm Zeerpeed VCT Iterative reconstruction technique Findings: The left [...] plugging. 4. [place] ([id number]) -------- FINAL REPORT -------- Dictated By: Gabrielle Cobos Dictated Date: 10/30/2024 10:59 ET Assigned Physician: Gabrielle Cobos Reviewed and Electronically Signed By: Gabrielle Cobos Signed Date: 10/30/2024 11:09 ET Workstation ID: [id number] Transcribed By: Self Edit Transcribed Date: 10/30/2024 10:59 ET us Marichuy Flor MD IMG CT PROCEDURES Final Re sult * (ABNORMAL) Comprehensive metabolic panel (07/17/2024 2:26 PM EDT) Sodium 137 133 - 145 mmol/L LAB CHEMISTRY METHOD 07/17/2024 7:37 PM EDT [facility] Potassium 4.0 3.5 - 5.5 mmol/L LAB CHEMISTRY METHOD 07/17/2024 7:37 PM EDT [facility] Chloride 102 96 - 110 mmol/L LAB CHEMISTRY METHOD 07/17/2024 7:37 PM [facility] CO2 30 21 - 32 mmol/L LAB CHEMISTRY METHOD 07/17/2024 7:37 PM [facility] Anion Gap 5 3 - 11 LAB CHEMISTRY METHOD 07/17/2024 7:37 PM [facility] Glucose 85 70 - 100 mg/dL LAB CHEMISTRY METHOD 07/17/2024 7:37 PM [facility] BUN 9 5 - 25 mg/dL LAB CHEMISTRY METHOD 07/17/2024 7:37 PM [facility] Creatinine 0.88 0.70 - 1.30 mg/dL LAB CHEMISTRY METHOD 07/17/2024 7:37 PM [facility] eGFR 93 >=60 mL/min/1. 73m2 LAB CHEMISTRY METHOD 07/17/2024 7:37 PM [facility] Comment:Calculation based on the Chronic Kidney Disease Epidemiology Collaboration (CKD-EPI) equation refit without adjustment for race. BUN/Creatinine Ratio 10.2 LAB CHEMISTRY METHOD 07/17/2024 7:37 PM [facility] Calcium 9.5 8.5 - 10.5 mg/dL LAB CHEMISTRY METHOD 07/17/2024 7:37 PM [facility] AST (SGOT) 16 10 - 42 unit/L LAB CHEMISTRY METHOD 07/17/2024 7:37 PM [facility] ALT (SGPT) 17 10 - 60 unit/L LAB CHEMISTRY METHOD 07/17/2024 7:37 PM [facility] Alkaline Phosphatase 124(H) 42 - 121 unit/L LAB CHEMISTRY METHOD 07/17/2024 7:37 PM [facility] Total Protein 7.4 6.0 - 8.0 g/dL LAB CHEMISTRY METHOD 07/17/2024 7:37 PM [facility] Albumin 3.7 3.2 - 5.0 g/dL LAB CHEMISTRY METHOD 07/17/2024 7:37 PM EDT [facility] Total Bilirubin 0.4 0.0 - 1.4 mg/dL LAB CHEMISTRY METHOD 07/17/2024 7:37 PM EDT [facility] Blood Venous blood specimen / Unknown Venipuncture / Unknown 07/17/2024 2:26 PM EDT 07/17/2024 2:26 PM EDT Result [facility] Carol Cote MD LAB BLOOD ORDERABLES Final Resul t [facility] [address] [place] [address], [place] [phone] * External Colonoscopy Report (04/30/2024 1:18 PM EDT) Anatomical Region Laterality Modality Endoscopy Result [facility] Historical Provider GI~PROCEDURE ORDERABLES F inal Result * Hemoglobin A1c (11/04/2022) Pathologist [facility] Hemoglobin A1C 0.0 <=6.5 % Comment:No Interpretation Blood Venous blood specimen / Unknown Result [facility] Historical Samuel MIJARES LAB BLOOD ORDERABLES Rukhsana l Result * Urine Albumin Creatinine Ratio (05/27/2020) Pathologist [facility] Urine Albumin Creatinine Ratio Abstracted Result [facility] Historical Provider HEALTH MAINTENANCE Final Result * Lipid panel (05/27/2020) LDL/HDL Ratio 3 0 - 4 Triglycerides 108 0 - 150 mg/dL Cholesterol 164 0 - 200 mg/dL HDL 50 >=40 mg/dL LDL Cholesterol 93 0 - 100 mg/dL Blood Venous blood specimen / Unknown Result [facility] Historical Provider LAB BLOOD ORDERABLES Rukhsana l Result * Hepatitis C Screening (06/14/2012) Hepatitis C Screening Abstracted us Historical Provider HEALTH MAINTENANCE Final Result * Depression Screening (03/18/2011) Depression Screening Abstracted us Historical Provider HEALTH MAINTENANCE Final Result from Last 3 Months or Most Recently Relevant to Health Maintenance Insurance [facility] MEDICARE Member Subscriber Plan / Payer (Ef fective 2020-Present) Name:Claudia [place] Relation to Subscriber:Self Name:[place] Taylor Payer ID:[id number] Group ID:[id number] Type:Not on file Address: [place] [address] [place] [phone] Advance Directives * Full Code - Default [...] currently active code status orders. Care Teams Critical Care Specialist Relationship Specialty Start Date End Date Susan Gonsalez MD [address] [place] [address] [address] [place] [address] PCP - General Endocrinology 03/26/24
--- OUTSIDE RECORDS SUMMARY | 2025-01-04 10:36 | XMS_ITS | Patient Health Record ---
Author Organization [facility] Address [address] [place] [address] Care Team Providers Care Roof Foreman Name Role Phone Susan Hardy MD Primary Care Provider UnavailJuan Jeff Unavailable [phone] Roberta Hopper Unavailable [phone] Allergies Allergen (clinical drug ingredient) Drug/Non Drug [...] Polyneuropathy due to type 2 diabetes mellitus ([id number]) Type 2 diabetes mellitus with diabetic polyneuropathy (E11.42) Active confirmed Vital Signs Blood pressure diastolic 80 mm Hg 10/30/2024 Height 6ft in 10/30/2024 Blood pressure systolic 120 mm Hg 10/30/2024 Weight 200 lbs 10/30/2024 BMI 27.12 kg/m2 10/30/2024 Encounters Encounter Location Date Provider Diagnosis [facility] [address] [place] [address] 10/30/2024 Roberta Hopper Type 2 diabetes mellitus [...] Provider Name:Roberta goldman, 2025 09:00:00 AM, [address] [facility], [place], [address], Insurance Providers Payer Name Payer Address Payer Phone Subscriber Number Group Number Insured Name Patient Relationship to Insured Coverage Start Date Coverage End Date [facility] [employer] Claims [address] [place] [id number] [place] Taylor Self - patient is the insured Medical (General) History Medical History History ICD Code COPD TBI Diabetic Reflux ( GERD) Heart disease Bone implants/screws Surgical History Surgery Date(Month/Year) 3 fused vert. in neck 1994 2 fused lower back 1997
--- OUTSIDE RECORDS SUMMARY | 2025-01-04 10:37 | XMS_ITS | Data Portability ---
Author Organization [place] - [facility], Allergy Address [address] [facility] [address] [place] [address] Care Team Providers Care Tank Storage Supervisor Name Role Phone KatelinWALTER ULLOA Primary Care Provider Assessment Encounter Date Assessment Date Assessment LastModified by Organization Details LastModified Time 07/17/2024 07/17/2024 Patient describes dysphagia with loss of focus when chewing resulting in larger bolus of food getting stuck. This is related directly to his history of traumatic brain injury and lack of focus. His previous imaging with CT neck from 2020 was reviewed confirming evidence of previous anterior cervical approach spine surgery with prominent osteophyte and medial displacement of carotid artery. This would explain the fullness in the right side of the posterior pharyngeal wall. No specific ENT intervention is recommended at this time. I encouraged him to proceed with upper GI study with gastroenterolog y next week as there may be some intervention they can perform related to his history of bariatric surgery [email or web address] Not available 07/17/2024 10:09:11 Plan of Treatment Reminders Order Date Submit Date Provider Last Modified By Organization Details Last Modified Time Details Appointments None record ed. Lab None record ed. Referral None record ed. Procedures None record ed. Surgeries None record ed. Imaging None record ed. Medication Orders None record ed. Patient TargetsNo targets recorded. Patient InstructionsNo instructions recorded. Reason for Referral None Reported. Problems Name Problem SNOMED Code Status Onset Date Resolution Date Notes Provider Name and Address Organization Details Recorded Time Respirato ry finding 251493601 Active 2016 Feeling of foreign body in throat; Note: Date Diagnosed: 07/19/2016 9:53 AM (R09.89) Not Available [employer] 02:32:36 Cardiovas cular finding 230064627 Active 2016 Feeling of foreign body in throat; Note: Date Diagnosed: 07/19/2016 9:53 AM (R09.89) Not Available [facility] 4 02:32:36 Gastroeso phageal reflux disease without esophagit is 361934443 Active 2016 Gastro-eso phageal reflux disease without esophagiti s; Note: Date Diagnosed: 07/19/2016 9:54 AM (K21.9) Not Available [facility] 4 02:32:25 Dysphonia 25110324 Active 2016 Hoarseness ; Note: Date Diagnosed: 07/19/2016 10:03 AM (R49.0) Not Available [facility] 4 02:32:30 Nasal congestio n 96586512 Active 2016 Nasal congestion ; Note: Date Diagnosed: 09/11/2016 7:39 AM (R09.81) Not Available [facility] 4 02:32:35 Posterior rhinorrhe a 33606393 Active 2017 Postnasal drip; Note: Date Diagnosed: 03/07/2017 10:06 AM (R09.82) Not Available [facility] 4 02:32:26 Chronic obstructi ve pulmonary disease 53272798 Active 2019 Chronic obstructiv e pulmonary disease, unspecifie d; Note: Date Diagnosed: 01/11/2020 11:01 AM (J44.9) Not Available [facility] 4 02:32:24 Feeling of lump in throat 748846381 Active 2024 FAHAD BRAY MD [address] [place] [address],[place] [address], [address] , [place] - [facility] 5 15:32:23 Dysphagia 65204345 Active 2024 FAHAD BRAY MD [address] [place] [address],[place] [address], [address] , [place] - [facility] 5 10:07:10 Traumatic brain injury 721944280 Active 2024 FAHAD BRAY MD [address] [place] [address],[place] [address], [address] , [place] - [facility] 10:07:47 Problem Notes None recorded. Procedures Surgical History Date Name Laterality Status Provider Name and Address Organization Details Recorded Time 07/17/2024 FOL_DP completed FAHAD BARY MD [address] [place] [address], [phone], [place] - [facility] 07/17/2024 10:06:31 Imaging Results None recorded. Procedure Notes None recorded. Medical Equipment None Reported. Medications Name Sig Start Date Stop Date Status Note LastModified by Organization Details LastModified Time quetiapin e 25 mg tablet TAKE 1 TABLET BY MOUTH EVERY DAY AT BEDTIME WITH 50 MG TAB active Not Available Not Available No t Available fluoxetin e 40 mg capsule 04/03 completed Medicati on ID: [id number] B rand Name: fluoxeti ne Send Method: E-Prescr ibed Sub s Allowed: subs OK Speci al Instruct ion: TAKE 1 CAPSULE BY MOUTH EVERY DAY Medi cationGe nericNam e: fluoxeti ne Not Available Not Available Not Available furosemid e 40 mg tablet TAKE 1 TABLET BY MOUTH TWICE A DAY 07/17 completed Not Available Not Available Not Available metformin 500 mg tablet TAKE 1 TABLET BY MOUTH DAILY active Not Available Not Available No t Available bupropion HCl SR 150 mg tablet,12 hr sustained -release 2019 active Medicati on ID: [id number] B rand Name: bupropio n HCl Send Method: E-Prescr ibed Sub s Allowed: subs OK Speci al Instruct ion: TAKE 1 TABLET BY MOUTH TWICE A DAY Medi cationGe nericNam e: bupropio n HCl Not Available Not Available Not Available nystatin 100,000 unit/mL oral suspensio n 04/03 completed Medicati on ID: [id number] B rand Name: nystatin Send Method: E-Prescr ibed Sub s Allowed: subs OK Speci al Instruct ion: SWISH AND SWALLOW 5ML 4 TIMES A DAY FOR 7 DAYS Med icationG enericNa me: nystatin Not Available Not Available Not Available clonidine HCl 0.1 mg tablet TAKE 1 TABLET BY MOUTH EVERY DAY active Not Available Not Available No t Available nicotine 14 mg/24 hr daily transderm al patch 12/30 completed Medicati on ID: [id number] D uration Value: 14 Brand Name: nicotine Send Method: E-Prescr ibed Sub s Allowed: subs OK Speci al Instruct ion: APPLY 1 PATCH DAILY DIRECTED . Medica tionGene ricName: nicotine Not Available Not Available Not Available albuterol sulfate 2.5 mg/3 mL (0.083 %) solution for nebulizat ion 12/30 completed Medicati on ID: [id number] D uration Value: 30 Brand Name: albutero l sulfate Send Method: E-Prescr ibed Sub s Allowed: subs OK Medic ationGen ericName : albutero l sulfate Not Available Not Available Not Available citalopra m 40 mg tablet 03/07 completed Medicati on ID: [id number] D uration Value: 30 Reason: () Brand Name: citalopr am Send Method: E-Prescr ibed Sub s Allowed: subs OK Speci al Instruct ion: TAKE 1 TABLET DAILY. M edicatio nGeneric Name: citalopr am Not Available Not Available Not Available oxybutyni n chloride ER 10 mg tablet,ex tended release 24 hr 12/30 completed Medicati on ID: [id number] D uration Value: 30 Brand Name: oxybutyn in chloride Send Method: E-Prescr ibed Sub s Allowed: subs OK Speci al Instruct ion: TAKE 2 TABLETS BY MOUTH EVERY DAY IN THE MORNING Medicati onGeneri cName: oxybutyn in chloride Not Available Not Available Not Available pravastat in 40 mg tablet 12/30 completed Medicati on ID: [id number] D uration Value: 30 Brand Name: pravasta tin Send Method: E-Prescr ibed Sub s Allowed: subs OK Speci al Instruct ion: TAKE 1 TABLET DAILY Me dication GenericN debo: pravasta tin Not Available Not Available Not Available fluconazo le 150 mg tablet 12/30 completed Medicati on ID: [id number] D uration Value: 4 Brand Name: fluconaz ole Send Method: E-Prescr ibed Sub s Allowed: subs OK Speci al Instruct ion: TAKE 1 TABLET BY MOUTH NOW AND THEN REPEAT IN 4 DAYS Med icationG enericNa me: fluconaz ole Not Available Not Available Not Available metoprolo l succinate ER 50 mg tablet,ex tended release 24 hr TAKE 1 TABLET BY MOUTH DAILY active Not Available Not Available No t Available lisinopri l 20 mg tablet 2019 active Medicati on ID: [id number] B rand Name: lisinopr il Send Method: E-Prescr ibed Sub s Allowed: subs OK Speci al Instruct ion: TAKE 2 TABLETS BY MOUTH EVERY DAY Medi cationGe nericNam e: lisinopr il Not Available Not Available Not Available prednison e 20 mg tablet 03/07 completed Medicati on ID: [id number] D uration Value: 5 Reason: () Brand Name: predniso ne Send Method: E-Prescr ibed Sub s Allowed: subs OK Speci al Instruct ion: TAKE 2 TABLETS BY MOUTH EVERY DAY WITH FOOD Med icationG enericNa me: predniso ne Not Available Not Available Not Available clonazepa m 0.5 mg tablet TAKE 1 TABLET BY MOUTH TWICE A DAY active Not Available Not Available No t Available simvastat in 10 mg tablet 07/17 completed Medicati on ID: [id number] B rand Name: simvasta tin Send Method: E-Prescr ibed Sub s Allowed: subs OK Speci al Instruct ion: TAKE 1 TABLET BY MOUTH EVERY DAY IN THE EVENING Medicati onGeneri cName: simvasta tin Not Available Not Available Not Available atenolol 25 mg tablet 03/07 completed Medicati on ID: [id number] D uration Value: 30 Reason: () Brand Name: atenolol Send Method: E-Prescr ibed Sub s Allowed: subs OK Speci al Instruct ion: TAKE 1 TABLET DAILY. M edicatio nGeneric Name: atenolol Not Available Not Available Not Available oxcarbaze pine 300 mg tablet 04/03 completed Medicati on ID: [id number] B rand Name: oxcarbaz epine Se nd Method: E-Prescr ibed Sub s Allowed: subs OK Medic ationGen ericName : oxcarbaz epine Not Available Not Available Not Available fondapari nux 2.5 mg/0.5 mL subcutane ous solution syringe INJECT 2.5 SUBCUTAN EOUSLY EVERY 24 HRS active Not Available Not Available No t Available aspirin 81 mg tablet,de layed release TAKE 1 TABLET BY MOUTH EVERY DAY active Not Available Not Available No t Available spironola ctone 25 mg tablet TAKE 1 TABLET BY MOUTH EVERY DAY active Not Available Not Available No t Available ketorolac 0.5 % eye drops START [address]IR TO SURGERY PLACE 1 DROP INTO OPERATIV E EYE TWICE A DAY active Not Available Not Available No t Available tamsulosi n 0.4 mg capsule 07/17 completed Medicati on ID: [id number] B rand Name: tamsulos in Send Method: E-Prescr ibed Sub s Allowed: subs OK Medic ationGen ericName : tamsulos in Not Available Not Available Not Available prednisol one sodium phosphate 1 % eye drops INSTILL 1 DROP INTO THE LASERED EYE 3 TIMES DAILY FOR 5 DAYS FOLLOWIN G LASER 07/17 completed Not Available Not Available Not Available pantopraz ole 40 mg tablet,de layed release TAKE 1 TABLET BY MOUTH EVERY DAY HALF AN HOUR BEFORE BREAKFAS T active Not Available Not Available No t Available metformin 1,000 mg tablet 07/17 completed Medicati on ID: [id number] B rand Name: metformi n Send Method: E-Prescr ibed Sub s Allowed: subs OK Speci al Instruct ion: TAKE 1/2 TABLET BY MOUTH DAILY Me dication GenericN debo: metformi n Not Available Not Available Not Available lidocaine 5 % topical patch 12/30 completed Medicati on ID: [id number] D uration Value: 30 Brand Name: lidocain e Send Method: E-Prescr ibed Sub s Allowed: subs OK Speci al Instruct ion: APPLY 1 PATCH BY TRANSDER MAL ROUTE EVERY DAY (MAY WEAR UP TO 12HOURS. ) Medica tionGene ricName: lidocain e Not Available Not Available Not Available hydrochlo rothiazid e 12.5 mg capsule TAKE 1 CAPSULE BY MOUTH EVERY DAY IN THE MORNING active Not Available Not Available No t Available fluoxetin e 10 mg capsule TAKE 1 CAPSULE BY MOUTH EVERY DAY 07/17 completed Not Available Not Available Not Available omeprazol e 20 mg capsule,d elayed release TAKE 1 CAPSULE BY MOUTH EVERY DAY active Not Available Not Available No t Available digoxin 125 mcg (0.125 mg) tablet TAKE 1 TABLET BY MOUTH DAILY active Not Available Not Available No t Available furosemid e 20 mg tablet TAKE 1 TABLET BY MOUTH EVERY DAY active Not Available Not Available No t Available gabapenti n 100 mg capsule 12/30 completed Medicati on ID: [id number] D uration Value: 30 Brand Name: gabapent in Send Method: E-Prescr ibed Sub s Allowed: subs OK Speci al Instruct ion: TAKE 2 CAPSULE TWICE DAILY Me dication GenericN debo: gabapent in Not Available Not Available Not Available oxycodone 30 mg tablet 30 MG ORALLY EVERY 8 HOURS NEEDED FOR PAIN FOR 28 DAYS PARTIAL FILL UPON PATIENT REQUEST active Not Available Not Available No t Available azelastin e 137 mcg (0.1 %) nasal spray INSTILL 2 SPRAYS INTO EACT NOSTRIL\ DAILY,X3 0 DAYS NEEDED FOR OTHER ALLERGIE S active Not Available Not Available No t Available albuterol sulfate HFA 90 mcg/actua tion aerosol inhaler INHALE 2 PUFFS INTO THE LUNGS EVERY 4 HOURS NEEDED FOR WHEEZING FOR UP TO 30 DAYS. active Not Available Not Available No t Available fluoxetin e 20 mg capsule TAKE 1 CAPSULE BY MOUTH EVERY DAY active Not Available Not Available No t Available fluticaso ne propionat e 50 mcg/actua tion nasal spray,amanda pension USE 2 SPRAYS INTO EACH NOSTRIL DAILY active Not Available Not Available No t Available ipratropi um bromide 21 mcg (0.03 %) nasal spray 2 spray into both nostrils 04/03 completed Medicati on ID: [id number] Yuki figueroa By Name: Roberta regan MD Brand Name: Atrovent Send Method: E-Prescr ibed Sub s Allowed: subs OK Medic ationGen ericName : Atrovent Not Available Not Available Not Available Vitamin D3 25 mcg (1,000 unit) capsule 07/17 completed Medicati on ID: [id number] B rand Name: Vitamin D3 Send Method: E-Prescr ibed Sub s Allowed: subs OK Medic ationGen ericName : Vitamin D3 Not Available Not Available Not Available Alcohol Prep Pads 04/03 completed Medicati on ID: [id number] D uration Value: 30 Brand Name: Alcohol Prep Pads Sen d Method: E-Prescr ibed Sub s Allowed: subs OK Speci al Instruct ion: USE TOPICALL Y 3 TIMES A DAY BEFORE CHECKING BLOOD SUGAR Me dication GenericN debo: Alcohol Prep Pads Not Available Not Available Not Available lactulose 10 gram/15 mL oral solution 12/30 completed Medicati on ID: [id number] D uration Value: 30 Brand Name: lactulos e Send Method: E-Prescr ibed Sub s Allowed: subs OK Speci al Instruct ion: TAKE 30ML BY MOUTH EVERY DAY NEEDED FOR CONSTIPA TION Med icationG enericNa me: lactulos e Not Available Not Available Not Available quetiapin e 50 mg tablet TAKE 1 TABLET BY MOUTH AT BEDTIME, TAKE ALONG WITH 25 MG NIGHTLY TABLET FOR A TOTAL OF 75 MG DAILY active Not Available Not Available No t Available Symbicort 80 mcg-4.5 mcg/actua tion HFA aerosol inhaler 04/03 completed Medicati on ID: [id number] D uration Value: 30 Brand Name: Symbicor t Send Method: E-Prescr ibed Sub s Allowed: subs OK Speci al Instruct ion: INHALE 2 PUFFS BY MOUTH TWICE A DAY Medi cationGe nericNam e: Symbicor t Not Available Not Available Not Available FreeStyle Lite Strips 04/03 completed Medicati on ID: [id number] D uration Value: 25 Brand Name: FreeStyl e Lite Strips S end Method: E-Prescr ibed Sub s Allowed: subs OK Speci al Instruct ion: TEST 2 TIMES DAILY Me dication GenericN debo: FreeStyl e Lite Strips Not Available Not Available Not Available CoQ-10 100 mg capsule 07/17 completed Medicati on ID: [id number] B rand Name: CoQ-10 S end Method: E-Prescr ibed Sub s Allowed: subs OK Medic ationGen ericName : CoQ-10 Not Available Not Available Not Available oxycodone 20 mg tablet 12/30 completed Medicati on ID: [id number] D uration Value: 30 Brand Name: oxycodon e Send Method: E-Prescr ibed Sub s Allowed: subs OK Speci al Instruct ion: TAKE 1 TABLET BY MOUTH TWICE A DAY NEEDED FOR PAIN Med icationG enericNa me: oxycodon e Not Available Not Available Not Available Citracal Regular 250 mg (as citrate)- 5 mcg (200 unit) tablet 07/17 completed Medicati on ID: [id number] B rand Name: Citracal Regular Send Method: E-Prescr ibed Sub s Allowed: subs OK Medic ationGen ericName : Citracal Regular Not Available Not Available Not Available Centrum Silver 0.4 mg-300 mcg-250 mcg tablet 07/17 completed Medicati on ID: [id number] B rand Name: Centrum Silver S end Method: E-Prescr ibed Sub s Allowed: subs OK Medic ationGen ericName : Centrum Silver Not Available Not Available Not Available Eliquis 5 mg tablet TAKE 1 TABLET BY MOUTH TWICE A DAY active Not Available Not Available No t Available PreserVis ion AREDS-2 250 mg-90 mg-40 mg-1 mg capsule TAKE 1 CAPSULE BY MOUTH TWICE A DAY 07/17 completed Not Available Not Available Not Available Farxiga 10 mg tablet TAKE 1 TABLET BY MOUTH EVERY DAY active Not Available Not Available No t Available Anoro Ellipta 62.5 mcg-25 mcg/actua tion powder for inhalatio n 07/17 completed Medicati on ID: [id number] B rand Name: Anoro Ellipta Send Method: E-Prescr ibed Sub s Allowed: subs OK Speci al Instruct ion: TAKE 1 PUFF EVERY DAY Medi cationGe nericNam e: Anoro Ellipta Not Available Not Available Not Available Trelegy Ellipta 100 mcg-62.5 mcg-25 mcg powder for inhalatio n INHALE 1 PUFFS INHALATI ON DAILY,X3 0 DAYS,INS TR:AT THE SAME TIME EVERY DAY active Not Available Not Available No t Available Vitals Date Recorded Body height Body mass index (BMI) Body weight Provider Name and Address Organization Details Last Updated DateTime 07/17/2024 182.88 cm 27.1 kg/m2 87994.47 g BEATA SHEIKH [place] - [facility] 07/17/2024 09:44:30 Social History None recorded. Functional Status None recorded. Mental Status None recorded. Family History Nothing Reported. Medical History No medical history recorded. Past Encounters Encounter ID Performer Location Encounter Start Date Encounter Closed Date Diagnosis/Indication Diagnosis SNOMED-CT Code Diagnosis ICD10 Code Diagnosis IMO Codes Diagnosis Note [id number] FAHAD BRAY MD [facility] [address] [place] [address] 07/17/2024 09:11:35 07/17/2024 10:07:34 Feeling of lump in throat 742665893 R09.A2 092953 Dysphagia 81087203 R13.1 4 892050 Traumatic brain injury 046989964 S06.9XAS 5480788179 Health Concerns Section Related Observation LastModified by Organization Detai ls LastModified Time None Recorded Concern Status LastModified by Organization Details LastModified Time None Recorded Advance Directives Directive None Recorded Payers Insurance Date Sequence Insurance Name Policy Number Policy Perkins Covered Member ID Perkins Member ID Guarantor Name 07/17/2024 2 [place] [place] Taylor [id number] Montana Taylor 07/17/2024 1 [facility] - DOS ON OR AFTER 2022 - ONE CARE (MEDICARE REPLACEMENT/AD VANTAGE - HMO) Montana Taylor [id number] Montana Taylor Notes Date Note Type Note Provider Name and Address Organization Details Recorded Time 07/17/2024 text/html ROS as noted in the HPI dysphagiahx of TBI - escorted by case managerdescribes he may have difficulty to swallow - pills and food get stuck if he does not chew fully or take sips of waterba swallow was normalnext week scheduled for UGIhx of bariatric surgery about 201404/22/2020 CD[facility], CT neck with contrastextensive multilevel cervical spondylosis, status post previous anterior cervical discectomies and fusion with hardware instrumentation of the C 3 - 4 and C 4 - 5 levels. Bulky anterior endplate spurring and a fusion plate results in mild contour distortion of the posterior pharyngeal wall to the right of midline. Additional mild lateral retropharyngeal course of the right internal carotid artery with a 50% stenosis of the vessel origin. No cervical adenopathy or suspicious soft tissue enhancement. PV 04/29/[address] JOSY Reyes review of CT results.04/03/20 FOL dry mucosa FAHAD BRAY MD [address] [place] [address], [place], [address], [facility] - [facility] 07/17/2024 10:09:27
== END 2025-01-04 11:18 | disposition home or self-care (01) ==
LOC: HO.HBST 09:55
PROVIDERS: PCP Internal Medicine; Visit Provider Counselor Mental Health
DX: F39 Unspecified mood [affective] disorder (principal); F41.9 Anxiety disorder, unspecified
CPT/HCPCS: 90791

== ENCOUNTER 2025-01-08 15:51 | Outpatient (REF) | payer OTHER, SELFPAY ==
--- OUTSIDE RECORDS SUMMARY | 2024-11-27 08:00 | XMS_ITS ---
Author Organization [facility] Address [address] [place] [address] Care Team Providers Care Caretaker Resort Name Role Phone Susan Hardy MD Primary Care Provider Unavailabl Juan Fischer Unavailable [phone] REASON FOR VISIT Seen Sooner Encounters Encounter Location Date Provider Diagnosis [address] [phone] 11/27/2024 Juan Fleming Plan Of Treatment Next Appt Details Provider Name:Roberta goldman, 2025 09:00:00 AM, [address] [place], [address], Progress Notes * Terrell TAYLORSaundraOB: (69 yo M)Acc No.[id number]:11/27/2024 Progress Notes Patient: [place] KATE Provider: Sarah Beth Fleming DPM :1955 A ge:69 Y S ex:Male Date:11/27/2024 Address:[address], [place], [phone] Pcp:Susan Hardy MD Subjective: * Chief [...] DPM Date: Generated for Zuhair Chance on: 03/10/2024 07:19 PM EST
--- NOTE | 2025-01-08 16:14 | PFT_ITS ---
Flows: FEV1: 67 % of predicted at 2.12 L FVC: 104 % of predicted at 4.39 L FEV1/FVC: 48 % Bronchodilator response: Absent Volumes: Total lung capacity: 101 % of predicted at 7.18 L Residual volume: 110 % of predicted at 2.80 L Slow vital capacity: 96 % of predicted at 4.38 L Expiratory reserve volume: 116 % of predicted at 1.44 L Diffusion capacity: Moderately decreased Impression: Moderate obstructive ventilatory defect with no bronchodilator response. Decreased diffusion capacity suggests emphysema. MTDD
[2025-01-08 16:37] VITALS: PULSE 54; O2SAT 97
--- OUTSIDE RECORDS SUMMARY | 2025-01-08 19:20 | XMS_ITS | Clinical Summary ---
Author Organization [facility] Address [address] [place] [address] Care Team Providers Care Industrial Waste Treatment Technician Name Role Phone Susan Gonsalez MD Primary Care Provider [phone] Allergies No known active allergies Medications Medication [...] Advance Directives For more information, please contact: [phone] Latest Code Status on File Code Status Date Activated Date Inactivated Comments Full Code 11/03/2022 7:02 PM 11/05/2022 12:09 AM This code status was ascertained in the following way: discussion with patient. Care Teams Industrial Waste Treatment Technician Relationship Specialty Start Date End Date Susan Gonsalez MD PCP - General Internal Medicine 11/03/22
--- OUTSIDE RECORDS SUMMARY | 2025-01-08 19:20 | XMS_ITS | Data Portability ---
Author Organization [employer], [facility] [employer] [facility] Address [address] [place] [address] Assessment Encounter Date Assessment Date Assessment LastModified by Organization Details LastModified Time 02/21/2023 02/21/2023 As noted, we were called to see this patient regarding concerns of dyspnea. Evaluation in the field was performed by my hot saw helper colleague, as noted above, I provided real-time direction and supervision for this visit. The evaluation revealed the patient has COPD on home oxygen and was in acute distress. Vitals as noted with hypoxemia, worse even with speaking. Portable Trackman arranged for urgent transport to ED. In [...] /min 185.42 cm 83 % 2 L/min 65962.3 2 g 77 /min 111/78 mm[Hg] Not Available [facility] - production 11:41:41 Social History None recorded. Functional Status None recorded. Mental Status None recorded. Family History Nothing Reported. Medical History No medical history recorded. Past Encounters Encounter ID Performer Location Encounter Start Date Encounter Closed Date Diagnosis/Indication Diagnosis SNOMED-CT Code Diagnosis ICD10 Code Diagnosis IMO Codes Diagnosis Note [id number] MOISES JOHNSON MD [facility] - [facility] [address] [place] [address] 02/21/2023 11:41:38 02/21/2023 12:15:00 Acute hypoxemic respiratory failure 328006287 J96.01 Health Concerns Section Related Observation LastModified by Organization Detai ls LastModified Time None Recorded Concern Status LastModified by Organization Details LastModified Time None Recorded Advance Directives Directive None Recorded Payers Insurance Date Sequence Insurance Name Policy Number Policy Perkins Covered Member ID Perkins Member ID Guarantor Name 02/21/2023 1 [facility] - DOS ON OR AFTER 2022 - DUAL ELIGIBLE - LONG-TERM OPTIONS AND ONE CARE (MEDICARE REPLACEMENT/ADV ANTAGE - HMO) Montana Taylor [id number] Montana Taylor Notes Date Note Type Note [...] .................. .................. .................. .................. .................. ............... Portable Trackman Note From Brent Aguila: Pt reports cough [...] rales in lower right. 911 immediately initiated. [facility] alerted to pt condition. While waiting for EMS to arrive I increased his O2 and discussed shelter plans with the pt. He was very receptive and plans to confer with the ED MD and his [employer] stationary engineer refrigeration who is going to meet him in the ED. Care transferred to [facility]. .................. .................. .................. .................. .................. .................. .................. ............... Disposition: Fulfilled MOISES JOHNSON MD [address] [place] [address],[address], [place], [address], [facility] - GANESH ROUSE 02/21/2023 11:44:01
--- OUTSIDE RECORDS SUMMARY | 2025-01-08 19:20 | XMS_ITS | Data Portability ---
Author Organization [place] - [facility], Allergy Address [address] [facility] [address] [place] [address] Care Team Providers Care Seedling Puller Name Role Phone KatelinWALTER ULLOA Primary Care [...] Organization Details Recorded Time Respirato ry finding [id number] Active 2016 Feeling of foreign body in throat; Note: Date Diagnosed: 07/19/2016 9:53 AM (R09.89) Not Available [employer] 02:32:36 Cardiovas cular finding 169181224 Active 2016 Feeling of foreign body in throat; Note: Date Diagnosed: 07/19/2016 9:53 AM (R09.89) Not Available [facility] 4 02:32:36 Gastroeso phageal reflux disease without esophagit is 988076864 Active 2016 Gastro-eso phageal reflux disease without esophagiti s; Note: Date Diagnosed: 07/19/2016 9:54 AM (K21.9) Not Available [facility] 4 02:32:25 Dysphonia 86055734 Active 2016 Hoarseness ; Note: Date Diagnosed: 07/19/2016 10:03 AM (R49.0) Not Available [facility] 4 02:32:30 Nasal congestio n 37684602 Active 2016 Nasal congestion ; Note: Date Diagnosed: 09/11/2016 7:39 AM (R09.81) Not Available [facility] 4 02:32:35 Posterior rhinorrhe a 02690532 Active 2017 Postnasal drip; Note: Date Diagnosed: 03/07/2017 10:06 AM (R09.82) Not Available [facility] 4 02:32:26 Chronic obstructi ve pulmonary disease 00536036 Active 2019 Chronic obstructiv e pulmonary disease, unspecifie d; Note: Date Diagnosed: 01/11/2020 11:01 AM (J44.9) Not Available [facility] 4 02:32:24 Feeling of lump in throat 608150391 Active 2024 FAHAD BRAY MD [address] [place] [address],[place] [address], [address] , [place] - [facility] 5 15:32:23 Dysphagia 45943295 Active 2024 FAHAD BRAY MD [address] [place] [address],[place] [address], [address] , [place] - [facility] 5 10:07:10 Traumatic brain injury 886542019 Active 2024 FAHAD BRAY MD [address] [place] [address],[place] [address], [address] , [place] - [facility] 10:07:47 Problem Notes None recorded. Procedures Surgical History Date Name Laterality Status Provider Name and Address Organization Details Recorded Time 07/17/2024 FOL_DP completed FAHAD BRAY MD [address] [place] [address], [phone], [place] - [facility] 07/17/2024 10:06:31 Imaging Results None recorded. Procedure [...] mg capsule 04/03 completed Medicati on ID: [id number] B rand Name: fluoxeti ne Send Method: [...] sustained -release 2019 active Medicati on ID: [id number] B rand Name: bupropio n HCl Send Method: E-Prescr ibed Sub s Allowed: subs OK Speci al Instruct ion: TAKE 1 TABLET BY MOUTH TWICE A DAY Medi cationGe nericNam e: bupropio n HCl Not Available Not Available Not Available nystatin 100,000 unit/mL oral suspensio n 04/03 completed Medicati on ID: [id number] B rand Name: nystatin Send Method: E-Prescr [...] al patch 12/30 completed Medicati on ID: [id number] D uration Value: 14 Brand Name: nicotine Send Method: E-Prescr ibed Sub s Allowed: subs OK Speci al Instruct ion: APPLY 1 PATCH DAILY DIRECTED . Medica tionGene ricName: nicotine Not Available Not Available Not Available albuterol sulfate 2.5 mg/3 mL (0.083 %) solution for nebulizat ion 12/30 completed Medicati on ID: [id number] D uration Value: 30 Brand Name: albutero l sulfate Send Method: E-Prescr ibed Sub s Allowed: subs OK Medic ationGen ericName : albutero l sulfate Not Available Not Available Not Available citalopra m 40 mg tablet 03/07 completed Medicati on ID: [id number] D uration Value: 30 Reason: () Brand Name: citalopr am Send Method: E-Prescr ibed Sub s Allowed: subs OK Speci al Instruct ion: TAKE 1 TABLET DAILY. M edicatio nGeneric Name: citalopr am Not Available Not Available Not Available oxybutyni n chloride ER 10 mg tablet,ex tended release 24 hr 12/30 completed Medicati on ID: [id number] D uration Value: 30 Brand Name: oxybutyn in chloride Send Method: E-Prescr ibed Sub s Allowed: subs OK Speci al Instruct ion: TAKE 2 TABLETS BY MOUTH EVERY DAY IN THE MORNING Medicati onGeneri cName: oxybutyn in chloride Not Available Not Available Not Available pravastat in 40 mg tablet 12/30 completed Medicati on ID: [id number] D uration Value: 30 Brand Name: pravasta tin Send Method: E-Prescr ibed Sub s Allowed: subs OK Speci al Instruct ion: TAKE 1 TABLET DAILY Me dication GenericN debo: pravasta tin Not Available Not Available Not Available fluconazo le 150 mg tablet 12/30 completed Medicati on ID: [id number] D uration Value: 4 Brand Name: fluconaz [...] mg tablet 2019 active Medicati on ID: [id number] B rand Name: lisinopr il Send Method: E-Prescr ibed Sub s Allowed: subs OK Speci al Instruct ion: TAKE 2 TABLETS BY MOUTH EVERY DAY Medi cationGe nericNam e: lisinopr il Not Available Not Available Not Available prednison e 20 mg tablet 03/07 completed Medicati on ID: [id number] D uration Value: 5 Reason: () Brand [...] mg tablet 07/17 completed Medicati on ID: [id number] B rand Name: simvasta tin Send Method: E-Prescr ibed Sub s Allowed: subs OK Speci al Instruct ion: TAKE 1 TABLET BY MOUTH EVERY DAY IN THE EVENING Medicati onGeneri cName: simvasta tin Not Available Not Available Not Available atenolol 25 mg tablet 03/07 completed Medicati on ID: [id number] D uration Value: 30 Reason: () Brand Name: atenolol Send Method: E-Prescr ibed Sub s Allowed: subs OK Speci al Instruct ion: TAKE 1 TABLET DAILY. M edicatio nGeneric Name: atenolol Not Available Not Available Not Available oxcarbaze pine 300 mg tablet 04/03 completed Medicati on ID: [id number] B rand Name: oxcarbaz epine Se nd [...] mg capsule 07/17 completed Medicati on ID: [id number] B rand Name: tamsulos in Send Method: [...] mg tablet 07/17 completed Medicati on ID: [id number] B rand Name: metformi n Send Method: E-Prescr ibed Sub s Allowed: subs OK Speci al Instruct ion: TAKE 1/2 TABLET BY MOUTH DAILY Me dication GenericN dbeo: metformi n Not Available Not Available Not Available lidocaine 5 % topical patch 12/30 completed Medicati on ID: [id number] D uration Value: 30 Brand Name: lidocain [...] mg capsule 12/30 completed Medicati on ID: [id number] D uration Value: 30 Brand Name: gabapent [...] both nostrils 04/03 completed Medicati on ID: [id number] Yuki figueroa By Name: Roberta regan MD Brand Name: Atrovent Send Method: E-Prescr ibed Sub s Allowed: subs OK Medic ationGen ericName : Atrovent Not Available Not Available Not Available Vitamin D3 25 mcg (1,000 unit) capsule 07/17 completed Medicati on ID: [id number] B rand Name: Vitamin D3 Send Method: E-Prescr ibed Sub s Allowed: subs OK Medic ationGen ericName : Vitamin D3 Not Available Not Available Not Available Alcohol Prep Pads 04/03 completed Medicati on ID: [id number] D uration Value: 30 Brand Name: Alcohol Prep Pads Sen d Method: E-Prescr ibed Sub s Allowed: subs OK Speci al Instruct ion: USE TOPICALL Y 3 TIMES A DAY BEFORE CHECKING BLOOD SUGAR Me dication GenericN debo: Alcohol Prep Pads Not Available Not Available Not Available lactulose 10 gram/15 mL oral solution 12/30 completed Medicati on ID: [id number] D uration Value: 30 Brand Name: lactulos [...] aerosol inhaler 04/03 completed Medicati on ID: [id number] D uration Value: 30 Brand Name: Symbicor t Send Method: E-Prescr ibed Sub s Allowed: subs OK Speci al Instruct ion: INHALE 2 PUFFS BY MOUTH TWICE A DAY Medi cationGe nericNam e: Symbicor t Not Available Not Available Not Available FreeStyle Lite Strips 04/03 completed Medicati on ID: [id number] D uration Value: 25 Brand Name: FreeStyl e Lite Strips S end Method: E-Prescr ibed Sub s Allowed: subs OK Speci al Instruct ion: TEST 2 TIMES DAILY Me dication GenericN debo: FreeStyl e Lite Strips Not Available Not Available Not Available CoQ-10 100 mg capsule 07/17 completed Medicati on ID: [id number] B rand Name: CoQ-10 S end Method: E-Prescr ibed Sub s Allowed: subs OK Medic ationGen ericName : CoQ-10 Not Available Not Available Not Available oxycodone 20 mg tablet 12/30 completed Medicati on ID: [id number] D uration Value: 30 Brand Name: oxycodon e Send Method: E-Prescr ibed Sub s Allowed: subs OK Speci al Instruct ion: TAKE 1 TABLET BY MOUTH TWICE A DAY NEEDED FOR PAIN Med icationG enericNa me: oxycodon e Not Available Not Available Not Available Citracal Regular 250 mg (as citrate)- 5 mcg (200 unit) tablet 07/17 completed Medicati on ID: [id number] B rand Name: Citracal Regular Send Method: E-Prescr ibed Sub s Allowed: subs OK Medic ationGen ericName : Citracal Regular Not Available Not Available Not Available Centrum Silver 0.4 mg-300 mcg-250 mcg tablet 07/17 completed Medicati on ID: [id number] B rand Name: Centrum Silver S end [...] inhalatio n 07/17 completed Medicati on ID: [id number] B rand Name: Anoro Ellipta Send Method: [...] Updated DateTime 07/17/2024 182.88 cm 27.1 kg/m2 17757.47 g BEATA SHEIKH [place] - [facility] 07/17/2024 09:44:30 Social History None recorded. Functional Status None recorded. Mental Status None recorded. Family History Nothing Reported. Medical History No medical history recorded. Past Encounters Encounter ID Performer Location Encounter Start Date Encounter Closed Date Diagnosis/Indication Diagnosis SNOMED-CT Code Diagnosis ICD10 Code Diagnosis IMO Codes Diagnosis Note [id number] FAHAD BRAY MD [facility] [address] [place] [address] 07/17/2024 09:11:35 07/17/2024 10:07:34 Feeling of lump in throat 575508851 R09.A2 942519 Dysphagia 84471525 R13.1 4 698336 Traumatic brain injury 749227148 S06.9XAS 4103294395 Health Concerns Section Related Observation LastModified by Organization Detai ls LastModified Time None Recorded Concern Status LastModified by Organization Details LastModified Time None Recorded Advance Directives Directive None Recorded Payers Insurance Date Sequence Insurance Name Policy Number Policy Perkins Covered Member ID Perkins Member ID Guarantor Name 07/17/2024 2 [place]: [facility] [place] Taylor [id number] Montana Taylor 07/17/2024 1 [facility] - DOS ON OR AFTER 2022 - ONE CARE (MEDICARE REPLACEMENT/AD VANTAGE - HMO) Montana Taylor [id number] Montana Taylor Notes Date Note Type Note [...] results.04/03/20 FOL dry mucosa FAHAD BRAY MD [address] [place] [address], [place], [address], [facility] - [facility] 07/17/2024 10:09:27
--- OUTSIDE RECORDS SUMMARY | 2025-01-08 19:20 | XMS_ITS | Clinical Summary ---
Author Organization [facility]QU[facility] Address [address] [facility] [place] [address] Phone Care Team Providers Care Biogeographer Name Role Phone Susan Gonsalez MD Primary Care Provider [phone] Allergies No known active allergies Medications digoxin [...] to AC therapy with successful JOSEF/DCCV at [facility] Assessment & Plan (01/01/2025 12:04 PM EST): [...] medication compliance. Coronary artery disease invo lving buck[place] coronary artery of [place] heart without angina pectoris 03/25/2023 Traumatic brain injury ([facility] V24, [facility] V28 ) 03/25/2023 Cervical arthritis 11/03/2022 Left wrist fracture, closed, initial encounter 0 11/03/2022 Unequal pupils 11/03/2022 Nonischemic cardiomyopathy ([facility] V24, [facility] V28) 07/05/2022 Overview (02/21/2024): 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 February 2023 - [facility] Wing found to have decompensated heart [...] pu lmonary disease) ([facility] V24, CMS/HCC V28) 01/19/2010 Overview (01/04/2024): Dr rodrigez pulmonary-on oxygen HS BPH (benign prostatic hyperplasia) 01/19/2010 Overview (01/04/2024): Dr crawford urology-seen 08/23 Resolved Problems Problem Noted Date Diagnosed Date Resolved Date Chronic atrial fibrillation ([facility]/HCC V24, CMS/HCC V28) 03/25/2023 02/21/2024 Obesity 06/22/2010 02/21/2024 Encounters Date Type Department Care Team Description 01/01/2025 9:40 AM EST Consult [facility] [address] [facility] [address] [place] [address] Tex Aguila NP Preop cardiovascular exam (Primary Dx); Paroxysmal atrial fibrillation (CMS/HCC V24, CMS/HCC V28); Nonischemic cardiomyopathy (CMS/HCC V24, CMS/HCC V28); HTN (hypertension), benign; Hyperlipidemia, unspecified hyperlipidemia type; Chronic diastolic heart failure (CMS/HCC V24, CMS/HCC V28) 01/01/2025 Telephone [facility] [address] [facility] [address] [place] [address] Tex Aguila NP 11/16/2024 Telephone [facility] [address] [place] [id number] Ann Gutierrez MD 11/15/2024 Telephone [facility] - [address] [place] [address] Provider, Not In System 10/30/2024 10:00 AM EDT Office Visit Pulmonology - [place] [address] [facility] [address] [place] [address] Marichuy Flor MD Lung nodule (Primary Dx) 10/29/2024 7:06 AM EDT - 10/29/2024 11:59 PM EDT Hospital Encounter [facility] CT Scan [address] [place] [address] Lung nodule Discharge Disposition: Home [...] HERNIA REPAIR WRIST SURGERY Right per case filler BARIATRIC SURGERY Medical History Medical History Date [...] [facility] V[facility]) 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's zoo 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 Arrhythmia A fib per cardia c notes H/O gastric bypass History of appendectomy Cardiomyopathy ([facility] V24, [facility] V28) history of: Sleep apnea Does not use cpa p per case filler Oxygen dependent Uses 1 lpm oxyg en at night via nc per case fillermanager of distribution mellitus ([facility] [...] this topic Medical Devices Implanted Type Area [place] Administrator Device Identifier Shelf Expiration Date Model / Serial / Lot Marker Cobra Superlock - Sn/A - [id number] Implanted:Qty : 1 on 05/16/2024 by Marichuy Flor MD at [facility] Imaging Implants Left: Lung COVIDIEN SUPERDIMENSION 12/21/2027 [id number] / N/A / [id number] Description:LEFT UPPER LOBE Procedures Procedure Name Priority [...] GEMUSE QTc 419 ms GEMUSE P Wave [place] 59 degrees GEMUSE R [place] -45 degrees GEMUSE T [place] 132 degrees GEMUSE ECG Interpretation Sinus bradycardia [...] 4. No developing thoracic lymphadenopathy[place] ([id number]) -------- FINAL REPORT -------- Dictated By: Gabrielle Cobos Dictated Date: 10/30/2024 10:59 ET Assigned Physician: Gabrielle Cobos Reviewed and Electronically Signed By: Gabrielle Cobos Signed Date: 10/30/2024 11:09 ET Workstation ID: [id number] Transcribed By: Self Edit Transcribed Date: 10/30/2024 10:59 ET Narrative 10/30/2024 11:09 AM EDT History: Lung nodule, greater than 8 mm. Status post cryobiopsy left upper lobe 05/16/24 yielding necrotizing granulomatous inflammation. Comparison: 02/28/24 Technique: Helical volumetric imaging of the thorax was performed without IV contrast. DLP: 901.61 mGy/cm GE [employer] VCT Iterative reconstruction technique Findings: The left [...] was performed withoutIV contrast. DLP: 901.61 mGy/cm [employer] VCT Iterative reconstruction technique Findings: The left [...] plugging. 4. No developing [place] ([id number]) -------- FINAL REPORT -------- Dictated By: Gabrielle Cobos Dictated Date: 10/30/2024 10:59 ET Assigned Physician: Gabrielle Cobos Reviewed and Electronically Signed By: Gabrielle Cobos Signed Date: 10/30/2024 11:09 ET Workstation ID: [id number] Transcribed By: Self Edit Transcribed Date: 10/30/2024 10:59 ET us Marichuy Flor MD IMG CT PROCEDURES Final Re sult * (ABNORMAL) Comprehensive metabolic panel (07/17/2024 2:26 PM EDT) Sodium 137 133 - 145 mmol/L LAB CHEMISTRY METHOD 07/17/2024 7:37 PM EDT [facility] Potassium 4.0 3.5 - 5.5 mmol/L LAB CHEMISTRY METHOD 07/17/2024 7:37 PM EDT [facility] Chloride 102 96 - 110 mmol/L LAB CHEMISTRY METHOD 07/17/2024 7:37 PM [facility] CO2 30 21 - 32 mmol/L LAB CHEMISTRY METHOD 07/17/2024 7:37 PM [facility] Anion Gap 5 3 - 11 LAB CHEMISTRY METHOD 07/17/2024 7:37 PM [facility] Glucose 85 70 - 100 mg/dL LAB CHEMISTRY METHOD 07/17/2024 7:37 PM [facility] BUN 9 5 - 25 mg/dL LAB CHEMISTRY METHOD 07/17/2024 7:37 PM [facility] Creatinine 0.88 0.70 - 1.30 mg/dL LAB CHEMISTRY METHOD 07/17/2024 7:37 PM [facility] eGFR 93 >=60 mL/min/1. 73m2 LAB CHEMISTRY METHOD 07/17/2024 7:37 PM [facility] Comment:Calculation based on the Chronic Kidney Disease Epidemiology Collaboration (CKD-EPI) equation refit without adjustment for race. BUN/Creatinine Ratio 10.2 LAB CHEMISTRY METHOD 07/17/2024 7:37 PM [facility] Calcium 9.5 8.5 - 10.5 mg/dL LAB CHEMISTRY METHOD 07/17/2024 7:37 PM [facility] AST (SGOT) 16 10 - 42 unit/L LAB CHEMISTRY METHOD 07/17/2024 7:37 PM [facility] ALT (SGPT) 17 10 - 60 unit/L LAB CHEMISTRY METHOD 07/17/2024 7:37 PM [facility] Alkaline Phosphatase 124(H) 42 - 121 unit/L LAB CHEMISTRY METHOD 07/17/2024 7:37 PM [facility] Total Protein 7.4 6.0 - 8.0 g/dL LAB CHEMISTRY METHOD 07/17/2024 7:37 PM [facility] Albumin 3.7 3.2 - 5.0 g/dL LAB CHEMISTRY METHOD 07/17/2024 7:37 PM EDT [facility] Total Bilirubin 0.4 0.0 - 1.4 mg/dL LAB CHEMISTRY METHOD 07/17/2024 7:37 PM EDT [facility] Blood Venous blood specimen / Unknown Venipuncture / Unknown 07/17/2024 2:26 PM EDT 07/17/2024 2:26 PM EDT Result [facility] Carol Cote MD LAB BLOOD ORDERABLES Final Resul t [facility] [address] [place] [address], [place] [phone] * External Colonoscopy Report (04/30/2024 1:18 PM EDT) Anatomical Region Laterality Modality Endoscopy Result [facility] Historical Provider GI~PROCEDURE ORDERABLES F inal Result * Hemoglobin A1c (11/04/2022) Pathologist [facility] Hemoglobin A1C 0.0 <=6.5 % Comment:No Interpretation Blood Venous blood specimen / Unknown Result [facility] Historical Samuel MIJARES LAB BLOOD ORDERABLES Rukhsana l Result * Urine Albumin Creatinine Ratio (05/27/2020) Pathologist [facility] Urine Albumin Creatinine Ratio Abstracted Result [facility] Historical Provider HEALTH MAINTENANCE Final Result * Lipid panel (05/27/2020) LDL/HDL Ratio 3 0 - 4 Triglycerides 108 0 - 150 mg/dL Cholesterol 164 0 - 200 mg/dL HDL 50 >=40 mg/dL LDL Cholesterol 93 0 - 100 mg/dL Blood Venous blood specimen / Unknown Result [facility] Historical Provider LAB BLOOD ORDERABLES Rukhsana l Result * Hepatitis C Screening (06/14/2012) Hepatitis C Screening Abstracted us Historical Provider HEALTH MAINTENANCE Final Result * Depression Screening (03/18/2011) Depression Screening Abstracted us Historical Provider HEALTH MAINTENANCE Final Result from Last 3 Months or Most Recently Relevant to Health Maintenance Insurance [facility] MEDICARE Member Subscriber Plan / Payer (Ef fective 2020-Present) Name:Claudia [place] Relation to Subscriber:Self Name:[place] Taylor Payer ID:[id number] Group ID:[id number] Type:Not on file Address: [place] [address] [place] [id number] Advance Directives * Full Code - Default [...] currently active code status orders. Care Teams Biogeographer Relationship Specialty Start Date End Date Susan Gonsalez MD [address] [place] [address] [address] [place] [address] PCP - General Endocrinology 03/26/24
--- OUTSIDE RECORDS SUMMARY | 2025-01-08 19:20 | XMS_ITS | Patient Health Record ---
Author Organization [facility] Address [address] [facility] [address] [place] [address] Care Team Providers Care Sanitation Truck Cleaner Name Role Phone Susan Hardy MD Primary Care Provider UnavailJuan Jeff Unavailable [phone] Roberta Hopper Unavailable [phone] Allergies Allergen (clinical drug ingredient) Drug/Non Drug [...] Polyneuropathy due to type 2 diabetes mellitus ([id number]) Type 2 diabetes mellitus with diabetic polyneuropathy (E11.42) Active confirmed Vital Signs Blood pressure diastolic 80 mm Hg 10/30/2024 Height 6ft in 10/30/2024 Blood pressure systolic 120 mm Hg 10/30/2024 Weight 200 lbs 10/30/2024 BMI 27.12 kg/m2 10/30/2024 Encounters Encounter Location Date Provider Diagnosis [facility] [place] [address] [place] [address] 10/30/2024 Roberta Hopper Type 2 diabetes mellitus [...] Provider Name:Roberta goldman, 2025 09:00:00 AM, [address] [facility], [place], [address], Insurance Providers Payer Name Payer Address Payer Phone Subscriber Number Group Number Insured Name Patient Relationship to Insured Coverage Start Date Coverage End Date [facility] [employer] Claims [address] [place] [id number] [place] Taylor Self - patient is the insured Medical (General) History Medical History History ICD Code COPD TBI Diabetic Reflux ( GERD) Heart disease Bone implants/screws Surgical History Surgery Date(Month/Year) 3 fused vert. in neck 1994 2 fused lower back 1997
== END 2025-01-08 15:52 | disposition home or self-care (01) ==
LOC: HO.RESP 15:51
PROVIDERS: PCP Internal Medicine; Visit Provider Surgery
DX: I50.42 Chronic combined systolic (congestive) and diastolic (congestive) heart failure (principal); I48.0 Paroxysmal atrial fibrillation; K44.9 Diaphragmatic hernia without obstruction or gangrene; R05.9 Cough, unspecified
CPT/HCPCS: 94060; 94640; 94727; 94729

== ENCOUNTER → 2025-01-08 16:14 | Outpatient (BNV) | payer OTHER, SELFPAY | PROVIDERS: PCP Internal Medicine; Visit Provider Internal Medicine Pulmonary Disease | DX: J98.4 Other disorders of lung (principal) | CPT/HCPCS: 94060; 94727; 94729 ==

== ENCOUNTER 2025-01-15 09:19 | Outpatient (AMB) | payer OTHER, SELFPAY ==
--- NOTE | 2025-01-15 09:23 | MHC.PC.OV ---
Vital Signs 01/15/25 09:37 BP 128/68 Blood Pressure Location Lt brachial Position Sitting Respiration 16 Pulse 84 Pulse Source Pulse Oximeter Intake Visit Reasons: DM/chronic pain RE Intake Note: Diabetes follow up Allergies No Known Allergies Allergy (Verified 11/05/24 11:16) Tobacco use date assessed: 09/03/24 Dental Screening Dental Screen Date: 08/30/23 HPI HPI Comments History of Present Illness Details The patient is a 70 year old male with a past medical history of TBI, YESICA on CPAP, COPD, recovered alcoholic, type 2 diabetes, hypertension, TAA presenting for follow up. He is accompanied by a health hearing care practitioner-CCA worker BH: Reconnected with psychology, psychologist in [place]. Improved interval anxiety. CV: Follows with PVC. Admitted in Mar 2023 for CHF. Is euvolemic without chest pain or dyspnea. Rsp: Follows with [facility] pulmonary, seeing Dr Garcia. Had biopsy-c/w bacterial infection. YESICA-compliant on CPAP. Inspire will be placed in a few weeks TBI: History of TBI. Saw neurology at [facility]. Followed with N. Follows with head injury program [facility]. Pump Service Supervisor Michael Schwartz. History recovered etoh. continues AA. Sober since 1992. Chronic pain: stable on chronic opioid therapy -DDD-history of cervical fusion and remote LS fusion. Follows with PSS. -NEOS sent to [facility] pain management for spinal cord stim trial. Thinks he may be getting some relief. right hip pain, low back pain Endocrine: Diabetes. Controlled. On metformin 500mg daily. A1C 5.7% today GI: Dysphagia. Had barium swallow. Saw ENT. Following with weight management/surgery-plan for upcoming revision surgery for prior bariatric surgery. lap sleeve gastrectomy with concomitant paraesophageal hernia repair. ROS see HPI PHYSICAL EXAM: GENERAL: Alert and oriented x 3. NAD EYES: EOMI. Anicteric. HENT: Moist mucous membranes. No scleral icterus. No cervical lymphadenopathy. LUNGS: Clear to auscultation bilaterally. CARDIOVASCULAR: Regular rate and rhythm. No murmur. No JVD. ABDOMEN: Soft, non-tender +bs EXTREMITIES: No edema. Non-tender. SKIN: No rashes or lesions. Warm. NEUROLOGIC: No focal neurological deficits. Memory impaired PSYCHIATRIC: Cooperative. Appropriate mood and affect [facility] Medical History Atrial fibrillation Paraesophageal hernia Diabetes Vitamin D deficiency, unspecified Tubular adenoma of colon Presenile dementia Polyp of colon YESICA (obstructive sleep apnea) Obesity Nicotine dependence Lumbar spondylosis with myelopathy Lumbar canal stenosis Incomplete emptying of bladder Hypertension Hyperlipidemia H/O traumatic brain injury ELIZABETH (generalized anxiety disorder) Depressive disorder Constipation, unspecified CHF (congestive heart failure) COPD (chronic obstructive pulmonary disease) Cervical arthritis Cardiomyopathy Benign prostatic hyperplasia with urinary obstruction Benign prostatic hyperplasia Benign hypertension Arrhythmia Angina pectoris Alcoholism Surgical History History of spinal fusion History of appendectomy History of cervical spinal arthrodesis History of hernia repair History of gastric surgery History of colonoscopy Family History Mother Lung cancer Smoker Father Diabetes High cholesterol Hypertension Unsteady gait Social History Household Members: None Housing: House Alcohol intake: former Year quit: 1987 Patient Tobacco Use Status: Former Tobacco user Tobacco use type: Cigar and Pipe Cigarettes Per Day: 2 e-Cigarette/Vaping Use: Never Used Second Hand Smoke Exposure: No Substance Use Type: Marijuana service: No Current occupational status: retired and disabled Cognitive needs: Yes (brain injury) Hearing needs: No Vision needs: No Questionnaire Thrive Questionnaire Date Thrive assessed: 03/26/24 I am a: Patient What is your living situation today?: I have a steady place to live Within the past 12 months, did the food you bought not last and you didn't have the money to get more?: Never true Within the past 12 months, did you worry whether your food would run out before you got money to buy more?: Never true Do you have trouble paying for medicines?: No Do you have trouble getting transportation to medical appointments?: No Do you have trouble paying your heating and electricity bill?: No Do you have trouble taking care of your child, family member or friend?: No Do you have trouble with day-to-day activities such as bathing, preparing meals, shopping, managing finances, etc.?: No Are you currently unemployed and looking for a job?: No Are you interested in more education?: No Please select the resources that you would like help with: None Currently or been in a relationship where the following occur: No concerns reported THRIVE Score: 0 Physical exam (Primary Care) Vital Signs: Last Vital Signs Pulse 84 01/15/25 09:37 Resp 16 01/15/25 09:37 BP 128/68 01/15/25 09:37 Tobacco/Smoking Status: Tobacco use Status Tobacco use date assessed 09/03/24 01/15/25 09:24 Patient Tobacco Use Status Former Tobacco user 01/15/25 09:24 Tobacco use type Pipe,Cigar 01/15/25 09:24 e-Cigarette/Vaping Use Never Used 01/15/25 09:24 Thrive Assessment: Date of Thrive Assessment Date Thrive assessed 03/26/24 01/15/25 09:24 Currently or been in a relationship where the following occur: No concerns reported Coding Level of Care Code Est Pt Level 4 (32991) Diagnoses Traumatic brain injury, with unknown loss of consciousness status, sequela S06.9XAS Encounter type: sequela Loss of consciousness presence/duration: unknown LOC status Type 2 diabetes mellitus with diabetic polyneuropathy, without long-term current use of insulin E11.42 Diabetes mellitus type: type 2 Diabetes mellitus skilled nursing insulin use: without truck terminal manager use Diabetes mellitus complication status: with neurologic complications Diabetes mellitus complication detail: with polyneuropathy 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 Heart failure type: combined systolic and diastolic Heart failure chronicity: chronic Lumbar spondylosis with myelopathy M47.16 Assessment & Plan Assessment & Plan (1) TBI (traumatic brain injury): Code(s): S06.9XAA - Unspecified intracranial injury with loss of consciousness status unknown, initial encounter Category: Medical Qualifiers: Encounter type: sequela Loss of consciousness presence/duration: unknown LOC status Qualified Code(s): S06.9XAS - Unspecified intracranial injury with loss of consciousness status unknown, sequela (2) Diabetes: Code(s): E11.9 - Type 2 diabetes mellitus without complications Category: Medical Qualifiers: Diabetes mellitus type: type 2 Diabetes mellitus truck terminal manager insulin use: without skilled nursing use Diabetes mellitus complication status: with neurologic complications Diabetes mellitus complication detail: with polyneuropathy Qualified Code(s): E11.42 - Type 2 diabetes mellitus with diabetic polyneuropathy (3) CHF (congestive heart failure): Code(s): I50.9 - Heart failure, unspecified Category: Medical Qualifiers: Heart failure type: combined systolic and diastolic Heart failure chronicity: chronic Qualified Code(s): I50.42 - Chronic combined systolic (congestive) and diastolic (congestive) heart failure (4) Lumbar spondylosis with myelopathy: Code(s): M47.16 - Other spondylosis with myelopathy, lumbar region Category: Medical Plan 70 year old male for follow up Chronic pain continues to be controlled. Continues to see pain management Upcoming inspire procedure. History of TBI-fair job managing medications but would like education about what each is for, if any are redundant. He does have [employer] case work but is interested in nurse navigator CHF-euvolemic. continue cardiology follow up COPD without exacerbation. Sees pulm Orders: Orders AMB Hemoglobin A1c 01/15/25 E11.42 - Type 2 diabetes mellitus with diabetic polyneuropathy Referrals Nurse Navigator Referral [phone] - Other truck terminal manager (current) drug therapy Medications: Changed From food supplemt, lactose-reduced (Ensure High Protein oral liquid) Variety: chocolo ate, strawberry, vanilla E46 - Unspecified protein-calorie malnutrition, R13.14 - Dysphagia, pharyngoesophageal phase To Ensure High Protein (food supplemt, lactose-reduced) Variety: chocoloate, strawberry, vanilla Ensure protein plus 1 ea PO TID 90 ea 3RF NS E46 - Unspecified protein-calorie malnutrition, R13.14 - Dysphagia, pharyngoesophageal phase
[2025-01-15 09:37] VITALS: BP 128/68; PULSE 84; RESP 16
--- OUTSIDE RECORDS SUMMARY | 2025-01-15 09:58 | XMS_ITS | Encounter Summary ---
Author Organization [facility] Address [address] [place] [address] Care Team Providers Care Survey Rodman Name Role Phone Kane Torrez MD Primary Care Provider Hanh Ramirez MD Primary Care Provider Hanh Scott MD Primary Care Provider Susan Henning MD Primary Care Provider Unavaila ble Ann Gutierrez MD Unavailable Tracey Crouch DNP Unavailable [phone] Encounter Details Date Type Department Care Team Description 01/04/2012 [facility] Medical Records [address] [place] [address] Nixon Lehman MD Social History Tobacco Use Types Packs/Day [...] on filedocumented in this encounter Care Teams Survey Rodman Relationship Specialty Start Date End Date Kane [...]
--- OUTSIDE RECORDS SUMMARY | 2025-01-15 09:58 | XMS_ITS | Encounter Summary ---
Author Organization [facility] Address [address] [place] [address] Care Team Providers Care Durable Medical Equipment Technician Name Role Phone Hanh Tobar MD Primary Care Provider Susan Henning MD Primary Care Provider Latrella Ann Byrnes MD Unavailable [phone] Tracey Crouch DNP Unavailable [phone] Encounter Details Date Type Department Care Team Description 06/29/2021 [facility] Medical Records [address] [place] [address] Lupillo Medina Social History Tobacco Use Types Packs/Day Years [...] Name Priority Date/Time Associated Diagnosis Comments OUTSIDE MRI/MRA Routine 06/29/2021 documented in this encounter Results * OUTSIDE MRI/MRA (06/29/2021) Provider Abstract RADIOLOGY documented in this encounter Visit Diagnoses Not on filedocumented in this encounter Care Teams Durable Medical Equipment Technician Relationship Specialty Start Date End Date Hanh Tobar MD PCP - General Internal Medicine 03/22/18 02/24/22 Susan Hughes MD PCP - General Internal Medicine 02/25/22 Ann Gutierrez MD Specialist Cardiology 03/18/23 Tracey Crouch DNP Specialist Nurse Practitioner Family 03/18/23 documented as of this encounter
--- OUTSIDE RECORDS SUMMARY | 2025-01-15 09:58 | XMS_ITS | Clinical Summary ---
Author Organization [facility] Address [address] [place] [address] Care Team Providers Care Correspondence School Teacher Name Role Phone Susan Gonsalez MD Primary Care Provider [phone] Allergies No known active allergies Medications Medication [...] Advance Directives For more information, please contact: [phone] Latest Code Status on File Code Status Date Activated Date Inactivated Comments Full Code 11/03/2022 7:02 PM 11/05/2022 12:09 AM This code status was ascertained in the following way: discussion with patient. Care Teams Correspondence School Teacher Relationship Specialty Start Date End Date Susan Gonsalez MD PCP - General Internal Medicine 11/03/22
--- OUTSIDE RECORDS SUMMARY | 2025-01-15 09:58 | XMS_ITS | Encounter Summary ---
Author Organization [facility] Address [address] [place] [address] Care Team Providers Care Stone Driller Name Role Phone Kane Torrez MD Primary Care Provider Hanh Ramirez MD Primary Care Provider Hanh Scott MD Primary Care Provider Susan Henning MD Primary Care Provider Unavaila Ann Byrnes MD Unavailable Tracey Crouch DNP Unavailable [phone] Encounter Details Date Type Department Care Team Description 03/01/2012 [facility] Medical Records [address] [place] [address] Michele Crouch MD Social History Tobacco Use Types Packs/Day [...] on filedocumented in this encounter Care Teams Stone Driller Relationship Specialty Start Date End Date Kane [...]
--- OUTSIDE RECORDS SUMMARY | 2025-01-15 09:58 | XMS_ITS | Encounter Summary ---
Author Organization [facility] Address [address] [place] [address] Care Team Providers Care Flour Mixer Helper Name Role Phone Kane Torrez MD Primary Care Provider Kane Whitmore MD Primary Care Provider Hanh Ramirez MD Primary Care Provider Hanh Scott MD Primary Care Provider Susan Henning MD Primary Care Provider Ann Cai MD Unavailable [phone] Tracey Crouch DNP Unavailable [phone] Reason for Visit * Reason Comments E-prescribe Rx Request Encounter Details Date Type Department Care Team Description 10/14/2011 Refill Adult Medicine - [place] [address] [place] [address] De Tovar MD E-prescribe Rx Request Social [...] on filedocumented in this encounter Care Teams Flour Mixer Helper Relationship Specialty Start Date End Date Kane [...]
--- OUTSIDE RECORDS SUMMARY | 2025-01-15 09:58 | XMS_ITS | Encounter Summary ---
Author Organization [facility] Address [address] [place] [address] Care Team Providers Care Shipyard Laborer Name Role Phone Hanh Tobar MD Primary Care Provider Susan Henning MD Primary Care Provider Unavaila ble Ann Gutierrez MD Unavailable [phone] Tracey Crouch DNP Unavailable [phone] Reason for Visit * Reason Comments E-prescribe Rx Request simvastatin, denise nopril Encounter Details Date Type Department Care Team Description 01/29/2021 Refill Cardio [facility] [address] [place] [address] Ann Gutierrez MD [address] [place] [address] [phone] E-prescribe Rx Request (simvastatin, lisinopril ) Social History Tobacco Use Types Packs/Day [...] encounter Miscellaneous Notes * Telephone Encounter - Jackie Devi C.M.A. - 01/29/2021 9:43 AM EST For Scheduling CIRILO 12/2019 Dr DANG Please arrange fu 1 yr f/u/ overdue HTN, HLD, CM documented in this encounter Plan of Treatment Not on file documented as of this encounter Visit Diagnoses Not on filedocumented in this encounter Care Teams Shipyard Laborer Relationship Specialty Start Date End Date Hanh Tobar MD PCP - General Internal Medicine 03/22/18 02/24/22 Susan Hughes MD PCP - General Internal Medicine 02/25/22 Ann Gutierrez MD Specialist Cardiology 03/18/23 Tracey Crouch DNP Specialist Nurse Practitioner Family 03/18/23 documented as of this encounter
--- OUTSIDE RECORDS SUMMARY | 2025-01-15 09:58 | XMS_ITS | Encounter Summary ---
Author Organization [facility] Address [address] [place] [address] Care Team Providers Care Director Of Instrumental Music Name Role Phone Hanh Tobar MD Primary Care Provider Susan Henning MD Primary Care Provider Ann Cai MD Unavailable [phone] Tracey Coruch DNP Unavailable [phone] Reason for Visit * Reason Comments E-prescribe Rx Request Encounter Details Date Type Department Care Team Description 09/22/2020 Refill Pulmonology - [place] [address] [facility] [address] [place] [address] Sushil Srinivasan MD [address] [place] [id number] E-prescribe Rx Request Social History Tobacco Use [...] N/A Patients current insurance carrier is: Payor: [facility] MCR / Plan: [employer] $0 [facility] [id number] / Product Type: HMO [id number] documented in this encounter Plan of Treatment Not on file documented as of this encounter Visit Diagnoses Diagnosis Pulmonary emphysema, unspecified emphysema type (HCC) documented in this encounter Care Teams Director Of Instrumental Music Relationship Specialty Start Date End Date Hanh Tobar MD PCP - General Internal Medicine 03/22/18 02/24/22 Susan Hughes MD PCP - General Internal Medicine 02/25/22 Ann Gutierrez MD Specialist Cardiology 03/18/23 Tracey Crouch DNP Specialist Nurse Practitioner Family 03/18/23 documented as of this encounter
--- OUTSIDE RECORDS SUMMARY | 2025-01-15 09:58 | XMS_ITS | Encounter Summary ---
Author Organization [facility] Address [address] [place] [address] Care Team Providers Care Material Handling Warehouse Supervisor Name Role Phone Hanh Tobar MD Primary Care Provider Susan Henning MD Primary Care Provider Ann Cai MD Unavailable [phone] Tracey Crouch DNP Unavailable [phone] Reason for Visit * Reason Comments E-prescribe Rx Request Encounter Details Date Type Department Care Team Description 11/16/2021 Refill Pulmonology - [place] [address] [facility] [address] [place] [address] Sushil Srinivasan MD [address] [place] [phone] E-prescribe Rx Request Social History Tobacco Use [...] encounter Miscellaneous Notes * Telephone Encounter - Moises Sutherland - 11/18/2021 10:34 AM EDT Patient would like script to be: E-PRESCRIBED/FAXED TO PHARMACY When was the patients last office visit in Adult Medicine?: 08/26/20 When was the last time the patient saw their PCP? Same as above Does patient have an upcoming appointment? No-unable to reach left voicemaill to call for appointment due to refill request. Appt due OK (THE MEDICATION IS NOT ON THE MED LIST AND IS IDENTIFIED BELOW): {MED LIST:[id number]) Med name: Ariel Berrios Dosage: 62.5-25 MCG # of tablets: Local pharmacy with request for 30 -day supply Instructions: TAKE 1 PUFF EVERY DAY Did you check the pharmacy information above?: YES Patients current insurance carrier: [place] / [place] / Product Type: MEDICAIDFEE-FOR-SERVICE documented in this encounter Plan of Treatment Not on file documented as of this encounter Visit Diagnoses Diagnosis Pulmonary emphysema, unspecified emphysema type (HCC) documented in this encounter Care Teams Material Handling Warehouse Supervisor Relationship Specialty Start Date End Date Hanh Tobar MD PCP - General Internal Medicine 03/22/18 02/24/22 Susan Hughes MD PCP - General Internal Medicine 02/25/22 Ann Gutierrez MD Specialist Cardiology 03/18/23 Tracey Crouch DNP Specialist Nurse Practitioner Family 03/18/23 documented as of this encounter
--- OUTSIDE RECORDS SUMMARY | 2025-01-15 09:58 | XMS_ITS | Encounter Summary ---
Author Organization [facility] Address [address] [place] [address] Care Team Providers Care Research Compliance Specialist Name Role Phone Kane Torrez MD Primary Care Provider Hanh Ramirez MD Primary Care Provider Hanh Scott MD Primary Care Provider Susan Henning MD Primary Care Provider Unavaila ble Ann Gutierrez MD Unavailable [phone] Tracey Crouch DNP Unavailable [phone] Encounter Details Date Type Department Care Team Description 01/05/2012 [facility] Medical Records [address] [place] [address] Akash Mane Social History Tobacco Use Types Packs/Day Years [...] on filedocumented in this encounter Care Teams Research Compliance Specialist Relationship Specialty Start Date End Date Kane [...]
--- OUTSIDE RECORDS SUMMARY | 2025-01-15 09:59 | XMS_ITS | Encounter Summary ---
Author Organization [facility] Address [address] [place] [address] Care Team Providers Care Seafood Technology Specialist Name Role Phone Susan Hughes MD Primary Care Provider Unavaila Ann Byrnes MD Unavailable [phone] Tracey Crouch DNP Unavailable [phone] Encounter Details Date Type Department Care Team Description 04/01/2023 [facility] Medical Records [address] [place] [id number] Abstract, Provider Social History Tobacco Use Types [...] on filedocumented in this encounter Care Teams Seafood Technology Specialist Relationship Specialty Start Date End Date Susan Hugehs MD PCP - General Internal Medicine 02/25/22 Ann Gutierrez MD Specialist Cardiology 03/18/23 Tracey Crouch DNP Specialist Nurse Practitioner Family 03/18/23 documented as of this encounter
--- OUTSIDE RECORDS SUMMARY | 2025-01-15 09:59 | XMS_ITS | Encounter Summary ---
Author Organization [facility] Address [address] [place] [address] Care Team Providers Care Development Educator Name Role Phone Susan Hughes MD Primary Care Provider Unavaila [facility] Ann Gutierrez MD Unavailable [phone] Tracey Crouch DNP Unavailable [phone] Encounter Details Date Type Department Care Team Description 04/20/2022 Clip Loading Machine Adjuster Report Medical Records [address] [place] [address] Susan Hughes MD Social History Tobacco Use Types Packs/Day [...] on filedocumented in this encounter Care Teams Development Educator Relationship Specialty Start Date End Date Susan Hughes MD PCP - General Internal Medicine 02/25/22 Ann Gutierrez MD Specialist Cardiology 03/18/23 Tracey Crouch DNP Specialist Nurse Practitioner Family 03/18/23 documented as of this encounter
--- OUTSIDE RECORDS SUMMARY | 2025-01-15 09:59 | XMS_ITS | Encounter Summary ---
Author Organization [facility] Address [address] [place] [address] Care Team Providers Care Director Medicare Sales Name Role Phone Susan Hughes MD Primary Care Provider Unavaila [facility] Ann Gutierrez MD Unavailable [phone] Tracey Crouch DNP Unavailable [phone] Encounter Details Date Type Department Care Team Description 04/01/2023 [facility] Cardio [facility] [address] [place] [address] Drive [address] [place] [address] Social History Tobacco Use Types Packs/Day Years [...] on filedocumented in this encounter Care Teams Director Medicare Sales Relationship Specialty Start Date End Date Susan Hughes MD PCP - General Internal Medicine 02/25/22 Ann Gutierrez MD Specialist Cardiology 03/18/23 Tracey Crouch DNP Specialist Nurse Practitioner Family 03/18/23 documented as of this encounter
--- OUTSIDE RECORDS SUMMARY | 2025-01-15 09:59 | XMS_ITS | Encounter Summary ---
Author Organization [facility] Address [address] [place] [address] Care Team Providers Care Storm Sash Maker Name Role Phone Kane Torrez MD Primary Care Provider Hanh Ramirez MD Primary Care Provider Susan Henning MD Primary Care Provider Latrella Ann Byrnes MD Unavailable [phone] Tracey Crouch DNP Unavailable [phone] Encounter Details Date Type Department Care Team Description 06/27/2017 [facility] Medical Records [address] [place] [address] Abstract, Provider Social History Tobacco Use Types [...] on filedocumented in this encounter Care Teams Storm Sash Maker Relationship Specialty Start Date End Date Kane Torrez MD PCP - General Internal Medicine 04/14/14 03/21/18 Hanh Tobar MD PCP - General Internal Medicine 03/22/18 02/24/22 Susan Hughes MD PCP - General Internal Medicine 02/25/22 Ann Gutierrez MD Specialist Cardiology 03/18/23 Tracey Crouch DNP Specialist Nurse Practitioner Family 03/18/23 documented as of this encounter
--- OUTSIDE RECORDS SUMMARY | 2025-01-15 09:59 | XMS_ITS | Encounter Summary ---
Author Organization [facility] Address [address] [place] [address] Care Team Providers Care Linux Unix System Administrator Name Role Phone Kane Torrez MD Primary Care Provider Hanh Ramirez MD Primary Care Provider Susan Henning MD Primary Care Provider Ann Cai MD Unavailable [phone] Tracey Crouch DNP Unavailable [phone] Reason for Visit * Reason Onset Date Comments DME Request 02/21/2018 Encounter Details Date Type Department Care Team Description 02/21/2018 Telephone Pulmonology - [place] [address] [facility] [address] [place] [address] Sushil Srinivasan MD [address] [place] [address] DME Request Social History Tobacco Use Types [...] encounter Miscellaneous Notes * Telephone Encounter - Bebe Snell M.A. - 02/21/2018 11:02 AM EST Never been seen in this office, he is a new consult * Telephone Encounter - Kassy Freeman - 02/21/2018 10:40 AM EST Name of Product: CPAP machine supplies Specific information about product Everything he haven had supplies for over 6 months # Needed Reason patient is asking for this supply? Don't have any. Have you received this supply before? If yes , when?: yes - Have you discussed the need for this supply with a provider at a recent visit? YES If yes, with who and when? Dr. Srinivasan When completed: Will crab picker-call when completed: Have you told the patient it will take 7-10 days for completion of this request? YES documented in this encounter Plan of Treatment Not on file documented as of this encounter Visit Diagnoses Not on filedocumented in this encounter Care Teams Linux Unix System Administrator Relationship Specialty Start Date End Date Kane Torrez MD PCP - General Internal Medicine 04/14/14 03/21/18 Hanh Tobar MD PCP - General Internal Medicine 03/22/18 02/24/22 Susan Hughes MD PCP - General Internal Medicine 02/25/22 Ann Gutierrez MD Specialist Cardiology 03/18/23 Tracey Crouch DNP Specialist Nurse Practitioner Family 03/18/23 documented as of this encounter
--- OUTSIDE RECORDS SUMMARY | 2025-01-15 09:59 | XMS_ITS | Encounter Summary ---
Author Organization [facility] Address [address] [place] [address] Care Team Providers Care Tactical/Mobile Watch Officer Name Role Phone Susan Hughes MD Primary Care Provider Unavaila [facility] Ann Gutierrez MD Unavailable [phone] Tracey Crouch DNP Unavailable [phone] Encounter Details Date Type Department Care Team Description 03/15/2023 Poultry Cutter Report Medical Records [address] [place] [address] Susan Hughes MD Social History Tobacco Use [...] on filedocumented in this encounter Care Teams Tactical/Mobile Watch Officer Relationship Specialty Start Date End Date Susan Hughes MD PCP - General Internal Medicine 02/25/22 Ann Gutierrez MD Specialist Cardiology 03/18/23 Tracey Crouch DNP Specialist Nurse Practitioner Family 03/18/23 documented as of this encounter
--- OUTSIDE RECORDS SUMMARY | 2025-01-15 09:59 | XMS_ITS | Encounter Summary ---
Author Organization [facility] Address [address] [place] [address] Care Team Providers Care Doctor Of Veterinary Medicine Name Role Phone Kane Torrez MD Primary Care Provider Hanh Ramirez MD Primary Care Provider Susan Henning MD Primary Care Provider Ann Cai MD Unavailable [phone] Tracey Crouch DNP Unavailable [phone] Encounter Details Date Type Department Care Team Description 07/28/2017 Telephone General Surgery - [address] [place] [address] Tameka Dias MD Social History Tobacco Use Types Packs/Day [...] encounter Miscellaneous Notes * Telephone Encounter - Bertha Mello - 07/28/2017 11:54 AM EDT Patient mailed in a letter for us to please forward his records to [facility]. I did call him and left him a message to let him know he has to come into the office to sign a records release in order for the records to be sent. documented in this encounter Plan of Treatment Not on file documented as of this encounter Visit Diagnoses Not on filedocumented in this encounter Care Teams Doctor Of Veterinary Medicine Relationship Specialty Start Date End Date Kane Torrez MD PCP - General Internal Medicine 04/14/14 03/21/18 Hanh Tobar MD PCP - General Internal Medicine 03/22/18 02/24/22 Susan Hughes MD PCP - General Internal Medicine 02/25/22 Ann Gutierrez MD Specialist Cardiology 03/18/23 Tracey Crouch DNP Specialist Nurse Practitioner Family 03/18/23 documented as of this encounter
--- OUTSIDE RECORDS SUMMARY | 2025-01-15 09:59 | XMS_ITS | Clinical Summary ---
Author Organization [facility] Inside [facility] Address [address] [facility] [place] [address] Phone Care Team Providers Care Rail Switch Operator Name Role Phone Susan Gonsalez MD Primary Care Provider [phone] Allergies No known active allergies Medications digoxin [...] to AC therapy with successful JOSEF/DCCV at [facility] Assessment & Plan (01/01/2025 12:04 PM [...] medication compliance. 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 February 2023 - [facility] Wing found to have decompensated heart [...] 0 COPD (chronic obstructive pu lmonary disease) ([facility] V24, [facility] V28) 01/19/2010 Overview (01/04/2024): Dr rodrigez pulmonary-on oxygen HS BPH (benign prostatic hyperplasia) 01/19/2010 Overview (01/04/2024): Dr crawford urology-seen 08/23 Resolved Problems Problem Noted Date Diagnosed Date Resolved Date Chronic atrial fibrillation ([facility] V24, [facility]/HCC V28) 03/25/2023 02/21/2024 Obesity 06/22/2010 02/21/2024 Encounters Date Type Department Care Team Description 01/09/2025 Telephone [facility] Cardiology [facility] [address] [place] [address] [address] [place] [address] Tex Aguila NP 01/01/2025 9:40 AM EST Consult [facility] Cardiology [facility] [address] [facility] [address] [place] [address] Tex Aguila NP Preop cardiovascular exam (Primary Dx); Paroxysmal atrial fibrillation (CMS/HCC V24, CMS/HCC V28); Nonischemic cardiomyopathy (CMS/HCC V24, CMS/HCC V28); HTN (hypertension), benign; Hyperlipidemia, unspecified hyperlipidemia type; Chronic diastolic heart failure (CMS/HCC V24, CMS/HCC V28) 01/01/2025 Telephone [facility] Cardiology [facility] [address] [place] [phone] Tex Aguila NP 12/07/2024 Telephone [facility] Cardiology [facility] [address] [place] [address] Provider, Not In System 11/16/2024 Telephone [facility] Cardiology [facility] [address] [address] [place] [phone] Ann Gutierrez MD 11/15/2024 Telephone [facility] [address] [place] [phone] Provider, Not In System 10/30/2024 10:00 AM EDT Office Visit Pulmonology - [place] [address] [facility] [address] [place] [phone] Marichuy Flor MD Lung nodule (Primary Dx) 10/29/2024 7:06 AM EDT - 10/29/2024 11:59 PM EDT Hospital Encounter [facility] CT Scan [address] [place] [phone] Lung nodule Discharge Disposition: Home or Self [...] notes HERNIA REPAIR WRIST SURGERY Right per director of casework BARIATRIC SURGERY Medical History Medical History Date Comments Obesity 06/22/2010 DX:Obesity CKD (chronic kidney disease), stage II DX:CKD (chronic kidney disease), stage II Hypokalemia DX:Hypokalemia Alcoholism ([facility] V24, [place] V28) DX:Alcoholism ([facility]) Angina pectoris ([place] V24) DX :Angina pectoris ([facility]) Benign prostatic hyperplasia DX: Benign prostatic hyperplasia Benign prostatic hyperplasia with urinary obstruction DX:Benign prostatic hyperpla simi with urinary obstruction TBI (traumatic brain injury) ([place] V24, [place] V28) per date night caregiver Arrhythmia A fib per cardia c notes H/O gastric bypass History of appendectomy Cardiomyopathy ([place] V24, [place] V28) history of: Sleep apnea Does not use cpa p per director of casework Oxygen dependent Uses 1 lpm oxyg en at night via nc per director of caseworkpig farm manager mellitus ([place] V 24, [place] V28) Forgetfulness Related to TBI COPD (chronic obstructive pu lmonary disease) ([facility] V24, [facility] V28) from H&P GERD (gastroesophageal reflux disease) [...] this topic Medical Devices Implanted Type Area Butter Printer Device Identifier Shelf Expiration Date Model / Serial / Lot Marker Cobra Superlock - Sn/A - [id number] Implanted:Qty : 1 on 05/16/2024 by Marichuy Flor MD at [facility] Implants Left: Lung COVIDIEN SUPERDIMENSION 12/21/2027 [id number] / N/A / [id number] Description:LEFT UPPER LOBE Procedures Procedure Name Priority Date/Time Associated Diagnosis Comments ECG 12-LEAD Routine 01/01/2025 12:04 PM EST Paroxysmal atrial fibrillation ([facility]/HCC V24, CMS/HCC V28) Hyperlipidemia, unspecified hyperlipidemia type [...] GEMUSE QTc 419 ms GEMUSE P Wave [place] 59 degrees GEMUSE R [place] -45 degrees GEMUSE T [place] 132 degrees GEMUSE ECG Interpretation Sinus bradycardia Left anterior fascicular block Nonspecific T wave abnormality Abnormal ECG When compared with ECG of 21-FEB-2024 08:14, Premature supraventricular complexes are no longer Present Confirmed by MD TRACY, ERASMO ([id number]) on 01/01/2025 12:27:39 PM GEMUSE 01/01/2025 9:46 AM EST 01/01/2025 12:27 PM EST us Txe Aguila BURNER OPERATOR ECG ORDERABLES Edited Resu lt - Final [...] plugging. 4. No developing thoracic lymphadenopathy. Telerad MILI ([id number]) -------- FINAL REPORT -------- Dictated By: Gabrielle Cobos Dictated Date: 10/30/2024 10:59 ET Assigned Physician: Gabrielle Cobos Reviewed and Electronically Signed By: Gabrielle Cobos Signed Date: 10/30/2024 11:09 ET Workstation ID: [id number] Transcribed By: Self Edit Transcribed Date: 10/30/2024 10:59 ET Narrative 10/30/2024 11:09 AM EDT History: Lung nodule, greater than 8 mm. Status post cryobiopsy left upper lobe 05/16/24 yielding necrotizing granulomatous inflammation. Comparison: 02/28/24 Technique: Helical volumetric imaging of the thorax was performed without IV contrast. DLP: 901.61 mGy/cm Lingoingpeed VCT Iterative reconstruction technique Findings: The left [...] was performed withoutIV contrast. DLP: 901.61 mGy/cm LingoingpeClarityRay VCT Iterative reconstruction technique Findings: The left [...] infection/mucous plugging. 4. No developing thoracic lymphadenopathy. ICB Internationalrad MILI ([id number]) -------- FINAL REPORT -------- Dictated By: Gabrielle Cobos Dictated Date: 10/30/2024 10:59 ET Assigned Physician: Gabrielle Cobos Reviewed and Electronically Signed By: Gabrielle Cobos Signed Date: 10/30/2024 11:09 ET Workstation ID: [id number] Transcribed By: Self Edit Transcribed Date: 10/30/2024 10:59 ET us Marichuy Flor MD IMG CT PROCEDURES Final Re sult * (ABNORMAL) Comprehensive metabolic panel (07/17/2024 2:26 PM EDT) Sodium 137 133 - 145 mmol/L LAB CHEMISTRY METHOD 07/17/2024 7:37 PM [facility] Potassium 4.0 3.5 - 5.5 mmol/L LAB CHEMISTRY METHOD 07/17/2024 7:37 PM [facility] Chloride 102 96 - 110 mmol/L LAB CHEMISTRY METHOD 07/17/2024 7:37 PM [facility] CO2 30 21 - 32 mmol/L LAB CHEMISTRY METHOD 07/17/2024 7:37 PM [facility] Anion Gap 5 3 - 11 LAB CHEMISTRY METHOD 07/17/2024 7:37 PM [facility] Glucose 85 70 - 100 mg/dL LAB CHEMISTRY METHOD 07/17/2024 7:37 PM [facility] BUN 9 5 - 25 mg/dL LAB CHEMISTRY METHOD 07/17/2024 7:37 PM [facility] Creatinine 0.88 0.70 - 1.30 mg/dL LAB CHEMISTRY METHOD 07/17/2024 7:37 PM [facility] eGFR 93 >=60 mL/min/1. 73m2 LAB CHEMISTRY METHOD 07/17/2024 7:37 PM [facility] Comment:Calculation based on the Chronic Kidney Disease Epidemiology Collaboration (CKD-EPI) equation refit without adjustment for race. BUN/Creatinine Ratio 10.2 LAB CHEMISTRY METHOD 07/17/2024 7:37 PM [facility] Calcium 9.5 8.5 - 10.5 mg/dL LAB CHEMISTRY METHOD 07/17/2024 7:37 PM [facility] AST (SGOT) 16 10 - 42 unit/L LAB CHEMISTRY METHOD 07/17/2024 7:37 PM [facility] ALT (SGPT) 17 10 - 60 unit/L LAB CHEMISTRY METHOD 07/17/2024 7:37 PM EDT [facility] Alkaline Phosphatase 124(H) 42 - 121 unit/L LAB CHEMISTRY METHOD 07/17/2024 7:37 PM EDT [facility] Total Protein 7.4 6.0 - 8.0 g/dL LAB CHEMISTRY METHOD 07/17/2024 7:37 PM EDT [facility] Albumin 3.7 3.2 - 5.0 g/dL LAB CHEMISTRY METHOD 07/17/2024 7:37 PM EDT [facility] Total Bilirubin 0.4 0.0 - 1.4 mg/dL LAB CHEMISTRY METHOD 07/17/2024 7:37 PM EDT [facility] Blood Venous blood specimen / Unknown Venipuncture / Unknown 07/17/2024 2:26 PM EDT 07/17/2024 2:26 PM EDT Carol Cote MD LAB BLOOD ORDERABLES Final Resul t [facility] [address] [place] [address], [place] [phone] * External Colonoscopy Report (04/30/2024 1:18 PM EDT) Anatomical Region Laterality Modality Endoscopy Historical Provider GI~PROCEDURE ORDERABLES F inal Result * Hemoglobin A1c (11/04/2022) Pathologist [facility] Hemoglobin A1C 0.0 <=6.5 % Comment:No Interpretation Blood Venous blood specimen / Unknown Result [facility] Historical Provider LAB BLOOD ORDERABLES Rukhsana l Result * HM Urine Albumin Creatinine Ratio (05/27/2020) Pathologist [facility] Urine Albumin Creatinine Ratio Abstracted Historical Provider HEALTH MAINTENANCE Final Result * Lipid panel (05/27/2020) LDL/HDL Ratio 3 0 - 4 Triglycerides 108 0 - 150 mg/dL Cholesterol 164 0 - 200 mg/dL HDL 50 >=40 mg/dL LDL Cholesterol 93 0 - 100 mg/dL Blood Venous blood specimen / Unknown Historical Provider LAB BLOOD ORDERABLES Rukhsana l Result * Hepatitis C Screening (06/14/2012) Hepatitis C Screening Abstracted Historical Provider HEALTH MAINTENANCE Final Result * Depression Screening (03/18/2011) Depression Screening Abstracted Historical Provider HEALTH MAINTENANCE Final Result from Last 3 Months or Most Recently Relevant to Health Maintenance Insurance [employer] MEDICARE Member Subscriber Plan / Payer (Ef fective 2020-Present) Name:Montana Taylor Relation to Subscriber:Self Name:Montana Taylor Payer ID:[id number] Group ID:[id number] Type:Not on file Address: [place] [address] [place] [id number] Advance Directives * Full Code - Default [...] currently active code status orders. Care Teams Rail Switch Operator Relationship Specialty Start Date End Date Susan Gonsalez MD [address] [place] [address] PCP - General Endocrinology 03/26/24
--- OUTSIDE RECORDS SUMMARY | 2025-01-15 09:59 | XMS_ITS | Encounter Summary ---
Author Organization [facility] Address [address] [place] [address] Care Team Providers Care Field Service Representative Name Role Phone Susan Hughes MD Primary Care Provider Unavaila ble Ann Gutierrez MD Unavailable [phone] Tracey Crouch DNP Unavailable [phone] Encounter Details Date Type Department Care Team Description 03/23/2023 Telephone Pulmonology - [place] [address] [facility] [address] [place] [address] Sushil Srinivasan MD [address] [place] [address] Social History Tobacco Use Types Packs/Day [...] on filedocumented in this encounter Care Teams Field Service Representative Relationship Specialty Start Date End Date Susan Hughes MD PCP - General Internal Medicine 02/25/22 Ann Gutierrez MD Specialist Cardiology 03/18/23 Tracey Crouch DNP Specialist Nurse Practitioner Family 03/18/23 documented as of this encounter
--- OUTSIDE RECORDS SUMMARY | 2025-01-15 09:59 | XMS_ITS | Encounter Summary ---
Author Organization [facility] Address [address] [place] [address] Care Team Providers Care Station Cleaning Porter Name Role Phone Susan Hughes MD Primary Care Provider Unavaila Ann Byrnes MD Unavailable [phone] Tracey Crouch DNP Unavailable [phone] Encounter Details Date Type Department Care Team Description 10/13/2022 Orders Only Cardio PVC POC [address] [facility] [address] [place] [address] Default, Provider Social History Tobacco Use Types Packs/Day [...] Date/Time Associated Diagnosis Comments OUTSIDE LAB Routine 08/09/2022 documented in this encounter Results * OUTSIDE LAB (08/09/2022) Provider Default LAB documented in this encounter Visit Diagnoses Not on filedocumented in this encounter Care Teams Station Cleaning Porter Relationship Specialty Start Date End Date Susan Hughes MD PCP - General Internal Medicine 02/25/22 Ann Gutierrez MD Specialist Cardiology 03/18/23 Tracey Crouch DNP Specialist Nurse Practitioner Family 03/18/23 documented as of this encounter
--- OUTSIDE RECORDS SUMMARY | 2025-01-15 09:59 | XMS_ITS | Encounter Summary ---
Author Organization [facility] Address [address] [place] [address] Care Team Providers Care Sprayer Automatic Spray Machine Name Role Phone De Tovar MD Primary Care Provider [facility], Pcp Primary Care Provider Shilo Mendez MD Primary Care Provider Kane Silva MD Primary Care Provider Kane Whitmore MD Primary Care Provider Hanh Ramirez MD Primary Care Provider Hanh Scott MD Primary Care Provider Susan Henning MD Primary Care Provider Ann Cai MD Unavailable Tracey Crouch DNP Unavailable Encounter Details Date Type Department Care Team Description 08/19/2010 Lead Designer Report Medical Records [address] [place] [address] Kane Manrique MD Social History Tobacco Use [...] on filedocumented in this encounter Care Teams Sprayer Automatic Spray Machine Relationship Specialty Start Date End Date De Tovar MD PCP - General 04/14/09 06/28/11 [facility], Pcp PCP - General Internal Medicine [...]
--- OUTSIDE RECORDS SUMMARY | 2025-01-15 09:59 | XMS_ITS | Clinical Summary ---
Author Organization [facility] Address [address] [address] Phone Care Team Providers Care Clay Transporter Name Role Phone Susan Gonsalez MD Primary Care Provider [phone] Allergies No known active allergies Medications multivitamin-iro u-ffcyliyg-ynkgw acid (CENTRUM) chewable tablet Chew 1 tablet [...] Visit [facility] [address] [phone] Ronan Beltrán MD [address] [address] Health Maintenance Due Date Last [...] AM EST) Hemoglobin A1C 6.2(H) (4.0-5.6) % [facility] Comment: MONITORING: In known diabetic patients, hemoglobin A1c targets should be discussed with health care provider. DIAGNOSTIC USE: The [employer] Diabetes Association (ADA) and the World Health [...] Supplement 1 Testing performed or reported by [facility], a Service of [facility], [address] [place] [address] Mckayla Vargas MD, Set Up Operator [facility]# [id number] Blood specimen (specimen) Venous blood / Unknown 02/25/2022 10:40 AM EST 02/25/2022 10:51 AM EST Malcolm German MD LAB BLOOD ORDERABLES Rukhsana kidd Result [facility] from Last 3 Months or Most Recently Relevant to Health Maintenance Insurance ([id number]) [facility] ([id number]) [place] [id number] Care Teams Clay Transporter Relationship Specialty Start Date End Date Susan Gonsalez MD [address] [place] [address], [address] [place] [address] PCP - General Internal Medicine 07/05/23
--- OUTSIDE RECORDS SUMMARY | 2025-01-15 09:59 | XMS_ITS | Encounter Summary ---
Author Organization [facility] Address [address] [place] [address] Care Team Providers Care Fire Protection Fabricator Name Role Phone Hanh Tobar MD Primary Care Provider Susan Henning MD Primary Care Provider Ann Cai MD Unavailable [phone] Tracey Crouch DNP Unavailable [phone] Reason for Visit * Reason Comments E-prescribe Rx Request Encounter Details Date Type Department Care Team Description 02/05/2020 Refill Pulmonology - [place] [address] [facility] [address] [place] [address] Sushil Srinivasan MD [address] [place] [phone] E-prescribe Rx Request Social History Tobacco Use [...] Miscellaneous Notes * Telephone Encounter - Gladis Baker - 02/05/2020 2:37 PM EST Patient would [...] NO Patients current insurance carrier is: Payor: [employer] / Plan: [employer] / Product Type: MEDICARE [id number] documented in this encounter Plan of Treatment Not on file documented as of this encounter Visit Diagnoses Diagnosis PND (post-nasal drip) Postnasal drip documented in this encounter Care Teams Fire Protection Fabricator Relationship Specialty Start Date End Date Hanh Tobar MD PCP - General Internal Medicine 03/22/18 02/24/22 Susan Hughes MD PCP - General Internal Medicine 02/25/22 Ann Gutierrez MD Specialist Cardiology 03/18/23 Tracey Crouch DNP Specialist Nurse Practitioner Family 03/18/23 documented as of this encounter
--- OUTSIDE RECORDS SUMMARY | 2025-01-15 09:59 | XMS_ITS | Encounter Summary ---
Author Organization [facility] Address [address] [place] [address] Care Team Providers Care Desk Pens Assembler Name Role Phone De Tovar MD Primary Care Provider [facility], Pcp Primary Care Provider Shilo Mendez MD Primary Care Provider [facility] Kane Bran MD Primary Care Provider Kane Whitmore MD Primary Care Provider Hanh Ramirez MD Primary Care Provider Hanh Scott MD Primary Care Provider Susan Henning MD Primary Care Provider Ann Cai MD Unavailable [phone] Tracey Crouch DNP Unavailable [phone] Encounter Details Date Type Department Care Team Description 02/18/2011 Master Planner Report Medical Records [address] [place] [address] Kane Manrique MD Social History Tobacco Use [...] on filedocumented in this encounter Care Teams Desk Pens Assembler Relationship Specialty Start Date End Date De Tovar MD PCP - General 04/14/09 06/28/11 [facility], Pcp PCP - General Internal Medicine [...]
--- OUTSIDE RECORDS SUMMARY | 2025-01-15 09:59 | XMS_ITS | Encounter Summary ---
Author Organization [facility] Address [address] [place] [address] Care Team Providers Care Vacuum Closing Machine Operator Name Role Phone De Tovar MD Primary Care Provider [facility], Pcp Primary Care Provider Shilo Mendez MD Primary Care Provider Unavail Kane Bran MD Primary Care Provider Kane Whitmore MD Primary Care Provider Hanh Ramirez MD Primary Care Provider Hanh Scott MD Primary Care Provider Susan Henning MD Primary Care Provider Ann Cai MD Unavailable [phone] Tracey Crouch DNP Unavailable [phone] Encounter Details Date Type Department Care Team Description 12/25/2010 Compounder Flavorings Report Medical Records [address] [place] [address] Sushil Srinivasan MD [address] [place] [address] Social History Tobacco Use Types Packs/Day [...] on filedocumented in this encounter Care Teams Vacuum Closing Machine Operator Relationship Specialty Start Date End Date De Tovar MD PCP - General 04/14/09 06/28/11 [facility], Pcp PCP - General Internal [...]
--- OUTSIDE RECORDS SUMMARY | 2025-01-15 09:59 | XMS_ITS | Encounter Summary ---
Author Organization [facility] Address [address] [place] [address] Care Team Providers Care Social Media Marketing Manager Name Role Phone De Tovar MD Primary Care Provider [facility] zen Stahl, Pcp Primary Care Provider Shilo Mendez MD Primary Care Provider [facility] Kane Bran MD Primary Care Provider Kane Whitmore MD Primary Care Provider Hanh Ramirez MD Primary Care Provider Hanh Scott MD Primary Care Provider Susan Henning MD Primary Care Provider Ann Cai MD Unavailable [phone] Tracey Crouch DNP Unavailable [phone] Encounter Details Date Type Department Care Team Description 02/04/2010 Controlled Substance Contract with Plan Medical Records [address] [place] [id number] Abstract, Provider Social History Tobacco Use Types Packs/Day Years Used Date Smoking Tobacco: Former Smokeless Tobacco: Never Alcohol Use Standard Drinks/Week Comments Not Asked 0 (1 standard drink = 0.6 oz pur e alcohol) Sex Assigned at Date Recorded Not on file Job Start Date Occupation Industry Not on file Not on file Not on file documented as of this encounter Plan of Treatment Not on file documented as of this encounter Visit Diagnoses Not on filedocumented in this encounter Care Teams Social Media Marketing Manager Relationship Specialty Start Date End Date De Tovar MD PCP - General 04/14/09 06/28/11 [facility], Pcp PCP - General Internal Medicine [...]
--- OUTSIDE RECORDS SUMMARY | 2025-01-15 09:59 | XMS_ITS | Encounter Summary ---
Author Organization [facility] Address [address] [place] [address] Care Team Providers Care Courier Driver Name Role Phone Kane Torrez MD Primary Care Provider Hanh Ramirez MD Primary Care Provider Hanh Scott MD Primary Care Provider Susan Henning MD Primary Care Provider Ann Cai MD Unavailable [phone] Tracey Crouch DNP Unavailable Reason for Visit * Reason Onset Date Comments refill request 07/12/2013 HCTZ 25 mg Encounter Details Date Type Department Care Team Description 07/12/2013 Refill Cardiology - [address] [address] Charles Keita MD refill request (HCTZ 25 mg ) Social History Tobacco Use Types Packs/Day [...] encounter Miscellaneous Notes * Telephone Encounter - Munira Ramos L.P.N. - 07/12/2013 10:02 AM EDT Component Value Date NA 139 04/18/2013 K 4.1 04/18/2013 CO2 31.4 04/18/2013 CL 98 04/18/2013 BUN 11 04/18/2013 CREAT 0.9 04/18/2013 GLU 117 04/18/2013 CA 10.1 04/18/2013 GFR > 60 04/18/2013 Last appt with Anat Benjamin 06-27-13 ASSESSMENT/PLAN: 1. Nonischemic cardiomyopathy 2. HTN (hypertension) 3. Other and unspecified hyperlipidemia 4. Obesity * Telephone Encounter - Rukhsana Bravo - 07/12/2013 9:48 AM EDT Patient would like script to be: E-PRESCRIBED/FAXED TO PHARMACY WHEN WAS THE PATIENT'S LAST APPOINTMENT IN ADULT MEDICINE? 06/27/13 WHEN WAS THE LAST TIME THE PATIENT SAW THEIR PCP? Same as above Does patient have an upcoming appointment? no (THE MEDICATION REQUESTED IS ON THE MED LIST ABOVE) All of the medications requested were on the CURRENT MEDS list Did you check the Pharmacy information above?: YES Patient wants: 30 -day supply Is this a mail order prescription request ? NO Patients current insurance carrier is: [place] Plan: MEDICAID [facility] Product Type: MEDICAIDFEE-FOR-SERVICE documented in this encounter Plan of Treatment Not on file documented as of this encounter Visit Diagnoses Not on filedocumented in this encounter Care Teams Courier Driver Relationship Specialty Start Date End Date Kane [...]
--- OUTSIDE RECORDS SUMMARY | 2025-01-15 09:59 | XMS_ITS | Encounter Summary ---
Author Organization [facility] Address [address] [place] [address] Care Team Providers Care Bolt Man Name Role Phone Hanh Tobar MD Primary Care Provider Susan Henning MD Primary Care Provider Ann Cai MD Unavailable [phone] Tracey Crouch DNP Unavailable [phone] Reason for Visit * Reason Onset Date Comments avelino montero 06/04/2019 Encounter Details Date Type Department Care Team Description 06/04/2019 Telephone Pulmonology - [place] [address] [facility] [address] [place] [address] Sushil Srinivasan MD [address] [place] [phone] avelino montero Social History Tobacco Use Types Packs/Day Years [...] encounter Miscellaneous Notes * Telephone Encounter - Sushil Srinivasan MD - 06/04/2019 4:54 PM EDT Needs to come in- please call and give him an apt next * Telephone Encounter - Piper Holt - 06/04/2019 10:40 AM EDT Symptoms patient is having: patient states he took a week supply of nystatin that was given to him but the thrush has not subsided.please advise. For ALL patients calling to schedule any appointment (routine, sick visit, follow up, consult, etc.) in the outpatient setting please ask the following questions. ??? Do you have fever of higher than 101, sore throat with difficulty swallowing or shortness of breath? NO If YES any of these above symptoms send a message to triage and do not book. Red dot. If no, an audio visit should be booked. ??? Have you had close contact with someone with Coronavirus in the last 14 days? NO ??? Have you traveled abroad? NO ??? Have you been to [place] or in contact with anyone who has recently been in [place]? NO If pain or injury related was it due to an accident at work or from a motor vehicle accident? NO If yes, gather 3rd democrat insurance information Date of accident/Injury: n/a How long has patient had these symptoms?: over 1 wk PCP: Hanh Tobar Payor: MEDICARE-[place]Receipt[place] / [place] / Product Type: MEDICARE [id number] documented in this encounter Plan of Treatment Not on file documented as of this encounter Visit Diagnoses Not on filedocumented in this encounter Care Teams Bolt Man Relationship Specialty Start Date End Date Hanh Tobar MD PCP - General Internal Medicine 03/22/18 02/24/22 Susan Hughes MD PCP - General Internal Medicine 02/25/22 Ann Gutierrez MD Specialist Cardiology 03/18/23 Tracey Crouch DNP Specialist Nurse Practitioner Family 03/18/23 documented as of this encounter
--- OUTSIDE RECORDS SUMMARY | 2025-01-15 09:59 | XMS_ITS | Encounter Summary ---
Author Organization [facility] Address [address] [place] [address] Care Team Providers Care Ip Counsel Name Role Phone Susan Hughes MD Primary Care Provider Unavaila Ann Byrnes MD Unavailable [phone] Tracey Crouch DNP Unavailable [phone] Encounter Details Date Type Department Care Team Description 09/10/2022 Orders Only Pulmonology - [place] [address] [facility] [address] [place] [address] Sushil Srinivasan MD [address] [place] [address] YESICA (obstructive sleep apnea) Social [...] Procedure Name Priority Date/Time Associated Diagnosis Comments MD NONINVASIVE EAR/PULSE OXIMETRY OVERNIGHT MONITOR Routine 05/13/2022 YESICA (obstructive sleep apnea) documented in this encounter Results * MD NONINVASIVE EAR/PULSE OXIMETRY OVERNIGHT MONITOR (05/13/2022) Sushil Srinivasan MD PERFORMABLES documented in this encounter Visit Diagnoses Diagnosis YESICA (obstructive sleep apnea) Obstructive sleep apnea (adult) (pediatric) documented in this encounter Care Teams Ip Counsel Relationship Specialty Start Date End Date Susan Hughes MD PCP - General Internal Medicine 02/25/22 Ann Gutierrez MD Specialist Cardiology 03/18/23 Tracey Crouch DNP Specialist Nurse Practitioner Family 03/18/23 documented as of this encounter
--- OUTSIDE RECORDS SUMMARY | 2025-01-15 09:59 | XMS_ITS | Encounter Summary ---
Author Organization [facility] Address [address] [place] [address] Care Team Providers Care Manager Group Name Role Phone Kane Torrez MD Primary Care Provider Hanh Ramirez MD Primary Care Provider Susan Henning MD Primary Care Provider Ann Cai MD Unavailable [phone] Tracey Crouch DNP Unavailable [phone] Reason for Visit * Reason Comments E-prescribe Rx Request Encounter Details Date Type Department Care Team Description 11/20/2017 Refill Pulmonology - [place] [address] [facility] [address] [place] [address] Sushil Srinivasan MD [address] [place] [address] E-prescribe Rx Request Social History [...] encounter Miscellaneous Notes * Telephone Encounter - Lorena Lucio - 11/21/2017 10:40 AM EDT Patient would like script to be: E-PRESCRIBED/FAXED TO PHARMACY WHEN WAS THE PATIENT'S LAST APPOINTMENT WITH THE PRESCRIBING PROVIDER? Showing that patient canceled appointments this year Does patient have an upcoming appointment? No future appointment is scheduled at this time (THE MEDICATION REQUESTED IS ON THE MED LIST ABOVE) All of the medications requested were on the CURRENT MEDS list Did you check the Pharmacy information above?: YES Patient wants: 90 -day supply Is this a mail order prescription request ? NO Patients current insurance carrier is: [place] / [place] / Product Type: MEDICAID [id number] documented in this encounter Plan of Treatment Not on file documented as of this encounter Visit Diagnoses Not on filedocumented in this encounter Care Teams Manager Group Relationship Specialty Start Date End Date Kane Torrez MD PCP - General Internal Medicine 04/14/14 03/21/18 Hanh Tobar MD PCP - General Internal Medicine 03/22/18 02/24/22 Susan Hughes MD PCP - General Internal Medicine 02/25/22 Ann Gutierrez MD Specialist Cardiology 03/18/23 Tracey Crouch DNP Specialist Nurse Practitioner Family 03/18/23 documented as of this encounter
--- OUTSIDE RECORDS SUMMARY | 2025-01-15 09:59 | XMS_ITS | Encounter Summary ---
Author Organization [facility] Address [address] [place] [address] Care Team Providers Care Welfare Supervisor Name Role Phone De Tovar MD Primary Care Provider [facility] zen Stahl, Pcp Primary Care Provider Shilo Mendez MD Primary Care Provider Kane Silva MD Primary Care Provider Kane Whitmore MD Primary Care Provider Hanh Ramirez MD Primary Care Provider Hanh Scott MD Primary Care Provider Susan Henning MD Primary Care Provider Ann Cai MD Unavailable [phone] Tracey Crouch DNP Unavailable [phone] Encounter Details Date Type Department Care Team Description 04/19/2011 Glass Cut Off Tender Report Medical Records [address] [place] [address] Anya Matos [address] [place] [address] Social History Tobacco Use Types Packs/Day Years [...] on filedocumented in this encounter Care Teams Welfare Supervisor Relationship Specialty Start Date End Date De Tovar MD PCP - General 04/14/09 06/28/11 [facility], Pcp PCP - General Internal Medicine [...]
--- OUTSIDE RECORDS SUMMARY | 2025-01-15 09:59 | XMS_ITS | Encounter Summary ---
Author Organization [facility] Address [address] [place] [address] Care Team Providers Care Branch Operations Manager Name Role Phone Community, Pcp Primary Care Provider Shilo Mendez MD Primary Care Provider Kane Silva MD Primary Care Provider Kane Whitmore MD Primary Care Provider Hanh Ramirez MD Primary Care Provider Hanh Scott MD Primary Care Provider Susan Henning MD Primary Care Provider Ann Cai MD Unavailable [phone] Tracey Crouch DNP Unavailable [phone] Encounter Details Date Type Department Care Team Description 07/02/2011 Release of Information Medical Records [address] [place] [address] Abstract, Provider Social History Tobacco Use Types [...] on filedocumented in this encounter Care Teams Branch Operations Manager Relationship Specialty Start Date End Date Community, Pcp PCP - General Internal Medicine 06/29/11 07/25/11 Shilo Leblanc MD PCP - General Internal Medicine 07/26/11 07/27/11 Kane Torrez MD PCP - General Internal Medicine 07/28/11 01/03/12 Kane Torrez MD PCP - General Internal Medicine 04/14/14 03/21/18 Hanh Tobar MD PCP - General Internal Medicine 03/22/18 02/24/22 Hanh Tobar MD PCP - General 01/04/12 04/13/14 Susan Huhges MD PCP - General Internal Medicine 02/25/22 Ann Gutierrez MD Specialist Cardiology 03/18/23 Tracey Crouch DNP Specialist Nurse Practitioner Family 03/18/23 documented as of this encounter
--- OUTSIDE RECORDS SUMMARY | 2025-01-15 09:59 | XMS_ITS | Encounter Summary ---
Author Organization [facility] Address [address] [place] [address] Care Team Providers Care Wax Molder Name Role Phone Kane Torrez MD Primary Care Provider Hanh Ramirez MD Primary Care Provider Susan Henning MD Primary Care Provider Ann Cai MD Unavailable [phone] Tracey Crouch DNP Unavailable Reason for Visit * Reason Comments E-prescribe Rx Request Encounter Details Date Type Department Care Team Description 05/09/2017 Refill Pulmonology - [place] [address] [facility] [address] [place] [address] Sushil Srinivasan MD [address] [place] [address] E-prescribe Rx Request Social History [...] on filedocumented in this encounter Care Teams Wax Molder Relationship Specialty Start Date End Date Kane Torrez MD PCP - General Internal Medicine 04/14/14 03/21/18 Hanh Tobar MD PCP - General Internal Medicine 03/22/18 02/24/22 Susan Hughes MD PCP - General Internal Medicine 02/25/22 Ann Gutierrez MD Specialist Cardiology 03/18/23 Tracey Crouch DNP Specialist Nurse Practitioner Family 03/18/23 documented as of this encounter
--- OUTSIDE RECORDS SUMMARY | 2025-01-15 09:59 | XMS_ITS | Encounter Summary ---
Author Organization [facility] Address [address] [place] [address] Care Team Providers Care Cardio Clinician Name Role Phone Hanh Tobar MD Primary Care Provider Unav ailable Susan Hughes MD Primary Care Provider Unavaila Ann Byrnes MD Unavailable [phone] Tracey Crouch DNP Unavailable [phone] Encounter Details Date Type Department Care Team Description 12/31/2019 SCAN Medical Records [address] [place] [id number] Abstract, Provider Social History Tobacco Use Types [...] on filedocumented in this encounter Care Teams Cardio Clinician Relationship Specialty Start Date End Date Hanh Tobar MD PCP - General Internal Medicine 03/22/18 02/24/22 Susan Hughes MD PCP - General Internal Medicine 02/25/22 Ann Gutierrez MD Specialist Cardiology 03/18/23 Tracey Crouch DNP Specialist Nurse Practitioner Family 03/18/23 documented as of this encounter
--- OUTSIDE RECORDS SUMMARY | 2025-01-15 09:59 | XMS_ITS | Encounter Summary ---
Author Organization [facility] Address [address] [place] [address] Care Team Providers Care Drain Technician Name Role Phone Susan Hughes MD Primary Care Provider Unavaila Ann Byrnes MD Unavailable [phone] Tracey Crouch DNP Unavailable [phone] Reason for Visit * Reason Onset Date Comments Echocardiogram 03/22/2022 Results Medication 03/22/2022 Refills Encounter Details Date Type Department Care Team Description 03/22/2022 Telephone Cardio PVC POC [address] [place], [place] [id number] Ann Gutierrez MD [address] [place] [id number] Echocardiogram (Results); Medication (Refills) Social History Tobacco [...] In the last 10 days, have yo suhas been in contact with someone who was confirmed or suspected to have Coronavirus/COVID-19? No / Unsure 03/02/2022 2:35 PM EST documented as of this encounter Miscellaneous Notes * Telephone Encounter - Debbie Dupree - 04/07/2022 11:12 AM EST Bebe called back. She is going to fax over the list of Medications to [phone]. Please call her with any questions Navarro [...] by Dr. Gutierrez. Forwarding message to Elsie Montes./DIANNA Montes * Telephone Encounter - Jeni Gomez M.A. - 04/02/2022 2:11 PM EST Called Bebe from [facility] yesterday and waiting for a call back./DIANNA * Telephone Encounter - Jeni Gomez M.A. - 04/01/2022 2:47 PM EST Called pt, wanted to know what medications he might need. He did talk with the visit nurse and she did make up a new list, but he is not sure what is on it. He gave me his case workers # Yolie [phone]. Going to give her a call and review pt meds with her and what he might need refilled. * Telephone Encounter - Jeni Gomez M.A. - 03/24/2022 4:18 PM EST Called pt, visiting nurse never called to review pt medications.Asked pt to give me a call back./DIANNA * Telephone Encounter - Jeni Contrerasana maria Pena - 03/22/2022 10:50 AM EST Images from [...] pt also has not been in his [facility]?? I read Dr. Gutierrez Message to him [...] EST Back to Top Dr. Gutierrez sent [employer] message to pt on 02/24/2022. Called pt because he has not read the message yet and log in to his [employer] last on 09/11/2021. Asked pt to call [...] on filedocumented in this encounter Care Teams Drain Technician Relationship Specialty Start Date End Date Susan Hughes MD PCP - General Internal Medicine 02/25/22 Ann Gutierrez MD Specialist Cardiology 03/18/23 Tracey Crouch DNP Specialist Nurse Practitioner Family 03/18/23 documented as of this encounter
--- OUTSIDE RECORDS SUMMARY | 2025-01-15 09:59 | XMS_ITS | Encounter Summary ---
Author Organization [facility] Address [address] [place] [address] Care Team Providers Care Lumber Press Operator Name Role Phone De Tovar MD Primary Care Provider [facility], Pcp Primary Care Provider Shilo Mendez MD Primary Care Provider Unavail Kane Bran MD Primary Care Provider Kane Whitmore MD Primary Care Provider Hanh Ramirez MD Primary Care Provider Hanh Scott MD Primary Care Provider Susan Henning MD Primary Care Provider Ann Cai MD Unavailable [phone] Tracey Crouch DNP Unavailable [phone] Reason for Visit * Reason Onset Date Comments refill request 05/01/2010 Encounter Details Date Type Department Care Team Description 05/01/2010 Refill Adult Medicine [facility] [address] [place] [address] De Tovar MD refill request Social History [...] on filedocumented in this encounter Care Teams Lumber Press Operator Relationship Specialty Start Date End Date De Tovar MD PCP - General 04/14/09 06/28/11 [facility], Pcp PCP - General Internal Medicine 06/29/11 07/25/11 Shilo Leblanc MD PCP - General Internal Medicine 07/26/11 07/27/11 Kane Torrez MD PCP - General Internal Medicine 07/28/11 01/03/12 Kane Torrez MD PCP - General Internal Medicine 04/14/14 03/21/18 Hanh Tobar MD PCP - General Internal Medicine 03/22/18 02/24/22 aHnh Tobar MD PCP - General 01/04/12 04/13/14 Susan Hughes MD PCP - General Internal Medicine 02/25/22 Ann Gutierrez MD Specialist Cardiology 03/18/23 Tracey Crouch DNP Specialist Nurse Practitioner Family 03/18/23 documented as of this encounter
--- OUTSIDE RECORDS SUMMARY | 2025-01-15 09:59 | XMS_ITS | Encounter Summary ---
Author Organization [facility] Address [address] [place] [address] Care Team Providers Care Excellence Consultant Name Role Phone De Tovar MD Primary Care Provider [facility] zen Stahl, Pcp Primary Care Provider Shilo Mendez MD Primary Care Provider Kane Silva MD Primary Care Provider Kane Whitmore MD Primary Care Provider Hanh Ramirez MD Primary Care Provider Hanh Scott MD Primary Care Provider Susan Henning MD Primary Care Provider Ann Cai MD Unavailable [phone] Tracey Crouch DNP Unavailable Encounter Details Date Type Department Care Team Description 09/21/2010 Home Health Certification Medical Records [address] [place] [address] Abstract, Provider Social History Tobacco Use Types [...] on filedocumented in this encounter Care Teams Excellence Consultant Relationship Specialty Start Date End Date De Tovar MD PCP - General 04/14/09 06/28/11 [facility], Pcp PCP - General Internal Medicine 06/29/11 [...]
--- OUTSIDE RECORDS SUMMARY | 2025-01-15 09:59 | XMS_ITS | Encounter Summary ---
Author Organization [facility] Address [address] [place] [address] Care Team Providers Care Bouffant Curtain Machine Tender Name Role Phone De Tovar MD Primary Care Provider [facility], Pcp Primary Care Provider Shilo Mendez MD Primary Care Provider [facility] Kane Bran MD Primary Care Provider Kane Whitmore MD Primary Care Provider Hanh Ramirez MD Primary Care Provider Hanh Scott MD Primary Care Provider Susan Henning MD Primary Care Provider Ann Cai MD Unavailable [phone] Tracey Crouch DNP Unavailable [phone] Encounter Details Date Type Department Care Team Description 07/17/2010 Blacksmith Hammer Operator Report Medical Records [address] [place] [address] Kane Manrique MD Social History Tobacco Use [...] on filedocumented in this encounter Care Teams Bouffant Curtain Machine Tender Relationship Specialty Start Date End Date De Tovar MD PCP - General 04/14/09 06/28/11 [facility], Pcp PCP - General Internal [...]
--- OUTSIDE RECORDS SUMMARY | 2025-01-15 09:59 | XMS_ITS | Encounter Summary ---
Author Organization [facility] Address [address] [place] [address] Care Team Providers Care Upholsterer Apprentice Name Role Phone De Tovar MD Primary Care Provider [facility] zen [facility], Pcp Primary Care Provider Shilo Mendez MD Primary Care Provider Kane Silva MD Primary Care Provider Kane Whitmore MD Primary Care Provider Hanh Ramirez MD Primary Care Provider Hanh Scott MD Primary Care Provider Susan Henning MD Primary Care Provider Ann Cai MD Unavailable Tracey Crouch DNP Unavailable [phone] Encounter Details Date Type Department Care Team Description 01/25/2011 Eye Logistics Tech Report Medical Records [address] [place] [address] Abhijeet Irwin MD Social History Tobacco Use [...] on filedocumented in this encounter Care Teams Upholsterer Apprentice Relationship Specialty Start Date End Date De Tovar MD PCP - General 04/14/09 06/28/11 [facility], Pcp PCP - General Internal Medicine 06/29/11 [...]
--- OUTSIDE RECORDS SUMMARY | 2025-01-15 10:00 | XMS_ITS | Encounter Summary ---
Author Organization [facility] Address [address] [place] [address] Care Team Providers Care Commercial Sales Director Name Role Phone Susan Gonsalez MD Primary Care Provider [phone] Reason for Visit * Reason Onset Date Comments medication question 01/09/2025 Encounter Details Date Type Department Care Team (Late st Contact Info) Description 01/09/2025 Telephone [facility] [address] [place] [phone] Tex Aguila NP [address] [place] [address] [address] [place] [phone] Social History Tobacco Use Types Packs/Day Years [...] as of this encounter Progress Notes * Christina New RN - 01/09/2025 4:57 PM EST Spoke to Rebecca and informed her the patient was seen 01/01/25 and advised to continue Simvastatin 20 mg daily. Last prescribed by PCP Dr. Gonsalez per Rebecca. * Celi Berman - 01/09/2025 4:51 PM EST Rebecca from [facility] called and is questioning if the patient is still taking simvastatin 20mg. Please call Rebecca back at [phone] documented in this encounter Plan of Treatment Not on file documented as of this encounter Visit Diagnoses Not on filedocumented in this encounter Care Teams Commercial Sales Director Relationship Specialty Start Date End Date Susan Gonsalez MD [address] [place] [address] PCP - General Endocrinology 03/26/24 documented as of this encounter
--- OUTSIDE RECORDS SUMMARY | 2025-01-15 10:00 | XMS_ITS | Encounter Summary ---
Author Organization [facility] Address [address] [place] [address] Care Team Providers Care Road Worker Name Role Phone Hanh Tobar MD Primary Care Provider Unav ailable Susan Hughes MD Primary Care Provider Unavaila Ann Byrnes MD Unavailable [phone] Tracey Crouch DNP Unavailable [phone] Encounter Details Date Type Department Care Team Description 09/27/2018 Old Medical Records Medical Records [address] [place] [address] Abstract, Provider Social History Tobacco Use Types [...] on filedocumented in this encounter Care Teams Road Worker Relationship Specialty Start Date End Date Hanh Tobar MD PCP - General Internal Medicine 03/22/18 02/24/22 Susan Hughes MD PCP - General Internal Medicine 02/25/22 Ann Gutierrez MD Specialist Cardiology 03/18/23 Tracey Crouch DNP Specialist Nurse Practitioner Family 03/18/23 documented as of this encounter
--- OUTSIDE RECORDS SUMMARY | 2025-01-15 10:00 | XMS_ITS | Encounter Summary ---
Author Organization [facility] Address [address] [place] [address] Care Team Providers Care Director Cpg Name Role Phone Hanh Tobar MD Primary Care Provider Unav ailable Susan Hughes MD Primary Care Provider Unavaila ble Ann Gutierrez MD Unavailable [phone] Tracey Crouch DNP Unavailable [phone] Encounter Details Date Type Department Care Team Description 06/30/2018 Story Reader Report Medical Records [address] [place] [id number] [place] [address] Social History Tobacco Use Types Packs/Day Years [...] filedocumented in this encounter Care Teams Director Cpg Relationship Specialty Start Date End Date Hanh Tobar MD PCP - General Internal Medicine 03/22/18 02/24/22 Susan Hughes MD PCP - General Internal Medicine 02/25/22 Ann Gutierrez MD Specialist Cardiology 03/18/23 Tracey Crouch DNP Specialist Nurse Practitioner Family 03/18/23 documented as of this encounter
--- OUTSIDE RECORDS SUMMARY | 2025-01-15 10:00 | XMS_ITS | Data Portability ---
Author Organization [place] [facility] Address [address] [facility] [address] [place] [address] Care Team Providers Care Home Hospice Aide Name Role Phone KatelinWALETR ULLOA Primary Care Provider Assessment Encounter Date [...] Organization Details Recorded Time Respirato ry finding 638688656 Active 2016 Feeling of foreign body in throat; Note: Date Diagnosed: 07/19/2016 9:53 AM (R09.89) Not Available [facility] 02:32:36 Cardiovas cular finding 596712149 Active 2016 Feeling of foreign body in throat; Note: Date Diagnosed: 07/19/2016 9:53 AM (R09.89) Not Available [facility] 4 02:32:36 Gastroeso phageal reflux disease without esophagit is 212870573 Active 2016 Gastro-eso phageal reflux disease without esophagiti s; Note: Date Diagnosed: 07/19/2016 9:54 AM (K21.9) Not Available [facility] 4 02:32:25 Dysphonia 65908911 Active 2016 Hoarseness ; Note: Date Diagnosed: 07/19/2016 10:03 AM (R49.0) Not Available [facility] 4 02:32:30 Nasal congestio n 19384622 Active 2016 Nasal congestion ; Note: Date Diagnosed: 09/11/2016 7:39 AM (R09.81) Not Available [facility] 4 02:32:35 Posterior rhinorrhe a 52222577 Active 2017 Postnasal drip; Note: Date Diagnosed: 03/07/2017 10:06 AM (R09.82) Not Available [facility] 4 02:32:26 Chronic obstructi ve pulmonary disease 90200097 Active 2019 Chronic obstructiv e pulmonary disease, unspecifie d; Note: Date Diagnosed: 01/11/2020 11:01 AM (J44.9) Not Available [facility] 4 02:32:24 Feeling of lump in throat 109962343 Active 2024 FAHAD BRAY MD [address] [place] [address],[place] [address], [address] , [place] [facility] 5 15:32:23 Dysphagia 23660861 Active 2024 FAHAD BRAY MD [address] [place] [address],[place] [address], [address] , [place] [facility] 5 10:07:10 Traumatic brain injury 262592143 Active 2024 FAHAD BRAY MD [address] [place] [address],[place] [address], [address] , [place] [facility] 10:07:47 Problem Notes None recorded. Procedures Surgical History Date Name Laterality Status Provider Name and Address Organization Details Recorded Time 07/17/2024 FOL_DP completed FAHAD BRAY MD [address] [place] [address], [phone], [place] [facility] 07/17/2024 10:06:31 Imaging Results None recorded. [...] mg capsule 04/03 completed Medicati on ID: [id number] B rand Name: fluoxeti ne Send Method: [...] sustained -release 2019 active Medicati on ID: [id number] B rand Name: bupropio n HCl Send Method: E-Prescr ibed Sub s Allowed: subs OK Speci al Instruct ion: TAKE 1 TABLET BY MOUTH TWICE A DAY Medi cationGe nericNam e: bupropio n HCl Not Available Not Available Not Available nystatin 100,000 unit/mL oral suspensio n 04/03 completed Medicati on ID: [id number] B rand Name: nystatin Send Method: E-Prescr [...] al patch 12/30 completed Medicati on ID: [id number] D uration Value: 14 Brand Name: nicotine Send Method: E-Prescr ibed Sub s Allowed: subs OK Speci al Instruct ion: APPLY 1 PATCH DAILY DIRECTED . Medica tionGene ricName: nicotine Not Available Not Available Not Available albuterol sulfate 2.5 mg/3 mL (0.083 %) solution for nebulizat ion 12/30 completed Medicati on ID: [id number] D uration Value: 30 Brand Name: albutero l sulfate Send Method: E-Prescr ibed Sub s Allowed: subs OK Medic ationGen ericName : albutero l sulfate Not Available Not Available Not Available citalopra m 40 mg tablet 03/07 completed Medicati on ID: [id number] D uration Value: 30 Reason: () Brand Name: citalopr am Send Method: E-Prescr ibed Sub s Allowed: subs OK Speci al Instruct ion: TAKE 1 TABLET DAILY. M edicatio nGeneric Name: citalopr am Not Available Not Available Not Available oxybutyni n chloride ER 10 mg tablet,ex tended release 24 hr 12/30 completed Medicati on ID: [id number] D uration Value: 30 Brand Name: oxybutyn in chloride Send Method: E-Prescr ibed Sub s Allowed: subs OK Speci al Instruct ion: TAKE 2 TABLETS BY MOUTH EVERY DAY IN THE MORNING Medicati onGeneri cName: oxybutyn in chloride Not Available Not Available Not Available pravastat in 40 mg tablet 12/30 completed Medicati on ID: [id number] D uration Value: 30 Brand Name: pravasta tin Send Method: E-Prescr ibed Sub s Allowed: subs OK Speci al Instruct ion: TAKE 1 TABLET DAILY Me dication GenericN debo: pravasta tin Not Available Not Available Not Available fluconazo le 150 mg tablet 12/30 completed Medicati on ID: [id number] D uration Value: 4 Brand Name: fluconaz [...] mg tablet 2019 active Medicati on ID: [id number] B rand Name: lisinopr il Send Method: E-Prescr ibed Sub s Allowed: subs OK Speci al Instruct ion: TAKE 2 TABLETS BY MOUTH EVERY DAY Medi cationGe nericNam e: lisinopr il Not Available Not Available Not Available prednison e 20 mg tablet 03/07 completed Medicati on ID: [id number] D uration Value: 5 Reason: () Brand [...] mg tablet 07/17 completed Medicati on ID: [id number] B rand Name: simvasta tin Send Method: E-Prescr ibed Sub s Allowed: subs OK Speci al Instruct ion: TAKE 1 TABLET BY MOUTH EVERY DAY IN THE EVENING Medicati onGeneri cName: simvasta tin Not Available Not Available Not Available atenolol 25 mg tablet 03/07 completed Medicati on ID: [id number] D uration Value: 30 Reason: () Brand Name: atenolol Send Method: E-Prescr ibed Sub s Allowed: subs OK Speci al Instruct ion: TAKE 1 TABLET DAILY. M edicatio nGeneric Name: atenolol Not Available Not Available Not Available oxcarbaze pine 300 mg tablet 04/03 completed Medicati on ID: [id number] B rand Name: oxcarbaz epine Se nd [...] mg capsule 07/17 completed Medicati on ID: [id number] B rand Name: tamsulos in Send Method: [...] mg tablet 07/17 completed Medicati on ID: [id number] B rand Name: metformi n Send Method: E-Prescr ibed Sub s Allowed: subs OK Speci al Instruct ion: TAKE 1/2 TABLET BY MOUTH DAILY Me dication GenericN debo: metformi n Not Available Not Available Not Available lidocaine 5 % topical patch 12/30 completed Medicati on ID: [id number] D uration Value: 30 Brand Name: lidocain [...] mg capsule 12/30 completed Medicati on ID: [id number] D uration Value: 30 Brand Name: gabapent [...] both nostrils 04/03 completed Medicati on ID: [id number] Yuki figueroa By Name: Roberta regan MD Brand Name: Atrovent Send Method: E-Prescr ibed Sub s Allowed: subs OK Medic ationGen ericName : Atrovent Not Available Not Available Not Available Vitamin D3 25 mcg (1,000 unit) capsule 07/17 completed Medicati on ID: [id number] B rand Name: Vitamin D3 Send Method: E-Prescr ibed Sub s Allowed: subs OK Medic ationGen ericName : Vitamin D3 Not Available Not Available Not Available Alcohol Prep Pads 04/03 completed Medicati on ID: [id number] D uration Value: 30 Brand Name: Alcohol Prep Pads Sen d Method: E-Prescr ibed Sub s Allowed: subs OK Speci al Instruct ion: USE TOPICALL Y 3 TIMES A DAY BEFORE CHECKING BLOOD SUGAR Me dication GenericN debo: Alcohol Prep Pads Not Available Not Available Not Available lactulose 10 gram/15 mL oral solution 12/30 completed Medicati on ID: [id number] D uration Value: 30 Brand Name: lactulos [...] aerosol inhaler 04/03 completed Medicati on ID: [id number] D uration Value: 30 Brand Name: Symbicor t Send Method: E-Prescr ibed Sub s Allowed: subs OK Speci al Instruct ion: INHALE 2 PUFFS BY MOUTH TWICE A DAY Medi cationGe nericNam e: Symbicor t Not Available Not Available Not Available FreeStyle Lite Strips 04/03 completed Medicati on ID: [id number] D uration Value: 25 Brand Name: FreeStyl e Lite Strips S end Method: E-Prescr ibed Sub s Allowed: subs OK Speci al Instruct ion: TEST 2 TIMES DAILY Me dication GenericN debo: FreeStyl e Lite Strips Not Available Not Available Not Available CoQ-10 100 mg capsule 07/17 completed Medicati on ID: [id number] B rand Name: CoQ-10 S end Method: E-Prescr ibed Sub s Allowed: subs OK Medic ationGen ericName : CoQ-10 Not Available Not Available Not Available oxycodone 20 mg tablet 12/30 completed Medicati on ID: [id number] D uration Value: 30 Brand Name: oxycodon e Send Method: E-Prescr ibed Sub s Allowed: subs OK Speci al Instruct ion: TAKE 1 TABLET BY MOUTH TWICE A DAY NEEDED FOR PAIN Med icationG enericNa me: oxycodon e Not Available Not Available Not Available Citracal Regular 250 mg (as citrate)- 5 mcg (200 unit) tablet 07/17 completed Medicati on ID: [id number] B rand Name: Citracal Regular Send Method: E-Prescr ibed Sub s Allowed: subs OK Medic ationGen ericName : Citracal Regular Not Available Not Available Not Available Centrum Silver 0.4 mg-300 mcg-250 mcg tablet 07/17 completed Medicati on ID: [id number] B rand Name: Centrum Silver S end [...] inhalatio n 07/17 completed Medicati on ID: [id number] B rand Name: Anoro Ellipta Send Method: [...] Updated DateTime 07/17/2024 182.88 cm 27.1 kg/m2 93713.47 g BEATA SHEIKH [place] [facility] 07/17/2024 09:44:30 Social History None recorded. Functional Status None recorded. Mental Status None recorded. Family History Nothing Reported. Medical History No medical history recorded. Past Encounters Encounter ID Performer Location Encounter Start Date Encounter Closed Date Diagnosis/Indication Diagnosis SNOMED-CT Code Diagnosis ICD10 Code Diagnosis IMO Codes Diagnosis Note [id number] FAHAD BRAY MD [facility] [address] [place] [address] 07/17/2024 09:11:35 07/17/2024 10:07:34 Feeling of lump in throat 805073896 R09.A2 063132 Dysphagia 35028549 R13.1 4 906441 Traumatic brain injury 666400284 S06.9XAS 2071760695 Health Concerns Section Related Observation LastModified by Organization Detai ls LastModified Time None Recorded Concern Status LastModified by Organization Details LastModified Time None Recorded Advance Directives Directive None Recorded Payers Insurance Date Sequence Insurance Name Policy Number Policy Perkins Covered Member ID Perkins Member ID Guarantor Name 07/17/2024 2 [place] [facility] Montana Taylor [id number] Montana Taylor 07/17/2024 1 [facility] - DOS ON OR AFTER 2022 - ONE CARE (MEDICARE REPLACEMENT/AD VANTAGE - HMO) Montana Taylor [id number] Montana Taylor Notes Date Note Type Note [...] results.04/03/20 FOL dry mucosa FAHAD BRAY MD [address] [place] [address], [place], [address], [facility] - [facility] 07/17/2024 10:09:27
--- OUTSIDE RECORDS SUMMARY | 2025-01-15 10:00 | XMS_ITS | Clinical Summary ---
Author Organization [facility] Address [address] [place] [address] Care Team Providers Care Kid Club Attendant Name Role Phone Susan Hughes MD Primary Care Provider Unavaila Ann Byrnes MD Unavailable [phone] Tracey Crouch DNP Unavailable [phone] Allergies Active Allergy Reactions Severity Noted Date [...] for 360 days. 90 Tablet 3 07/26/2023 Active Active Problems Patient Care Coordination No te Formatting of this note is d ifferent from the original. Checking Your Blood Sugars Please check your blood sugars every day. Please check your sugars at the following times of day: before breakfast Your Blood Sugar Goals Pre Meal: 90-130 2 hours after meals: 110-160 Bedtime: 110-150 Use the Results Bring your glucometer to every appointment Write your fingerstick blood sugars down on a log sheet or record book. Bring them to your appointment Look for patterns in the numbers. The [...] year Health Maintenance Due Topic Date Due Adult Immunization: Tetanus Diptheria And Pertussis (Tdap) 1973 Baseline Health Exam 40-64 1994 Chf Care Plan 03/29/2012 Spirometry (Breathing Capacity Test) For Copd 09/18/2012 Diabetes: Annual Care Plan 04/27/2013 Diabetes: Annual Eye Exam 08/17/2013 Your Action [...] just unsure what to do Educational Resources [employer] (www.diabetes.org) Centers for Disease Control [...] pounds in a week Use the Results Write your weight down on a log [...] physician) Health Maintenance Due Topic Date Due Adult Immunization: Tetanus Diptheria And Pertussis (Tdap) 1973 Baseline Health Exam 40-64 1994 Chf Care Plan 03/29/2012 Spirometry (Breathing Capacity Test) For Copd 09/18/2012 Diabetes: Annual Care Plan 04/27/2013 Diabetes: Annual Eye Exam 08/17/2013 Your Action [...] get your yearly flu shot Educational Resources [employer] (www.heart.org) This care plan was created in collaboration with Montana Taylor on 08/29/2013 Problem Noted Date Persistent atrial fibrillation Acute on chronic systolic heart failure 03/25/2023 Chronic atrial fibrillation 03/25/2023 Traumatic brain injury 03/25/2023 Coronary artery disease invo lving atka coronary artery of atka heart without angina pectoris 03/25/2023 Nonischemic cardiomyopathy [...] exam-10.10 dr lopez Depression 01/19/2010 Overview: Seeing [facility] Hyperlipidemia 01/19/2010 Last Assessment & Plan: [...] 61 07/26/2023 1:05 PM EDT Temperature 36.4 C (97.6 F) 01/11/2023 8:42 AM EST Respiratory Rate 20 01/11/2023 8:42 AM EST [...] 05/27/2021 05/27/2020, 04/02/2014, 08/28/2013, Additional history exists DEPRESSION SCREENING/FOLLOWUP 02/15/2024 03/18/2011, 01/18/2011, 11/19/2010, Additional history exists Covid-19 Vaccine ( season) 2024 03/30/2021, 09/28/2020, 05/07/2020, Additional history exists INFLUENZA (#1) 2024 11/28/2017, 10/17, 12/31/2013, Additional history exists SPIROMETRY (BREATHING CAPACITY TEST) FOR COPD 01/11/2025 01/11/2023, 01/11/2023, 09/18/2010 (External Completion) DTAP/TDAP/TD (2 - Td or Tdap) 2032 01/13/2022 HEPATITIS C SCREENING Addressed 06/14/2012 (External Completion of test per patient (Patient reports normal results)) Overridden with the intention of not completing the topic Care Teams Kid Club Attendant Relationship Specialty Start Date End Date Susan Hughes MD PCP - General Internal Medicine 02/25/22 Ann Gutierrez MD Specialist Cardiology 03/18/23 Tracey Crouch, MARK Specialist Nurse Practitioner Family 03/18/23
--- OUTSIDE RECORDS SUMMARY | 2025-01-15 10:00 | XMS_ITS | Encounter Summary ---
Author Organization [facility] Address [address] [place] [address] Care Team Providers Care Zoogler Name Role Phone Susan Hughes MD Primary Care Provider Unavaila Ann Byrnes MD Unavailable [phone] Tracey Crouch DNP Unavailable [phone] Encounter Details Date Type Department Care Team Description 05/05/2023 SCAN Medical Records [address] [place] [address] Abstract, Provider Social History Tobacco Use Types Packs/Day Years Used Date Smoking Tobacco: Former Smokeless Tobacco: Former Quit: 2018 Alcohol Use Standard Drinks/Week Comments Not Currently [...] Date/Time Associated Diagnosis Comments OUTSIDE LAB Routine 05/05/2023 documented in this encounter Results * OUTSIDE LAB (05/05/2023) Provider Default LAB documented in this encounter Visit Diagnoses Not on filedocumented in this encounter Care Teams Zoogler Relationship Specialty Start Date End Date Susan Hughes MD PCP - General Internal Medicine 02/25/22 Ann Gutierrez MD Specialist Cardiology 03/18/23 Tracey Crouch, MARK Specialist Nurse Practitioner Family 03/18/23 documented as of this encounter
== END 2025-01-15 10:02 | disposition home or self-care (01) ==
LOC: HO.HMCFM 09:20
PROVIDERS: PCP Internal Medicine; Visit Provider Internal Medicine
DX: S06.9XAS Unspecified intracranial injury with loss of consciousness status unknown, sequela (principal); E11.42 Type 2 diabetes mellitus with diabetic polyneuropathy; I50.42 Chronic combined systolic (congestive) and diastolic (congestive) heart failure; M47.16 Other spondylosis with myelopathy, lumbar region

== ENCOUNTER 2025-01-15 09:19 | Outpatient (REF) | payer OTHER, SELFPAY ==
[2025-01-15 11:25] LABS: MANUAL DIFF FLAG NO
--- OUTSIDE RECORDS SUMMARY | 2025-01-15 11:26 | XMS_ITS | Data Portability ---
Author Organization [facility] Address [address] [place] [address] Assessment Encounter Date Assessment Date Assessment LastModified by Organization Details LastModified Time 02/21/2023 02/21/2023 As noted, we were called to see this patient regarding concerns of dyspnea. Evaluation in the field was performed by my b2b outside sales representative colleague, as noted above, I provided real-time direction and supervision for this visit. The evaluation revealed the patient has COPD on home oxygen and was in acute distress. Vitals as noted with hypoxemia, worse even with speaking. Animal Doctor arranged for urgent transport to ED. In [...] /min 185.42 cm 83 % 2 L/min 25888.3 2 g 77 /min 111/78 mm[Hg] Not Available [facility] - production 11:41:41 Social History None recorded. Functional Status None recorded. Mental Status None recorded. Family History Nothing Reported. Medical History No medical history recorded. Past Encounters Encounter ID Performer Location Encounter Start Date Encounter Closed Date Diagnosis/Indication Diagnosis SNOMED-CT Code Diagnosis ICD10 Code Diagnosis IMO Codes Diagnosis Note [id number] MOISES JOHNSON MD [facility] - [facility] [address] [place] [address] 02/21/2023 11:41:38 02/21/2023 12:15:00 Acute hypoxemic respiratory failure 821008811 J96.01 Health Concerns Section Related Observation LastModified by Organization Detai ls LastModified Time None Recorded Concern Status LastModified by Organization Details LastModified Time None Recorded Advance Directives Directive None Recorded Payers Insurance Date Sequence Insurance Name Policy Number Policy Perkins Covered Member ID Perkins Member ID Guarantor Name 02/21/2023 1 [facility] - DOS ON OR AFTER 2022 - DUAL ELIGIBLE - [facility] OPTIONS AND ONE CARE (MEDICARE REPLACEMENT/ADV ANTAGE - HMO) Montana Taylor [id number] Montana Taylor Notes Date Note Type Note [...] .................. .................. .................. .................. .................. .................. ............... Animal Doctor Note From Brent Aguila: Pt reports cough [...] rales in lower right. [address] [facility] alerted to pt condition. While waiting for EMS to arrive I increased his O2 and discussed [facility] plans with the pt. He was very receptive and plans to confer with the ED MD and his CCA mastic sprayer who is going to meet him in the ED. Care transferred to [facility]. .................. .................. .................. .................. .................. .................. .................. ............... Disposition: Fulfilled MOISES JOHNSON MD [address] [place] [address],[address], [place], [address], [facility] - GANESH ROUSE 02/21/2023 11:44:01
--- OUTSIDE RECORDS SUMMARY | 2025-01-15 11:27 | XMS_ITS | Data Portability ---
Author Organization [place] - [facility], Allergy Address [address] [facility] [address] [place] [address] Care Team Providers Care Customer Service Operator Name Role Phone KatelinWALTER ULLOA Primary Care Provider [phone] Assessment Encounter Date Assessment Date Assessment LastModified [...] Organization Details Recorded Time Respirato ry finding 852636477 Active 2016 Feeling of foreign body in throat; Note: Date Diagnosed: 07/19/2016 9:53 AM (R09.89) Not Available [employer] 02:32:36 Cardiovas cular finding 656549830 Active 2016 Feeling of foreign body in throat; Note: Date Diagnosed: 07/19/2016 9:53 AM (R09.89) Not Available [facility] 4 02:32:36 Gastroeso phageal reflux disease without esophagit is 581192479 Active 2016 Gastro-eso phageal reflux disease without esophagiti s; Note: Date Diagnosed: 07/19/2016 9:54 AM (K21.9) Not Available [facility] 4 02:32:25 Dysphonia 45421630 Active 2016 Hoarseness ; Note: Date Diagnosed: 07/19/2016 10:03 AM (R49.0) Not Available [facility] 4 02:32:30 Nasal congestio n 14040791 Active 2016 Nasal congestion ; Note: Date Diagnosed: 09/11/2016 7:39 AM (R09.81) Not Available [facility] 4 02:32:35 Posterior rhinorrhe a 03328606 Active 2017 Postnasal drip; Note: Date Diagnosed: 03/07/2017 10:06 AM (R09.82) Not Available [facility] 4 02:32:26 Chronic obstructi ve pulmonary disease 44437714 Active 2019 Chronic obstructiv e pulmonary disease, unspecifie d; Note: Date Diagnosed: 01/11/2020 11:01 AM (J44.9) Not Available [facility] 4 02:32:24 Feeling of lump in throat 218509814 Active 2024 FAHAD BRAY MD [address] [place] [address],[place] [address], [address] , [place] - [facility] 5 15:32:23 Dysphagia 45689913 Active 2024 FAHAD BRAY MD [address] [place] [address],[place] [address], [address] , [place] - [facility] 5 10:07:10 Traumatic brain injury 304375070 Active 2024 FAHAD BRAY MD [address] [place] [address],[place] [address], [address] , [place] - [facility] 10:07:47 Problem Notes None recorded. Procedures Surgical History Date Name Laterality Status Provider Name and Address Organization Details Recorded Time 07/17/2024 FOL_DP completed FAHAD BRAY MD [address] [place] [address], [address], [place] - [facility] 07/17/2024 10:06:31 Imaging Results None recorded. [...] mg capsule 04/03 completed Medicati on ID: [id number] B rand Name: fluoxeti ne Send Method: [...] sustained -release 2019 active Medicati on ID: [id number] B rand Name: bupropio n HCl Send Method: E-Prescr ibed Sub s Allowed: subs OK Speci al Instruct ion: TAKE 1 TABLET BY MOUTH TWICE A DAY Medi cationGe nericNam e: bupropio n HCl Not Available Not Available Not Available nystatin 100,000 unit/mL oral suspensio n 04/03 completed Medicati on ID: [id number] B rand Name: nystatin Send Method: E-Prescr [...] al patch 12/30 completed Medicati on ID: [id number] D uration Value: 14 Brand Name: nicotine Send Method: E-Prescr ibed Sub s Allowed: subs OK Speci al Instruct ion: APPLY 1 PATCH DAILY DIRECTED . Medica tionGene ricName: nicotine Not Available Not Available Not Available albuterol sulfate 2.5 mg/3 mL (0.083 %) solution for nebulizat ion 12/30 completed Medicati on ID: [id number] D uration Value: 30 Brand Name: albutero l sulfate Send Method: E-Prescr ibed Sub s Allowed: subs OK Medic ationGen ericName : albutero l sulfate Not Available Not Available Not Available citalopra m 40 mg tablet 03/07 completed Medicati on ID: [id number] D uration Value: 30 Reason: () Brand Name: citalopr am Send Method: E-Prescr ibed Sub s Allowed: subs OK Speci al Instruct ion: TAKE 1 TABLET DAILY. M edicatio nGeneric Name: citalopr am Not Available Not Available Not Available oxybutyni n chloride ER 10 mg tablet,ex tended release 24 hr 12/30 completed Medicati on ID: [id number] D uration Value: 30 Brand Name: oxybutyn in chloride Send Method: E-Prescr ibed Sub s Allowed: subs OK Speci al Instruct ion: TAKE 2 TABLETS BY MOUTH EVERY DAY IN THE MORNING Medicati onGeneri cName: oxybutyn in chloride Not Available Not Available Not Available pravastat in 40 mg tablet 12/30 completed Medicati on ID: [id number] D uration Value: 30 Brand Name: pravasta tin Send Method: E-Prescr ibed Sub s Allowed: subs OK Speci al Instruct ion: TAKE 1 TABLET DAILY Me dication GenericN debo: pravasta tin Not Available Not Available Not Available fluconazo le 150 mg tablet 12/30 completed Medicati on ID: [id number] D uration Value: 4 Brand Name: fluconaz [...] mg tablet 2019 active Medicati on ID: [id number] B rand Name: lisinopr il Send Method: E-Prescr ibed Sub s Allowed: subs OK Speci al Instruct ion: TAKE 2 TABLETS BY MOUTH EVERY DAY Medi cationGe nericNam e: lisinopr il Not Available Not Available Not Available prednison e 20 mg tablet 03/07 completed Medicati on ID: [id number] D uration Value: 5 Reason: () Brand [...] mg tablet 07/17 completed Medicati on ID: [id number] B rand Name: simvasta tin Send Method: E-Prescr ibed Sub s Allowed: subs OK Speci al Instruct ion: TAKE 1 TABLET BY MOUTH EVERY DAY IN THE EVENING Medicati onGeneri cName: simvasta tin Not Available Not Available Not Available atenolol 25 mg tablet 03/07 completed Medicati on ID: [id number] D uration Value: 30 Reason: () Brand Name: atenolol Send Method: E-Prescr ibed Sub s Allowed: subs OK Speci al Instruct ion: TAKE 1 TABLET DAILY. M edicatio nGeneric Name: atenolol Not Available Not Available Not Available oxcarbaze pine 300 mg tablet 04/03 completed Medicati on ID: [id number] B rand Name: oxcarbaz epine Se nd [...] mg capsule 07/17 completed Medicati on ID: [id number] B rand Name: tamsulos in Send Method: [...] mg tablet 07/17 completed Medicati on ID: [id number] B rand Name: metformi n Send Method: E-Prescr ibed Sub s Allowed: subs OK Speci al Instruct ion: TAKE 1/2 TABLET BY MOUTH DAILY Me dication GenericN debo: metformi n Not Available Not Available Not Available lidocaine 5 % topical patch 12/30 completed Medicati on ID: [id number] D uration Value: 30 Brand Name: lidocain [...] mg capsule 12/30 completed Medicati on ID: [id number] D uration Value: 30 Brand Name: gabapent [...] both nostrils 04/03 completed Medicati on ID: [id number] Yuki figueroa By Name: Roberta regan MD Brand Name: Atrovent Send Method: E-Prescr ibed Sub s Allowed: subs OK Medic ationGen ericName : Atrovent Not Available Not Available Not Available Vitamin D3 25 mcg (1,000 unit) capsule 07/17 completed Medicati on ID: [id number] B rand Name: Vitamin D3 Send Method: E-Prescr ibed Sub s Allowed: subs OK Medic ationGen ericName : Vitamin D3 Not Available Not Available Not Available Alcohol Prep Pads 04/03 completed Medicati on ID: [id number] D uration Value: 30 Brand Name: Alcohol Prep Pads Sen d Method: E-Prescr ibed Sub s Allowed: subs OK Speci al Instruct ion: USE TOPICALL Y 3 TIMES A DAY BEFORE CHECKING BLOOD SUGAR Me dication GenericN debo: Alcohol Prep Pads Not Available Not Available Not Available lactulose 10 gram/15 mL oral solution 12/30 completed Medicati on ID: [id number] D uration Value: 30 Brand Name: lactulos [...] aerosol inhaler 04/03 completed Medicati on ID: [id number] D uration Value: 30 Brand Name: Symbicor t Send Method: E-Prescr ibed Sub s Allowed: subs OK Speci al Instruct ion: INHALE 2 PUFFS BY MOUTH TWICE A DAY Medi cationGe nericNam e: Symbicor t Not Available Not Available Not Available FreeStyle Lite Strips 04/03 completed Medicati on ID: [id number] D uration Value: 25 Brand Name: FreeStyl e Lite Strips S end Method: E-Prescr ibed Sub s Allowed: subs OK Speci al Instruct ion: TEST 2 TIMES DAILY Me dication GenericN debo: FreeStyl e Lite Strips Not Available Not Available Not Available CoQ-10 100 mg capsule 07/17 completed Medicati on ID: [id number] B rand Name: CoQ-10 S end Method: E-Prescr ibed Sub s Allowed: subs OK Medic ationGen ericName : CoQ-10 Not Available Not Available Not Available oxycodone 20 mg tablet 12/30 completed Medicati on ID: [id number] D uration Value: 30 Brand Name: oxycodon e Send Method: E-Prescr ibed Sub s Allowed: subs OK Speci al Instruct ion: TAKE 1 TABLET BY MOUTH TWICE A DAY NEEDED FOR PAIN Med icationG enericNa me: oxycodon e Not Available Not Available Not Available Citracal Regular 250 mg (as citrate)- 5 mcg (200 unit) tablet 07/17 completed Medicati on ID: [id number] B rand Name: Citracal Regular Send Method: E-Prescr ibed Sub s Allowed: subs OK Medic ationGen ericName : Citracal Regular Not Available Not Available Not Available Centrum Silver 0.4 mg-300 mcg-250 mcg tablet 07/17 completed Medicati on ID: [id number] B rand Name: Centrum Silver S end [...] inhalatio n 07/17 completed Medicati on ID: [id number] B rand Name: Anoro Ellipta Send Method: [...] Updated DateTime 07/17/2024 182.88 cm 27.1 kg/m2 32763.47 g BEATA SHEIKH [place] [facility] 07/17/2024 09:44:30 Social History None recorded. Functional Status None recorded. Mental Status None recorded. Family History Nothing Reported. Medical History No medical history recorded. Past Encounters Encounter ID Performer Location Encounter Start Date Encounter Closed Date Diagnosis/Indication Diagnosis SNOMED-CT Code Diagnosis ICD10 Code Diagnosis IMO Codes Diagnosis Note [id number] FAHAD BRAY MD [facility] [place] [address] [place] [address] 07/17/2024 09:11:35 07/17/2024 10:07:34 Feeling of lump in throat 018818672 R09.A2 655545 Dysphagia 72647450 R13.1 4 081153 Traumatic brain injury 941793088 S06.9XAS 5502274218 Health Concerns Section Related Observation LastModified by Organization Detai ls LastModified Time None Recorded Concern Status LastModified by Organization Details LastModified Time None Recorded Advance Directives Directive None Recorded Payers Insurance Date Sequence Insurance Name Policy Number Policy Perkins Covered Member ID Perkins Member ID Guarantor Name 07/17/2024 2 [place] [facility] [place] Taylor [id number] [place] 07/17/2024 1 [facility] - DOS ON OR AFTER 2022 - ONE CARE (MEDICARE REPLACEMENT/AD VANTAGE - HMO) [place] Taylor [id number] [place] Taylor Notes Date Note Type Note [...] results.04/03/20 FOL dry mucosa FAHAD BRAY MD [address] [place] [address], [place], [address], [facility] - [facility] 07/17/2024 10:09:27
[2025-01-15 11:31] LABS: Hematocrit 40.0 % (42.0-52.0); Hemoglobin 11.9 g/dl (14.0-18.0); Imm Gran Abs Auto 0.02 X10*3/uL (0.00-0.03); Imm Gran Pct Auto 0.3 % (0.0-0.4); Lymphocytes Absolute Auto 1.0 X10*3/uL (1.2-4.9); Mean Corpuscular HGB Conc 29.8 g/dl (31.0-36.0); Mean Corpuscular Hemoglobin 22.2 pg (27.0-33.0); Mean Corpuscular Volume 74.8 fL (80.0-98.0); NRBC Abs Auto 0.000 X10*3/uL (0.0-0.012); NRBC Pct Auto 0.0 /100WBC (0.0-0.2); Platelet Count 402 X10*3/uL (160-400); Red Blood Count 5.35 X10*6/uL (4.60-5.80); White Blood Count 6.3 X10*3/uL (4.8-10.8)
[2025-01-15 12:03] LABS: Alanine Aminotransferase 10 U/L (0-40); Albumin Level 4.4 g/dL (3.5-5.0); Alkaline Phosphatase 108 U/L (39-117); Anion Gap 13 (12-20); Aspartate Amino Transferase 27 U/L (5-37); Blood Urea Nitrogen 14 mg/dL (9-16); Calcium 9.5 mg/dL (8.4-10.2); Carbon Dioxide 31 mmol/L (22-29); Chloride 101 mmol/L (96-108); Cholesterol 147 mg/dL (<200); Estimated Glomerular Filt Rate > 60; HDL Cholesterol 40 mg/dL (>40); Iron 29 mcg/dL (45-160); Percent Iron Saturation 8 % (15-50); Potassium 4.2 mmol/L (3.3-5.1); Sodium 141 mmol/L (135-145); Total Iron Binding Capacity 348 mcg/dL (228-428); Total Protein 7.7 g/dL (6.5-8.0); Triglycerides 73 mg/dL (<150); Unsaturated Iron Binding 319 ug/dL
[2025-01-15 12:22] LABS: Ferritin 20 ng/mL (20-250)
[2025-01-15 12:26] LABS: Folate 8.8 ng/mL (> or = 4.0); Vitamin B12 407 pg/mL (200-900)
== END 2025-01-15 09:20 | disposition home or self-care (01) ==
LOC: HO.WFDLDS 09:19
PROVIDERS: PCP Internal Medicine; Referring Provider Surgery; Visit Provider Internal Medicine
DX: K44.9 Diaphragmatic hernia without obstruction or gangrene (principal); I48.0 Paroxysmal atrial fibrillation; E11.42 Type 2 diabetes mellitus with diabetic polyneuropathy; S06.9XAS Unspecified intracranial injury with loss of consciousness status unknown, sequela; I50.42 Chronic combined systolic (congestive) and diastolic (congestive) heart failure; M47.16 Other spondylosis with myelopathy, lumbar region; E46 Unspecified protein-calorie malnutrition
CPT/HCPCS: 36415; 80053; 80061; 82306; 82607; 82728; 82746; 83036; 83525; 83540; 84425; 84443; 84590; 85025; 86140; 99212

== ENCOUNTER 2025-01-21 09:22 | Outpatient (REF) | payer OTHER, SELFPAY | END 2025-01-21 09:23 | disposition home or self-care (01) | LOC: HO.LAB 09:22 | PROVIDERS: PCP Internal Medicine; Visit Provider Surgery | DX: I50.42 Chronic combined systolic (congestive) and diastolic (congestive) heart failure (principal); I48.0 Paroxysmal atrial fibrillation; K44.9 Diaphragmatic hernia without obstruction or gangrene | CPT/HCPCS: 36415; 84630 ==